=== PATIENT | male | born 1970 | race Caucasian/White ===

== ENCOUNTER 2020-05-24 10:37 | Inpatient (IN) ==
[2020-05-24 12:36] LABS: Basophils # (auto) 0.01 K/uL (0-0.2); Basophils % (auto) 0.1 %; Eosinophils # (auto) 0.27 K/uL (0-0.5); Eosinophils % (auto) 3.4 %; Immature Granulocytes # (auto) 0.11 K/uL (0.00-0.02); Immature Granulocytes % (auto) 1.4 %; Lymphocytes # (auto) 1.71 K/uL (1.2-3.4); Lymphocytes % (auto) 21.3 %; Mean Corpuscular Hemoglobin 30.6 pg (25-34); Mean Corpuscular Hgb Conc 34.9 g/dL (32-36); Mean Corpuscular Volume 87.8 fL (80-100); Monocytes # (auto) 0.96 K/uL (0.11-0.59); Neutrophils # (auto) 4.95 K/uL (1.4-6.5); Neutrophils % (auto) 61.8 %; Platelet Count 155 K/uL (130-400); White Blood Count 8.01 K/uL (4.8-10.8)
[2020-05-24 12:49] LABS: Alanine Aminotransferase 76 U/L (12-78); Albumin Globulin Ratio 0.5 (0.9-2); Albumin Level 2.8 gm/dl (3.4-5.0); Alkaline Phosphatase 104 U/L (45-117); Aspartate Aminotransferase 37 U/L (15-37); BUN Creatinine Ratio 17.7 (10-20); Beta-Hydroxybutyrate 1.15 mg/dl (0.2-2.81); Bilirubin,Total 0.9 mg/dl (0.2-1); Blood Urea Nitrogen 51 mg/dl (7-18); Calcium 9.4 mg/dl (8.5-10.1); Carbon Dioxide 19 mmol/L (21-32); Chloride 92 mmol/L (98-107); Creatinine Clr Calc Pharmacy 35.1 ml/min; Est GFR (African American) 28.1; Est GFR (Non-African American) 24.3; Glucose 758 mg/dl (70-99); Lipase 745 U/L (73-393); Magnesium 2.4 mg/dl (1.8-2.4); Potassium 4.9 mmol/L (3.5-5.1); Sodium 123 mmol/L (136-145); Total Protein 8.8 gm/dl (6.4-8.2)
[2020-05-24 12:52] LABS: Appearance Urine Clear (Clear); Bacteria Urine Automated Negative (Negative); Bilirubin Urine Negative (Negative); Blood Urine Negative (Negative); Color Urine Yellow; Epithelial Cell Urine Auto 0-5 /lpf (0-5); Glucose Urine UA 3+ (Negative); Ketones Urine Negative (Negative); Leukocyte Esterase Urine Negative (Negative); Nitrite Urine Negative (Negative); Protein Urine Trace (Negative); RBC Urine Automated 0-4 /hpf (0-4); Specific Gravity Urine 1.021 (1.000-1.030); Urobilinogen Urine Negative (Negative); WBC Urine Automated 0 /hpf (0-5)
[2020-05-24 12:55] LABS: Troponin I < 0.015 ng/ml (0-0.045)
[2020-05-24 13:00] LABS: Base Excess VBG -2.2 mEq/L; HCO3 VBG 24 mmol/L; Oxygen Saturation VBG < 60.0 %; PCO2 VBG 46 mmHg (38-50); PO2 VBG 30 mmHg; pH VBG 7.34 (7.36-7.41)
[2020-05-24] MEDS: NICOTINE 21 MG/24 HR TDSY TD SCH (13:02)
[2020-05-24] MEDS: SODIUM CHLORIDE 0.9% 1000ML 1,000 ML IV SCH ×2 (13:02→14:46)
[2020-05-24] MEDS ORDERED: MODERATE STRESS LEVEL ONE ×2 (13:27→15:59)
[2020-05-24 13:47] LABS: Estimated Average Glucose 375 mg/dl; Hemoglobin A1C 14.7 % (4.5-5.6)
[2020-05-24] MEDS ORDERED: HHS GOAL RANGE 250-350 mg/dl ONE (13:57)
[2020-05-24] MEDS ORDERED: NovoLIN-R BOLUS FROM BAG IV ONE (13:59)
[2020-05-24] MEDS ORDERED: GLUCOSE 10 TABS/TUBE PO PRN ×2 (14:15→15:59)
[2020-05-24] MEDS ORDERED: GLUCOSE 40% GEL 15 GM TUBE PO PRN ×2 (14:15→15:59)
[2020-05-24] MEDS ORDERED: CARBOHYDRATES FOR HYPOGLYCEMIA PO PRN ×2 (14:15→15:59)
[2020-05-24] MEDS ORDERED: GLUCAGON FOR INJ 1 MG VIAL IM PRN (14:15)
--- NOTE | 2020-05-24 14:42 | Emergency Department Note ---
History of Present Illness General Chief complaint: Hyperglycemia Stated complaint: LIGHTHEADED DIZZY History of Present Illness Maximum Pain Intensity: 0 This is a 50-year-old male presenting to the emergency department for evaluation of lightheadedness and dizziness. The patient has a history of type 2 diabetes and is on insulin. Evidently he takes his insulin once at night, despite his prescription needing double that amount. Up until 1 month ago the patient was drinking 6-10 beers a day. He describes having surgical removal of a right buttocks cyst 1 month ago, and after the procedure had difficulty sitting for long periods of time. The patient states that his diet actually improved as he was not comfortable sitting in the car to drive and get fast food. He also did not drive to get alcohol, and essentially quit cold turkey. For the past week he has had significant thirst and is urinating large amounts every hour. His home glucometer broke, and he is not able to check his insulin numbers. He does have some fuzziness with distance vision and lightheadedness with walking. He states this is interfering with his life, and he feels this is all his fault. The patient rates his current discomfort a 0/10, and does express a desire to get better. Home Medications Home Medications Medication Instructions Recorded Confirmed Type cholecalciferol (vitamin D3) 50 2,000 units PO DAILY #30 cap 02/23/19 05/24/20 Rx mcg (2,000 unit) capsule amlodipine 10 mg tablet 10 mg PO DAILY #90 tab 11/11/19 05/24/20 Rx furosemide 80 mg tablet 80 mg PO DAILY #90 tab 11/11/19 05/24/20 Rx metoprolol succinate 100 mg 100 mg PO DAILY #90 tab 11/11/19 04/21/20 Rx tablet,extended release 24 hr pen needle, diabetic 32 gauge x #200 ea 11/11/19 04/21/20 Rx 5/32" blood-glucose meter #1 ea 11/19/19 04/21/20 Rx blood-glucose meter #1 ea 11/19/19 04/21/20 Rx losartan 100 mg tablet 100 mg PO DAILY #90 tab 11/19/19 05/24/20 Rx insulin glargine 100 unit/mL (3 54 units SQ BID #45 ml 12/14/19 05/24/20 Rx mL) subcutaneous pen atorvastatin 40 mg tablet 40 mg PO QPM #90 tab 02/09/20 05/24/20 Rx canagliflozin 100 mg tablet 100 mg PO DAILY #30 tab 05/05/20 05/24/20 Rx spironolactone 25 mg tablet 25 mg PO DAILY #30 tab 05/05/20 Rx aspirin [Aspirin Low Dose] 81 mg PO QAM 05/24/20 05/24/20 History Allergies Allergy/AdvReac Type Severity Reaction Status Date / Time No Known Allergies Allergy Verified 05/24/20 14:25 Past Med/Surg History Medical History Alcohol abuse Anejaculatory orgasm Diabetes mellitus Dyspnea on minimal exertion Psoriasis Smokeless tobacco use Umbilical hernia Uncontrolled hypertension Vitamin D insufficiency Surgical History No pertinent past surgical history Family History Father Cardiac disorder Hypertension Grandfather Cardiac disorder Grandmother Breast cancer Social History Smoking Status: Never smoker Second Hand Exposure: No; Hx Alcohol Use: Yes Alcohol type: beer Alcohol Intake Frequency Comment: [id number] Hx Substance Use: No Preferred Language: Guamanian Communication Ability: Effective Visual Impairment: No Limitations Hearing Ability: Normal Beliefs That Will Affect Care: None marital status: Legally Current Living Situation: Parent Current Living Situation Comment: LIVES WITH FATHER current occupational status: unemployed Feels Safe at Home: Yes Childhood Exposure to Second-Hand Smoke: Yes caffeine: Yes (mt dew) during the past year weight has: increased > 10 lbs Dental Care, Regularly: No Physical Activity Frequency: Does not Exercise Seatbelt Use: always Sunscreen Use: No Review of Systems A total of 10 systems reviewed and were otherwise negative Physical Exam Vital Signs Vital Signs - 24 hr 05/24/20 10:51 05/24/20 11:23 05/24/20 11:25 Temperature 36.7 C Temperature Source Oral Pulse Rate - Lying 99 H Pulse Rate - Sitting 102 H Pulse Rate - Standing 106 H Pulse Rate 105 H Pulse Rate [Left Finger] Respiratory Rate 16 Blood Pressure - Lying 149/92 H Blood Pressure - Sitting 136/96 Blood Pressure- Standing 105/69 Blood Pressure 103/72 Blood Pressure [Left Arm] Blood Pressure Mean 82 Blood Pressure Mean [Left Arm] Pulse Oximetry 98 98 Oxygen Delivery Method Room Air Sepsis Recent Fever Within 48 Hours No Sepsis New/Unexplained Change in Mental Status No Sepsis Action Taken by Nursing No Action Required 05/24/20 12:57 05/24/20 13:44 05/24/20 14:48 Temperature Temperature Source Pulse Rate - Lying Pulse Rate - Sitting Pulse Rate - Standing Pulse Rate Pulse Rate [Left Finger] 94 H 90 88 Respiratory Rate 22 20 20 Blood Pressure - Lying Blood Pressure - Sitting Blood Pressure- Standing Blood Pressure Blood Pressure [Left Arm] 122/77 126/79 150/89 H Blood Pressure Mean Blood Pressure Mean [Left Arm] 92 94 109 Pulse Oximetry 97 99 99 Oxygen Delivery Method Room Air Room Air Room Air Sepsis Recent Fever Within 48 Hours Sepsis New/Unexplained Change in Mental Status Sepsis Action Taken by Nursing VITALS: Vitals are noted on the nurse's note and reviewed by myself. Vital signs stable. GENERAL: Well-developed, well-nourished, white male, who is in no acute distress and resting comfortably. Patient is cooperative with the examination. HEAD: Normocephalic atraumatic. NOSE: Patent, turbinates without inflammation or discharge. MOUTH: Mucous membranes dry. Tonsils are not enlarged. Pharynx without erythema, blood, or exudate. Uvula midline. Airway patent. NECK: Supple without nuchal rigidity. No lymphadenopathy. No thyromegaly. Cervical spine is nontender. HEART: Regular rate and rhythm without murmurs gallops or rubs. LUNGS: Clear to auscultation bilaterally without wheezes, rales or rhonchi. No retractions or accessory muscle use. ABDOMEN: Positive normal bowel sounds x 4. Soft, nontender, without masses or organomegaly. No guarding or rebound tenderness. MUSCULOSKELETAL: No muscle atrophy, erythema, or edema noted. Full range of motion in all extremities. NEURO: Patient was alert and oriented to person place and time. CN II through XII grossly intact. SKIN: The skin was with mild scattered pustules on the back of the neck and into the back of the chest Course Administered Medications Insulin Human Regular 250 (units/ Sodium Chloride) 250 mls @ 9.7 mls/hr IV .Q24H [facility]; Protocol Stop: 06/23/20 13:59 Last Admin: 05/24/20 14:43 Dose: 9.7 units/hr, 9.7 mls/hr Documented by: [id number] Cosigned by: [id number] Nicotine (Nicotine 21 Mg/24 Hr Tdsy) 21 mg TD QAM ANIL Stop: 06/23/20 12:44 Last Admin: 05/24/20 13:02 Dose: Not Given Documented by: [id number] Discontinued Medications Sodium Chloride (Nss 1000ml) 1,000 mls @ 999 mls/hr IV .Q1H1M ANIL Stop: 05/24/20 14:21 Last Admin: 05/24/20 14:46 Dose: 999 mls/hr Documented by: [id number] Infusion: 05/24/20 14:00 Dose: 0 mls/hr Documented by: [id number] Admin: 05/24/20 13:02 Dose: 999 mls/hr Documented by: [id number] Insulin Human Regular (Novolin-R Bolus From Bag) 9.7 units IV ONE ONE Stop: 05/24/20 14:00 Last Admin: 05/24/20 14:45 Dose: 9.7 units Documented by: [id number] Cosigned by: [id number] Miscellaneous ([facility] Goal Range 250-350 Mg/Dl) 1 ea N/A ONE ONE Stop: 05/24/20 13:58 Last Admin: 05/24/20 14:46 Dose: Not Given Documented by: [id number] Critical Care Time I have personally spent greater than 30 minutes of critical care time in the direct management of this patient. This includes bedside care, interpretation of diagnostic studies, and testing, discussion with consultants, patient, and family members, and other required patient management activities. This 30 minutes is in excess of all separately billable procedures. Medical Decision Making Differential Diagnosis Differential includes DKA, HH NK, acute coronary syndrome, myocardial infa rction, CVA, TIA, anemia, infection, pneumonia, UTI, pyelonephritis, poor nutrition, dehydration, electrolyte disturbance,hypoglycemia. Laboratory Data Result diagrams: 05/24/20 11:15 05/24/20 11:15 Lab Results 05/24/20 05/24/20 05/24/20 Range/Units 11:06 11:07 11:15 WBC 8.01 (4.8-10.8) K/uL RBC 4.90 (4.7-6.1) M/uL Hgb 15.0 (14.0-18.0) g/dL Hct 43.0 (42-52) % MCV 87.8 (80-100) fL MCH 30.6 (25-34) pg MCHC 34.9 (32-36) g/dL Plt Count 155 (130-400) K/uL Immature Gran % (Auto) 1.4 % Neut % (Auto) 61.8 % Lymph % (Auto) 21.3 % [place] % (Auto) 12.0 % Eos % (Auto) 3.4 % Baso % (Auto) 0.1 % Neut # (Auto) 4.95 (1.4-6.5) K/uL Lymph # (Auto) 1.71 (1.2-3.4) K/uL [place] # (Auto) 0.96 H (0.11-0.59) K/uL Eos # (Auto) 0.27 (0-0.5) K/uL Baso # (Auto) 0.01 (0-0.2) K/uL Immature Gran # (Auto) 0.11 H (0.00-0.02) K/uL VBG pH (7.36-7.41) VBG pCO2 (38-50) mmHg VBG pO2 mmHg VBG HCO3 mmol/L VBG O2 Saturation % VBG Base Excess mEq/L Barometric Pressure mm/Hg Sodium (136-145) mmol/L Potassium (3.5-5.1) mmol/L Chloride (98-107) mmol/L Carbon Dioxide (21-32) mmol/L Anion Gap (3-11) BUN (7-18) mg/dl Creatinine (0.6-1.4) mg/dl Est Cr Clr Drug Dosing ml/min Est GFR ( Amer) Est GFR (Non-Af Amer) BUN/Creatinine Ratio (10-20) Glucose (70-99) mg/dl POC Glucose > 600 H* > 600 H* (70-99) mg/dl Estimat Average Glucose mg/dl Hemoglobin A1c (4.5-5.6) % Calcium (8.5-10.1) mg/dl Magnesium (1.8-2.4) mg/dl Total Bilirubin (0.2-1) mg/dl AST (15-37) U/L ALT (12-78) U/L Alkaline Phosphatase (45-117) U/L Troponin I (0-0.045) ng/ml Total Protein (6.4-8.2) gm/dl Albumin (3.4-5.0) gm/dl Globulin (2.5-4.0) gm/dl Albumin/Globulin Ratio (0.9-2) Lipase (73-393) U/L Beta-Hydroxybutyric Acd (0.2-2.81) mg/dl TSH (0.300-4.500) uIu/ml Urine Color Urine Appearance (Clear) Urine pH (4.5-7.5) Ur Specific [place] (1.000-1.030) Urine Protein (Negative) Urine Glucose (UA) (Negative) Urine Ketones (Negative) Urine Blood (Negative) Urine Nitrite (Negative) Urine Bilirubin (Negative) Urine Urobilinogen (Negative) Ur Leukocyte Esterase (Negative) Urine WBC (Auto) (0-5) /hpf Urine RBC (Auto) (0-4) /hpf U Hyaline Cast (Auto) (0-5) /lpf U Epithel Cells (Auto) (0-5) /lpf Urine Bacteria (Auto) (Negative) 05/24/20 05/24/20 05/24/20 Range/Units 11:15 11:15 12:40 WBC (4.8-10.8) K/uL RBC (4.7-6.1) M/uL Hgb (14.0-18.0) g/dL Hct (42-52) % MCV (80-100) fL MCH (25-34) pg MCHC (32-36) g/dL Plt Count (130-400) K/uL Immature Gran % (Auto) % Neut % (Auto) % Lymph % (Auto) % [place] % (Auto) % Eos % (Auto) % Baso % (Auto) % Neut # (Auto) (1.4-6.5) K/uL Lymph # (Auto) (1.2-3.4) K/uL [place] # (Auto) (0.11-0.59) K/uL Eos # (Auto) (0-0.5) K/uL Baso # (Auto) (0-0.2) K/uL Immature Gran # (Auto) (0.00-0.02) K/uL VBG pH (7.36-7.41) VBG pCO2 (38-50) mmHg VBG pO2 mmHg VBG HCO3 mmol/L VBG O2 Saturation % VBG Base Excess mEq/L Barometric Pressure mm/Hg Sodium 123 L (136-145) mmol/L Potassium 4.9 (3.5-5.1) mmol/L Chloride 92 L (98-107) mmol/L Carbon Dioxide 19 L (21-32) mmol/L Anion Gap 12.0 H (3-11) BUN 51 H (7-18) mg/dl Creatinine 2.87 H (0.6-1.4) mg/dl Est Cr Clr Drug Dosing 35.1 ml/min Est GFR ( Amer) 28.1 Est GFR (Non-Af Amer) 24.3 BUN/Creatinine Ratio 17.7 (10-20) Glucose 758 H* (70-99) mg/dl POC Glucose (70-99) mg/dl Estimat Average Glucose 375 mg/dl Hemoglobin A1c 14.7 H (4.5-5.6) % Calcium 9.4 (8.5-10.1) mg/dl Magnesium 2.4 (1.8-2.4) mg/dl Total Bilirubin 0.9 (0.2-1) mg/dl AST 37 (15-37) U/L ALT 76 (12-78) U/L Alkaline Phosphatase 104 (45-117) U/L Troponin I < 0.015 (0-0.045) ng/ml Total Protein 8.8 H (6.4-8.2) gm/dl Albumin 2.8 L (3.4-5.0) gm/dl Globulin 6.0 H (2.5-4.0) gm/dl Albumin/Globulin Ratio 0.5 L (0.9-2) Lipase 745 H (73-393) U/L Beta-Hydroxybutyric Acd 1.15 (0.2-2.81) mg/dl TSH 2.830 (0.300-4.500) uIu/ml Urine Color Yellow Urine Appearance Clear (Clear) Urine pH 5.0 (4.5-7.5) Ur Specific [place] 1.021 (1.000-1.030) Urine Protein Trace H (Negative) Urine Glucose (UA) 3+ H (Negative) Urine Ketones Negative (Negative) Urine Blood Negative (Negative) Urine Nitrite Negative (Negative) Urine Bilirubin Negative (Negative) Urine Urobilinogen Negative (Negative) Ur Leukocyte Esterase Negative (Negative) Urine WBC (Auto) 0 (0-5) /hpf Urine RBC (Auto) 0-4 (0-4) /hpf U Hyaline Cast (Auto) 1-5 (0-5) /lpf U Epithel Cells (Auto) 0-5 (0-5) /lpf Urine Bacteria (Auto) Negative (Negative) 05/24/20 Range/Units 12:44 WBC (4.8-10.8) K/uL RBC (4.7-6.1) M/uL Hgb (14.0-18.0) g/dL Hct (42-52) % MCV (80-100) fL MCH (25-34) pg MCHC (32-36) g/dL Plt Count (130-400) K/uL Immature Gran % (Auto) % Neut % (Auto) % Lymph % (Auto) % [place] % (Auto) % Eos % (Auto) % Baso % (Auto) % Neut # (Auto) (1.4-6.5) K/uL Lymph # (Auto) (1.2-3.4) K/uL [place] # (Auto) (0.11-0.59) K/uL Eos # (Auto) (0-0.5) K/uL Baso # (Auto) (0-0.2) K/uL Immature Gran # (Auto) (0.00-0.02) K/uL VBG pH 7.34 L (7.36-7.41) VBG pCO2 46 (38-50) mmHg VBG pO2 30 mmHg VBG HCO3 24 mmol/L VBG O2 Saturation < 60.0 % VBG Base Excess -2.2 mEq/L Barometric Pressure 733.6 mm/Hg Sodium (136-145) mmol/L Potassium (3.5-5.1) mmol/L Chloride (98-107) mmol/L Carbon Dioxide (21-32) mmol/L Anion Gap (3-11) BUN (7-18) mg/dl Creatinine (0.6-1.4) mg/dl Est Cr Clr Drug Dosing ml/min Est GFR ( Amer) Est GFR (Non-Af Amer) BUN/Creatinine Ratio (10-20) Glucose (70-99) mg/dl POC Glucose (70-99) mg/dl Estimat Average Glucose mg/dl Hemoglobin A1c (4.5-5.6) % Calcium (8.5-10.1) mg/dl Magnesium (1.8-2.4) mg/dl Total Bilirubin (0.2-1) mg/dl AST (15-37) U/L ALT (12-78) U/L Alkaline Phosphatase (45-117) U/L Troponin I (0-0.045) ng/ml Total Protein (6.4-8.2) gm/dl Albumin (3.4-5.0) gm/dl Globulin (2.5-4.0) gm/dl Albumin/Globulin Ratio (0.9-2) Lipase (73-393) U/L Beta-Hydroxybutyric Acd (0.2-2.81) mg/dl TSH (0.300-4.500) uIu/ml Urine Color Urine Appearance (Clear) Urine pH (4.5-7.5) Ur Specific [place] (1.000-1.030) Urine Protein (Negative) Urine Glucose (UA) (Negative) Urine Ketones (Negative) Urine Blood (Negative) Urine Nitrite (Negative) Urine Bilirubin (Negative) Urine Urobilinogen (Negative) Ur Leukocyte Esterase (Negative) Urine WBC (Auto) (0-5) /hpf Urine RBC (Auto) (0-4) /hpf U Hyaline Cast (Auto) (0-5) /lpf U Epithel Cells (Auto) (0-5) /lpf Urine Bacteria (Auto) (Negative) ECG Data Attestation: I personally reviewed and interpreted this ECG as follows: Indication: + other (Dizzy) Additional Comments: Sinus tachycardia @[address] elevation Left axis deviation No previous ECGs available MDM Narrative Physical exam and history were performed. Nursing notes, EMR, and Medication List were personally reviewed. Patient appears to have lightheadedness and dizziness. Bedside glucose was performed and was greater than 600. IV access was established and labs were obtained. VBG was gathered. The patient was hydrated with 2 L normal saline. EKG is as above. An order was placed for continuous cardiac monitoring. The monitor shows a rate of 95 with normal sinus rhythm. The patient's blood work is as above and was reviewed. He does not have a significantly elevated white blood cell count or gross anemia. His glucose is markedly elevated at 758. BUN and creatinine are also elevated from his baseline at 51 and 2.87 respectively. Hemoglobin A1c is 14.7. Troponin x1 is negative. He does have a slightly elevated lipase of 745, but does not have a bdominal pain on exam. TSH shows euthyroid state. 3+ glucose is noted in the urine. Beta hydroxy is normal at 1.15. He is slightly acidotic on VBG at 7.34. Sodium is 123. Potassium 4.9. Overall the patient's findings are very concerning. He is hyperglycemic with normal ketones. He appears to be dehydrated with some acute kidney injury. His sodium is at 123 and he did receive 2 L of normal saline here in the ER. Out of concern for his symptoms the patient was started on an IV insulin drip. He does not appear well for discharge home. The case was discussed with both my attending and with the on-call hospitalist. Please see the hospitalist dictation for further patient course, plan, and disposition. The chart was completed utilizing [employer] Speech Voice Recognition Software. Grammatical errors, random word insertions, pronoun errors, and incomplete sentences are an occasional consequence of this system due to software limitations, ambient noise, and hardware issues. Any formal questions or concerns about the content, text, or information contained within the body of th is dictation should be directly addressed to the provider for clarification. . Impression & Plan Hyperglycemic crisis in diabetes mellitus, Acute kidney injury, Acute dehydration, Acute hyponatremia Discharge Plan Visit Data Chief Complaint: Hyperglycemia Stated Complaint: LIGHTHEADED DIZZY ED Provider: Antwon Beckman ED Midlevel Provider: Saurabh Baxter Discharge Problem: Hyperglycemic crisis in diabetes mellitus, Acute kidney injury, Acute dehydration, Acute hyponatremia Forms Stand Alone Forms: My [facility] [place] [employer] Prescriptions Prescriptions: No Action cholecalciferol (vitamin D3) 2,000 unit capsule 2,000 units PO DAILY Qty: 30 RF: 0 amlodipine 10 mg tablet 10 mg PO DAILY Qty: 90 RF: 1 furosemide 80 mg tablet 80 mg PO DAILY Qty: 90 RF: 1 metoprolol succinate 100 mg tablet extended release 24 hr 100 mg PO DAILY Qty: 90 RF: 1 (DME) pen needle, diabetic [ReliOn Pen Mellen] 32 gauge x 5/32" needle See Dose Instructions .ROUTE .MEDSUPPLY Qty: 200 RF: 1 Lantus Solostar U-100 Insulin 100 unit/mL (3 mL) insulin pen 54 units SQ BID Qty: 45 RF: 1 Invokana 100 mg tablet 100 mg PO DAILY Qty: 30 RF: 2 spironolactone 25 mg tablet 25 mg PO DAILY Qty: 30 RF: 2 atorvastatin 40 mg tablet 40 mg PO QPM Qty: 90 RF: 2 losartan 100 mg tablet 100 mg PO DAILY Qty: 90 RF: 3 (DME) blood-glucose meter [Blood Glucose Monitoring] Kit See Rx Instructions .ROUTE .MEDSUPPLY Qty: 1 RF: 0 (DME) blood-glucose meter Kit See Dose Instructions .ROUTE .MEDSUPPLY Qty: 1 RF: 0 aspirin [Aspirin Low Dose] 81 mg tablet,delayed release (DR/EC) 81 mg PO QAM RF: 0 Referrals Referrals: John Barber CRNP [Primary Care Provider] -
[2020-05-24] MEDS: INSULIN REGULAR 250 UNITS in SODIUM CHLORIDE 0.9% 247.5 ML IV SCH (14:43)
[2020-05-24] MEDS ORDERED: DC ALL PREVIOUSLY ORDERED DIABETES MEDS ONE (15:59)
[2020-05-24] MEDS ORDERED: DEXTROSE 50% 50 ML SYRINGE IV PRN (15:59)
[2020-05-24] MEDS ORDERED: INSULIN REGULAR 250 UNITS in SODIUM CHLORIDE 0.9% 247.5 ML IV SCH (15:59)
[2020-05-24] MEDS ORDERED: GLUCAGON FOR INJ 1 MG VIAL SQ PRN (15:59)
[2020-05-24] MEDS ORDERED: ED DKA INSULIN DRIP ONE (15:59)
[2020-05-24] MEDS ORDERED: ONDANSETRON INJ 2 MG/ML 2 ML VIAL IV PRN (15:59)
[2020-05-24] MEDS ORDERED: INSULIN PROTOCOL GOAL RANGE ONE (15:59)
[2020-05-24] MEDS ORDERED: ACETAMINOPHEN 325 MG TAB PO PRN (15:59)
--- NOTE | 2020-05-24 16:02 | History & Physical Report ---
Date of Service May 24, 2020 Assessment & Plan (1) Hyperglycemic crisis in diabetes mellitus: Patient unsure if he is type I or type II diabetic. Diagnosed in his early to mid 20s. Never on an insulin pump. Glucometer is broken and he has not had interest in checking his sugars at home Presented today because of blurry vision Random glucose was 758 mg/Yarelis We will start insulin drip BSG every 1 hour until stable N.p.o. for now Anion gap is 12 Monitor serial labs Diabetic education consult placed Glycemic consult placed with pharmacy Admit to PCU telemetry floor for monitoring (2) Acute kidney injury: Creatinine 2.87 with sodium level of 123 Most recent sodium level 11/19/2019 was 132 Most likely due to diabetes mellitus as patient continues to drink copious amounts of water N.p.o. except for ice chips and sips Check repeat labs this evening Follow daily PRP (3) Dyspnea on minimal exertion: Smokeless tobacco use but no cigarette usage Denies previous history of pulmonary disease Patient does have an elevated proBNP and uncontrolled hypertension Check echocardiogram Recently started on furosemide at home -we will hold this for now and follow clinically SaO2 100% on room air and drops to 96% with conversation Auscultation of lungs is clear bilaterally (4) Uncontrolled hypertension: Currently with a systolic blood pressure of 126 Home medications include furosemide 80 mg daily, Spironolactone 25 mg daily, amlodipine 10 mg daily, losartan 100 mg daily, Toprol-XL 100 mg daily We will check echocardiogram in May consider cardiology consult as patient will be noncompliant most likely on discharge At this point will continue outpatient medications and monitor on telemetry (5) Acute hyponatremia: Most likely secondary to patient's ingestion of water due to elevated sugars over last several days Will make patient n.p.o. and check repeat PRP later today and then daily (6) History of alcohol abuse: Patient reports that his last drink was at the end of March Previous was drinking 6-12 beers daily Patient reports no history of inpatient rehab in the past Monitor clinically (7) Gluteal abscess: I&D 04/17/2020 Area still open but not draining Completed course of Augmentin and doxycycline 05/02/2020 No evidence of cellulitis or infection at this time No induration WOCN nurse consult requested Discussed need for better compliance with diabetes for wound healing Check a procalcitonin No leukocytosis or fever (8) DVT prophylaxis: SCDs SHELBIE naik Enoxaparin 30 mg subcutaneously daily Ambulate as tolerated in the hallways Admission and Anticipated Discharge Date Admission Date: May 24, 2020 History of Present Illness Primary Care Provider: ASHLEE Zavala Attending: Dr. Perez This is a 50-year-old male with a past medical history of poorly controlled diabetes mellitus type 2, history of alcohol abuse, smokeless tobacco use, poorly controlled hypertension, vitamin D insufficiency, slow healing right buttock wound, obesity. The patient presented the emergency department on 04/17/2020 with a right buttock abscess. An I&D was performed and out Scha[place] (Actino) turicensis and Prevotella bivia. The patient was placed on Augmentin and doxycycline by his primary care provider. Antibiotics were to be continued through May 02, 2020 the patient continues to have an open area that is nondraining but is slow to heal. Patient states it is irritating but is nonpainful but he notices it when he sits. He denies any fever or chills. He has no diaphoresis. He has no chest pain or tightness. He has no shortness of breath. The patient presents today secondary to blurred vision. He has not been managing his sugars and in fact states that his glucometer is broken. He does report taking his Lantus in the morning as well as his Canagliflozin but states he does not check his sugars for the rest of the day. Aside from his blurred vision he also has peripheral neuropathy and has minimal feeling in his feet and toes. There are some callused areas but no tissue breakdown between the toes or on the balls of the feet. He does have acne vulgaris on his back with no evidence of open areas. And as previously mentioned he has an open area that is approximately 1 cm on his right gluteus. The patient has no other acute comp laints. He does state that he cares about his diabetes at this point and would like help with better management. The patient has not had any ethanol since April 17, 2020. He does continue to use smokeless tobacco and goes through 2 or 3 cans/week. He is currently unemployed and lives with his father. He is and has one 17-year-old son whom he is close to. He denies any other substance abuse. He does report taking his medications this morning but cannot name his meds and is unable to tell me if he has a type I or type 2 diabetes mellitus. He states he was diagnosed with diabetes in his early to mid 20s but can give me no other history. Allergies Allergy/AdvReac Type Severity Reaction Status Date / Time No Known Allergies Allergy Verified 05/24/20 14:25 Home Medications Home Medications Medication Instructions Recorded Confirmed Type cholecalciferol (vitamin D3) 50 2,000 units PO DAILY #30 cap 02/23/19 05/24/20 Rx mcg (2,000 unit) capsule amlodipine 10 mg tablet 10 mg PO DAILY #90 tab 11/11/19 05/24/20 Rx furosemide 80 mg tablet 80 mg PO DAILY #90 tab 11/11/19 05/24/20 Rx metoprolol succinate 100 mg 100 mg PO DAILY #90 tab 11/11/19 05/24/20 Rx tablet,extended release 24 hr pen needle, diabetic 32 gauge x #200 ea 11/11/19 04/21/20 Rx 5/32" blood-glucose meter #1 ea 11/19/19 04/21/20 Rx blood-glucose meter #1 ea 11/19/19 04/21/20 Rx losartan 100 mg tablet 100 mg PO DAILY #90 tab 11/19/19 05/24/20 Rx insulin glargine 100 unit/mL (3 54 units SQ BID #45 ml 12/14/19 05/24/20 Rx mL) subcutaneous pen atorvastatin 40 mg tablet 40 mg PO QPM #90 tab 02/09/20 05/24/20 Rx canagliflozin 100 mg tablet 100 mg PO DAILY #30 tab 05/05/20 05/24/20 Rx spironolactone 25 mg tablet 25 mg PO DAILY #30 tab 05/05/20 05/24/20 Rx aspirin [Aspirin Low Dose] 81 mg PO QAM 05/24/20 05/24/20 History Past Med/Surg History Medical History (Updated 05/24/20 @ 15:59 by Diego Howard PA-C) Anejaculatory orgasm Diabetes mellitus Dyspnea on minimal exertion Gluteal abscess History of alcohol abuse Psoriasis Smokeless tobacco use Umbilical hernia Uncontrolled hypertension Vitamin D insufficiency Surgical History No pertinent past surgical history Family History Father Cardiac disorder Hypertension Grandfather Cardiac disorder Grandmother Breast cancer Social History Smoking Status: Never smoker Second Hand Exposure: No; Do You Dip or Chew Tobacco: Yes; Tobacco Cessation Education Requested by Patient: No Hx Alcohol Use: No Hx Substance Use: No Preferred Language: [place] Communication Ability: Effective Visual Impairment: No Limitations Hearing Ability: Normal Storage Administrator Required: No Beliefs That Will Affect Care: None marital status: Legally Current Living Situation: Parent Current Living Situation Comment: LIVES WITH FATHER current occupational status: unemployed Other Information That Helps Us Care for You: No Feels Safe at Home: Yes Safety Concerns: Feels Safe At This Time Childhood Exposure to Second-Hand Smoke: Yes caffeine: Yes (mt dew) during the past year weight has: increased > 10 lbs Dental Care, Regularly: No Physical Activity Frequency: Does not Exercise Seatbelt Use: always Sunscreen Use: No Review of Systems Review of Systems: All systems reviewed & are unremarkable except as noted in HPI & below Physical Exam Physical Exam: GENERAL : No acute distress EYES: No icterus, gaze conjugate. Pupils equal round and reactive to light NOSE: No evidence of epistaxis. MOUTH: No lesions or candidiasis. Mucosa is moist NECK: Supple. No appreciation of stridor or bruits LUNGS: CTA B/L, no wheezes, rales or rhonchi. Good inspiratory effort HEART: Regular, rate controlled. No appreciation of murmurs gallops or rubs ABDOMEN: Soft, NT, ND, BS Present. No guarding or rebound tenderness EXTREMITIES: No LE edema, pedal pulses intact and equal bilaterally. There is no tissue breakdown between toes. There is some callusing on the balls of the feet but no evidence of breakdown of tissue. NEURO: A&OX3. Sensation to bilateral feet and toes is minimal but appreciable. Toes are downgoing bilaterally. Cranial nerves II through XII are otherwise grossly intact. Results & Data Results & Data ([facility]) Vital Signs (Past 12 Hours) Vital Signs Temp Pulse Pulse Resp BP BP Pulse Ox 05/24/20 14:48 88 20 150/89 H 99 05/24/20 13:44 90 20 126/79 99 05/24/20 12:57 94 H 22 122/77 97 05/24/20 11:23 98 05/24/20 10:51 36.7 C 105 H 16 103/72 98 Laboratory Results 05/24/20 11:15 05/24/20 11:15 Diagnostic Findings No diagnostic imaging is been acquired ECG Additional Comments: EKG 05/24/2020 at 11 AM Vent. rate 102 BPM VA interval 172 ms QRS duration 94 ms QT/QTc 346/450 ms P-R-T axes 69 -63 63 Sinus tachycardia Left axis deviation Abnormal ECG No previous ECGs available Code Status & VTE Plan Code Status Level 1 full resuscitation VTE Prophylaxis Plan VTE Prophylaxis will be ordered: Yes Critical Care Time Critical Care Time: Yes Total Critical Care Time: 40 Patient with severe hyperglycemia at risk for diabetic ketoacidosis Supervising Physician Co-Signing Physician Notes I personally saw and examined the patient. I verified all torres points and agree with RENATA Howard with the following exceptions and/or additions: 50-year-old male with noncompliance to insulin regimen. Lightheadedness and dizziness but no real altered mental status to suggest HHS. No ketoacidosis to suggest DKA O/E Chest CTAB, HS 1+2 (quiet), no murmur, Abdo SNT, no CVA tenderness A/P Hyperglycemia - agree with insulin drip as above with elevated aim to avoid rapid overcorrection of hyponatremia, monitor electrolytes closely. Acute hyponatremia -secondary to hypovolemic state with Lasix use, excessive free water intake, hyperglycemia. Aim < 8 meq correction in 24 hours. MAYELIN - suspect combination of prerenal from dehydration due to osmotic diuresis and diuretics in addition to acute on chronic diabetic nephropathy given prior proteinuria. Continue IV fluids as above. Blurred vision - appears mostly his long distance vision (known myopia on last ophthalmology note, unclear if he ever got new glasses). Known hypertensive retinopathy from prior ophthalmology note in October. Progressively worse over the last month. No pain, acute vision loss, red hue, sudden flashes or floaters to suggest need for urgent ophthalmology consult. Hypertension - agree with holding diuretics at this time. Continue amlodipine, losartan, metoprolol. PG Care Time/CCT Total # of Minutes Spent Total Time Spent with Patient: Total time spent is greater than 50% in coordination of care (as documented) at patient's floor/unit and/or counseling patient: 40 minutes Critical Care Time: Yes Total Critical Care Time: 40 [place] [address] Initial Inpt Care Lvl 3 Patient Type New Medical Decision Making High Complexity Diagnoses Hyperglycemic crisis in diabetes mellitus E11.65 Acute kidney injury N17.9 Dyspnea on minimal exertion R06.09 Uncontrolled hypertension I10 Acute hyponatremia E87.1 History of alcohol abuse F10.11 Gluteal abscess L02.31 DVT prophylaxis Z29.9 Additional Codes Critical Care Time - Critical Care Time: Yes ([id number]) Time Spent (min) 40
[2020-05-24] MEDS ORDERED: INSULIN ASPART 100 UNITS/ML 3 ML PEN SC SCH ×2 (16:30)
[2020-05-24] MEDS ORDERED: PHARMACY GLYCEMIC MGMT CONSULT PRN (16:32)
[2020-05-24 16:39] LABS: Basophils # (auto) 0.02 K/uL (0-0.2); Basophils % (auto) 0.2 %; Eosinophils # (auto) 0.24 K/uL (0-0.5); Hematocrit (blood only) 40.2 % (42-52); Hemoglobin 14.1 g/dL (14.0-18.0); Immature Granulocytes # (auto) 0.09 K/uL (0.00-0.02); Immature Granulocytes % (auto) 1.1 %; Lymphocytes # (auto) 2.43 K/uL (1.2-3.4); Lymphocytes % (auto) 30.1 %; Mean Corpuscular Hemoglobin 30.7 pg (25-34); Mean Corpuscular Hgb Conc 35.1 g/dL (32-36); Mean Corpuscular Volume 87.4 fL (80-100); Mean Platelet Volume 9.9 fL (7.4-10.4); Monocytes # (auto) 0.95 K/uL (0.11-0.59); Monocytes % (auto) 11.8 %; Neutrophils # (auto) 4.35 K/uL (1.4-6.5); Neutrophils % (auto) 53.8 %; Platelet Count 164 K/uL (130-400); RDW Coefficient of Variation 12.9 % (11.5-14.5); White Blood Count 8.08 K/uL (4.8-10.8)
[2020-05-24 16:44] LABS: Base Excess ABG -3.7 mEq/L (-9-1.8); HCO3 ABG 20 mmol/L (19-24); Oxygen Saturation ABG 96.9 % (90-95); PCO2 ABG 33 mmHg (35-46); PO2 ABG 86 mmHg (80-95); pH ABG 7.41 (7.35-7.45)
[2020-05-24 16:55] LABS: Allen Test POS (Pos)
[2020-05-24 17:03] LABS: Albumin Level 2.6 gm/dl (3.4-5.0); BUN Creatinine Ratio 19.5 (10-20); Beta-Hydroxybutyrate 0.89 mg/dl (0.2-2.81); Calcium 8.8 mg/dl (8.5-10.1); Creatinine Clr Calc Pharmacy 42.1 ml/min; Est GFR (African American) 34.9; Est GFR (Non-African American) 30.1; Magnesium 2.4 mg/dl (1.8-2.4); Phosphorus 4.1 mg/dl (2.5-4.9)
[2020-05-24 17:13] LABS: Albumin Globulin Ratio 0.5 (0.9-2); Bilirubin,Total 0.8 mg/dl (0.2-1); Globulin 5.2 gm/dl (2.5-4.0); Thyroid Stimulating Hormone 1.89 uIu/ml (0.300-4.500); Total Protein 7.8 gm/dl (6.4-8.2)
[2020-05-24] MEDS: INSULIN ASPART 100 UNITS/ML 3 ML PEN SC SCH ×2 (17:25→21:58)
[2020-05-24] MEDS ORDERED: D5W AND 1/2NSS 1,000 ML IV SCH (17:30)
[2020-05-24] MEDS: ENOXAPARIN INJ 30 MG/0.3 ML SYR SQ SCH (17:32)
--- NOTE | 2020-05-24 19:45 | Pharmacy Report ---
Pharmacy Glycemic Short Note 2 - Date of Service May 24, 2020 - Glycemic Short BSG Results (Last 24 hours): 05/24/20 05/24/20 05/24/20 11:06 11:07 11:15 Glucose 758 H* POC Glucose > 600 H* > 600 H* 05/24/20 05/24/20 05/24/20 15:56 16:04 16:28 Glucose 320 H* POC Glucose 360 H* 318 H* 05/24/20 05/24/20 05/24/20 16:32 17:19 18:18 Glucose POC Glucose 306 H* 270 H 213 H 05/24/20 05/24/20 05/24/20 18:32 18:45 19:06 Glucose POC Glucose 237 H 211 H 210 H OUTPATIENT ANTIDIABETIC REGIMEN: * Lantus 54 units BID * Invokana 100 mg Po daily * A1c = 14.7% (05/24/20) ASSESSMENT: * Salinas is a 50 yo diabetic male who presented to the ED with blurry vision. Patient found to be in hyperglycemic crisis, possibly HHS (serum osmolality >320, BSG 758 mg/dL, negative for ketones in urine/serum) and MAYELIN * He reports that his glucometer is broken and he has not had interest in checking his sugars at home * He received a 2 L NS bolus in the ED and was started on an IV insulin infusion. * Will continue infusion and incorporate dextrose into IV fluids since BSG is at goal. Would be concerned to correct glucose too quickly due to BSG on presentation and A1c of 14.7% PLAN FOR INPATIENT GLYCEMIC CONTROL: * Hold outpatient oral diabetes medications * Continue IV insulin infusion per DKA/HHS protocol * goal range for HHS: 250 - 350 mg/dL * goal range may be decreased once hyperosmolality resolves (as long as mental status is at baseline) * Bolus insulin * NovoLog per scale ACHS * coverage per insulin infusion calculator PLAN FOR DISCHARGE: * A1c of 14.7% indicates poor outpatient control * further recs tbd
[2020-05-24] MEDS: ATORVASTATIN 40 MG TAB PO SCH (21:20)
[2020-05-24] MEDS: D5W AND 1/2NSS + 20MEQ KCL 20 MEQ/1,000 ML BAG IV SCH (21:20)
[2020-05-24 22:47] LABS: Calcium 9.4 mg/dl (8.5-10.1); Creatinine Clr Calc Pharmacy 40.6 ml/min; Est GFR (African American) 33.4; Est GFR (Non-African American) 28.8
--- NOTE | 2020-05-25 05:49 | Electrocardiogram Report ---
Test Reason : Blood Pressure : / mmHG Vent. Rate : 102 BPM Atrial Rate : 102 BPM P-R Int : 172 ms QRS Dur : 094 ms QT Int : 346 ms P-R-T Axes : 069 -63 063 degrees QTc Int : 450 ms Sinus tachycardia Left axis deviation Abnormal ECG No previous ECGs available Confirmed by Frank Hernandez ([id number]) on 05/25/2020 5:48:45 AM Referred By: Confirmed By:Frank Hernandez
[2020-05-25 06:40] LABS: Estimated Average Glucose 381 mg/dl; Hemoglobin A1C 14.9 % (4.5-5.6)
[2020-05-25 07:14] LABS: BUN Creatinine Ratio 20.2 (10-20); Calcium 8.8 mg/dl (8.5-10.1); Creatinine Clr Calc Pharmacy 44.1 ml/min; Est GFR (African American) 36.9; Est GFR (Non-African American) 31.9; Potassium 3.8 mmol/L (3.5-5.1)
[2020-05-25] MEDS: INSULIN ASPART 100 UNITS/ML 3 ML PEN SC SCH ×4 (07:57→21:07)
[2020-05-25] MEDS: CHOLECALCIFEROL 1,000 UNITS 25 MCG TAB PO SCH (08:02)
[2020-05-25] MEDS: METOPROLOL SUCC 50MG EXT REL TAB PO SCH (08:02)
[2020-05-25] MEDS: LOSARTAN POTASSIUM 50 MG TAB PO SCH (08:02)
[2020-05-25] MEDS: NICOTINE 21 MG/24 HR TDSY TD SCH (08:03)
[2020-05-25] MEDS: AMLODIPINE BESYLATE 5 MG TAB PO SCH (08:03)
[2020-05-25] MEDS: ASPIRIN 81 MG ECTAB PO SCH (08:03)
[2020-05-25] MEDS ORDERED: INSULIN GLARGINE SOLOSTAR 100 UNITS/ML 3 ML PEN SC SCH (09:00)
[2020-05-25] MEDS: D5W AND 1/2NSS + 20MEQ KCL 20 MEQ/1,000 ML BAG IV SCH (09:36)
--- NOTE | 2020-05-25 11:29 | Pharmacy Report ---
Pharmacy Glycemic Short Note 2 - Date of Service May 25, 2020 - Glycemic Short BSG Results (Last 24 hours): 05/24/20 05/24/20 05/24/20 11:06 11:07 11:15 Glucose 758 H* POC Glucose > 600 H* > 600 H* 05/24/20 05/24/20 05/24/20 15:56 16:04 16:28 Glucose 320 H* POC Glucose 360 H* 318 H* 05/24/20 05/24/20 05/24/20 16:32 17:19 18:18 Glucose POC Glucose 306 H* 270 H 213 H 05/24/20 05/24/20 05/24/20 18:32 18:45 19:06 Glucose POC Glucose 237 H 211 H 210 H 05/24/20 05/24/20 05/24/20 19:35 20:06 21:09 Glucose POC Glucose 206 H 233 H 191 H 05/24/20 05/24/20 05/24/20 21:34 21:56 22:09 Glucose 181 H POC Glucose 206 H 214 H 05/24/20 05/25/20 05/25/20 22:59 00:03 01:00 Glucose POC Glucose 216 H 179 H 159 H 05/25/20 05/25/20 05/25/20 02:12 03:03 04:06 Glucose POC Glucose 141 H 143 H 127 H 05/25/20 05/25/20 05/25/20 04:26 04:48 05:18 Glucose POC Glucose 140 H 122 H 118 H 05/25/20 05/25/20 05/25/20 05:47 05:49 06:17 Glucose 132 H POC Glucose 142 H 165 H 05/25/20 05/25/20 05/25/20 07:07 07:37 08:07 Glucose POC Glucose 170 H 175 H 195 H 05/25/20 05/25/20 09:09 11:00 Glucose POC Glucose 222 H 196 H OUTPATIENT ANTIDIABETIC REGIMEN: * Lantus 54 units BID * Invokana 100 mg Po daily * A1c = 14.7% (05/24/20) * Per notes: patient has been non-compliant with regimen (taking basal insulin only once daily) ASSESSMENT: 05/25/20 * Insulin gtt goal range adjusted last evening, which may have led to the rapid correction of BSGs seen this morning * Insulin gtt infused overnight with a ~4 hour pause from [id number] due to BSGs ranging 127-170 mg/dL * BSGs trending back up, most recently 196, 297, and 270 mg/dL * Ordered Lantus 54 units SC x 1 this morning and will now give 25 units x 1 this afternoon in attempt to transition off drip and will continue 1:5 carb ratio * D5W 1/2 NS w/ 20 mEq of KCl infusing at 80 mL/hr -> switched to 1/2 NS w/ 20 mEq of KCl @80 mL/hr (no dextrose), which should aid transition * MAYELIN improving (SCr: 2.87 -> 2.29 mg/dL) 05/24/20 * Salinas is a 50 yo diabetic male who presented to the ED with blurry vision. Patient found to be in hyperglycemic crisis, possibly HHS (serum osmolality >320, BSG 758 mg/dL, negative for ketones in urine/serum) and MAYELIN * He reports that his glucometer is broken and he has not had interest in checking his sugars at home * He received a 2 L NS bolus in the ED and was started on an IV insulin infusion. * Will continue infusion and incorporate dextrose into IV fluids since BSG is at goal. Would be concerned to correct glucose too quickly due to BSG on presentation and A1c of 14.7% PLAN FOR INPATIENT GLYCEMIC CONTROL: * Hold outpatient oral diabetes medications * Will attempt to transition off insulin drip this evening following 25 unit Lantus dose * goal range: 175-250 mg/dL * Basal insulin * Lantus 54 units SC x 1 this morning * Lantus 25 units SC x 1 this afternoon * Will reassess basal in AM * Bolus insulin * NovoLog ACHS * -Will utilize set carb ratio of 1 unit per 5 grams of CHO * If insulin drip discontinued this evening - will add correction factor of 15 and add overnight checks at 00,04 PLAN FOR DISCHARGE: * A1c of 14.7% indicates poor outpatient control * further recs tbd
[2020-05-25] MEDS: SODIUM CHLOR 0.45% + 20MEQ KCL 20 MEQ/1,000 ML BAG IV SCH (14:17)
--- NOTE | 2020-05-25 14:20 | Hospitalist Progress Note ---
Date of Service May 25, 2020 Assessment & Plan (1) Hyperglycemic crisis in diabetes mellitus: Patient is a 50-year-old male with a past medical history of poorly controlled diabetes mellitus type 2, history of alcohol abuse, smokeless tobacco use, poorly controlled hypertension, vitamin D insufficiency, slow healing right buttock wound, obesity. He presented to the ED secondary to blurred vision. He had not been managing his sugars and in fact stated that his glucometer is broken. He does report taking his Lantus in the morning as well as his Canagliflozin but states he does not check his sugars for the rest of the day. Aside from his blurred vision he also has peripheral neuropathy and has minimal feeling in his feet and toes. Stated that he cares about his diabetes at this point and would like help with better management. Diabetes Mellitus - Patient came in with blood sugar in 700s--currently blood sugars in 200s - has home medications, which he said he takes but did not check glucose throughout the day at home - hold canagliflozin 100mg PO daily - Consult early childhood special educator - Consult dietitian - per pharmacy: Currently bolus Novolog with carb ratio of 1:5 & basal Lantus at 54 units SC BID plus IV insulin drip at 1.5 units/hr - Monitor POC glucose/AM BMPs MAYELIN - Creatinine trending down from 2.87 to 2.29 today - Solium level stabilizing--up to 134 from 123 - Follow AM BMPs Hypertension - Currently well controlled at 119/77 - continue with home medications as follow: - amlodipine 10mg PO daily - furosemide 80mg PO daily - losartan 100mg PO daily - metoprolol succinate 100mg PO daily - spironolactone 25mg PO daily Depression - Pt expressed worry that he is feeling depressed--denies suicidal ideation or thoughts of hurting others - Will continue to monitor symptoms in hospital - Will ask about interest for outpatient management - Consider starting SSRI on d/c Blurry vision - Patient concerned this could be from DM--his description fits more with need for ophtha evaluation for update on glasses Rx - Refer to outpatient ophthalmology Alcohol abuse - Patient states last drink was in late March-- he was having 6-12 beers daily before stopping - Stopped because due to his blurry vision wasn't able to drive to get drinks but now resolute on not drinking - No current withdrawal signs - Monitor clinically Erectile dysfunction - Unlikely to be due to DM--more likely a combination of psychogenic/?decreased testosterone from alcohol abuse - Consider outpatient follow-up to discuss issue Gluteal abscess - ED visit on 04/17/20--had pilonidal cyst drained at ED - Completed course of augmentin & doxycycline - Area open but not draining--no evidence of cellulitis or infection - Monitor clinically DVT prophylaxis: Lovenox 30mg SQ q24h FENGI: 1/2NSS + 20mEq KCl in 1000mL @ 80mL/hr IV [id number], Carb consistent/DM2 Dispo: PCU/Tele Full Code (2) Acute dehydration: (3) Gluteal abscess: (4) Alcohol abuse: (5) Diabetes mellitus: (6) Erectile dysfunction: (7) Depression: (8) Uncontrolled hypertension: (9) Smokeless tobacco use: (10) Psoriasis: (11) Blurry vision: Admission and Anticipated Discharge Date Admission Date: May 24, 2020 Supervising Physician Co-Signing Physician Notes I personally examined the patient and verified all torres points of history and exam, discussed case, and agree with decision making with Dr Aquino. feeling about the same - notes he feels like he's not getting better. when asked to describe further - blurred distance vision (clear up close) and a general not feeling right - otherwise no focal complaints. also separately throughout a long discussion/conversation, he separately wonders out loud if he'd depressed, and separately talks about ED that has lasted for about 20yrs. also notes lifestyle has been burger eris and a lot of beer. wants to make lifestyle change. vitals noted nad heent nc at mmm breathing unlabored no accessory muscles good effort skin no rashes no pallor or icterus hyperglycemic dehydration w subsequent acute renal failure - improving. fluids. insulin. extensive education. otherwise as above Subjective Patient seen today at bedside. He reports not feeling any better as his vision is still blurry--when asked more about this he reports that it is mainly when trying to focus on objects at longer distances but can see fine close range. He does admit that he had not cared about properly managing his diabetes previously but has now decided to try his best. Requests that we educate him on his condition, diet, and medications. Additionally, he reports some concerns about his mental health, specifically thinks he might be depressed. When asked about his drinking he says he is done with it and his last drink was on April 21. Also reports some trouble with erectile dysfunction--asks whether diabetes might be the cause. Last erection reported to be in 2001. Denies CP, palpitations, SOB, cough, fever chills, nausea, vomiting, diarrhea. Review of Systems Constitutional: no fever, no chills, no sweats and no fatigue Respiratory: no cough and no dyspnea Cardiovascular: no chest pain, no palpitations and no edema Gastrointestinal: no abdominal pain, no nausea, no vomiting, no constipation and no diarrhea/loose stools Psychiatric: + depression; no suicidal ideation Physical Exam Constitutional: WD/WN, vitals as above + obese; no acute distress Respiratory: normal respiratory effort, lungs clear to auscultation Auscultation: no crackles, no rales, no rhonchi and no wheezes Cardiovascular: RRR, no murmur, no edema Heart Sounds: normal S1 and normal S2; no gallop, no murmur and no cardiac rub Extremities: no edema Gastrointestinal (Abdomen): normal bowel sounds, soft, nontender, no hepatosplenomegaly Musculoskeletal: no cyanosis or clubbing, extremities motor strength 5/5 Skin: no rashes, warm and dry Psychiatric: Orientation: alert and oriented x 3 Affect: + depressed affect Results & Data Results & Data ([facility]) Vital Signs (Past 12 Hours) Vital Signs Temp Pulse Resp BP BP Pulse Ox 05/25/20 12:20 36.6 C 102 H 18 119/77 98 05/25/20 07:48 37.0 C 80 17 113/69 97 05/25/20 03:32 36.7 C 88 18 97/67 L 98 Resident Activity Tracking Resident Involvement: Resident Care Provided Care Provided: Adult Hospital Medicine
[2020-05-25] MEDS: INSULIN REGULAR 250 UNITS in SODIUM CHLORIDE 0.9% 247.5 ML IV SCH (14:21)
[2020-05-25] MEDS ORDERED: INSULIN GLARGINE SOLOSTAR 100 UNITS/ML 3 ML PEN SC ONE (15:15)
[2020-05-25] MEDS ORDERED: DC IV INSULIN INFUSION 1 EA DEVI SCH (15:15)
--- NOTE | 2020-05-25 15:24 | XCELERA ---
[id number]
[2020-05-25] MEDS: ENOXAPARIN INJ 30 MG/0.3 ML SYR SQ SCH (18:15)
--- NOTE | 2020-05-25 18:16 | Billing Data ---
Date of Service May 25, 2020 Coding Level of Care Code 83510 Subseq Hosp Care Lvl 3
[2020-05-25] MEDS: ATORVASTATIN 40 MG TAB PO SCH (21:09)
[2020-05-26] MEDS: DEXTROSE 50% 50 ML SYRINGE IV PRN ×2 (00:12→00:45)
[2020-05-26] MEDS: SODIUM CHLOR 0.45% + 20MEQ KCL 20 MEQ/1,000 ML BAG IV SCH ×2 (02:12→14:40)
[2020-05-26] MEDS ORDERED: INSULIN ASPART 100 UNITS/ML 3 ML PEN SC SCH (04:00)
[2020-05-26 06:33] LABS: Calcium 8.6 mg/dl (8.5-10.1); Creatinine Clr Calc Pharmacy 50.7 ml/min; Est GFR (African American) 43.8; Est GFR (Non-African American) 37.8; Potassium 4.1 mmol/L (3.5-5.1)
--- NOTE | 2020-05-26 08:10 | Hospitalist Progress Note ---
Date of Service May 26, 2020 Assessment & Plan (1) Hyperglycemic crisis in diabetes mellitus: Patient is a 50-year-old male with a past medical history of poorly controlled diabetes mellitus type 2, history of alcohol abuse, smokeless tobacco use, poorly controlled hypertension, vitamin D insufficiency, slow healing right buttock wound, obesity. He presented to the ED secondary to blurred vision. He had not been managing his sugars and in fact stated that his glucometer is broken. He does report taking his Lantus in the morning as well as his Canagliflozin but states he does not check his sugars for the rest of the day. Aside from his blurred vision he also has peripheral neuropathy and has minimal feeling in his feet and toes. Stated that he cares about his diabetes at this point and would like help with better management. Diabetes Mellitus - Patient came in with blood sugar in 700s--currently blood sugars in 200s - has home medications, which he said he takes but did not check glucose throughout the day at home - hold canagliflozin 100mg PO daily - Pt received information from dietitian/clinical trial educator - per pharmacy: Currently bolus Novolog with correction factor of 15 and carb ratio of 1:5 & basal Lantus at 54 units SC daily--IV insulin drip d/c overnight - Continue IV fluids - Monitor POC glucose/AM BMPs MAYELIN - Creatinine trending down from 2.87 to 2.29 today - Solium level stabilizing--up to 134 from 123 - Follow AM BMPs Hypertension - Currently well controlled at 119/77 - continue with home medications as follow: - amlodipine 10mg PO daily - furosemide 80mg PO daily - losartan 100mg PO daily - metoprolol succinate 100mg PO daily - spironolactone 25mg PO daily Depression - Pt expressed worry that he is feeling depressed--denies suicidal ideation or thoughts of hurting others - Will continue to monitor symptoms in hospital - Will ask about interest for outpatient management - Consider starting SSRI on d/c Blurry vision - Patient concerned this could be from DM--his description fits more with need for ophtha evaluation for update on glasses Rx - Refer to outpatient ophthalmology Alcohol abuse - Patient states last drink was in late March-- he was having 6-12 beers daily before stopping - Stopped because due to his blurry vision wasn't able to drive to get drinks but now resolute on not drinking - No current withdrawal signs - Monitor clinically Erectile dysfunction - Unlikely to be due to DM--more likely a combination of psychogenic/?decreased testosterone from alcohol abuse - Consider outpatient follow-up to discuss issue Gluteal abscess - ED visit on 04/17/20--had pilonidal cyst drained at ED - Completed course of augmentin & doxycycline - Area open but not draining--no evidence of cellulitis or infection - Monitor clinically DVT prophylaxis: Lovenox 30mg SQ q24h FENGI: 1/2NSS + 20mEq KCl in 1000mL @ 80mL/hr IV [id number], Carb consistent/DM2 Dispo: PCU/Tele Full Code (2) Acute dehydration: (3) Gluteal abscess: (4) Alcohol abuse: (5) Diabetes mellitus: (6) Erectile dysfunction: (7) Depression: (8) Uncontrolled hypertension: (9) Smokeless tobacco use: (10) Psoriasis: (11) Blurry vision: Admission and Anticipated Discharge Date Admission Date: May 24, 2020 Subjective Patient reports feeling about the same today. Worried that he feels like he might be discharged before he feels better. He expresses openness to change/wanting to take steps to getting better but feels irritated that he has heard conflicting statements from medical team during day vs night nurses. Wants education on condition but is adamant that he will not remember anything that we tell him and needs things written down. However, when told that we will write everything in detail in instructions, he states that he doesn't want too much information b/c he won't be able to understand it. Seen again in PM and patient is more receptive to information. Stating again that he is very much ready to make changes in his lifestyle. He denies any acute symptoms. No fever, chills, CP, palpitations, SOB, cough, nausea, vomiting, diarrhea, constipation. Review of Systems Constitutional: no fever, no chills, no sweats and no fatigue Eyes: Blurry vision at distance still present Respiratory: no cough and no dyspnea Cardiovascular: no chest pain, no palpitations and no edema Gastrointestinal: no abdominal pain, no nausea, no vomiting, no constipation and no diarrhea/loose stools Genitourinary: no dysuria, no difficulty urinating, no urinary frequency and no urinary incontinence Physical Exam Constitutional: WD/WN, vitals as above + obese; no acute distress Respiratory: normal respiratory effort, lungs clear to auscultation Auscultation: no crackles, no rales, no rhonchi and no wheezes Cardiovascular: RRR, no murmur, no edema Heart Sounds: normal S1 and normal S2; no gallop, no murmur and no cardiac rub Extremities: no edema Gastrointestinal (Abdomen): normal bowel sounds, soft, nontender, no hepatosplenomegaly Musculoskeletal: no cyanosis or clubbing, extremities motor strength 5/5 Skin: no rashes, warm and dry Psychiatric: Orientation: alert and oriented x 3 Affect: + irritable affect Results & Data Results & Data ([facility]) Vital Signs (Past 12 Hours) Vital Signs Temp Pulse Pulse Resp BP BP Pulse Ox 05/26/20 07:14 36.8 C 94 H 20 115/78 99 05/26/20 04:28 37.1 C 91 H 18 102/67 95 05/25/20 23:46 37.3 C 97 H 18 113/73 96 05/25/20 23:20 96 H Resident Activity Tracking Resident Involvement: Resident Care Provided Care Provided: Adult Hospital Medicine
[2020-05-26] MEDS: CHOLECALCIFEROL 1,000 UNITS 25 MCG TAB PO SCH (08:23)
[2020-05-26] MEDS: LOSARTAN POTASSIUM 50 MG TAB PO SCH (08:24)
[2020-05-26] MEDS: NICOTINE 21 MG/24 HR TDSY TD SCH (08:24)
[2020-05-26] MEDS: AMLODIPINE BESYLATE 5 MG TAB PO SCH (08:24)
[2020-05-26] MEDS: METOPROLOL SUCC 50MG EXT REL TAB PO SCH (08:24)
[2020-05-26] MEDS: ASPIRIN 81 MG ECTAB PO SCH (08:24)
[2020-05-26] MEDS: INSULIN ASPART 100 UNITS/ML 3 ML PEN SC SCH ×4 (08:31→20:23)
[2020-05-26] MEDS ORDERED: INSULIN GLARGINE SOLOSTAR 100 UNITS/ML 3 ML PEN SC SCH (09:00)
--- NOTE | 2020-05-26 10:41 | Pharmacy Report ---
Pharmacy Glycemic Short Note 2 - Date of Service May 26, 2020 - Glycemic Short BSG Results (Last 24 hours): 05/25/20 05/25/20 05/25/20 11:00 12:59 14:02 Glucose POC Glucose 196 H 297 H 270 H 05/25/20 05/25/20 05/25/20 15:01 16:01 17:15 Glucose POC Glucose 235 H 259 H 239 H 05/25/20 05/25/20 05/25/20 18:10 19:10 20:03 Glucose POC Glucose 299 H 256 H 222 H 05/25/20 05/25/20 05/26/20 21:04 22:05 00:03 Glucose POC Glucose 190 H 203 H 137 H 05/26/20 05/26/20 05/26/20 00:34 01:06 04:07 Glucose POC Glucose 175 H 178 H 143 H 05/26/20 05/26/20 05:33 07:36 Glucose 139 H POC Glucose 168 H OUTPATIENT ANTIDIABETIC REGIMEN: * Lantus 54 units BID * Invokana 100 mg Po daily * A1c = 14.7% (05/24/20) * Per notes: patient has been non-compliant with regimen (taking basal insulin only once daily) ASSESSMENT: 05/26/20 * IV insulin infusion stopped ~0100 this AM. Pt has received 108 units of SQ + 22.1 units of IV insulin over the past 24hrs * 79 units of basal (Lantus) + 29 units of bolus (NovoLog) + 22.1 units of IV insulin infusion * Dextrose IVF dc yesterday - which improved glycemic control greatly. * Scr continues to improve * Will transition to SQ basal bolus insulin regimen today - based on estimated total daily dose of ~ 108+ units of insulin 05/25/20 * Insulin gtt goal range adjusted last evening, which may have led to the rapid correction of BSGs seen this morning * Insulin gtt infused overnight with a ~4 hour pause from [id number] due to BSGs ranging 127-170 mg/dL * BSGs trending back up, most recently 196, 297, and 270 mg/dL * Ordered Lantus 54 units SC x 1 this morning and will now give 25 units x 1 this afternoon in attempt to transition off drip and will continue 1:5 carb ratio * D5W 1/2 NS w/ 20 mEq of KCl infusing at 80 mL/hr -> switched to 1/2 NS w/ 20 mEq of KCl @80 mL/hr (no dextrose), which should aid transition * MAYELIN improving (SCr: 2.87 -> 2.29 mg/dL) 05/24/20 * Salinas is a 50 yo diabetic male who presented to the ED with blurry vision. Patient found to be in hyperglycemic crisis, possibly HHS (serum osmolality >320, BSG 758 mg/dL, negative for ketones in urine/serum) and MAYELIN * He reports that his glucometer is broken and he has not had interest in checking his sugars at home * He received a 2 L NS bolus in the ED and was started on an IV insulin infusion. * Will continue infusion and incorporate dextrose into IV fluids since BSG is at goal. Would be concerned to correct glucose too quickly due to BSG on presentation and A1c of 14.7% PLAN FOR INPATIENT GLYCEMIC CONTROL: * Hold outpatient oral diabetes medications * Basal insulin * Lantus 54 units SC daily in AM * Will set a scale based dose this evening based on BSG * Bolus insulin * NovoLog ACHS * Goal Range: 110 - 140 mg/dl * CF = 15 mg/dl/unit * Carb ratio per 1 unit for every 5g CHO consumed PLAN FOR DISCHARGE: * A1c = 14.7 % on 05/24/20 * Goal A1c < 7 % based on age and comorbidities * Recommend: * Continuing Lantus (dosing TBD) * Invokana 100mg PO Daily (this is the max dose based on his CrCl) * Adding prandial insulin with NovoLog per scale (dosing TBD)
[2020-05-26] MEDS ORDERED: INSULIN GLARGINE SOLOSTAR 100 UNITS/ML 3 ML PEN SC ONE (12:30)
[2020-05-26] MEDS: ENOXAPARIN INJ 30 MG/0.3 ML SYR SQ SCH (16:59)
--- NOTE | 2020-05-26 19:29 | Billing Data ---
Date of Service May 26, 2020 Coding Level of Care Code 00596 Subseq Hosp Care Lvl 3
[2020-05-26] MEDS: ATORVASTATIN 40 MG TAB PO SCH (20:19)
[2020-05-27] MEDS: SODIUM CHLOR 0.45% + 20MEQ KCL 20 MEQ/1,000 ML BAG IV SCH ×2 (03:41→17:15)
--- NOTE | 2020-05-27 05:57 | Electrocardiogram Report ---
Test Reason : Blood Pressure : / mmHG Vent. Rate : 087 BPM Atrial Rate : 087 BPM P-R Int : 164 ms QRS Dur : 094 ms QT Int : 390 ms P-R-T Axes : 056 -15 060 degrees QTc Int : 469 ms Normal sinus rhythm Normal ECG When compared with ECG of 24-MAY-2020 10:59, QRS axis Shifted right Confirmed by Frank Hernandez ([id number] on 05/27/2020 5:57:13 AM Referred By: REFERRED SELF Confirmed By:Frank Hernandez
--- NOTE | 2020-05-27 06:39 | Electrocardiogram Report ---
Test Reason : Blood Pressure : / mmHG Vent. Rate : 097 BPM Atrial Rate : 097 BPM P-R Int : 166 ms QRS Dur : 098 ms QT Int : 360 ms P-R-T Axes : 066 -61 078 degrees QTc Int : 457 ms Normal sinus rhythm Left anterior fascicular block Minimal voltage criteria for LVH, may be normal variant Abnormal ECG When compared with ECG of 25-MAY-2020 07:21, Left anterior fascicular block is now Present Confirmed by Frank Hernandez ([id number] on 05/27/2020 6:39:03 AM Referred By: REFERRED SELF Confirmed By:Frank Hernandez
[2020-05-27 08:25] LABS: Calcium 9.1 mg/dl (8.5-10.1); Creatinine Clr Calc Pharmacy 62.3 ml/min; Est GFR (African American) 55.7; Est GFR (Non-African American) 48.1; Potassium 4.6 mmol/L (3.5-5.1)
[2020-05-27] MEDS: INSULIN ASPART 100 UNITS/ML 3 ML PEN SC SCH ×4 (08:32→21:35)
[2020-05-27] MEDS: INSULIN GLARGINE SOLOSTAR 100 UNITS/ML 3 ML PEN SC SCH (08:36)
[2020-05-27] MEDS: METOPROLOL SUCC 50MG EXT REL TAB PO SCH (08:37)
[2020-05-27] MEDS: CHOLECALCIFEROL 1,000 UNITS 25 MCG TAB PO SCH (08:38)
[2020-05-27] MEDS: NICOTINE 21 MG/24 HR TDSY TD SCH (08:38)
[2020-05-27] MEDS: AMLODIPINE BESYLATE 5 MG TAB PO SCH (08:38)
[2020-05-27] MEDS: LOSARTAN POTASSIUM 50 MG TAB PO SCH (08:38)
[2020-05-27] MEDS: ASPIRIN 81 MG ECTAB PO SCH (08:38)
--- NOTE | 2020-05-27 09:15 | Pharmacy Report ---
Pharmacy Glycemic Short Note 2 - Date of Service May 27, 2020 - Glycemic Short BSG Results (Last 24 hours): 05/26/20 05/26/20 05/26/20 11:22 16:40 20:18 Glucose POC Glucose 233 H 183 H 176 H 05/27/20 05/27/20 07:14 07:48 Glucose 154 H POC Glucose 162 H OUTPATIENT ANTIDIABETIC REGIMEN: * Lantus 54 units BID * Invokana 100 mg Po daily * A1c = 14.7% (05/24/20) * Per notes: patient has been non-compliant with regimen (taking basal insulin only once daily) ASSESSMENT: 05/27/20: * Patient has received 135 units over the past 24hrs * 79 units of basal insulin (Lantus) + 56 units of prandial/correctional insulin (NovoLog) * BSGs [phone] mg/dl * AM fasting is slightly above goal range at 162 mg/dl. However, we have been titrating Lantus upwards quickly. Will continue one more day and if AM fasting BSG is still above goal range tomorrow will increase dose by 10-20% * Post-prandial BSGs elevated but significantly improved from days prior. May consider decreasing CHO ratio from 4 to 3 if pre-lunch BSG is elevated. 05/26/20 * IV insulin infusion stopped ~0100 this AM. Pt has received 108 units of SQ + 22.1 units of IV insulin over the past 24hrs * 79 units of basal (Lantus) + 29 units of bolus (NovoLog) + 22.1 units of IV insulin infusion * Dextrose IVF dc yesterday - which improved glycemic control greatly. * Scr continues to improve * Will transition to SQ basal bolus insulin regimen today - based on estimated total daily dose of ~ 108+ units of insulin 05/25/20 * Insulin gtt goal range adjusted last evening, which may have led to the rapid correction of BSGs seen this morning * Insulin gtt infused overnight with a ~4 hour pause from [phone] due to BSGs ranging 127-170 mg/dL * BSGs trending back up, most recently 196, 297, and 270 mg/dL * Ordered Lantus 54 units SC x 1 this morning and will now give 25 units x 1 this afternoon in attempt to transition off drip and will continue 1:5 carb ratio * D5W 1/2 NS w/ 20 mEq of KCl infusing at 80 mL/hr -> switched to 1/2 NS w/ 20 mEq of KCl @80 mL/hr (no dextrose), which should aid transition * MAYELIN improving (SCr: 2.87 -> 2.29 mg/dL) 05/24/20 * Salinas is a 50 yo diabetic male who presented to the ED with blurry vision. Patient found to be in hyperglycemic crisis, possibly HHS (serum osmolality >320, BSG 758 mg/dL, negative for ketones in urine/serum) and MAYELIN * He reports that his glucometer is broken and he has not had interest in checking his sugars at home * He received a 2 L NS bolus in the ED and was started on an IV insulin infusion. * Will continue infusion and incorporate dextrose into IV fluids since BSG is at goal. Would be concerned to correct glucose too quickly due to BSG on presentation and A1c of 14.7% PLAN FOR INPATIENT GLYCEMIC CONTROL: no changes needed at this time * Hold outpatient oral diabetes medications * Basal insulin * Lantus 80 units SC daily in AM * Bolus insulin * NovoLog ACHS * Goal Range: 110 - 140 mg/dl * CF = 10 mg/dl/unit * Carb ratio per 1 unit for every 4g CHO consumed (will tighten CR to 3 if pre-lunch BSG is elevated) RECOMMENDATIONS FOR DISCHARGE: * A1c = 14.7 % on 05/24/20 * Goal A1c < 7 % based on age and comorbidities * Discussed transitions of care with CDE. Pt just received a 90 day supply of Lantus Rx and would like to continue on Lantus. He is motivated to add meal time coverage with NovoLog/Humalog to improve A1c. He stated that he does not eat at regular times so pre-mixed insulin may lead to hypoglycemia if/when he does not eat. 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
--- NOTE | 2020-05-27 09:52 | Hospitalist Progress Note ---
Date of Service May 27, 2020 Assessment & Plan (1) Hyperglycemic crisis in diabetes mellitus: Patient is a 50-year-old male with a past medical history of poorly controlled diabetes mellitus type 2, history of alcohol abuse, smokeless tobacco use, poorly controlled hypertension, vitamin D insufficiency, slow healing right buttock wound, obesity. He presented to the ED secondary to blurred vision. He had not been managing his sugars and in fact stated that his glucometer is broken. He does report taking his Lantus in the morning as well as his Canagliflozin but states he does not check his sugars for the rest of the day. Aside from his blurred vision he also has peripheral neuropathy and has minimal feeling in his feet and toes. Stated that he cares about his diabetes at this point and would like help with better management. Diabetes Mellitus - Patient came in with blood sugar in 700s--today blood sugars at high 100s to low 200s - has home medications, which he said he takes but did not check glucose throughout the day at home - hold canagliflozin 100mg PO daily - Pt received information from dietitian/rn diabetes educator - per pharmacy: Currently bolus Novolog with correction factor of 10 and carb ratio of 1:3 & basal Lantus at 80 units SC daily - Continue IV fluids - Monitor POC glucose/AM BMPs MAYELIN - Creatinine trending down from 1.99 to 1.63 today - Solium level stable--up to 137 - Follow AM BMPs Hypertension - Currently well controlled at 129/81 - continue with home medications as follow: - amlodipine 10mg PO daily - furosemide 80mg PO daily - losartan 100mg PO daily - metoprolol succinate 100mg PO daily - spironolactone 25mg PO daily Depression - Pt expressed worry that he is feeling depressed--denies suicidal ideation or thoughts of hurting others - Will continue to monitor symptoms in hospital - Will ask about interest for outpatient management - Consider starting SSRI on d/c Blurry vision - Patient concerned this could be from DM--his description fits more with need for ophtha evaluation for update on glasses Rx - Follow as outpatient with ophthalmology Alcohol abuse - Patient states last drink was in late March-- he was having 6-12 beers daily before stopping - Stopped because due to his blurry vision wasn't able to drive to get drinks but now resolute on not drinking - No current withdrawal signs - Monitor clinically Erectile dysfunction - Unlikely to be due to DM--more likely a combination of psychogenic/?decreased testosterone from alcohol abuse - Consider outpatient follow-up to discuss issue Gluteal abscess - ED visit on 04/17/20--had pilonidal cyst drained at ED - Completed course of augmentin & doxycycline - Area open but not draining--no evidence of cellulitis or infection - Monitor clinically DVT prophylaxis: Lovenox 30mg SQ q24h FENGI: 1/2NSS + 20mEq KCl in 1000mL @ 80mL/hr IV [id number], Carb consistent/DM2 Dispo: PCU/Tele Full Code (2) Acute dehydration: (3) Gluteal abscess: (4) Alcohol abuse: (5) Diabetes mellitus: (6) Erectile dysfunction: (7) Depression: (8) Uncontrolled hypertension: (9) Smokeless tobacco use: (10) Psoriasis: (11) Blurry vision: Admission and Anticipated Discharge Date Admission Date: May 24, 2020 Supervising Physician Co-Signing Physician Notes I personally examined the patient and verified all torres points of history and exam, discussed case, and agree with decision making with Dr Aquino. feeling better and more optimistic about how he'll do at home. discusses insulin dosing and mealtime carb estimation with a surprising amount of proficiency vitals noted nad heent nc at mmm breathing unlabored no accessory muscles good effort skin no rashes no pallor or icterus hyperglycemic dehydration w subsequent acute renal failure - improving. fluids - creatinine still showing improvement. basal-bolus insulin. extensive education ongoing and he's showing good learning. otherwise as above Subjective Patient doing well this morning. No new complaints. Today he has questions about what his insulins will be like when he gets dischar [facility]. I explained to him how his basal-bolus insulin treatment will work and he expresses understanding. He is worried about his treatment here being different and changing constantly. I explained that as his blood sugar results change we've made adjustments to his insulin regimen accordingly, but his home treatment will be as explained. Denies CP, palpitations, SOB, cough, fever, chills, nausea, vomiting, abdominal pain, diarrhea/constipation. Review of Systems Constitutional: no fever, no chills, no sweats and no fatigue Eyes: Blurry vision improved, yet still present Respiratory: no cough, no chest congestion and no dyspnea Cardiovascular: no chest pain, no palpitations, no syncope and no edema Gastrointestinal: no abdominal pain, no nausea, no vomiting, no constipation and no diarrhea/loose stools Genitourinary: no dysuria and no difficulty urinating Physical Exam Constitutional: WD/WN, vitals as above + obese; no acute distress Respiratory: normal respiratory effort, lungs clear to auscultation Auscultation: no crackles, no rales, no rhonchi and no wheezes Cardiovascular: RRR, no murmur, no edema Heart Sounds: normal S1 and normal S2; no gallop, no murmur and no cardiac rub Extremities: no edema Gastrointestinal (Abdomen): normal bowel sounds, soft, nontender, no hepatosplenomegaly Musculoskeletal: no cyanosis or clubbing, extremities motor strength 5/5 Skin: no rashes, warm and dry Psychiatric: Orientation: alert and oriented x 3 Results & Data Results & Data ([facility]) Vital Signs (Past 12 Hours) Vital Signs Temp Pulse Pulse Resp BP BP Pulse Ox 05/27/20 08:14 36.8 C 85 20 129/81 97 05/27/20 07:50 81 05/27/20 03:47 36.7 C 85 20 110/69 95 05/27/20 00:16 36.8 C 86 18 113/73 94 05/26/20 23:09 99 H Resident Activity Tracking Resident Involvement: Resident Care Provided Care Provided: Adult Hospital Medicine
[2020-05-27] MEDS: ENOXAPARIN INJ 30 MG/0.3 ML SYR SQ SCH (17:15)
--- NOTE | 2020-05-27 18:58 | Billing Data ---
Date of Service May 27, 2020 Coding Level of Care Code 24500 Subseq Hosp Care Lvl 3
[2020-05-27] MEDS: ATORVASTATIN 40 MG TAB PO SCH (21:32)
[2020-05-28] MEDS: SODIUM CHLOR 0.45% + 20MEQ KCL 20 MEQ/1,000 ML BAG IV SCH (06:00)
--- NOTE | 2020-05-28 07:55 | Discharge Summary ---
Date of Service May 28, 2020 Admission HPI Per Admitting Provider Attending: Dr. Perez This is a 50-year-old male with a past medical history of poorly controlled diabetes mellitus type 2, history of alcohol abuse, smokeless tobacco use, poorly controlled hypertension, vitamin D insufficiency, slow healing right buttock wound, obesity. The patient presented the emergency department on 04/17/2020 with a right buttock abscess. An I&D was performed and out [place] (Actino) turicensis and Prevotella bivia. The patient was placed on Augmentin and doxycycline by his primary care provider. Antibiotics were to be continued through May 02, 2020 the patient continues to have an open area that is nondraining but is slow to heal. Patient states it is irritating but is nonpainful but he notices it when he sits. He denies any fever or chills. He has no diaphoresis. He has no chest pain or tightness. He has no shortness of breath. The patient presents today secondary to blurred vision. He has not been managing his sugars and in fact states that his glucometer is broken. He does report taking his Lantus in the morning as well as his Canagliflozin but states he does not check his sugars for the rest of the day. Aside from his blurred vision he also has peripheral neuropathy and has minimal feeling in his feet and toes. There are some callused areas but no tissue breakdown between the toes or on the balls of the feet. He does have acne vulgaris on his back with no evidence of open areas. And as previously mentioned he has an open area that is approximately 1 cm on his right gluteus. The patient has no other acute complaints. He does state that he cares about his diabetes at this point and would like help with better management. The patient has not had any ethanol since April 17, 2020. He does continue to use smokeless tobacco and goes through 2 or 3 cans/week. He is currently unemployed and lives with his father. He is and has one 17-year-old son whom he is close to. He denies any other substance abuse. He does report taking his medications this morning but cannot name his meds and is unable to tell me if he has a type I or type 2 diabetes mellitus. He states he was diagnosed with diabetes in his early to mid 20s but can give me no other history. Admission Exam Per Admitting Provider GENERAL : No acute distress EYES: No icterus, gaze conjugate. Pupils equal round and reactive to light NOSE: No evidence of epistaxis. MOUTH: No lesions or candidiasis. Mucosa is moist NECK: Supple. No appreciation of stridor or bruits LUNGS: CTA B/L, no wheezes, rales or rhonchi. Good inspiratory effort HEART: Regular, rate controlled. No appreciation of murmurs gallops or rubs ABDOMEN: Soft, NT, ND, BS Present. No guarding or rebound tenderness EXTREMITIES: No LE edema, pedal pulses intact and equal bilaterally. There is no tissue breakdown between toes. There is some callusing on the balls of the feet but no evidence of breakdown of tissue. NEURO: A&OX3. Sensation to bilateral feet and toes is minimal but appreciable. Toes are downgoing bilaterally. Cranial nerves II through XII are otherwise grossly intact. Principal Diagnosis Hyperglycemic crisis in diabetes mellitus Discharge Exam Constitutional WD/WN, vitals as above + obese; no acute distress Respiratory normal respiratory effort, lungs clear to auscultation Auscultation: no crackles, no rales, no rhonchi and no wheezes Cardiovascular RRR, no murmur, no edema Heart Sounds: normal S1 and normal S2; no gallop, no murmur and no cardiac rub Extremities: no edema Gastrointestinal (Abdomen) normal bowel sounds, soft, nontender, no hepatosplenomegaly Musculoskeletal no cyanosis or clubbing, extremities motor strength 5/5 Skin no rashes, warm and dry Psychiatric Orientation: alert and oriented x 3 Discharge Data Allergies Allergy/AdvReac Type Severity Reaction Status Date / Time No Known Allergies Allergy Verified 05/24/20 14:25 Consultations 05/24/20 13:47 ED Decision to Admit Stat 05/24/20 15:59 Consult Case Management - Discharge Planning Routine Hospital Course (1) Hyperglycemic crisis in diabetes mellitus: Patient is a 50-year-old male with a past medical history of poorly controlled diabetes mellitus type 2, history of alcohol abuse, smokeless tobacco use, poorly controlled hypertension, vitamin D insufficiency, slow healing right buttock wound, obesity. He presented to the ED secondary to blurred vision. He had not been managing his sugars and in fact stated that his glucometer is broken. He did report taking his Lantus in the morning as well as his Canagliflozin but states he does not check his sugars for the rest of the day. Aside from his blurred vision he also had peripheral neuropathy and had minimal feeling in his feet and toes. Stated that he cares about his diabetes at this point and would like help with better management. Diabetes Mellitus - Patient came in with blood sugar in 700s--today blood sugars at high 100s to low 200s - has home medications, which he said he takes but did not check glucose throughout the day at home - hold canagliflozin 100mg PO daily - Pt received information from dietitian/family educator - per pharmacy: Currently bolus Novolog with correction factor of 10 and carb ratio of 1:3 & basal Lantus at 80 units SC daily - Achieved rehydration by IV fluids until creatinine returned to baseline MAYELIN - Creatinine trending down from 1.99 to 1.63 today - Solium level stable Hypertension - Well controlled during admission - continued with home medications as follow: - amlodipine 10mg PO daily - furosemide 80mg PO daily - losartan 100mg PO daily - metoprolol succinate 100mg PO daily - spironolactone 25mg PO daily Depression - Pt expressed worry that he is feeling depressed--denies suicidal ideation or thoughts of hurting others - Recommended outpatient follow up with PCP - Consider starting SSRI Blurry vision - Patient concerned this could be from DM--his description fits more with need for ophtha evaluation for update on glasses Rx - Follow as outpatient with ophthalmology Alcohol abuse - Patient states last drink was in late March-- he was having 6-12 beers daily before stopping - Stopped because due to his blurry vision wasn't able to drive to get drinks but now resolute on not drinking - No withdrawal signs Erectile dysfunction - Unlikely to be due to DM--more likely a combination of psychogenic/?decreased testosterone from alcohol abuse - Outpatient follow-up to discuss issue Gluteal abscess - ED visit on 04/17/20--had pilonidal cyst drained at ED - Completed course of augmentin & doxycycline - Area open but not draining--no evidence of cellulitis or infection FENGI: Carb consistent/DM2 Dispo: Home Full Code (2) Acute dehydration: (3) Gluteal abscess: (4) Alcohol abuse: (5) Diabetes mellitus: (6) Erectile dysfunction: (7) Depression: (8) Uncontrolled hypertension: (9) Smokeless tobacco use: (10) Psoriasis: (11) Blurry vision: Total Time Total Time Spent Total Time Spent (In Minutes): <30 Discharge Plan Discharge Items Patient Disposition: Home - Self-Care Reason For Visit: HYPERGLYCEMIA Discharge Diagnosis: Hyperglycemic crisis in diabetes mellitus Activity: Per Instructions section Non-emergency contact: Primary Care Provider Call non-emergency contact if: you have any medication questions and your symptoms worsen Follow-up/Referrals: John Barber CRNP [Primary Care Provider] - Diet: Carb Consistent or DM2 Addtl Attending Provider Instructions: diabetes: "why to care" -fundamentally, the main reason to care about diabetes is that high sugars clog arteries -the higher your sugar is running, and the longer it runs high, the more you knock off blood vessels you can't get back -over time, if enough arteries get clogged up, then we see diabetics start to have heart attacks (high sugars blocking off blood flow to the heart), strokes (the same problem - but with blood flow to the brain), blindness (the back of our eyes are basically a web of blood vessels - and so as sugar clogs them up we can lose vision), kidney failure (high sugar blocking up the small webs/balls of blood vessels that our kidneys are made up of), and neuropathy (high sugar blocking up the bloodflow to nerves creating numbness/burning/etc) -generally speaking, any time you see a sugar above maybe 150-160, there's going to be a good chance at least a little damage is being done -- obviously higher is worse -as it relates to A1c values, an A1c above about 7.0 will suggest that there's been enough sugar to be blocking up arteries for the last three months (remember, as we discussed, an A1c is a measure of how sugar covered your red blood cells are. since red blood cells live for 90 days, an A1c is a good way to look back and gauge what your sugars have been doing over that three month timeframe). ---also as we discussed, we are built with a tremendous amount of "extra" blood flow - so we can often "afford" to knock of some of those blood vessels and still do OK - because you're still young, we've got plently of time to make a positive impact -- ie it's not futile to make a change because there's still a lot of blood flow left to save! "insulin resistance" (or "how type 2 diabetes occurs") -the fundamental problem with type 2 diabetes is insulin resistance --> insulin is the hormone your pancreas makes to get sugar out of your bloodstream and into your muscles. in type 2 diabetes, our muscles "want" more insulin over time as it relates to the carbs we eat --> so eventually our muscles want more insulin than our pancreas can make - so there's leftover sugar floating around in our bloodstream -when we eat something that has simple carbs in it (a sugar or starch - so the bun on the burger, the fries, the carbs in beer, as well as other breads, pastas, potatoes, sugary drinks, sweets, etc) the carbs get absorbed into our bloodstream and make us spike a blood sugar. in response to this, our pancreas makes a spike of insulin to get that sugar out of our bloodstream and into our muscles. when we have any genetic propensity to type 2 diabetes, this "dance" of high sugar followed by our pancreas making a surge of insulin makes our muscles "want" more the next time. eventually our muscles want more insulin than our pancreas can make - this is typically when we "cross the line" into diabetes -the good news is that because our eating habits are a large part of what causes us to be a diabetic, we can also usually make ourselves either "less diabetic" or even "un-diabetic" by getting away from the simple/starchy/sugary carbs -exercise is actually critical to this too - about 20-30 minutes of light cardiovascular exercise (nothing crazy - a brisk walk, a bike ride ---> anything that gets your heart rate up a little and gets you breathing a little heavy) will make your muscles more sensitive to insulin for a good 12 hours at a time. AND, when done over and over, the exercise can start to "rewrite" your metabolism and have a more lasting impact on making you less insulin resistant. insulins -we'll have you on two different insulins - lantus (glargine) and novolog (aspart). -the lantus (long acting) covers your sugar that is still floating around in y our bloodstream when you're in a fasting state/between meals/etc. it kicks in slowly over about 2 hours after you inject it, never really peaks, and then slowly wears off over hours 18-24. you're able to assembler camper the effectiveness of the dosing of this largely on your fasting sugar checks -the novlog (short acting) covers your sugar when you eat. the lantus won't do anything different when your sugars start to rise from foods - so the novolog is designed to work quickly and get food out of your bloodstream and into your muscles at mealtime. it kicks in over about 15 minutes, peaks at about 90 minutes, and is gone in about 3-4 hours -because different foods have different amounts of carbohydrates in them, you'll need to take different amounts of novolog depending on what you're eating. with what we've been seeing here, it looks like 25 is a reasonable starting point. ie - if you're not sure how much insulin to take at a meal, then start with 25 units. from there, remembering that food gets absorbed over an hour or two, and the insulin does most of it's work by 2 hours after you've injected, you can "grade your work" by checking a sugar about 2 hours after eating. -as an easy to remember range, a sugar after you eat should be between about 100-150. too low, and you might feel lousy (and you took a little too much insulin for the carbs you ate); too high and while you might not feel it, you'll be running into trouble with high sugars clogging arteries (and you didn't take enough insulin for the carbs you ate). -after seeing how your body responds to what you're eating, and how the food/your sugar respond to the insulin you take, you can start to get a good idea of "like begets like" - in that similar foods will end up taking similar amounts of insulin -eggs and black coffee will take far less insulin than a plate of spaghetti; chicken and broccoli will be similar in insulin coverage to pork and asparagus will be similar to salmon and brussel sprouts. burger eris burgers and fries will take a ton of insulin, as would something like pizza. -when you eat something and take 25 units, as you see the sugar after you eat, you can then learn what to do the next time. for instance, if you took 25 units when you ate a plate of pasta, and saw a sugar two hours later of 250, then you'd know the next time you eat that plate of pasta you should take more insulin (like 30, but as we discussed, as long as you're doing more and then checking a sugar to "grade your work" it's not really an exact science) -the other benefit to checking your sugar after eating is that it can really show you how foods affect your body. when you eat foods that make your sugar go a lot higher (or when you eat foods that take a lot of insulin to cover so that your sugar doesn't go high) you can realize pretty quickly that those are foods that aren't the best for you. (thinking back to the insulin resistance section above, when you eat foods that spike a higher sugar or require more insulin to cover, this will "make you more of a diabetic" by progressing insulin resistance. said differently - over time when someone continues to eat high- carb foods, their need for medications keeps going up and up; conversely, when they eat less of the simple carbs, then often that (combined with exercise) can make insulin resistance go down (and people can actually show the same control on less medicines) Pending Studies at Discharge: No Stand-Alone Forms: [facility], Smoking Cessation Medications and DC Order Prescriptions: New Lantus Solostar U-100 Insulin 100 unit/mL (3 mL) insulin pen 35 unit subcut BID Qty: 15 RF: 0 insulin aspart U-100 [Novolog Flexpen U-100 Insulin] 100 unit/mL (3 mL) insulin pen 25 unit subcut AC Qty: 15 RF: 0 (DME) blood sugar diagnostic [OneTouch Verio test strips] Strip See Rx Instructions .ROUTE .MEDSUPPLY Qty: 50 RF: 0 (DME) lancets [OneTouch Delica Lancets] 30 gauge misc See Rx Instructions .ROUTE .MEDSUPPLY Qty: 100 RF: 0 Continued cholecalciferol (vitamin D3) 2,000 unit capsule 2,000 units PO DAILY Qty: 30 RF: 0 amlodipine 10 mg tablet 10 mg PO DAILY Qty: 90 RF: 1 furosemide 80 mg tablet 80 mg PO DAILY Qty: 90 RF: 1 metoprolol succinate 100 mg tablet extended release 24 hr 100 mg PO DAILY Qty: 90 RF: 1 (DME) pen needle, diabetic [ReliOn Pen [place]] 32 gauge x 5/32" needle See Dose Instructions .ROUTE .MEDSUPPLY Qty: 200 RF: 1 Lantus Solostar U-100 Insulin 100 unit/mL (3 mL) insulin pen 54 units SQ BID Qty: 45 RF: 1 Invokana 100 mg tablet 100 mg PO DAILY Qty: 30 RF: 2 spironolactone 25 mg tablet 25 mg PO DAILY Qty: 30 RF: 2 atorvastatin 40 mg tablet 40 mg PO QPM Qty: 90 RF: 2 losartan 100 mg tablet 100 mg PO DAILY Qty: 90 RF: 3 (DME) blood-glucose meter [Blood Glucose Monitoring] Kit See Rx Instructions .ROUTE .MEDSUPPLY Qty: 1 RF: 0 (DME) blood-glucose meter Kit See Dose Instructions .ROUTE .MEDSUPPLY Qty: 1 RF: 0 aspirin [Aspirin Low Dose] 81 mg tablet,delayed release (DR/EC) 81 mg PO QAM RF: 0 Discharge Orders: Discharge Order (Routine); Ordered 05/28/20 [facility] Admit Date/Time: 05/24/20 15:01 Attending Provider: Loy Clinton Admit Provider: Brayden Perez Primary Care Provider: John Barber Other Providers: Brayden Perez Other Interventions: Discharge Summary Assessment (RN) Last Done: 05/28/20 13:23 Supervising Physician Co-Signing Physician Notes I personally examined the patient and verified all torres points of history and exam, discussed case, and agree with decision making with Dr Aquino. feeling good overall - except notes back pain when walking - just in low back doesn't really go anywhere notes this was bothering him before admission too. vitals noted nad heent nc at mmm breathing unlabored no accessory muscles good effort skin no rashes no pallor or icterus. msk/ost - R sided piriformis/pelvic muscles high tone/mildly tender/decreased ROM - post-isometric relaxation - improved some. L sided Lspine paraspinals high tone/tender/decreased ROM - direct myofascial - improved. pt tolerated well. hyperglycemic dehydration w subsequent acute renal failure - improved. basal- bolus insulin. extensive education --> he's showing good learning. back pain - biomechanical. discussed outpt OMT or chiropractic somatic dysfunction pelvis, Lspine region - OMT as above otherwise as above Resident Activity Tracking Resident Involvement: Resident Care Provided Care Provided: Adult Hospital Medicine
[2020-05-28 08:08] LABS: BUN Creatinine Ratio 15.5 (10-20); Calcium 9.2 mg/dl (8.5-10.1); Creatinine Clr Calc Pharmacy 65.8 ml/min; Est GFR (African American) 59.2; Est GFR (Non-African American) 51.1; Potassium 4.4 mmol/L (3.5-5.1)
[2020-05-28] MEDS: LOSARTAN POTASSIUM 50 MG TAB PO SCH (08:30)
[2020-05-28] MEDS: CHOLECALCIFEROL 1,000 UNITS 25 MCG TAB PO SCH (08:30)
[2020-05-28] MEDS: METOPROLOL SUCC 50MG EXT REL TAB PO SCH (08:30)
[2020-05-28] MEDS: AMLODIPINE BESYLATE 5 MG TAB PO SCH (08:30)
[2020-05-28] MEDS: ASPIRIN 81 MG ECTAB PO SCH (08:31)
[2020-05-28] MEDS: NICOTINE 21 MG/24 HR TDSY TD SCH (08:31)
[2020-05-28] MEDS: INSULIN GLARGINE SOLOSTAR 100 UNITS/ML 3 ML PEN SC SCH (08:31)
[2020-05-28] MEDS: INSULIN ASPART 100 UNITS/ML 3 ML PEN SC SCH ×2 (08:33→12:35)
--- NOTE | 2020-05-28 16:39 | Billing Data ---
Date of Service May 28, 2020 Coding Level of Care Code D/C Day Management <30 mins
--- NOTE | 2020-05-28 16:40 | Hospitalist Progress Note ---
Date of Service May 28, 2020 Assessment & Plan Admission and Anticipated Discharge Date Admission Date: May 24, 2020 Results & Data Results & Data ([facility]) Vital Signs (Past 12 Hours) Vital Signs Temp Pulse Resp BP BP Pulse Ox 05/28/20 13:23 98.4 F 84 16 126/81 126/83 98 05/28/20 07:39 98.4 F 84 16 126/83 98 PG Care Time/CCT Total # of Minutes Spent Total Time Spent with Patient: Total time spent is greater than 50% in coordination of care (as documented) at patient's floor/unit and/or counseling patient: Coding Level of Care Code None CPT Codes Musculoskeletal - Musculoskeletal: [address] 1-2 Body regions ([id number])
== END 2020-05-28 15:00 | disposition home or self-care (01) | DRG 638 ==
LOC: ED 10:37 → 2S 15:01 → SUATTDRO 15:01 → 2S 15:22 → 2W 05-27 14:04

== ENCOUNTER 2020-09-14 09:30 | Inpatient (IN) ==
[2020-09-14] MEDS ORDERED: KETOROLAC TROMETHAMINE 15 MG/ML VIAL IV STA (10:00)
[2020-09-14] MEDS ORDERED: AMPICILLIN/SULBACTAM SOD 3,000 MG in 0.9 % SODIUM CHLORIDE 100 ML IV STA (10:00)
--- NOTE | 2020-09-14 10:07 | Emergency Department Note ---
Impression & Plan Cellulitis of left leg, Leukocytosis, Failure of outpatient treatment ED Provider Note NAME: KATARINA SANABRIA AGE: 50 SEX: M : 1970 ARRIVES VIA: Walk-In INFORMANT: [Patient] ED PROVIDER(S): [Diego Hilton MD] CHIEF COMPLAINT: Infection HISTORY OF PRESENT ILLNESS: The patient is a 50-year-old male who has had redness for a few weeks in the area of the left foot. He was seen in this ED on the , 3 days ago. He was given a dose of dalbavancin and told to return to this ER today for evaluation and recheck. The patient states the redness may be slightly better, the swelling is no better. He had some chills yesterday but no documented fever. He does have moderate pain in the foot that is worse to bear weight. There has been no cough or cold or congestion. No chest pain or shortness of breath. His blood sugar has been running at decent levels. The patient states that this all started with a blister on the medial aspect of his left big toe. It then spread to a blister to the dorsum of the foot. The redness then began and the infection set in. REVIEW OF SYSTEMS: See HPI for pertinent positives and negatives. A total of ten systems were reviewed and were otherwise negative. PMHx/PSHx: See Below SOCIAL HISTORY: See Below. PHYSICAL EXAM: GENERAL: Patient is in no acute distress. HEENT: No acute trauma, normocephalic atraumatic, mucous membranes moist, no nasal congestion, no scleral icterus. NECK: No stridor, no adenopathy, no meningismus, trachea is midline. LUNGS: Clear to auscultation bilaterally, no wheeze, no rhonchi, breath sounds equal. HEART: Without murmurs gallops or rubs, regular rate and rhythm. ABDOMEN: Soft, nontender, bowel sounds positive, no hernias, no peritonitis. EXTREMITIES: No cyanosis. The patient does have edema to the left lower extremity when compared to the right. There is erythema to the distal portion of the foot and toes. There is a healing scabbed over lesion to the dorsum of the distal left foot at the base of the first through third toes. There is a scabbed over lesion to the medial aspect of the left big toe. Patient does have pain to palpate the foot. There is redness extending up the leg and there have been some outlined areas. It does appear to me that the redness has diminished from the outlined areas. There is no drainage. NEUROLOGIC: Oriented x 3, no acute motor or sensory deficits, no focal weakness. SKIN: No rash, no jaundice, no diaphoresis. DIFFERENTIAL DIAGNOSIS: Osteomyelitis, abscess, DVT, cellulitis, failed outpatient treatment, bacteremia or sepsis. EMERGENCY DEPARTMENT COURSE/PROCEDURES: MEDICAL DECISION MAKING: Patient does have a leukocytosis at 13,000, this is consistent with infection. No concerning anemia. There was a normal platelet count. There was an elevation to the creatinine consistent with some renal insufficiency, the patient has a history of the same. No electrolyte abnormality in need of emergent correction. Lactic acid level was not elevated making sepsis less likely. Alk phos slightly elevated. Covid testing returned negative. Left leg ultrasound did not show any DVT. Left leg CT did not show abscess, cellulitis was suspected. The patient presents with left leg redness and pain. He was given Dalvance several days ago. He is not improving, his white count has increased. He has failed ablation treatment, I do think he requires a hospital stay. Patient was given IV vancomycin, he was given IV Unasyn. He received IV Toradol for pain. I spoke to the patient about his findings, he understands the need for a hosp ital stay. I spoke with case management. The on-call hospitalist was consulted. Past Med/Surg History Medical History Acute dehydration Acute hyponatremia Acute kidney injury Anejaculatory orgasm Chronic kidney disease, stage 3a CKD (chronic kidney disease) Diabetes mellitus Dizziness Dyspnea on minimal exertion Erectile dysfunction Hyperglycemic crisis in diabetes mellitus Hypertension Psoriasis Smokeless tobacco use Umbilical hernia Uncontrolled hypertension Vertigo Vitamin D insufficiency Surgical History No pertinent past surgical history Family History Father Cardiac disorder Hypertension Grandfather Cardiac disorder Myocardial infarction Grandmother Breast cancer Denies family history of Ovarian cancer Prostate cancer Colorectal cancer Social History Smoking Status: Never smoker Tobacco Type: Smokeless Tobacco (Dip or Chew) Second Hand Exposure: No; Hx Alcohol Use: No (last beer 04/21/20) Hx Substance Use: No Preferred Language: Sudanese Communication Ability: Effective Visual Impairment: No Limitations Hearing Ability: Normal 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 Beliefs That Will Affect Care: None marital status: Legally Current Living Situation: Parent Current Living Situation Comment: LIVES WITH FATHER current occupational status: unemployed Feels Safe at Home: Yes Childhood Exposure to Second-Hand Smoke: Yes caffeine: Yes (mt dew) during the past year weight has: increased > 10 lbs Dental Care, Regularly: No Physical Activity Frequency: Does not Exercise Seatbelt Use: always Sunscreen Use: No Assistive Devices: Glasses Allergies Allergies Allergy/AdvReac Type Severity Reaction Status Date / Time No Known Drug Allergies Allergy Verified 09/14/20 11:17 Home Meds Home Medications Medication Instructions Recorded Confirmed aspirin [Aspirin Low Dose] 81 mg PO QAM 05/24/20 09/14/20 amlodipine 10 mg PO QAM 09/11/20 09/14/20 canagliflozin 300 mg PO QAM 09/11/20 09/14/20 cholecalciferol (vitamin D3) 25 mcg PO QAM 09/11/20 09/14/20 [Vitamin D3] furosemide 20 mg PO QAM 09/11/20 09/14/20 losartan 100 mg PO QAM 09/11/20 09/14/20 metoprolol succinate 100 mg PO QAM 09/11/20 09/14/20 gabapentin 0 mg PO BID 09/14/20 09/14/20 Previous Rx's Medication Instructions Recorded pen needle, diabetic 32 gauge x #200 ea 11/11/19" blood-glucose meter #1 ea 11/19/19 blood-glucose meter #1 ea 11/19/19 lancets [OneTouch Delica Lancets] #100 ea 05/28/20 atorvastatin 40 mg tablet 40 mg PO QPM #90 tab 06/06/20 blood sugar diagnostic #300 ea 06/15/20 insulin glargine 100 unit/mL (3 See Rx Instructions SUBCUT BID #15 06/30/20 mL) subcutaneous pen ml naproxen 500 mg tablet 500 mg PO BID PRN #60 tab 07/11/20 insulin aspart U-100 100 unit/mL 20 unit SUBCUT AC #15 ml 11/04/20 (3 mL) subcutaneous pen fluticasone propionate 50 2 spray INTRANASAL DAILY #16 g 08/02/20 mcg/actuation nasal spray,suspension sildenafil 50 mg tablet 50 mg PO DAILY PRN #30 tab 08/02/20 spironolactone 25 mg tablet 25 mg PO QAM #90 tab 09/12/20 Results & Data (ED) Vital Signs Vital Signs - 24 hr 09/14/20 09:36 09/14/20 11:30 Temperature 35.8 C L Temperature Source Temporal Artery Scan Pulse Rate 98 H Pulse Rate [Apical] 82 Respiratory Rate 20 Respiratory Effort / Characteristics Non-Labored Respiratory Depth Normal Blood Pressure 112/75 Blood Pressure [Left Arm] 113/79 Blood Pressure Mean 87 Blood Pressure Mean [Left Arm] 90 Pulse Oximetry 99 100 Oxygen Delivery Method Room Air Room Air Sepsis Recent Fever Within 48 Hours No Sepsis New/Unexplained Change in Mental Status N/A Sepsis Action Taken by Nursing No Action Required Home Medications Current Medication List: was personally reviewed by me Laboratory Data Attestation: I reviewed the patient's lab results. Result diagrams: 09/14/20 16:26 09/14/20 16:26 Lab Results 09/14/20 09/14/20 09/14/20 Range/Units 10:16 10:16 10:16 WBC 13.46 H (4.8-10.8) K/uL RBC 4.55 L (4.7-6.1) M/uL Hgb 12.7 L (14.0-18.0) g/dL Hct 38.1 L (42-52) % MCV 83.7 (80-100) fL MCH 27.9 (25-34) pg MCHC 33.3 (32-36) g/dL RDW Std Deviation 45.7 (36.4-46.3) fL RDW Coeff of Jonah 15.0 H (11.5-14.5) % Plt Count 300 (130-400) K/uL MPV 9.0 (7.4-10.4) fL Immature Gran % (Auto) 0.3 % Neut % (Auto) 73.3 % Lymph % (Auto) 12.3 % [place] % (Auto) 11.0 % Eos % (Auto) 3.0 % Baso % (Auto) 0.1 % Neut # (Auto) 9.86 H (1.4-6.5) K/uL Lymph # (Auto) 1.65 (1.2-3.4) K/uL [place] # (Auto) 1.48 H (0.11-0.59) K/uL Eos # (Auto) 0.41 (0-0.5) K/uL Baso # (Auto) 0.02 (0-0.2) K/uL Immature Gran # (Auto) 0.04 H (0.00-0.02) K/uL Sodium 135 L (136-145) mmol/L Potassium 4.2 (3.5-5.1) mmol/L Chloride 107 (98-107) mmol/L Carbon Dioxide 20 L (21-32) mmol/L Anion Gap 8.0 (3-11) BUN 46 H (7-18) mg/dl Creatinine 1.91 H (0.6-1.4) mg/dl Est Cr Clr Drug Dosing 52.7 ml/min Est GFR ( Amer) 46.0 Est GFR (Non-Af Amer) 39.7 BUN/Creatinine Ratio 24.0 H (10-20) Glucose 103 H (70-99) mg/dl Lactate 0.9 (0.4-2.0) mmol/L Calcium 9.3 (8.5-10.1) mg/dl Total Bilirubin 0.5 (0.2-1) mg/dl AST 23 (15-37) U/L ALT 35 (12-78) U/L Alkaline Phosphatase 144 H (45-117) U/L Total Protein 9.3 H (6.4-8.2) gm/dl Albumin 2.5 L (3.4-5.0) gm/dl Globulin 6.8 H (2.5-4.0) gm/dl Albumin/Globulin Ratio 0.4 L (0.9-2) Administered Medications Insulin Aspart (Insulin Aspart 100 Units/Ml 3 Ml Pen) 0 units SQ ACHS ANIL Stop: 10/14/20 16:29 Last Admin: 09/14/20 17:09 Dose: 21 units Documented by: [id number] Cosigned by: [id number] Discontinued Medications Ampicillin Sodium/Sulbactam Sodium 3,000 mg/ Sodium Chloride 108 mls @ 200 mls/hr IV NOW STA; Protocol Stop: 09/14/20 10:32 Last Infusion: 09/14/20 11:09 Dose: 0 mls/hr Documented by: [id number] Admin: 09/14/20 10:35 Dose: 200 mls/hr Documented by: [id number] Vancomycin HCl 2,250 mg/ (Sodium Chloride) 545 mls @ 200 mls/hr IV NOW ONE Stop: 09/14/20 14:38 Last Infusion: 09/14/20 15:23 Dose: 0 mls/hr Documented by: [id number] Admin: 09/14/20 12:36 Dose: 200 mls/hr Documented by: [id number] Piperacillin Sod/Tazobactam (Sod 4.5 gm/ Dextrose) 120 mls @ 200 mls/hr IV NOW ONE; Protocol Stop: 09/14/20 17:05 Last Admin: 09/14/20 17:13 Dose: 200 mls/hr Documented by: [id number] Ketorolac Tromethamine (Ketorolac Tromethamine 15 Mg/Ml Vial) 15 mg IV NOW STA Stop: 09/14/20 10:01 Last Admin: 09/14/20 10:36 Dose: 15 mg Documented by: [id number] Imaging Data Radiologist's Impression: CT OF THE LEFT FOOT WITHOUT CONTRAST CLINICAL HISTORY: Possible osteomyelitis. TECHNIQUE: Axial images of the left foot were obtained without IV contrast. Sagittal and coronal reconstructions were viewed. Automated exposure control was utilized for the study. A dose lowering technique was utilized adhering to the principles of ALARA. COMPARISON STUDY: No previous studies for comparison. FINDINGS: Note is made of extensive subcutaneous edema of the left ankle and dorsal aspect of the left foot. No soft tissue gas is present. No fluid collection is identified on this unenhanced examination. There is extensive vascular calcification. Talar dome is intact. No acute fracture within the left foot is noted. There is no suspicious osseous lesion. Tarsometatarsal joints are intact. No bony erosions are identified. 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 There is soft tissue swelling of the left first toe. IMPRESSION: 1. No evidence for osteomyelitis within the left foot or ankle. 2. Left ankle and foot soft tissue swelling. No soft tissue gas. No fluid collection to suggest abscess. 3. Extensive vascular calcification. LEFT LOWER EXTREMITY VENOUS DOPPLER HISTORY: poss dvt, left leg COMPARISON STUDY: None. FINDINGS: There is normal compressibility, flow, and augmentation within the left lower extremity deep venous system. Prominent left inguinal lymph node measuring 3.6 x 2.5 x 1.1 cm. This demonstrates a slightly thickened cortex but a normal fatty hilum. IMPRESSION: No DVT within the left lower extremity. Mildly enlarged left inguinal lymph node. This is indeterminate but could be reactive. Discharge Plan Visit Data Chief Complaint: Infection Stated Complaint: left foot infection ED Provider: Diego Hilton Discharge Problem: Cellulitis of left leg, Leukocytosis, Failure of outpatient treatment Patient Disposition: Admitted As Inpatient Condition: Good Discharge Instructions Interventions: ED Discharge Assessment Last Done: 09/14/20 15:42 Discharge Problem: Leukocytosis Qualifiers: Leukocytosis type: unspecified Qualified Code(s): D72.829 - Elevated white blood cell count, unspecified
[2020-09-14 10:37] LABS: Basophils # (auto) 0.02 K/uL (0-0.2); Basophils % (auto) 0.1 %; Eosinophils # (auto) 0.41 K/uL (0-0.5); Hematocrit (blood only) 38.1 % (42-52); Hemoglobin 12.7 g/dL (14.0-18.0); Immature Granulocytes # (auto) 0.04 K/uL (0.00-0.02); Immature Granulocytes % (auto) 0.3 %; Lymphocytes # (auto) 1.65 K/uL (1.2-3.4); Lymphocytes % (auto) 12.3 %; Mean Corpuscular Hemoglobin 27.9 pg (25-34); Mean Corpuscular Hgb Conc 33.3 g/dL (32-36); Mean Corpuscular Volume 83.7 fL (80-100); Monocytes # (auto) 1.48 K/uL (0.11-0.59); Neutrophils # (auto) 9.86 K/uL (1.4-6.5); Neutrophils % (auto) 73.3 %; Platelet Count 300 K/uL (130-400); RDW Standard Deviation 45.7 fL (36.4-46.3); Red Blood Count 4.55 M/uL (4.7-6.1); White Blood Count 13.46 K/uL (4.8-10.8)
[2020-09-14 10:56] LABS: Albumin Level 2.5 gm/dl (3.4-5.0); Calcium 9.3 mg/dl (8.5-10.1); Creatinine Clr Calc Pharmacy 52.7 ml/min; Est GFR (Non-African American) 39.7; Potassium 4.2 mmol/L (3.5-5.1)
[2020-09-14 10:59] LABS: Albumin Globulin Ratio 0.4 (0.9-2); Bilirubin,Total 0.5 mg/dl (0.2-1); Globulin 6.8 gm/dl (2.5-4.0); Total Protein 9.3 gm/dl (6.4-8.2)
--- NOTE | 2020-09-14 11:09 | CT Scan Report ---
CT OF THE LEFT FOOT WITHOUT CONTRAST CLINICAL HISTORY: Possible osteomyelitis. TECHNIQUE: Axial images of the left foot were obtained without IV contrast. Sagittal and coronal solomon nstructions were viewed. Automated exposure control was utilized for the study. A dose lowering tech nique was utilized adhering to the principles of ALARA. COMPARISON STUDY: No previous studies for comparison. FINDINGS: Note is made of extensive subcutaneous edema of the left ankle and dorsal aspect of the lef t foot. No soft tissue gas is present. No fluid collection is identified on this unenhanced examinati on. There is extensive vascular calcification. Talar dome is intact. No acute fracture within the lef t foot is noted. There is no suspicious osseous lesion. Tarsometatarsal joints are intact. No bony er osions are identified. 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 Th ere is soft tissue swelling of the left first toe. IMPRESSION: 1. No evidence for osteomyelitis within the left foot or ankle. 2. Left ankle and foot soft tissue swelling. No soft tissue gas. No fluid collection to suggest absce ss. 3. Extensive vascular calcification. ACT 112: Negative or not required by law. Electronically signed by: Mac Marie M.D. 09/14/2020 11:08 AM
--- NOTE | 2020-09-14 11:36 | Ultrasound Report ---
LEFT LOWER EXTREMITY VENOUS DOPPLER HISTORY: poss dvt, left leg COMPARISON STUDY: None. FINDINGS: There is normal compressibility, flow, and augmentation within the left lower extremity mahin p venous system. Prominent left inguinal lymph node measuring 3.6 x 2.5 x 1.1 cm. This demonstrates a slightly thickened cortex but a normal fatty hilum. IMPRESSION: No DVT within the left lower extremity. Mildly enlarged left inguinal lymph node. This is indetermina te but could be reactive. ACT 112: Negative or not required by law. Electronically signed by: David Valerio M.D. 09/14/2020 11:34 AM
[2020-09-14] MEDS ORDERED: VANCOMYCIN HCL 2,250 MG in SODIUM CHLORIDE 0.9% 500 ML IV ONE (11:55)
[2020-09-14] MEDS ORDERED: VANCOMYCIN CONSULT ACTIVE PRN (11:55)
--- NOTE | 2020-09-14 14:05 | History & Physical Report ---
Date of Service September 14, 2020 Assessment & Plan (1) Soft tissue infection of foot: Vancomycin and Zosyn empiric -Anticipate formation of abscess -Blood cultures obtained prior to antibiotics -Reviewed imaging studies Present on Admission?: Yes (2) CKD (chronic kidney disease) stage 3, GFR 30-59 ml/min: (3) Hyperglycemia: Continue home insulin regimen -Check A1c Present on Admission?: Yes (4) Hypertension: -Continue home antihypertensives Present on Admission?: Yes (5) Diabetes mellitus: Continue home insulin regimen Present on Admission?: Yes (6) Diabetic neuropathy: Start gabapentin 100 mg 3 times daily Admission and Anticipated Discharge Date Admission Date: 09/14/2020 Anticipated date of discharge: 09/16/20 History of Present Illness Primary Care Provider: ASHLEE Zavala Patient is a 50-year-old male with a history of type 2 diabetes who was seen approximately 2 weeks ago for a left lower extremity blister at that time he was started on and severe pain preventing ambulation. IV Dalvance in the emergency department. He returns because of increasing swelling in the last 24 hours. He noticed some streaking up the leg however he is not having chest pain shortness of breath, abdominal pain. He has not taken anything for the pain. Allergies Allergy/AdvReac Type Severity Reaction Status Date / Time No Known Drug Allergies Allergy Verified 09/14/20 11:17 Home Medications Medication Instructions Recorded Confirmed Type pen needle, diabetic 32 gauge x #200 ea 11/11/19 08/31/20 Rx 5/32" blood-glucose meter #1 ea 11/19/19 08/31/20 Rx blood-glucose meter #1 ea 11/19/19 08/31/20 Rx aspirin [Aspirin Low Dose] 81 mg PO QAM 05/24/20 09/14/20 History lancets [OneTouch Delica Lancets] #100 ea 05/28/20 08/31/20 Rx atorvastatin 40 mg tablet 40 mg PO QPM #90 tab 06/06/20 09/14/20 Rx blood sugar diagnostic #300 ea 06/15/20 08/31/20 Rx insulin glargine 100 unit/mL (3 See Rx Instructions SUBCUT BID #15 06/30/20 09/14/20 Rx mL) subcutaneous pen ml naproxen 500 mg tablet 500 mg PO BID PRN #60 tab 07/11/20 09/14/20 Rx insulin aspart U-100 100 unit/mL 20 unit SUBCUT AC #15 ml 07/27/20 09/14/20 Rx (3 mL) subcutaneous pen fluticasone propionate 50 2 spray INTRANASAL DAILY #16 g 08/02/20 09/14/20 Rx mcg/actuation nasal spray,suspension sildenafil 50 mg tablet 50 mg PO DAILY PRN #30 tab 08/02/20 09/14/20 Rx amlodipine 10 mg PO QAM 09/11/20 09/14/20 History canagliflozin 300 mg PO QAM 09/11/20 09/14/20 History cholecalciferol (vitamin D3) 25 mcg PO QAM 09/11/20 09/14/20 History [Vitamin D3] furosemide 20 mg PO QAM 09/11/20 09/14/20 History losartan 100 mg PO QAM 09/11/20 09/14/20 History metoprolol succinate 100 mg PO QAM 09/11/20 09/14/20 History spironolactone 25 mg tablet 25 mg PO QAM #90 tab 09/12/20 09/14/20 Rx gabapentin 0 mg PO BID 09/14/20 09/14/20 History Past Med/Surg History Medical History Acute dehydration Acute hyponatremia Acute kidney injury Anejaculatory orgasm Chronic kidney disease, stage 3a CKD (chronic kidney disease) Diabetes mellitus Dizziness Dyspnea on minimal exertion Erectile dysfunction Hyperglycemic crisis in diabetes mellitus Hypertension Psoriasis Smokeless tobacco use Umbilical hernia Uncontrolled hypertension Vertigo Vitamin D insufficiency Surgical History No pertinent past surgical history Family History Father Cardiac disorder Hypertension Grandfather Cardiac disorder Myocardial infarction Grandmother Breast cancer Denies family history of Ovarian cancer Prostate cancer Colorectal cancer Social History Smoking Status: Never smoker Tobacco Type: Smokeless Tobacco (Dip or Chew) Second Hand Exposure: No; Hx Alcohol Use: No (last beer 04/21/20) Hx Substance Use: No Preferred Language: Danish Communication Ability: Effective Visual Impairment: No Limitations Hearing Ability: Normal Ip Architect Required: No Beliefs That Will Affect Care: None marital status: Legally Current Living Situation: Parent Current Living Situation Comment: LIVES WITH FATHER current occupational status: unemployed Feels Safe at Home: Yes Childhood Exposure to Second-Hand Smoke: Yes caffeine: Yes (mt dew) during the past year weight has: increased > 10 lbs Dental Care, Regularly: No Physical Activity Frequency: Does not Exercise Seatbelt Use: always Sunscreen Use: No Assistive Devices: Glasses Review of Systems Review of Systems: All systems reviewed & are unremarkable except as noted in HPI & below Physical Exam Physical Exam: General: Well-nourished male appears his stated age I have reviewed the recorded vital signs Neurological: No focal motor deficits, Moves all 4 extremities, Psychological: Alert and oriented x3 and appropriate Eyes: Pupils are equal, round and reactive to light, anicteric sclera. Symmetrical lids. HENT: Oropharynx Clear, moist Mucous Membranes. Neck: Supple. Symmetric. trachea midline. No thyromegaly. Cardiovascular: Normal peripheral perfusion. Distal pulses and capillary refill intact. No JVD. S1-S2 regular rate and rhythm no murmurs rubs gallops Respiratory: Respirations are non-labored, no accessory muscle use. Breath sounds are equal. Gastrointestinal: Soft. Non-distended. Abdomen nontender nondistended Lymphatic: No cervical lymphadenopathy., No lymphadenopathy in the left popliteal fossa Musculoskeletal: Redness and swelling with excoriation over the dorsum of the left foot, this has been demarcated with a pen. There is no lymphangitis Results & Data Results & Data ([facility]) Vital Signs (Past 12 Hours) Vital Signs Temp Pulse Pulse Resp BP BP Pulse Ox 09/14/20 13:00 88 18 121/68 96 09/14/20 11:30 82 113/79 100 09/14/20 09:36 35.8 C L 98 H 20 112/75 99 Laboratory Results 09/14/20 09/14/20 09/14/20 Range/Units 13:04 10:16 10:16 WBC (4.8-10.8) K/uL RBC (4.7-6.1) M/uL Hgb (14.0-18.0) g/dL Hct (42-52) % MCV (80-100) fL MCH (25-34) pg MCHC (32-36) g/dL RDW Std Deviation (36.4-46.3) fL RDW Coeff of Jonah (11.5-14.5) % Plt Count (130-400) K/uL MPV (7.4-10.4) fL Immature Gran % (Auto) % Neut % (Auto) % Lymph % (Auto) % Hamlin % (Auto) % Eos % (Auto) % Baso % (Auto) % Neut # (Auto) (1.4-6.5) K/uL Lymph # (Auto) (1.2-3.4) K/uL Hamlin # (Auto) (0.11-0.59) K/uL Eos # (Auto) (0-0.5) K/uL Baso # (Auto) (0-0.2) K/uL Immature Gran # (Auto) (0.00-0.02) K/uL Sodium 135 L (136-145) mmol/L Potassium 4.2 (3.5-5.1) mmol/L Chloride 107 (98-107) mmol/L Carbon Dioxide 20 L (21-32) mmol/L Anion Gap 8.0 (3-11) BUN 46 H (7-18) mg/dl Creatinine 1.91 H (0.6-1.4) mg/dl Est Cr Clr Drug Dosing 52.7 ml/min Est GFR ( Amer) 46.0 Est GFR (Non-Af Amer) 39.7 BUN/Creatinine Ratio 24.0 H (10-20) Glucose 103 H (70-99) mg/dl Lactate 0.9 (0.4-2.0) mmol/L Calcium 9.3 (8.5-10.1) mg/dl Total Bilirubin 0.5 (0.2-1) mg/dl AST 23 (15-37) U/L ALT 35 (12-78) U/L Alkaline Phosphatase 144 H (45-117) U/L Total Protein 9.3 H (6.4-8.2) gm/dl Albumin 2.5 L (3.4-5.0) gm/dl Globulin 6.8 H (2.5-4.0) gm/dl Albumin/Globulin Ratio 0.4 L (0.9-2) SARS-CoV-2 Ag (Rapid) Negative (Negative) 09/14/20 Range/Units 10:16 WBC 13.46 H (4.8-10.8) K/uL RBC 4.55 L (4.7-6.1) M/uL Hgb 12.7 L (14.0-18.0) g/dL Hct 38.1 L (42-52) % MCV 83.7 (80-100) fL MCH 27.9 (25-34) pg MCHC 33.3 (32-36) g/dL RDW Std Deviation 45.7 (36.4-46.3) fL RDW Coeff of Jonah 15.0 H (11.5-14.5) % Plt Count 300 (130-400) K/uL MPV 9.0 (7.4-10.4) fL Immature Gran % (Auto) 0.3 % Neut % (Auto) 73.3 % Lymph % (Auto) 12.3 % Hamlin % (Auto) 11.0 % Eos % (Auto) 3.0 % Baso % (Auto) 0.1 % Neut # (Auto) 9.86 H (1.4-6.5) K/uL Lymph # (Auto) 1.65 (1.2-3.4) K/uL Hamlin # (Auto) 1.48 H (0.11-0.59) K/uL Eos # (Auto) 0.41 (0-0.5) K/uL Baso # (Auto) 0.02 (0-0.2) K/uL Immature Gran # (Auto) 0.04 H (0.00-0.02) K/uL Sodium (136-145) mmol/L Potassium (3.5-5.1) mmol/L Chloride (98-107) mmol/L Carbon Dioxide (21-32) mmol/L Anion Gap (3-11) BUN (7-18) mg/dl Creatinine (0.6-1.4) mg/dl Est Cr Clr Drug Dosing ml/min Est GFR ( Amer) Est GFR (Non-Af Amer) BUN/Creatinine Ratio (10-20) Glucose (70-99) mg/dl Lactate (0.4-2.0) mmol/L Calcium (8.5-10.1) mg/dl Total Bilirubin (0.2-1) mg/dl AST (15-37) U/L ALT (12-78) U/L Alkaline Phosphatase (45-117) U/L Total Protein (6.4-8.2) gm/dl Albumin (3.4-5.0) gm/dl Globulin (2.5-4.0) gm/dl Albumin/Globulin Ratio (0.9-2) SARS-CoV-2 Ag (Rapid) (Negative) Diagnostic Findings LEFT LOWER EXTREMITY VENOUS DOPPLER HISTORY: poss dvt, left leg COMPARISON STUDY: None. FINDINGS: There is normal compressibility, flow, and augmentation within the left lower extremity deep venous system. Prominent left inguinal lymph node measuring 3.6 x 2.5 x 1.1 cm. This demonstrates a slightly thickened cortex but a normal fatty hilum. IMPRESSION: No DVT within the left lower extremity. Mildly enlarged left inguinal lymph node. This is indeterminate but could be reactive. ACT 112: Negative or not required by law. CT OF THE LEFT FOOT WITHOUT CONTRAST CLINICAL HISTORY: Possible osteomyelitis. TECHNIQUE: Axial images of the left foot were obtained without IV contrast. Sagittal and coronal reconstructions were viewed. Automated exposure control was utilized for the study. A dose lowering technique was utilized adhering to the principles of ALARA. COMPARISON STUDY: No previous studies for comparison. FINDINGS: Note is made of extensive subcutaneous edema of the left ankle and dorsal aspect of the left foot. No soft tissue gas is present. No fluid collection is identified on this unenhanced examination. There is extensive vascular calcification. Talar dome is intact. No acute fracture within the left foot is noted. There is no suspicious osseous lesion. Tarsometatarsal joints are intact. No bony erosions are identified. 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 There is soft tissue swelling of the left first toe. IMPRESSION: 1. No evidence for osteomyelitis within the left foot or ankle. 2. Left ankle and foot soft tissue swelling. No soft tissue gas. No fluid collec tion to suggest abscess. 3. Extensive vascular calcification. Code Status & VTE Plan Code Status Full code VTE Prophylaxis Plan VTE Prophylaxis will be ordered: Yes PG Care Time/CCT Total # of Minutes Spent Total Time Spent with Patient: Total time spent is greater than 50% in coordination of care (as documented) at patient's floor/unit and/or counseling patient: Coding Level of Care Code 92828 Initial Inpt Care Lvl 3 Diagnoses Soft tissue infection of foot L08.9 CKD (chronic kidney disease) stage 3, GFR 30-59 ml/min N18.31 Chronic kidney disease stage 3 subtype: stage 3a (GFR 45-59) Hyperglycemia R73.9 Hypertension I15.2 Hypertension type: secondary to endocrine disorders Diabetes mellitus E11.22; N18.30 Diabetes mellitus type: type 2 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: without fpc use Diabetes mellitus complication status: with kidney complications Diabetes mellitus complication detail: with chronic kidney disease Chronic kidney disease stage: stage 3 (moderate) Chronic kidney disease stage 3 subtype: unspecified whether 3a or 3b Diabetic neuropathy E11.41 Diabetes mellitus type: type 2 Diabetes mellitus complication detail: diabetic mononeuropathy (1) CKD (chronic kidney disease) stage 3, GFR 30-59 ml/min Chronic kidney disease stage 3 subtype: stage 3a (GFR 45-59) Qualified Code(s): N18.31 - Chronic kidney disease, stage 3a (2) Hypertension Hypertension type: secondary to endocrine disorders Qualified Code(s): I15.2 - Hypertension secondary to endocrine disorders (3) Diabetes mellitus Diabetes mellitus type: type 2 Diabetes mellitus fpc insulin use: without fpc use Diabetes mellitus complication status: with kidney compli cations Diabetes mellitus complication detail: with chronic kidney disease Chronic kidney disease stage: stage 3 (moderate) Chronic kidney disease stage 3 subtype: unspecified whether 3a or 3b Qualified Code(s): E11.22 - Type 2 diabetes mellitus with diabetic chronic kidney disease; N18.30 - Chronic kidney disease, stage 3 unspecified (4) Diabetic neuropathy Diabetes mellitus type: type 2 Diabetes mellitus complication detail: diabetic mononeuropathy Qualified Code(s): E11.41 - Type 2 diabetes mellitus with diabetic mononeuropathy
[2020-09-14] MEDS ORDERED: PIPERACILL/TAZOBAC CONSULT ACTIVE PRN (15:59)
[2020-09-14] MEDS ORDERED: ACETAMINOPHEN 325 MG TAB PO PRN (15:59)
[2020-09-14] MEDS ORDERED: PIPERACILLIN/TAZOBACTAM 4.5 GM in DEXTROSE 5% 100 ML IV ONE (16:30)
[2020-09-14 16:37] LABS: Basophils # (auto) 0.03 K/uL (0-0.2); Basophils % (auto) 0.2 %; Eosinophils # (auto) 0.48 K/uL (0-0.5); Eosinophils % (auto) 3.3 %; Hematocrit (blood only) 36.6 % (42-52); Hemoglobin 12.2 g/dL (14.0-18.0); Immature Granulocytes # (auto) 0.04 K/uL (0.00-0.02); Immature Granulocytes % (auto) 0.3 %; Lymphocytes # (auto) 1.92 K/uL (1.2-3.4); Lymphocytes % (auto) 13.2 %; Mean Corpuscular Hemoglobin 27.9 pg (25-34); Mean Corpuscular Hgb Conc 33.3 g/dL (32-36); Mean Corpuscular Volume 83.6 fL (80-100); Mean Platelet Volume 8.9 fL (7.4-10.4); Monocytes # (auto) 1.72 K/uL (0.11-0.59); Monocytes % (auto) 11.9 %; Neutrophils # (auto) 10.31 K/uL (1.4-6.5); Neutrophils % (auto) 71.1 %; Platelet Count 297 K/uL (130-400); RDW Coefficient of Variation 14.8 % (11.5-14.5); RDW Standard Deviation 45.9 fL (36.4-46.3); Red Blood Count 4.38 M/uL (4.7-6.1)
[2020-09-14 16:53] LABS: Albumin Level 2.3 gm/dl (3.4-5.0); Creatinine Clr Calc Pharmacy 53.6 ml/min; Est GFR (African American) 46.9; Est GFR (Non-African American) 40.4
[2020-09-14 16:58] LABS: C Reactive Protein 13.5 mg/dl (0-0.29); Prealbumin 10.5 mg/dl (20-40)
[2020-09-14] MEDS: INSULIN ASPART 100 UNITS/ML 3 ML PEN SQ SCH ×2 (17:09→22:02)
--- NOTE | 2020-09-14 17:36 | Pharmacy Report ---
Pharmacy Abx Initial Consult - Date of Service September 14, 2020 - Pharmacy Dosing Scope Date of Consult: 09/14/20 Consultation requested by: Dr. Brock Pharmacy is consulted to initiate vancomycin/Zosyn IV dosing therapy, order appropriate labs and adjust drug dose/frequency. - Subjective The patient is a 50 year old M admitted on 09/14/20 12:37. - Objective Height: 5 ft 10 in Weight: 94.2 kg Vital Signs (Past 12hrs): Vital Signs Temp Pulse Pulse Resp BP BP Pulse Ox 09/14/20 13:00 88 18 121/68 96 09/14/20 11:30 82 113/79 100 09/14/20 09:36 35.8 C L 98 H 20 112/75 99 Lab Results (24hrs): Laboratory Tests (24 Hours) 09/14/20 09/14/20 09/14/20 16:26 16:26 16:26 WBC 14.50 H Neut # (Auto) 10.31 H ESR > 90 H Creatinine 1.88 H Est Cr Clr Drug Dosing 53.6 C-Reactive Protein 13.50 H 09/14/20 09/14/20 10:16 10:16 WBC 13.46 H Neut # (Auto) 9.86 H ESR Creatinine 1.91 H Est Cr Clr Drug Dosing 52.7 C-Reactive Protein Micro Results: 09/14/20 10:21 Aerobic Blood Culture - Pending Blood Anaerobic Blood Culture - Pending 09/14/20 10:16 Aerobic Blood Culture - Pending Blood Anaerobic Blood Culture - Pending - Assessment & Plan Assessment 50 year old M ordered empiric vancomycin and Zosyn for treatment of left lower extremity SSTI. Patient originally presented to ED on 09/11 and received dose of dalbavancin with instructions to return to ED today for evaluation/recheck. Pertinent PMH includes diabetes mellitus w/ diabetic neuropathy and CKD. Blood cultures x 2 ordered and pending. Leukocytosis noted at 14.5 K. Renal function appears to be at/near baseline (SCr 1.88 mg/dL). ESR and CRP elevated at >[address] shows no evidence of osteomyelitis. Plan Vancomycin IV * Patient meets criteria for vancomycin AUC dosing nomogram * Will initiate dosing at 1000 mg IV q12h * AUC/LENARD is the preferred PK/PD target for vancomycin * Target AUC/LENARD = 400-600 * AUC guided dosing is effective and associated with decreased risk of nephrotoxicity Zosyn IV * 4.5 g IV x 1 followed by 3.375 g IV q8h is appropriate based on BMI and renal function Pharmacy will continue to follow and will adjust dose/frequency as necessary. Thank you.
[2020-09-14] MEDS: GABAPENTIN 300 MG CAP PO SCH (21:41)
[2020-09-14] MEDS: ATORVASTATIN 40 MG TAB PO SCH (21:44)
[2020-09-14] MEDS: oxyCODONE HCL IR 5 MG TAB (IMMEDIATE RELEASE) PO PRN (21:45)
[2020-09-14] MEDS: INSULIN GLARGINE SOLOSTAR 100 UNITS/ML 3 ML PEN SQ SCH (22:02)
[2020-09-14] MEDS: PIPERACILLIN/TAZOBACTAM 3.375 GM in DEXTROSE 5% 100 ML IV SCH (22:41)
[2020-09-15] MEDS ORDERED: VANCOMYCIN HCL 1,000 MG in SODIUM CHLORIDE 0.9% 250 ML IV SCH
[2020-09-15] MEDS: oxyCODONE HCL IR 5 MG TAB (IMMEDIATE RELEASE) PO PRN ×2 (05:17→12:35)
[2020-09-15] MEDS: PIPERACILLIN/TAZOBACTAM 3.375 GM in DEXTROSE 5% 100 ML IV SCH (05:17)
[2020-09-15 05:48] LABS: Estimated Average Glucose 166 mg/dl; Hemoglobin A1C 7.4 % (4.5-5.6)
[2020-09-15 06:06] LABS: Basophils # (auto) 0.02 K/uL (0-0.2); Basophils % (auto) 0.2 %; Eosinophils # (auto) 0.49 K/uL (0-0.5); Eosinophils % (auto) 4.2 %; Hematocrit (blood only) 37.2 % (42-52); Hemoglobin 12.3 g/dL (14.0-18.0); Immature Granulocytes # (auto) 0.04 K/uL (0.00-0.02); Immature Granulocytes % (auto) 0.3 %; Lymphocytes # (auto) 1.65 K/uL (1.2-3.4); Lymphocytes % (auto) 14.2 %; Mean Corpuscular Hemoglobin 27.5 pg (25-34); Mean Corpuscular Hgb Conc 33.1 g/dL (32-36); Mean Corpuscular Volume 83.2 fL (80-100); Mean Platelet Volume 8.9 fL (7.4-10.4); Monocytes # (auto) 1.25 K/uL (0.11-0.59); Monocytes % (auto) 10.7 %; Neutrophils # (auto) 8.21 K/uL (1.4-6.5); Neutrophils % (auto) 70.4 %; Platelet Count 256 K/uL (130-400); RDW Coefficient of Variation 14.9 % (11.5-14.5); RDW Standard Deviation 45.3 fL (36.4-46.3); Red Blood Count 4.47 M/uL (4.7-6.1); White Blood Count 11.66 K/uL (4.8-10.8)
[2020-09-15 06:16] LABS: Partial Thromboplastin Ratio 1.2; Partial Thromboplastin Time 32.2 Seconds (21.0-31.0)
[2020-09-15 06:40] LABS: Albumin Level 2.2 gm/dl (3.4-5.0); Calcium 8.9 mg/dl (8.5-10.1); Creatinine Clr Calc Pharmacy 55.4 ml/min; Est GFR (African American) 49.7; Est GFR (Non-African American) 42.9; Magnesium 2.3 mg/dl (1.8-2.4); Potassium 3.9 mmol/L (3.5-5.1)
[2020-09-15 06:44] LABS: Bilirubin Direct 0.2 mg/dl (0-0.2); Bilirubin,Total 0.6 mg/dl (0.2-1); Phosphorus 3.6 mg/dl (2.5-4.9); Total Protein 8.6 gm/dl (6.4-8.2)
[2020-09-15] MEDS: GABAPENTIN 300 MG CAP PO SCH ×2 (09:02→20:34)
[2020-09-15] MEDS: FLUTICASONE PROPIONATE NA SPR 16 GM BTL NAE SCH (09:02)
[2020-09-15] MEDS: FUROSEMIDE 20 MG TAB PO SCH (09:03)
[2020-09-15] MEDS: ASPIRIN 81 MG ECTAB PO SCH (09:03)
[2020-09-15] MEDS: amLODIPine BESYLATE 5 MG TAB PO SCH (09:03)
[2020-09-15] MEDS: LOSARTAN POTASSIUM 50 MG TAB PO SCH (09:03)
[2020-09-15] MEDS: CHOLECALCIFEROL 1,000 UNITS 25 MCG TAB PO SCH (09:04)
[2020-09-15] MEDS: ENOXAPARIN INJ 40 MG/0.4 ML SYR SQ SCH (09:04)
[2020-09-15] MEDS: SPIRONOLACTONE 25 MG TAB PO SCH (09:04)
[2020-09-15] MEDS: METOPROLOL SUCC 50MG EXT REL TAB PO SCH (09:04)
--- NOTE | 2020-09-15 09:52 | Hospitalist Progress Note ---
Date of Service September 15, 2020 Assessment & Plan Admission and Anticipated Discharge Date Admission Date: September 14, 2020 50 yo M w/ pMHx. of DM II, here for soft tissue infection of the left foot. Soft tissue infection of left foot: -CT with no evidence of osteomyelitis, no gas or abscess -Concern that poor blood supply is contributing to the foot infection -If there is worsening of clinical course consider MRI for further evaluate for osteomyelitis -discontinued Vancomycin and Zosyn empiric coverage -started Cefepime for gram negative including Pseudomonas coverage -Blood cultures, NGTD from 09/11, 09/14 pending -consulted wound care -pain control with scheduled Tylenol, Gabapentin increased dose to 600 AM, noon and 900 QHS, w/ Oxycodone or Dilaudid PRN for severe pain CKD (chronic kidney disease) stage 3, GFR 30-59 ml/min: -avoiding nephrotoxic drugs Diabetes mellitus type II: -consult pharmacy, glycemic management -A1C 7.4 on admission Hypertension: -Continue home antihypertensives Diabetic neuropathy: -Gabapentin as above DVT: Lovenox Code: full Diet: CC DMII COVID: negative Supervising Physician Co-Signing Physician Notes I personally examined the patient and verified all torres points of history and exam, discussed case, and agree with decision making with Dr Walls biggest problem is pain - comes on suddenly, jolting. can't walk due to pain. redness on garcia basically gone vitls noted nad marcy penaloza at mmm. LLE no tracking erythema no tenderness in the area where previous pictures/outline show erythema was. foot dressed, but pictures show area of erythema on dorsum of foot and large area of ulceration at base of 2nd toe. DM foot infection -given marked resolution in erythema - strongly suspect that the actual infection was improving on dalvance. problem is likely more pain from inflammation and the ulcer as well as slow healing from vascular insufficiency. nothing showing acute ischemia/need for immediate vascular involvement - might need in the intermediate future depending on healing. continue dalvance for gram positive coverage, for now continue gram negative since prior uncontrolled DM. pain - escalate pain regimen, follow Subjective [place] Valverde is doing okay this morning. He was admitting that he had pain in his foot that was improved with oxycodone. We discussed the concerns with these pain medications slowing down his gut motility and he was agreeable to starting a stool softener. LBM was 2 days ago. Review of Systems Review of Systems: Constitutional: denies fevers, chills Cardiac: denies chest pain, palpitations Pulm.: denies cough, shortness of breath GI: denies nausea, vomiting Physical Exam Constitutional: WD/WN, vitals as above Eyes: PERRL, conjunctivae normal, anicteric sclerae ENMT: external ear and nose normal, oropharynx normal Neck: normal visual inspection Respiratory: normal respiratory effort, lungs clear to auscultation Cardiovascular: RRR, no murmur, no edema Gastrointestinal (Abdomen): normal bowel sounds, soft, nontender, no hepatosplenomegaly Skin: Left dorsal surface of second toe and first interspace with crusting, erythema, no drainage. Unable to appreciate PT, DP pulses. Warm. No hair on leg below knee. Results & Data Results & Data ([facility]) Vital Signs (Past 12 Hours) Vital Signs Temp Pulse Resp BP Pulse Ox 09/15/20 09:07 88 130/78 97 09/15/20 06:58 37.3 C 87 16 116/81 92 09/15/20 02:41 37.4 C 86 17 114/73 96 09/14/20 23:09 37.2 C 86 18 111/69 97 CBC Results Results Complete Blood Count Results: RBC 4.47 M/uL (4.7-6.1) L 09/15/20 WBC 11.66 K/uL (4.8-10.8) H 09/15/20 Hgb 12.3 g/dL (14.0-18.0) L 09/15/20 Hct 37.2 % (42-52) L 09/15/20 Plt Count 256 K/uL (130-400) 09/15/20 Chemistry (BMP) Results BMP Results: Sodium 134 mmol/L (136-145) L 09/15/20 Potassium 3.9 mmol/L (3.5-5.1) 09/15/20 Chloride 106 mmol/L (98-107) 09/15/20 BUN 38 mg/dl (7-18) H 09/15/20 Creatinine 1.79 mg/dl (0.6-1.4) H 09/15/20 Glucose 68 mg/dl (70-99) L 09/15/20 Resident Activity Tracking Resident Involvement: Resident Care Provided Care Provided: Adult Hospital Medicine
[2020-09-15] MEDS ORDERED: PHARMACY GLYCEMIC MGMT CONSULT PRN (10:10)
[2020-09-15] MEDS: CEFEPIME 2,000 MG in SYRINGE 0 ML IV SCH ×2 (10:46→20:39)
[2020-09-15] MEDS: POLYETHYLENE (MIRALAX) 17 GM PACK PO SCH (10:46)
[2020-09-15] MEDS ORDERED: INSULIN GLARGINE SOLOSTAR 100 UNITS/ML 3 ML PEN SQ SCH ×2 (12:00)
[2020-09-15] MEDS ORDERED: HYDROmorphone INJ 0.5 MG/0.5 ML SYR IV PRN (12:27)
[2020-09-15] MEDS: INSULIN ASPART 100 UNITS/ML 3 ML PEN SQ SCH ×4 (13:00→20:34)
[2020-09-15] MEDS: INSULIN GLARGINE SOLOSTAR 100 UNITS/ML 3 ML PEN SQ SCH (13:31)
[2020-09-15] MEDS: ACETAMINOPHEN 325 MG TAB PO SCH ×3 (13:59→20:33)
[2020-09-15] MEDS ORDERED: GABAPENTIN 300 MG CAP PO SCH (14:00)
--- NOTE | 2020-09-15 14:17 | Pharmacy Report ---
Glycemic Control Consultation - Date of Service September 15, 2020 - Scope Scope: Glycemic Pharmacist consulted for glycemic control and to write orders per [facility] inpatient glycemic control protocol. - Objective Weight: 91.081 kg Accuchecks BSG (last 24hrs): 09/14/20 09/14/20 09/14/20 16:05 16:07 18:24 Glucose POC Glucose 69 L* 77 148 H 09/14/20 09/15/20 09/15/20 20:52 00:08 05:43 Glucose 68 L POC Glucose 86 87 09/15/20 09/15/20 08:24 12:04 Glucose POC Glucose 74 105 H Laboratory Data (last 24hrs): 09/14/20 09/15/20 16:26 05:43 Potassium 3.9 Carbon Dioxide 23 Anion Gap 5.0 Creatinine 1.88 H 1.79 H Est Cr Clr Drug Dosing 53.6 55.4 HbA1c: Hemoglobin A1c 7.4 % (4.5-5.6) H 09/14/20 16:26 - Recent Pertinent Medications Outpatient Anti-diabetic Regimen: * Invokana 300 mg daily * Lantus 50 units BID + Novolog 20 units AC * A1c = 7.4 % 09/14/20 The patient is currently receiving: * Basal insulin: Lantus 50 units every 12 hours (dose held yesterday evening) * Correctional Insulin: Novolog Correction per scale ACHS Goal Range: Low 110 mg/dL - High 140 mg/dL Correction Factor: 10 mg/dL/unit * Prandial insulin: Per carb ratio of 1 unit per 3 grams CHO consumed * Oral Agents: Risk Factors for Insulin Resistance: * Infection: cefepime * Diet: T2DM - Assessment & Plan Assessment & Plan: ASSESSMENT: * Mr Valverde is a 50 y/o with a PMH of well controlled T2DM on insulin and Invokana who presents with worsening foot infection. Patient's BSGs on presentation was 69 and yesterday evening 148 mg/dL. * Fasting this morning was 74 mg/dL. All insulin was held and pharmacy consulted. Lunch BSG was 105 mg/dL. * Will give 70% of home dose or Lantus 35 units SQ x 1. Scale for tomorrow morning with scale of 20-50 units available. * Novolog weight-based stress of 2-3 to be started with lunch. PLAN FOR INPATIENT GLYCEMIC CONTROL: * Decreasing Lantus to 20-50 units SQ daily * Lantus 20 units for BSG < 70 mg/dL * Lantus 35 units for BSG 70-100 mg/dL * Lantus 40 units for BSG 101-120 mg/dL * Lantus 50 units for BSG > 120 mg/dL * Continuing correction factor of 20 mg/dl/unit * Continuing carb ratio of 1 unit per 7 grams CHO consumed * Continuing goal range of Low 110 mg/dL - High 140 mg/dL * Please note that the plan above was derived based on current level of insulin resistance and hospital stress. These recommendations are appropriate for inpatient admission only. Plan of care upon discharge will need to be reassessed to avoid potential outpatient hypo/hyperglycemia. Thank you.
--- NOTE | 2020-09-15 14:48 | Billing Data ---
Date of Service September 15, 2020 Coding Level of Care Code 89978 Subseq Hosp Care Lvl 3
[2020-09-15] MEDS: ATORVASTATIN 40 MG TAB PO SCH (20:32)
[2020-09-16] MEDS: oxyCODONE HCL IR 5 MG TAB (IMMEDIATE RELEASE) PO PRN (05:43)
[2020-09-16] MEDS: GABAPENTIN 300 MG CAP PO SCH ×3 (08:34→21:01)
[2020-09-16] MEDS ORDERED: INSULIN GLARGINE SOLOSTAR 100 UNITS/ML 3 ML PEN SQ SCH (09:00)
[2020-09-16] MEDS: ENOXAPARIN INJ 40 MG/0.4 ML SYR SQ SCH (10:00)
[2020-09-16] MEDS: amLODIPine BESYLATE 5 MG TAB PO SCH (10:01)
[2020-09-16] MEDS: SPIRONOLACTONE 25 MG TAB PO SCH (10:01)
[2020-09-16] MEDS: ASPIRIN 81 MG ECTAB PO SCH (10:02)
[2020-09-16] MEDS: FUROSEMIDE 20 MG TAB PO SCH (10:02)
[2020-09-16] MEDS: ACETAMINOPHEN 325 MG TAB PO SCH ×4 (10:02→21:02)
[2020-09-16] MEDS: LOSARTAN POTASSIUM 50 MG TAB PO SCH (10:02)
[2020-09-16] MEDS: FLUTICASONE PROPIONATE NA SPR 16 GM BTL NAE SCH (10:03)
[2020-09-16] MEDS: CHOLECALCIFEROL 1,000 UNITS 25 MCG TAB PO SCH (10:03)
[2020-09-16] MEDS: INSULIN ASPART 100 UNITS/ML 3 ML PEN SQ SCH ×4 (10:04→21:09)
[2020-09-16] MEDS: POLYETHYLENE (MIRALAX) 17 GM PACK PO SCH (10:05)
[2020-09-16] MEDS: CEFEPIME 2,000 MG in SYRINGE 0 ML IV SCH ×2 (10:19→21:02)
[2020-09-16] MEDS: METOPROLOL SUCC 50MG EXT REL TAB PO SCH (11:04)
--- NOTE | 2020-09-16 12:15 | Hospitalist Progress Note ---
Date of Service September 16, 2020 Assessment & Plan Admission and Anticipated Discharge Date Admission Date: September 14, 2020 50 yo M w/ pMHx. of DM II, here for soft tissue infection of the left foot admitted after concern for treatment failure of foot infection. Overall improving and working towards better pain control prior to discharge. Soft tissue infection of left foot, 2nd digit, 1st webspace: -CT with no evidence of osteomyelitis, no gas or abscess -Blood cultures, NGTD from 09/11, 09/14 pending -Consulted wound care -Concern that poor blood supply is contributing to the foot infection -discontinued Vancomycin and Zosyn empiric coverage -continues to be covered with Dalvance given on prior ER visit -started Cefepime for gram negative coverage including Pseudomonas -would consider discharge on oral abx. such as Doxycycline for MRSA coverage along with gram negative coverage with either Augmentin or Cefdinir -If there is worsening of clinical course consider MRI for further evaluate for osteomyelitis in the future Left foot pain control -potentially multifactorial w/ probable culprits including cellulitis, PAD, diabetic neuropathy, and swelling -scheduled Tylenol, Gabapentin increased dose to 600 AM, noon and 900 QHS, w/ Oxycodone or Dilaudid PRN for severe pain CKD (chronic kidney disease) stage 3, GFR 30-59 ml/min: -avoiding nephrotoxic drugs Diabetes mellitus type II: -overall much improved from prior admission with A1c at admission 7.4 -consult pharmacy, glycemic management Hypertension: -Continue home antihypertensives PAD: -given PE and history this does not appear to require urgent management -increased peak systolics on Duplex artery exam on 09/11 -consulted navigator to set up vascular surgery Diabetic neuropathy: -Gabapentin as above DVT: Lovenox Code: full Diet: CC DMII COVID: negative Supervising Physician Co-Signing Physician Notes I personally examined the patient and verified all torres points of history and exam, discussed case, and agree with decision making with Dr Walls doing much better with pain. still not walking well but better. vitls noted nad heent nc at mmm. LLE no tracking erythema no tenderness in the area where previous pictures/outline show erythema was. foot ulcer still w gauze, but looks similar to yesterday, dull erythema on dorsum of foot but otherwise erythema areas that were outlined up garcia have resolved. DM foot infection -given marked resolution in erythema - strongly suspect that the actual infection was improving on dalvance. problem is likely more pain from inflammation and the ulcer as well as slow healing from vascular insufficiency. nothing showing acute ischemia/need for immediate vascular involvement - might need in the intermediate future depending on healing. was given a dose of 1500mg dalvance on 09/11 so this is still covering gram positives, cefepime to cover gram negatives -- since was improving from dalvance alone - not overly likely to be dominant gram negatives, but with diabetic foot/open ulcer have to cover -- but connective tissue risks for quinolones seem needlessly high --> therefore probably home on doxy/cefdinir once pain is better. -d/w pt that he'll likely need at least 2wks abx (?longer depending on healing/etc) as well as ongoing wound clinic management (he initially balked - but after discussion that undertreated could easily be chronic and/or progress to amputation he was then willing to have close f/u); and possible vascular surgery intervention (he might have appt already - asked case management to either confirm or schedule) claudication -no resting ischemia or overt need for immediate intervention - but outpt vascular input will be sought. pain - doing better on current regimen dispo - home on PO abx, wound clinic and vascular f/u once pain better controlled/able to walk Subjective [place] Valverde is doing okay this morning. He was admitting that he had pain in his foot that was improved with increased dose of Gabapentin. He noted that he was very tired with the 900 mg of Gabapentin but did think that he would be safe on this dose at home. He did have oxycodone this morning for his pain. He was walking when I saw him. He noted that the swelling in his foot has overall improved. His pain was currently 0/10 but he did have a couple of sharp pains. Review of Systems Review of Systems: Constitutional: denies fevers, chills Cardiac: denies chest pain, palpitations Pulm.: denies cough, shortness of breath GI: denies nausea, vomiting Physical Exam Constitutional: WD/WN, vitals as above Eyes: PERRL, conjunctivae normal, anicteric sclerae ENMT: external ear and nose normal, oropharynx normal Neck: normal visual inspection Respiratory: normal respiratory effort, lungs clear to auscultation Cardiovascular: RRR, no murmur, no edema Gastrointestinal (Abdomen): normal bowel sounds, soft, nontender, no hepatosplenomegaly Skin: Left dorsal surface of second toe and first interspace with crusting, erythema, no drainage. Unable to appreciate PT, DP pulses. Warm. No hair on leg below knee bilaterally. Results & Data Results & Data ([facility]) Vital Signs (Past 12 Hours) Vital Signs Temp Pulse Resp BP Pulse Ox 09/16/20 06:45 37.3 C 86 18 125/75 96 09/16/20 00:17 37.1 C 86 16 100/63 97 CBC Results Results Complete Blood Count Results: RBC 4.47 M/uL (4.7-6.1) L 09/15/20 WBC 11.66 K/uL (4.8-10.8) H 09/15/20 Hgb 12.3 g/dL (14.0-18.0) L 09/15/20 Hct 37.2 % (42-52) L 09/15/20 Plt Count 256 K/uL (130-400) 09/15/20 Chemistry (BMP) Results BMP Results: Sodium 134 mmol/L (136-145) L 09/15/20 Potassium 3.9 mmol/L (3.5-5.1) 09/15/20 Chloride 106 mmol/L (98-107) 09/15/20 BUN 38 mg/dl (7-18) H 09/15/20 Creatinine 1.79 mg/dl (0.6-1.4) H 09/15/20 Glucose 68 mg/dl (70-99) L 09/15/20 Resident Activity Tracking Resident Involvement: Resident Care Provided Care Provided: Adult [facility] Medicine
--- NOTE | 2020-09-16 15:35 | Billing Data ---
Date of Service September 16, 2020 Coding Level of Care Code 70124 Subseq Hosp Care Lvl 3
[2020-09-16] MEDS: ATORVASTATIN 40 MG TAB PO SCH (21:01)
--- NOTE | 2020-09-17 07:39 | Hospitalist Progress Note ---
Date of Service September 17, 2020 Assessment & Plan (1) Cellulitis of left le yo M w/ pMHx. of DM II, here for soft tissue infection of the left foot admitted after concern for treatment failure of foot infection. Overall improving and working towards better pain control prior to discharge. Soft tissue infection of left foot, 2nd digit, 1st webspace: -CT with no evidence of osteomyelitis, no gas or abscess -Blood cultures, NGTD from 09/11, 09/14 pending -NGTD as of 09/17/20 -Consulted wound care -following recs -Concern that poor blood supply is contributing to the foot infection -discontinued Vancomycin and Zosyn empiric coverage continues to be covered with Dalvance given on prior ER visit -started Cefepime for gram negative coverage including Pseudomonas -If there is worsening of clinical course consider MRI for further evaluate for osteomyelitis in the future -On d/c consider oral abx. such as Doxycycline for MRSA coverage along with gram negative coverage with either Augmentin or Cefdinir -From a cellulitis standpoint his infection is significantly improved, however it is unclear the extent of the necrosis, we will consult orthopedic surgery for further assistance -Consult orthopedic surgery Left foot pain control -potentially multifactorial w/ probable culprits including cellulitis, PAD, diabetic neuropathy, and swelling -Reports his pain is changed in nature from a chronic dull ache to a sharp stinging likely associated with the healing of his wounds. -scheduled Tylenol, Gabapentin increased dose to 600 AM, noon and 900 QHS, w/ Oxycodone or Dilaudid PRN for severe pain -Reports pain is well controlled at baseline, however is significant when attempting to apply pressure -I expect pain to improve as we gain better control over the infection, and his wounds continue to heal -Given the lack of meaningful improvement, will consult interventional cardiology - CKD (chronic kidney disease) stage 3, GFR 30-59 ml/min: -avoiding nephrotoxic drugs -trend daily bmp -CR: 1.74 today Diabetes mellitus type II: -overall much improved from prior admission with A1c at admission 7.4 -consult pharmacy, glycemic management Hypertension: -Continue home antihypertensives -well controlled PAD: -increased peak systolics on Duplex artery exam on 09/11 Diabetic neuropathy: -Gabapentin as above DVT: Lovenox Code: full Diet: CC DMII COVID: negative (2) CKD (chronic kidney disease) stage 3, GFR 30-59 ml/min: (3) Diabetic neuropathy: (4) Diabetes mellitus: (5) Hypertension: (6) PAD (peripheral artery disease): Admission and Anticipated Discharge Date Admission Date: September 14, 2020 Supervising Physician Co-Signing Physician Notes Attending Attestation: Pt seen & examined, chart reviewed, care plan d/w resident Dr Alex Frost. I agree w/ the torres components of his documentation. Pt unhappy during my bedside rounds. Feels that he should have had more wound care for the left foot over the last 24 hours. Feels that 2nd toe is worse. Continues with pain in left foot. Mentions a family member who is irate about his situation and his care. Denies any dyspnea, cp, abd pain or diarrhea. VSS no fever gen - NAD, nontoxic mouth - MMM heart - RRR, s1 s2 lungs - CTA b/l abd - soft NT BS+ vascular - cap refill toes left foot 3 seconds; popliteal pulse L 2+; DP pulse L 1-2+; post tib pulse L faint; pulses right foot 2+ skin - no erythema/cellulitis of garcia on left; dorsum left foot with moderate erythema and warmth; left great toe erythematous; left 2nd toe with necrotic skin and distal tip dusky; 3rd-5th toes wnl; small crack/healing ulceration left medial great toe blood cx's negative A/P: LLE cellulitis Recent blister of Left great toe - resolved; likely served as entry portal for his infection Left 2nd toe severe infection/early necrosis PAD LLE as seen on recent arterial duplex T2DM Pain left foot Consult orthopedics, Dr Dillard ([facility]), for L 2nd toe. Consult Dr Vargas, [facility], for possible intervention for ?occluded posterior tibial artery. Cont asa/statin. Broaden abx - change to zosyn. Will need MRSA coverage w/ vanco starting tomorrow (dalvance dose was nearly 1 week ago). Brayden Gibson MD Subjective Patient lying in bed in no acute distress. Patient reports he is slowly becoming frustrated with the time is taking for his foot to recover. Patient reported sleeping well overnight, tolerating his diet, voiding, stooling. Patient reports pain in his left foot has changed in character, was previously a dull ache present at all times, now is sharp intermittent. He reports at baseline when he is lying in bed the pain is about a 3 out of 10, however when he steps on it it jumps up to a 7 out of 10. I spent approximately 10 minutes providing education to the patient regarding his condition, and likely prolonged nature of healing. Otherwise the patient continues to improve, acute concerns at present related to when the wound care doctor will come by all questions have been answered. Review of Systems Review of Systems: All systems reviewed & are unremarkable except as noted in HPI & below Physical Exam Physical Exam: General: In no acute distress HEENT: Normocephalic atraumatic Neck: Normal to visual inspection, trachea midline, did not appreciate any JVD Cardiac: Regular rate and rhythm I did not appreciate any significant murmurs rubs or gallops, normal S1, normal S2 Respiratory: Clear to auscultation bilaterally with symmetrical chest expansion I did not appreciate significant wheezes, rales, rhonchi, no increased work of breathing GI: Soft, nontender, nondistended, bowel sounds present MSK: Moves all extremities Skin: Left lower extremity with wounds see associated wound care note, and necrotic toe Neuro: Alert and oriented x4 Psych: Calm and cooperative Results & Data Results & Data ([facility]) Vital Signs (Past 12 Hours) Vital Signs Temp Pulse Resp BP Pulse Ox 09/16/20 23:57 37.2 C 84 15 128/72 96 Laboratory Results 09/17/20 09/16/20 09/16/20 Range/Units 07:09 20:56 17:10 Sodium Pending Potassium Pending Chloride Pending Carbon Dioxide Pending Anion Gap Pending BUN Pending Creatinine Pending Est Cr Clr Drug Dosing Pending Est GFR ( Amer) Pending Est GFR (Non-Af Amer) Pending BUN/Creatinine Ratio Pending Glucose Pending POC Glucose 145 H 114 H (70-99) mg/dl Calcium Pending 09/16/20 09/16/20 Range/Units 11:42 08:04 Sodium Potassium Chloride Carbon Dioxide Anion Gap BUN Creatinine Est Cr Clr Drug Dosing Est GFR ( Amer) Est GFR (Non-Af Amer) BUN/Creatinine Ratio Glucose POC Glucose 134 H 99 (70-99) mg/dl Calcium Medications Administered Current Inpatient Medications Acetaminophen (Acetaminophen 325 Mg Tab) 650 mg PO QID ANIL Stop: 10/15/20 12:59 Last Admin: 12/25/20 21:02 Dose: 650 mg Documented by: Amlodipine Besylate (Amlodipine Besylate 5 Mg Tab) 10 mg PO QAM [facility] Stop: 10/15/20 08:59 Last Admin: 09/16/20 10:01 Dose: 10 mg Documented by: Aspirin (Aspirin 81 Mg Ectab) 81 mg PO QAM [facility] Stop: 10/15/20 08:59 Last Admin: 09/16/20 10:02 Dose: 81 mg Documented by: Atorvastatin Calcium (Atorvastatin 40 Mg Tab) 40 mg PO QPM [facility] Stop: 10/14/20 20:59 Last Admin: 09/16/20 21:01 Dose: 40 mg Documented by: Enoxaparin Sodium (Enoxaparin Inj 40 Mg/0.4 Ml Syr) 40 mg SQ QAM [facility] Stop: 10/15/20 08:59 Last Admin: 09/16/20 10:00 Dose: 40 mg Documented by: Fluticasone Propionate (Fluticasone Propionate Na Spr 16 Gm Btl) 2 sprays DEMAR DAILY [facility] Stop: 10/15/20 08:59 Last Admin: 09/16/20 10:03 Dose: Not Given Documented by: Furosemide (Furosemide 20 Mg Tab) 20 mg PO QAM [facility] Stop: 10/15/20 08:59 Last Admin: 09/16/20 10:02 Dose: 20 mg Documented by: Gabapentin (Gabapentin 300 Mg Cap) 600 mg PO BID@0900,1400 [facility] Stop: 10/15/20 13:59 Last Admin: 09/16/20 13:40 Dose: 600 mg Documented by: Gabapentin (Gabapentin 300 Mg Cap) 900 mg PO HS [facility] Stop: 10/15/20 20:59 Last Admin: 09/16/20 21:01 Dose: 900 mg Documented by: Hydromorphone HCl (Hydromorphone Inj 0.5 Mg/0.5 Ml Syr) 0.5 mg IV Q4 PRN PRN Reason: Pain Stop: 09/29/20 12:26 Last Admin: 09/15/20 18:24 Dose: 0.5 mg Documented by: Cefepime HCl 2,000 mg/ Syringe 20 mls @ 5 mls/min IV Q12H [facility]; Protocol Stop: 09/22/20 08:14 Last Admin: 09/16/20 21:02 Dose: 5 mls/min Documented by: Insulin Aspart (Insulin Aspart 100 Units/Ml 3 Ml Pen) 0 units SQ ACHS [facility] Stop: 10/15/20 11:29 Last Admin: 09/16/20 21:09 Dose: Not Given Documented by: Insulin Glargine (Insulin Glargine Solostar 100 Units/Ml 3 Ml Pen) 0 units SQ DAILY [facility]; Protocol Stop: 10/16/20 08:59 Last Admin: 09/16/20 10:03 Dose: 35 units Documented by: Losartan Potassium (Losartan Potassium 50 Mg Tab) [facility] [place] Stop: 10/15/20 08:59 Last Admin: 09/16/20 10:02 Dose: 100 mg Documented by: Metoprolol Succinate (Metoprolol Succ 50mg Ext Rel Tab) 100 mg PO [facility] Stop: 10/15/20 08:59 Last Admin: 09/16/20 11:04 Dose: 100 mg Documented by: Miscellaneous (Canagliflozin: Order Awaiting Action) 1 ea N/A QS [facility] Stop: 10/15/20 00:00 Last Admin: 09/17/20 00:17 Dose: Not Given Documented by: Miscellaneous Information (Pharmacy Glycemic Mgmt Consult) 1 ea N/A UD PRN PRN Reason: Consult Stop: 10/15/20 10:09 Oxycodone HCl (Oxycodone Hcl Ir 5 Mg Tab (Immediate Release)) 5 mg PO Q6H PRN PRN Reason: Moderate Pain (4,5,6) on NRS Stop: 09/28/20 15:58 Last Admin: 09/16/20 05:43 Dose: 5 mg Documented by: Oxycodone HCl (Oxycodone Hcl Ir 5 Mg Tab (Immediate Release)) 10 mg PO Q6H PRN PRN Reason: Severe Pain (7,8,9,10) on NRS Stop: 09/28/20 15:58 Last Admin: 09/15/20 12:35 Dose: 10 mg Documented by: Polyethylene Glycol (Polyethylene (Miralax) 17 Gm Pack) 17 gm PO DAILY [facility] Stop: 10/15/20 09:44 Last Admin: 09/16/20 10:05 Dose: Not Given Documented by: Spironolactone (Spironolactone 25 Mg Tab) 25 mg PO QAM [facility] Stop: 10/15/20 08:59 Last Admin: 09/16/20 10:01 Dose: 25 mg Documented by: Vitamin D (Cholecalciferol 1,000 Units 25 Mcg Tab) 1,000 units PO QAM [facility] Stop: 10/15/20 08:59 Last Admin: 09/16/20 10:03 Dose: 1,000 units Documented by: Resident Activity Tracking Resident Involvement: Resident Care Provided Care Provided: Adult [facility] Medicine (1) Diabetic neuropathy Diabetes mellitus complication detail: diabetic mononeuropathy Diabetes mellitus type: type 2 Qualified Code(s): E11.41 - Type 2 diabetes mellitus with diabetic mononeuropathy (2) Diabetes mellitus Chronic kidney disease stage: stage 3 (moderate) Chronic kidney disease stage 3 subtype: unspecified whether 3a or 3b Diabetes mellitus complication detail: with chronic kidney disease Diabetes mellitus complication status: with kidney complications Diabetes mellitus [employer] insulin use: without jail use Diabetes mellitus type: type 2 Qualified Code(s): E11.22 - Type 2 diabetes mellitus with diabetic chronic kidney disease; N18.30 - Chronic kidney disease, stage 3 unspecified (3) CKD (chronic kidney disease) stage 3, GFR 30-59 ml/min Chronic kidney disease stage 3 subtype: stage 3a (GFR 45-59) Qualified Code(s): N18.31 - Chronic kidney disease, stage 3a (4) Hypertension Hypertension type: secondary to endocrine disorders Qualified Code(s): I15.2 - Hypertension secondary to endocrine disorders
[2020-09-17 07:51] LABS: BUN Creatinine Ratio 18.7 (10-20); Calcium 9.4 mg/dl (8.5-10.1); Est GFR (African American) 51.5; Est GFR (Non-African American) 44.4; Potassium 4.2 mmol/L (3.5-5.1)
[2020-09-17] MEDS: SPIRONOLACTONE 25 MG TAB PO SCH (08:15)
[2020-09-17] MEDS: ASPIRIN 81 MG ECTAB PO SCH (08:16)
[2020-09-17] MEDS: LOSARTAN POTASSIUM 50 MG TAB PO SCH (08:16)
[2020-09-17] MEDS: FLUTICASONE PROPIONATE NA SPR 16 GM BTL NAE SCH (08:16)
[2020-09-17] MEDS: FUROSEMIDE 20 MG TAB PO SCH (08:17)
[2020-09-17] MEDS: ENOXAPARIN INJ 40 MG/0.4 ML SYR SQ SCH (08:17)
[2020-09-17] MEDS: GABAPENTIN 300 MG CAP PO SCH ×3 (08:18→21:47)
[2020-09-17] MEDS: METOPROLOL SUCC 50MG EXT REL TAB PO SCH (08:18)
[2020-09-17] MEDS: CHOLECALCIFEROL 1,000 UNITS 25 MCG TAB PO SCH (08:19)
[2020-09-17] MEDS: amLODIPine BESYLATE 5 MG TAB PO SCH (08:19)
[2020-09-17] MEDS: POLYETHYLENE (MIRALAX) 17 GM PACK PO SCH (08:22)
[2020-09-17] MEDS: CEFEPIME 2,000 MG in SYRINGE 0 ML IV SCH (08:24)
[2020-09-17] MEDS: INSULIN ASPART 100 UNITS/ML 3 ML PEN SQ SCH ×4 (08:51→21:49)
[2020-09-17] MEDS ORDERED: INSULIN GLARGINE SOLOSTAR 100 UNITS/ML 3 ML PEN SQ SCH (09:00)
[2020-09-17] MEDS: ACETAMINOPHEN 325 MG TAB PO SCH ×4 (09:54→21:46)
--- NOTE | 2020-09-17 11:28 | Pharmacy Report ---
Pharmacy Glycemic Short Note 2 - Date of Service September 17, 2020 - Glycemic Short BSG Results (Last 24 hours): 09/16/20 09/16/20 09/16/20 11:42 17:10 20:56 Glucose POC Glucose 134 H 114 H 145 H 09/17/20 09/17/20 07:09 08:32 Glucose 107 H POC Glucose 110 H OUTPATIENT ANTIDIABETIC REGIMEN: * Invokana 300 mg daily * Lantus 50 units BID + Novolog 20 units AC * A1c = 7.4 % (09/14/20) ASSESSMENT: 09/17: * BSGs well controlled yesterday, 103, 134, 114, and 145 mg/dL * Patient received 52 units of insulin (35 units of Lantus and 17 units of Novolog) * Fasting BSG of 107 mg/dL this morning * Continues on cefepime * Do not anticipate any changes to current regimen 09/15: * Mr Valverde is a 50 y/o with a PMH of well controlled T2DM on insulin and Invokana who presents with worsening foot infection. Patient's BSGs on presentation was 69 and yesterday evening 148 mg/dL. * Fasting this morning was 74 mg/dL. All insulin was held and pharmacy consulted. Lunch BSG was 105 mg/dL. * Will give 70% of home dose or Lantus 35 units SQ x 1. Scale for tomorrow morning with scale of 20-50 units available. * Novolog weight-based stress of 2-3 to be started with lunch. PLAN FOR INPATIENT GLYCEMIC CONTROL: * Hold outpatient oral diabetes medications * Basal insulin * Lantus 35 units SQ daily * Bolus insulin * NovoLog per scale ACHS or Q6hrs while NPO * Goal Range: Low 110 mg/dL - High 140 mg/dL * Correction Factor: 25 mg/dL/unit * Nutritional / Prandial insulin per carb ratio of 1 unit per 8 grams CHO consumed PLAN FOR DISCHARGE: * HbA1c of 7.4% is much improved compared to prior levels (9.7% on 06/30/2020) * Continue current regimen upon discharge * Ensure timely follow-up with managing provider
--- NOTE | 2020-09-17 17:02 | Orthopedic Consultation ---
Date of Consultation September 17, 2020 Assessment & Plan (1) PAD (peripheral artery disease): (2) Cellulitis of left leg: (3) Diabetic neuropathy: (4) Soft tissue infection of foot: His sed rate and C-reactive protein are elevated. White blood cell count is elevated. He is on Lovenox for DVT prophylaxis and is on fifth cefepime for an antibiotic. The CT scan has only axial images of the toes. The coronal's and sagittals do not include the toes. The films are reviewed and the report is noted indicating no evidence of fracture dislocation osteomyelitis subcutaneous gas or abscess. With patient's permission I went ahead and debrided the eschar from the big toe. I also using forceps debrided all of the skin around the central forefoot and second toe. There is a 1 cm area of eschar formation at the dorsal base of the second toe and a few other areas of minor black or purplish discoloration. I do not feel an abscess. There is no drainage. I would like to see what Dr. Vargas's input is in regards to his circulation. I think there is an element of disc vascularity present although the toe is not completely necrotic. For now I would think offloading elevation antibiotics and wound care would be appropriate. We will go ahead and order an x-ray of the foot for further information. We will hold on any further imaging studies like CT or MRI for now. It looks like there has been a lot of improvement over the past several days. Continue to elevate and administer IV antibiotics. I do not see need for operative intervention today. There is no drainage or clear-cut evidence of osteomyelitis abscess or joint infection. Movement of the toe passively was unremarkable. Present on Admission?: Yes (5) CKD (chronic kidney disease) stage 3, GFR 30-59 ml/min: History of Present Illness Reason for Consultation: Left foot infection Attending Physician: Brayden Gibson History of Present Illness [place] is 50. He has a longstanding type 2 diabetes which he confesses that he has not managed very well for a long period of time. About 2 weeks ago he developed a blister on his left big toe. Reasons unclear but he denies ill fitting shoes or injury. About a week ago he developed blistering on the second toe area. He developed progressive redness and swelling. He was admitted September 14. I was consulted to see the patient today. He reports having poor feeling in his feet. Allergies Allergy/AdvReac Type Severity Reaction Status Date / Time No Known Drug Allergies Allergy Verified 09/14/20 11:17 Home Medications Medication Instructions Recorded Confirmed Type pen needle, diabetic 32 gauge x #200 ea 11/11/19 08/31/20 Rx 5/32" blood-glucose meter #1 ea 11/19/19 08/31/20 Rx blood-glucose meter #1 ea 11/19/19 08/31/20 Rx aspirin [Aspirin Low Dose] 81 mg PO QAM 05/24/20 09/14/20 History lancets [OneTouch Delica Lancets] #100 ea 05/28/20 08/31/20 Rx atorvastatin 40 mg tablet 40 mg PO QPM #90 tab 06/06/20 09/14/20 Rx blood sugar diagnostic #300 ea 06/15/20 08/31/20 Rx insulin glargine 100 unit/mL (3 See Rx Instructions SUBCUT BID #15 06/30/20 09/14/20 Rx mL) subcutaneous pen ml naproxen 500 mg tablet 500 mg PO BID PRN #60 tab 07/11/20 09/14/20 Rx insulin aspart U-100 100 unit/mL 20 unit SUBCUT AC #15 ml 07/27/20 09/14/20 Rx (3 mL) subcutaneous pen fluticasone propionate 50 2 spray INTRANASAL DAILY #16 g 08/02/20 09/14/20 Rx mcg/actuation nasal spray,suspension sildenafil 50 mg tablet 50 mg PO DAILY PRN #30 tab 08/02/20 09/14/20 Rx amlodipine 10 mg PO QAM 09/11/20 09/14/20 History canagliflozin 300 mg PO QAM 09/11/20 09/14/20 History cholecalciferol (vitamin D3) 25 mcg PO QAM 09/11/20 09/14/20 History [Vitamin D3] furosemide 20 mg PO QAM 09/11/20 09/14/20 History losartan 100 mg PO QAM 09/11/20 09/14/20 History metoprolol succinate 100 mg PO QAM 09/11/20 09/14/20 History spironolactone 25 mg tablet 25 mg PO QAM #90 tab 09/12/20 09/14/20 Rx gabapentin 0 mg PO BID 09/14/20 09/14/20 History Patient History Medical History Acute dehydration Acute hyponatremia Acute kidney injury Anejaculatory orgasm Chronic kidney disease, stage 3a CKD (chronic kidney disease) Diabetes mellitus Dizziness Dyspnea on minimal exertion Erectile dysfunction Hyperglycemic crisis in diabetes mellitus Hypertension Psoriasis Smokeless tobacco use Umbilical hernia Uncontrolled hypertension Vertigo Vitamin D insufficiency Surgical History No pertinent past surgical history Family History Father Cardiac disorder Hypertension Grandfather Cardiac disorder Myocardial infarction Grandmother Breast cancer Denies family history of Ovarian cancer Prostate cancer Colorectal cancer Social History Smoking Status: Never smoker Tobacco Type: Smokeless Tobacco (Dip or Chew) Second Hand Exposure: No; Hx Alcohol Use: No Hx Substance Use: No Preferred Language: Croatian Communication Ability: Effective Visual Impairment: No Limitations Hearing Ability: Normal 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 Dorsalis pedis is 1+. There is 1+ edema of the forefoot where there is erythema and some purplish discoloration of the forefoot centrally and laterally. There is extensive and dried skin. There are some areas of black discoloration at the base of the second toe. There is tenderness around the second toe which is ill-defined. There is also tenderness throughout the forefoot. He has limited mobility of the toes. There is no significant deformity. There is an eschar on the big toe medially which is removed revealing a 1.5 x 0.5 cm area of full-thickness skin loss down to the subcutaneous tissues without exposed bone. There is a good granulating base. He reports diminished sensation throughout the foot and has 5 out of 5 ankle and toe plantarflexion dorsiflexion and eversion strength. The dorsal portion of the second toe shows some blackened purplish discoloration along with some erythema. The distal and plantar portion of the toes are pink in color. There is no swelling on the plantar aspect of the foot and the remainder of the toe actually looks fairly normal. Results & Data ([facility]) Vital Signs (Past 12 Hours) Vital Signs Temp Pulse Resp BP Pulse Ox 09/17/20 15:47 36.7 C 88 16 117/76 95 09/17/20 07:40 37.2 C 85 18 135/81 98 Diagnostic Findings Laboratory Results WBC 11.66 K/uL (4.8-10.8) H 09/15/20 05:43 RBC 4.47 M/uL (4.7-6.1) L 09/15/20 05:43 Hgb 12.3 g/dL (14.0-18.0) L 09/15/20 05:43 Hct 37.2 % (42-52) L 09/15/20 05:43 MCV 83.2 fL (80-100) 09/15/20 05:43 MCH 27.5 pg (25-34) 09/15/20 05:43 MCHC 33.1 g/dL (32-36) 09/15/20 05:43 RDW Std Deviation 45.3 fL (36.4-46.3) 09/15/20 05:43 RDW Coeff of Jonah 14.9 % (11.5-14.5) H 09/15/20 05:43 Plt Count 256 K/uL (130-400) 09/15/20 05:43 MPV 8.9 fL (7.4-10.4) 09/15/20 05:43 Immature Gran % (Auto) 0.3 % 09/15/20 05:43 Neut % (Auto) 70.4 % 09/15/20 05:43 Lymph % (Auto) 14.2 % 09/15/20 05:43 Jackson % (Auto) 10.7 % 09/15/20 05:43 Eos % (Auto) 4.2 % 09/15/20 05:43 Baso % (Auto) 0.2 % 09/15/20 05:43 Neut # (Auto) 8.21 K/uL (1.4-6.5) H 09/15/20 05:43 Lymph # (Auto) 1.65 K/uL (1.2-3.4) 09/15/20 05:43 Jackson # (Auto) 1.25 K/uL (0.11-0.59) H 09/15/20 05:43 Eos # (Auto) 0.49 K/uL (0-0.5) 09/15/20 05:43 Baso # (Auto) 0.02 K/uL (0-0.2) 09/15/20 05:43 Immature Gran # (Auto) 0.04 K/uL (0.00-0.02) H 09/15/20 05:43 ESR > 90 mm/hr (0-14) H 09/14/20 16:26 APTT 32.2 Seconds (21.0-31.0) H 09/15/20 05:43 PTT Ratio 1.2 09/15/20 05:43 Sodium 137 mmol/L (136-145) 09/17/20 07:09 Potassium 4.2 mmol/L (3.5-5.1) 09/17/20 07:09 Chloride 109 mmol/L (98-107) H 09/17/20 07:09 Carbon Dioxide 22 mmol/L (21-32) 09/17/20 07:09 Anion Gap 7.0 (3-11) 09/17/20 07:09 BUN 33 mg/dl (7-18) H 09/17/20 07:09 Creatinine 1.74 mg/dl (0.6-1.4) H 09/17/20 07:09 Est Cr Clr Drug Dosing 57.0 ml/min 09/17/20 07:09 Est GFR ( Amer) 51.5 09/17/20 07:09 Est GFR (Non-Af Amer) 44.4 09/17/20 07:09 BUN/Creatinine Ratio 18.7 (10-20) 09/17/20 07:09 Glucose 107 mg/dl (70-99) H 09/17/20 07:09 POC Glucose 156 mg/dl (70-99) H 09/17/20 12:09 Estimat Average Glucose 166 mg/dl 09/14/20 16:26 Hemoglobin A1c 7.4 % (4.5-5.6) H 09/14/20 16:26 Lactate 0.9 mmol/L (0.4-2.0) 09/14/20 10:16 Calcium 9.4 mg/dl (8.5-10.1) 09/17/20 07:09 Ionized Calcium 1.15 mmol/L (1.12-1.32) 09/15/20 05:43 Phosphorus 3.6 mg/dl (2.5-4.9) 09/15/20 05:43 Magnesium 2.3 mg/dl (1.8-2.4) 09/15/20 05:43 Total Bilirubin 0.6 mg/dl (0.2-1) 09/15/20 05:43 Direct Bilirubin 0.2 mg/dl (0-0.2) 09/15/20 05:43 AST 20 U/L (15-37) 09/15/20 05:43 ALT 30 U/L (12-78) 09/15/20 05:43 Alkaline Phosphatase 134 U/L (45-117) H 09/15/20 05:43 C-Reactive Protein 13.50 mg/dl (0-0.29) H 09/14/20 16:26 Total Protein 8.6 gm/dl (6.4-8.2) H 09/15/20 05:43 Albumin 2.2 gm/dl (3.4-5.0) L 09/15/20 05:43 Globulin 6.8 gm/dl (2.5-4.0) H 09/14/20 10:16 Albumin/Globulin Ratio 0.4 (0.9-2) L 09/14/20 10:16 Prealbumin 10.5 mg/dl (20-40) L 09/14/20 16:26 Lipase 307 U/L (73-393) 09/15/20 05:43 SARS-CoV-2 Ag (Rapid) Negative (Negative) 09/14/20 13:04 (1) Diabetic neuropathy Diabetes mellitus type: type 2 Diabetes mellitus complication detail: diabetic mononeuropathy Qualified Code(s): E11.41 - Type 2 diabetes mellitus with diabetic mononeuropathy (2) CKD (chronic kidney disease) stage 3, GFR 30-59 ml/min Chronic kidney disease stage 3 subtype: stage 3a (GFR 45-59) Qualified Code(s): N18.31 - Chronic kidney disease, stage 3a
[2020-09-17] MEDS ORDERED: PIPERACILL/TAZOBAC CONSULT ACTIVE PRN (18:07)
[2020-09-17] MEDS ORDERED: PIPERACILLIN/TAZOBACTAM 3.375 GM in DEXTROSE 5% 100 ML IV STA (18:55)
--- NOTE | 2020-09-17 19:45 | XRay Report ---
XR foot LT min 3V routine CLINICAL HISTORY: DIABETIC FOOT ULCER COMPARISON: CT of the left foot September 14, 2020. FINDINGS: Tarsometatarsal joints are intact. No acute fracture within the left foot is noted. There is extensive vascular calcification. There is a suspected wound of the medial aspect of the left grea t toe. There is no radiographic evidence for osteomyelitis. Note is made of minimal posterior calcane al spurring. IMPRESSION: 1. Suspected wound of the medial aspect of the left great toe. No radiographic evidence for osteomyel itis within the left foot. 2. Extensive vascular calcification. 3. No acute fracture. ACT 112: Negative or not required by law. Electronically signed by: Mac Marie M.D. 09/17/2020 7:44 PM
--- NOTE | 2020-09-17 20:47 | Billing Data ---
Date of Service September 17, 2020 Coding Level of Care Code 17973 Subseq Hosp Care Lvl 3
[2020-09-17] MEDS: ATORVASTATIN 40 MG TAB PO SCH (21:46)
[2020-09-17] MEDS ORDERED: Nursing to Pharmacy Communication SCH (22:15)
[2020-09-18] MEDS: PIPERACILLIN/TAZOBACTAM 3.375 GM in DEXTROSE 5% 100 ML IV SCH ×3 (00:29→16:54)
[2020-09-18 06:42] LABS: Basophils # (auto) 0.03 K/uL (0-0.2); Basophils % (auto) 0.3 %; Eosinophils # (auto) 0.42 K/uL (0-0.5); Eosinophils % (auto) 3.6 %; Hematocrit (blood only) 38.9 % (42-52); Hemoglobin 12.7 g/dL (14.0-18.0); Immature Granulocytes # (auto) 0.04 K/uL (0.00-0.02); Immature Granulocytes % (auto) 0.3 %; Lymphocytes # (auto) 1.57 K/uL (1.2-3.4); Lymphocytes % (auto) 13.6 %; Mean Corpuscular Hemoglobin 27.3 pg (25-34); Mean Corpuscular Hgb Conc 32.6 g/dL (32-36); Mean Corpuscular Volume 83.5 fL (80-100); Monocytes # (auto) 1.11 K/uL (0.11-0.59); Monocytes % (auto) 9.6 %; Neutrophils # (auto) 8.41 K/uL (1.4-6.5); Neutrophils % (auto) 72.6 %; Platelet Count 289 K/uL (130-400); RDW Coefficient of Variation 14.8 % (11.5-14.5); RDW Standard Deviation 45.6 fL (36.4-46.3); Red Blood Count 4.66 M/uL (4.7-6.1); White Blood Count 11.58 K/uL (4.8-10.8)
[2020-09-18 06:50] LABS: Partial Thromboplastin Ratio 1.2; Partial Thromboplastin Time 32.1 Seconds (21.0-31.0)
[2020-09-18] MEDS: SPIRONOLACTONE 25 MG TAB PO SCH (07:35)
[2020-09-18] MEDS: ASPIRIN 81 MG ECTAB PO SCH (07:36)
[2020-09-18] MEDS: FUROSEMIDE 20 MG TAB PO SCH (07:36)
[2020-09-18] MEDS: FLUTICASONE PROPIONATE NA SPR 16 GM BTL NAE SCH (07:36)
[2020-09-18] MEDS: POLYETHYLENE (MIRALAX) 17 GM PACK PO SCH (07:37)
[2020-09-18] MEDS: ENOXAPARIN INJ 40 MG/0.4 ML SYR SQ SCH (07:37)
[2020-09-18] MEDS: ACETAMINOPHEN 325 MG TAB PO SCH ×4 (07:38→21:04)
[2020-09-18] MEDS: amLODIPine BESYLATE 5 MG TAB PO SCH (07:38)
[2020-09-18] MEDS: GABAPENTIN 300 MG CAP PO SCH ×3 (07:38→21:06)
[2020-09-18] MEDS: METOPROLOL SUCC 50MG EXT REL TAB PO SCH (07:39)
[2020-09-18] MEDS: CHOLECALCIFEROL 1,000 UNITS 25 MCG TAB PO SCH (07:39)
[2020-09-18] MEDS: LOSARTAN POTASSIUM 50 MG TAB PO SCH (07:40)
[2020-09-18] MEDS ORDERED: VANCOMYCIN CONSULT ACTIVE PRN (08:12)
--- NOTE | 2020-09-18 08:17 | Hospitalist Progress Note ---
Date of Service September 18, 2020 Assessment & Plan (1) Cellulitis of left le yo M w/ pMHx. of DM II, here for soft tissue infection of the left foot admitted after concern for treatment failure of foot infection. Overall improving and working towards better pain control prior to discharge. Soft tissue infection of left foot, 2nd digit, 1st webspace: CT scan demonstrated no evidence of osteomyelitis no gas or abscess formation, blood cultures demonstrate no growth to date from 09/11, 09/14 are negative, no growth to date from cultures on 09/17. Wound care is consulted and following along. Given the lack of meaningful improvement since admission, orthopedic surgery was consulted, they feel as if medical management is appropriate for now and there is no indication of osteomyelitis. There is evidence of peripheral arterial disease as diagnosed by vascular ultrasound, Dr. Vargas will be consulted for further evaluation of this. Initially the patient received Dalvance as an outpatient, and was admitted for having failed this treatment, he was started on vancomycin and Zosyn on admission but subsequently discontinued as Dalvance should provide similar coverage, cefepime was added for Pseudomonas coverage. Is been 1 week since Dalvance was administered, will restart va ncomycin today. -Consult orthopedic surgery -Medical management no indication of osteomyelitis -Negative sed rate and CRP -Consult interventional cardiology -Appreciate recs -Trend daily CBC -DC'd cefepime and started Zosyn -Start vancomycin Left foot pain control Likely multifactorial stemming from diabetic neuropathy, peripheral arterial disease, cellulitis, and swelling. Initially he described his pain is more of an electric sensation, shooting down his leg, gabapentin was initiated and this significantly relieved this pain. The patient says at baseline his pain is a 2 out of 10 and entirely manageable, however soon as he puts pressure on the foot the pain jumps up to a 6 or 7 out of 10 becomes unbearable. This pain is likely related to the swelling and infection in his lower extremity, and will likely take resolution of his underlying infection to demonstrate meaningful improvement. His infection is recovering slowly secondary to presumed peripheral arterial disease as evidenced by recent ultrasound. To that extent we will be consulting interventional cardiology for evaluation and consideration of stenting. In the interim we will continue scheduled Tylenol and gabapentin with Dilaudid as needed for severe pain. -scheduled Tylenol, Gabapentin increased dose to 600 AM, noon and 900 QHS, w/ Oxycodone or Dilaudid PRN for severe pain -Reports pain is well controlled at baseline, however is significant when attempting to apply pressure -I expect pain to improve as we gain better control over the infection, and his wounds continue to heal CKD (chronic kidney disease) stage 3, GFR 30-59 ml/min: -avoiding nephrotoxic drugs -trend daily bmp -CR:1.91->1.88->1.79->1.74->1.78 Diabetes mellitus type II: -overall much improved from prior admission with A1c at admission 7.4 -consult pharmacy, glycemic management Hypertension: -Continue home antihypertensives -well controlled PAD: -increased peak systolics on Duplex artery exam on 09/11 -Consult interventional cardiology Diabetic neuropathy: -Gabapentin as above DVT: Lovenox Code: full Diet: CC DMII COVID: negative (2) CKD (chronic kidney disease) stage 3, GFR 30-59 ml/min: (3) Diabetic neuropathy: (4) Diabetes mellitus: (5) Hypertension: (6) PAD (peripheral artery disease): Admission and Anticipated Discharge Date Admission Date: September 14, 2020 Supervising Physician Co-Signing Physician Notes Attending Attestation: Pt seen/examined, chart reviewed, care plan d/w Resident Dr Alex Frost. I agree w/ the torres components of his documentation. Pt w/o new complaints. Pain in left foot remains but no worse than previous. Eating ok. Had questions about care plan. VSS, no fever gen - NAD heart - RRR, s1 s2 lungs - cta b/l abd - soft NT ext - no edema vascular - pos tib artery pulse on left - <1+; DP pulse 1+; popliteal on left 1- 2+; pulses right foot 2+; cap refill of Left foot about 2 sec today skin - no erythema of garcia; erythema on left dorsum of foot resolved; still with residual erythema left 1/2 toes but improved; healing ulceration medial aspect left great toe; denuded skin of left 2nd toe was removed by orthopedics yesterday labs reviewed A/P: 1. cellulitis left leg/foot - improved; cont zosyn and add vanc as previous dalvance dose likely out of his system 2. left 2nd toe necrosis - s/p bedside debridement by Dr Dillard yesterday; appreciate his assistance left foot x-rays noted no osteo 3. PAD - occluded posterior tibial artery left leg - Dr Vargas likely to perform angiogram tomorrow 4. CKD stage 3 5. T2DM 6. HTN appreciate ortho/vascular consults Brayden Gibson MD Subjective Patient lying in bed this morning in no acute distress. Patient reports no acute events overnight, reports tolerating his diet, reports voiding, reports stooling with no issues. Patient was pleased about the orthopedic consult yesterday, he explained during the consult the orthopedic doctor was excellent and explaining his pathology and terminology he could understand. He explained that the orthopedic surgeon debrided the eschar, and felt that there was still viable tissue left in his toe. He stated that the orthopedic surgeon felt as if further debridement was warranted, and was unclear if that would be performed by wound care or orthopedics. We spent some time reviewing peripheral artery disease, and explaining the purpose of consultation with interventional car diology. Patient demonstrated understanding, and was more agreeable to treatment. Acute concerns are related to pain in his left foot and upcoming consultation with orthopedic surgery, all questions were answered. Physical Exam Physical Exam: General: In no acute distress HEENT: Normocephalic atraumatic Neck: Inspection, trachea midline, did not appreciate JVD Cardiac: Regular rate and rhythm I did not appreciate any significant murmurs rubs or gallops, normal S1, normal S2, Respiratory: Clear to auscultation bilaterally with symmetrical chest expansion I did not appreciate any significant wheezes, rales, rhonchi, no increased work of breathing GI: Soft, nontender, nondistended, bowel sounds present in all 4 quadrants Skin: Left lower extremity demonstrating fresh debridement appearing healthier today, better capillary refill Neuro: Alert and oriented x4 Psych: Calm and cooperative Results & Data Results & Data ([facility]) Vital Signs (Past 12 Hours) Vital Signs Temp Pulse Resp BP Pulse Ox 09/17/20 22:40 37.3 C 86 16 135/70 96 Laboratory Results 09/18/20 09/18/20 09/17/20 Range/Units 06:23 06:23 20:51 WBC 11.58 H (4.8-10.8) K/uL RBC 4.66 L (4.7-6.1) M/uL Hgb 12.7 L (14.0-18.0) g/dL Hct 38.9 L (42-52) % MCV 83.5 (80-100) fL MCH 27.3 (25-34) pg MCHC 32.6 (32-36) g/dL RDW Std Deviation 45.6 (36.4-46.3) fL RDW Coeff of Jonah 14.8 H (11.5-14.5) % Plt Count 289 (130-400) K/uL MPV 9.0 (7.4-10.4) fL Immature Gran % (Auto) 0.3 % Neut % (Auto) 72.6 % Lymph % (Auto) 13.6 % Hawkins % (Auto) 9.6 % Eos % (Auto) 3.6 % Baso % (Auto) 0.3 % Neut # (Auto) 8.41 H (1.4-6.5) K/uL Lymph # (Auto) 1.57 (1.2-3.4) K/uL Hawkins # (Auto) 1.11 H (0.11-0.59) K/uL Eos # (Auto) 0.42 (0-0.5) K/uL Baso # (Auto) 0.03 (0-0.2) K/uL Immature Gran # (Auto) 0.04 H (0.00-0.02) K/uL APTT 32.1 H (21.0-31.0) Seconds PTT Ratio 1.2 POC Glucose 186 H (70-99) mg/dl 09/17/20 09/17/20 09/17/20 Range/Units 17:26 12:09 08:32 WBC (4.8-10.8) K/uL RBC (4.7-6.1) M/uL Hgb (14.0-18.0) g/dL Hct (42-52) % MCV (80-100) fL MCH (25-34) pg MCHC (32-36) g/dL RDW Std Deviation (36.4-46.3) fL RDW Coeff of Jonah (11.5-14.5) % Plt Count (130-400) K/uL MPV (7.4-10.4) fL Immature Gran % (Auto) % Neut % (Auto) % Lymph % (Auto) % Hawkins % (Auto) % Eos % (Auto) % Baso % (Auto) % Neut # (Auto) (1.4-6.5) K/uL Lymph # (Auto) (1.2-3.4) K/uL Hawkins # (Auto) (0.11-0.59) K/uL Eos # (Auto) (0-0.5) K/uL Baso # (Auto) (0-0.2) K/uL Immature Gran # (Auto) (0.00-0.02) K/uL APTT (21.0-31.0) Seconds PTT Ratio POC Glucose 155 H 156 H 110 H (70-99) mg/dl Medications Administered Current Inpatient Medications Acetaminophen (Acetaminophen 325 Mg Tab) 650 mg PO QID [facility] Stop: 10/15/20 12:59 Last Admin: 09/18/20 07:38 Dose: 650 mg Documented by: Amlodipine Besylate (Amlodipine Besylate 5 Mg Tab) 10 mg PO QAM [facility] Stop: 10/15/20 08:59 Last Admin: 09/18/20 07:38 Dose: 10 mg Documented by: Aspirin (Aspirin 81 Mg Ectab) [facility] [place] Stop: 10/15/20 08:59 Last Admin: 09/18/20 07:36 Dose: 81 mg Documented by: Atorvastatin Calcium (Atorvastatin 40 Mg Tab) 40 mg PO QPM [facility] Stop: 10/14/20 20:59 Last Admin: 09/17/20 21:46 Dose: 40 mg Documented by: Enoxaparin Sodium (Enoxaparin Inj 40 Mg/0.4 Ml Syr) 40 [facility] [place] Stop: 10/15/20 08:59 Last Admin: 09/18/20 07:37 Dose: 40 mg Documented by: Fluticasone Propionate (Fluticasone Propionate Na Spr 16 Gm Btl) 2 sprays DEMAR DAILY [facility] Stop: 10/15/20 08:59 Last Admin: 09/18/20 07:36 Dose: Not Given Documented by: Furosemide (Furosemide 20 Mg Tab) 20 mg PO QAM [facility] Stop: 10/15/20 08:59 Last Admin: 09/18/20 07:36 Dose: 20 mg Documented by: Gabapentin (Gabapentin 300 Mg Cap) 600 mg PO BID@0900,1400 [facility] Stop: 10/15/20 13:59 Last Admin: 09/18/20 07:38 Dose: 600 mg Documented by: Gabapentin (Gabapentin 300 Mg Cap) 900 mg PO HS [facility] Stop: 10/15/20 20:59 Last Admin: 09/17/20 21:47 Dose: 900 mg Documented by: Hydromorphone HCl (Hydromorphone Inj 0.5 Mg/0.5 Ml Syr) 0.5 mg IV Q4 PRN PRN Reason: Pain Stop: 09/29/20 12:26 Last Admin: 09/15/20 18:24 Dose: 0.5 mg Documented by: Piperacillin Sod/Tazobactam (Sod 3.375 gm/ Dextrose) 115 mls @ 28.75 mls/hr IV Q8H [facility]; Protocol Stop: 09/24/20 00:00 Last Admin: 09/18/20 07:35 Dose: 28.8 mls/hr Documented by: Vancomycin HCl 1,000 mg/ (Sodium Chloride) 270 mls @ 200 mls/hr IV Q12H [facility]; Protocol Stop: 09/25/20 08:14 Insulin Aspart (Insulin Aspart 100 Units/Ml 3 Ml Pen) 0 units SQ ACHS [facility] Stop: 10/15/20 11:29 Last Admin: 09/17/20 21:49 Dose: 2 units Documented by: Insulin Glargine (Insulin Glargine Solostar 100 Units/Ml 3 Ml Pen) 35 units SQ DAILY [facility]; Protocol Stop: 10/16/20 08:59 Last Admin: 09/17/20 08:52 Dose: 35 units Documented by: Losartan Potassium (Losartan Potassium 50 Mg Tab) 100 mg PO [facility] Stop: 10/15/20 08:59 Last Admin: 09/18/20 07:40 Dose: 100 mg Documented by: Metoprolol Succinate (Metoprolol Succ 50mg Ext Rel Tab) [facility] [place] Stop: 10/15/20 08:59 Last Admin: 09/18/20 07:39 Dose: 100 mg Documented by: Miscellaneous Information (Pharmacy Glycemic Mgmt Consult) 1 ea N/A UD PRN PRN Reason: Consult Stop: 10/15/20 10:09 Miscellaneous Information (Piperacill/Tazobac Consult Active) 1 ea N/A UD PRN PRN Reason: Consult Stop: 10/17/20 18:06 Miscellaneous Information (Vancomycin Consult Active) 1 ea N/A UD PRN PRN Reason: Consult Stop: 10/18/20 08:11 Oxycodone HCl (Oxycodone Hcl Ir 5 Mg Tab (Immediate Release)) 5 mg PO Q6H PRN PRN Reason: Moderate Pain (4,5,6) on NRS Stop: 09/28/20 15:58 Last Admin: 09/16/20 05:43 Dose: 5 mg Documented by: Oxycodone HCl (Oxycodone Hcl Ir 5 Mg Tab (Immediate Release)) 10 mg PO Q6H PRN PRN Reason: Severe Pain (7,8,9,10) on NRS Stop: 09/28/20 15:58 Last Admin: 09/15/20 12:35 Dose: 10 mg Documented by: Polyethylene Glycol (Polyethylene (Miralax) 17 Gm Pack) 17 gm PO DAILY [facility] Stop: 10/15/20 09:44 Last Admin: 09/18/20 07:37 Dose: Not Given Documented by: Spironolactone (Spironolactone 25 Mg Tab) 25 mg PO QAM [facility] Stop: 10/15/20 08:59 Last Admin: 09/18/20 07:35 Dose: 25 mg Documented by: Vitamin D (Cholecalciferol 1,000 Units 25 Mcg Tab) 1,000 units PO QAM [facility] Stop: 10/15/20 08:59 Last Admin: 09/18/20 07:39 Dose: 1,000 units Documented by: Resident Activity Tracking Resident Involvement: Resident Care Provided Care Provided: Adult [facility] Medicine (1) Diabetic neuropathy Diabetes mellitus complication detail: diabetic mononeuropathy Diabetes mellitus type: type 2 Qualified Code(s): E11.41 - Type 2 diabetes mellitus with diabetic mononeuropathy (2) Diabetes mellitus Chronic kidney disease stage: stage 3 (moderate) Chronic kidney disease stage 3 subtype: unspecified whether 3a or 3b Diabetes mellitus complication detail: with chronic kidney disease Diabetes mellitus complication status: with kidney complications Diabetes mellitus red lead burner insulin use: without red lead burner use Diabetes mellitus type: type 2 Qualified Code(s): E11.22 - Type 2 diabetes mellitus with diabetic chronic kidney disease; N18.30 - Chronic kidney disease, stage 3 unspecified (3) CKD (chronic kidney disease) stage 3, GFR 30-59 ml/min Chronic kidney disease stage 3 subtype: stage 3a (GFR 45-59) Qualified Code(s): N18.31 - Chronic kidney disease, stage 3a (4) Hypertension Hypertension type: secondary to endocrine disorders Qualified Code(s): I15.2 - Hypertension secondary to endocrine disorders
[2020-09-18] MEDS ORDERED: INSULIN GLARGINE SOLOSTAR 100 UNITS/ML 3 ML PEN SQ SCH (09:00)
[2020-09-18 09:03] LABS: BUN Creatinine Ratio 19.8 (10-20); Calcium 9.2 mg/dl (8.5-10.1); Creatinine Clr Calc Pharmacy 55.7 ml/min; Est GFR (African American) 50.1; Est GFR (Non-African American) 43.2; Potassium 4.4 mmol/L (3.5-5.1)
[2020-09-18] MEDS: INSULIN ASPART 100 UNITS/ML 3 ML PEN SQ SCH ×4 (09:06→21:07)
[2020-09-18] MEDS ORDERED: VANCOMYCIN HCL 2,250 MG in SODIUM CHLORIDE 0.9% 500 ML IV STA (10:00)
--- NOTE | 2020-09-18 10:02 | Pharmacy Report ---
Pharmacy Glycemic Short Note 2 - Date of Service September 18, 2020 - Glycemic Short BSG Results (Last 24 hours): 09/17/20 09/17/20 09/17/20 12:09 17:26 20:51 Glucose POC Glucose 156 H 155 H 186 H 09/18/20 09/18/20 06:28 08:23 Glucose 138 H POC Glucose 134 H OUTPATIENT ANTIDIABETIC REGIMEN: * Invokana 300 mg daily * Lantus 50 units BID + Novolog 20 units AC * A1c = 7.4 % (09/14/20) ASSESSMENT: 09/18: * BSGs yesterday of 110, 156, 155, and 186 mg/dL * Received 60 units of insulin (35 units of basal and 25 units of prandial/correctional) * Fasting BSG of 134 mg/dL this morning - will increase Lantus to 40 units today and use scale this evening * Lunch BSG of 168 mg/dL -> will slightly tighten Novolog parameters 09/17: * BSGs well controlled yesterday, 103, 134, 114, and 145 mg/dL * Patient received 52 units of insulin (35 units of Lantus and 17 units of Novolog) * Fasting BSG of 107 mg/dL this morning * Continues on cefepime * Do not anticipate any changes to current regimen 09/15: * Mr Valverde is a 50 y/o with a PMH of well controlled T2DM on insulin and Invokana who presents with worsening foot infection. Patient's BSGs on presentation was 69 and yesterday evening 148 mg/dL. * Fasting this morning was 74 mg/dL. All insulin was held and pharmacy consulted. Lunch BSG was 105 mg/dL. * Will give 70% of home dose or Lantus 35 units SQ x 1. Scale for tomorrow morning with scale of 20-50 units available. * Novolog weight-based stress of 2-3 to be started with lunch. PLAN FOR INPATIENT GLYCEMIC CONTROL: * Hold outpatient oral diabetes medications * Basal insulin - increase * Lantus 40 units SC daily * Lantus scale this evening to provide up to an additional 10 units * Bolus insulin - tighten * NovoLog per scale ACHS or Q6hrs while NPO * Goal Range: Low 110 mg/dL - High 140 mg/dL * Correction Factor: 20 mg/dL/unit * Nutritional / Prandial insulin per carb ratio of 1 unit per 7 grams CHO consumed PLAN FOR DISCHARGE: * HbA1c of 7.4% is much improved compared to prior levels (9.7% on 06/30/2020) * Continue current regimen upon discharge * Ensure timely follow-up with managing provider
--- NOTE | 2020-09-18 10:24 | Pharmacy Report ---
Pharmacy Abx Initial Consult - Date of Service September 18, 2020 - Pharmacy Dosing Scope Date of Consult: 09/18/2020 Consultation requested by: Dr. Fabrice Frost Pharmacy is consulted to initiate Vancomycin and Zosyn IV dosing therapy, order appropriate labs and adjust drug dose/frequency. - Subjective The patient is a 50 year old M admitted on 09/14/20 12:37. - Objective Height: 5 ft 10 in Weight: 91.081 kg Vital Signs (Past 12hrs): Vital Signs Temp Pulse Resp BP Pulse Ox 09/18/20 08:10 36.6 C 86 16 129/80 96 09/17/20 22:40 37.3 C 86 16 135/70 96 Lab Results (24hrs): Laboratory Tests (24 Hours) 09/18/20 09/18/20 06:28 06:23 WBC 11.58 H Neut # (Auto) 8.41 H Creatinine 1.78 H Est Cr Clr Drug Dosing 55.7 - Risk Factors for Resistance * None - Assessment & Plan Assessment 50 year old M admitted on 09/14/2020 secondary to LLE cellulitis * Patient was seen in ER on 09/11 and received Dalvance. He then returned and was admitted on 09/14 and he received Vancomycin and Zosyn. He was switched to Cefepime only since he had already received Dalvance. * There is no evidence of osteomyelitis and cultures are all negative. But since there has been no significant improvement in leukocytosis or leg cellulitis, the decision was made to restart vancomycin and daptomycin. It has been one week since dalvance administration. * Patient is afebrile. Mild leukocytosis of 11.6k. Renal fxn stable w/ SCr 1.78. Plan Vancomycin and Zosyn for treatment of LLE cellulitis Vancomycin IV * Patient meets criteria for vancomycin AUC dosing nomogram * AUC/LENARD is the preferred PK/PD target for vancomycin * Target AUC/LENARD = 400-600 * AUC guided dosing is effective and associated with decreased risk of nephrotoxicity * Loading dose: 2250 mg (24.7 mg/kg) * Maintenance dose: 1250 mg IV every 12 hours * Goal trough level: ~ 15 mcg/mL * Trough level ordered for Saturday morning to reflect steady state levels Piperacillin/tazobactam * 3.375 g bolus administered over 30 minutes, then 3.375 g IV extended infusion every 8 hours for CrCl greater than 20 mL/min Pharmacy will continue to follow and will adjust dose/frequency as necessary. Thank you.
--- NOTE | 2020-09-18 12:11 | Cardiology Consultation ---
Date of Consultation September 18, 2020 Assessment & Plan (1) Soft tissue infection of foot: -agree with IV piperacillin/tazobactam and vancomycin. (2) PAD (peripheral artery disease): -abnormal lower extremity arterial Doppler. -patient will be seen by Dr. Vargas tomorrow. (3) Hypertension: -adequate control on current medical regimen. History of Present Illness Attending Physician: Brayden Gibson History of Present Illness Mr. Valverde is a 50-year-old male admitted on September 14 with a soft tissue infection involving his left foot. This consultation was ordered for Dr. Vargas to address his peripheral vascular disease. The patient was in his usual state of health until approximately 2 weeks prior to presentation. Presented to his primary care provider complaining a blister his left foot along with severe discomfort when attempting to ambulate. Appro ximately 24 hours prior to presentation, the patient noted significant and progressive left foot edema. He denies experienced any fever or chills. The patient does give a history of bilateral thigh discomfort when he ambulates more than approximately 25 yd. His discomfort resolves with rest and then recurs with further attempts at ambulation. He did have lower extremity arterial Dopplers during this hospitalization which noted distal posterior tibial artery biphasic waveforms in elevated velocities at 1.9 m/sec. The patient has never known of a cardiac event. He has never had a cardiac c atheterization. He has never experienced exertional angina pectoris or limiting dyspnea. He further denies syncope, presyncope, PND, orthopnea, and palpitations. Currently, patient is resting comfortably in bed without complaints. Past medical and surgical history 1. Hypertension 2. Diabetes mellitus 3. Diabetic neuropathy 4. Chronic renal failure 5. Obesity 6. Vitamin-D deficiency 7. Umbilical hernia 8. Psoriasis Social history , lives alone Uses 2-3 cans of snuff per week. Discontinue alcohol use back in March. Family history No early coronary artery disease Review of systems A 10 point review systems was undertaken and negative except for that described above. Allergies Allergy/AdvReac Type Severity Reaction Status Date / Time No Known Drug Allergies Allergy Verified 09/14/20 11:17 Home Medications Medication Instructions Recorded Confirmed Type pen needle, diabetic 32 gauge x #200 ea 11/11/19 08/31/20 Rx 5/32" blood-glucose meter #1 ea 11/19/19 08/31/20 Rx blood-glucose meter #1 ea 11/19/19 08/31/20 Rx aspirin [Aspirin Low Dose] 81 mg PO QAM 05/24/20 09/14/20 History lancets [OneTouch Delica Lancets] #100 ea 05/28/20 08/31/20 Rx atorvastatin 40 mg tablet 40 mg PO QPM #90 tab 06/06/20 09/14/20 Rx blood sugar diagnostic #300 ea 06/15/20 08/31/20 Rx insulin glargine 100 unit/mL (3 See Rx Instructions SUBCUT BID #15 06/30/20 09/14/20 Rx mL) subcutaneous pen ml naproxen 500 mg tablet 500 mg PO BID PRN #60 tab 07/11/20 09/14/20 Rx insulin aspart U-100 100 unit/mL 20 unit SUBCUT AC #15 ml 07/27/20 09/14/20 Rx (3 mL) subcutaneous pen fluticasone propionate 50 2 spray INTRANASAL DAILY #16 g 08/02/20 09/14/20 Rx mcg/actuation nasal spray,suspension sildenafil 50 mg tablet 50 mg PO DAILY PRN #30 tab 08/02/20 09/14/20 Rx amlodipine 10 mg PO QAM 09/11/20 09/14/20 History canagliflozin 300 mg PO QAM 09/11/20 09/14/20 History cholecalciferol (vitamin D3) 25 mcg PO QAM 09/11/20 09/14/20 History [Vitamin D3] furosemide 20 mg PO QAM 09/11/20 09/14/20 History losartan 100 mg PO QAM 09/11/20 09/14/20 History metoprolol succinate 100 mg PO QAM 09/11/20 09/14/20 History spironolactone 25 mg tablet 25 mg PO QAM #90 tab 09/12/20 09/14/20 Rx gabapentin 0 mg PO BID 09/14/20 09/14/20 History Patient History Medical History Acute dehydration Acute hyponatremia Acute kidney injury Anejaculatory orgasm Chronic kidney disease, stage 3a CKD (chronic kidney disease) Diabetes mellitus Dizziness Dyspnea on minimal exertion Erectile dysfunction Hyperglycemic crisis in diabetes mellitus Hypertension Psoriasis Smokeless tobacco use Umbilical hernia Uncontrolled hypertension Vertigo Vitamin D insufficiency Surgical History No pertinent past surgical history Family History Father Cardiac disorder Hypertension Grandfather Cardiac disorder Myocardial infarction Grandmother Breast cancer Denies family history of Ovarian cancer Prostate cancer Colorectal cancer Social History Smoking Status: Never smoker Tobacco Type: Smokeless Tobacco (Dip or Chew) Second Hand Exposure: No; Hx Alcohol Use: No Hx Substance Use: No Preferred Language: Serbian Communication Ability: Effective Visual Impairment: No Limitations Hearing Ability: Normal Adjunct Teacher Required: No Beliefs That Will Affect Care: None marital status: Current Living Situation: Family Current Living Situation Comment: takes care of father current occupational status: unemployed Feels Safe at Home: Yes Childhood Exposure to Second-Hand Smoke: Yes caffeine: Yes (mt dew) during the past year weight has: increased > 10 lbs Dental Care, Regularly: No Physical Activity Frequency: Does not Exercise Seatbelt Use: always Sunscreen Use: No Assistive Devices: None Physical Exam Physical Exam: In general is well-developed well-nourished white male in no acute distress. HEENT exam is negative. Neck is supple with full carotid upstrokes. There are no carotid bruits. Jugular venous pressure is flat at 90. There is no thyromegaly. Cardiovascular exam reveals a regular rhythm with normal S1 and S2. No S3, S4, or murmurs are noted. Lungs are clear without rales, rhonchi or wheezes. Abdomen is obese without bruits. Easily reducible umbilical hernia is noted. Extremities reveal intact radial artery pulses bilaterally. There is no peripheral edema. Left lower extremity is in a cast. Results & Data ([facility]) Vital Signs (Past 12 Hours) Vital Signs Temp Pulse Resp BP Pulse Ox 09/18/20 08:10 36.6 C 86 16 129/80 96 Laboratory Results CBC notes hemoglobin 12.7, hematocrit 30.9, white count 11.6, platelet count [id number]. Electrolytes note a sodium of 137, potassium 4.4, chloride 107, bicarb 21, BUN 35, creatinine 1.78, glucose of 138. Diagnostic Findings EKG notes normal sinus rhythm and left axis deviation. Left lower extremity Dopplers note increased velocities in the distal posterior tibial arteries bilaterally (1.9 m/s). CT scan of the foot notes no evidence of osteomyelitis. Significant vascular calcifications noted. 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 Echocardiogram performed in May 2020 noted normal left ventricular systolic function with ejection fraction 50%. There is mild LVH. No significant valvular pathology. (1) Hypertension Hypertension type: secondary to endocrine disorders Qualified Code(s): I15.2 - Hypertension secondary to endocrine disorders
[2020-09-18] MEDS: ATORVASTATIN 40 MG TAB PO SCH (21:04)
[2020-09-18] MEDS: INSULIN GLARGINE SOLOSTAR 100 UNITS/ML 3 ML PEN SQ SCH (21:09)
[2020-09-18] MEDS: VANCOMYCIN HCL 1,250 MG in SODIUM CHLORIDE 0.9% 250 ML IV SCH (22:15)
[2020-09-19] MEDS: PIPERACILLIN/TAZOBACTAM 3.375 GM in DEXTROSE 5% 100 ML IV SCH ×4 (00:04→23:17)
[2020-09-19] MEDS: SPIRONOLACTONE 25 MG TAB PO SCH (07:28)
[2020-09-19] MEDS: LOSARTAN POTASSIUM 50 MG TAB PO SCH (07:28)
[2020-09-19] MEDS: ASPIRIN 81 MG ECTAB PO SCH (07:28)
[2020-09-19] MEDS: FLUTICASONE PROPIONATE NA SPR 16 GM BTL NAE SCH (07:29)
[2020-09-19] MEDS: FUROSEMIDE 20 MG TAB PO SCH (07:29)
[2020-09-19] MEDS: ENOXAPARIN INJ 40 MG/0.4 ML SYR SQ SCH (07:30)
[2020-09-19] MEDS: amLODIPine BESYLATE 5 MG TAB PO SCH (07:31)
[2020-09-19] MEDS: GABAPENTIN 300 MG CAP PO SCH ×3 (07:31→21:32)
[2020-09-19] MEDS: POLYETHYLENE (MIRALAX) 17 GM PACK PO SCH (07:31)
[2020-09-19] MEDS: ACETAMINOPHEN 325 MG TAB PO SCH ×4 (07:32→21:39)
[2020-09-19] MEDS: METOPROLOL SUCC 50MG EXT REL TAB PO SCH (07:32)
[2020-09-19] MEDS: CHOLECALCIFEROL 1,000 UNITS 25 MCG TAB PO SCH (07:32)
[2020-09-19 08:01] LABS: BUN Creatinine Ratio 17.2 (10-20); Est GFR (African American) 51.5; Est GFR (Non-African American) 44.4; Potassium 4.2 mmol/L (3.5-5.1)
--- NOTE | 2020-09-19 08:40 | Pharmacy Report ---
Pharmacy Glycemic Short Note 2 - Date of Service September 19, 2020 - Glycemic Short BSG Results (Last 24 hours): OUTPATIENT ANTIDIABETIC REGIMEN: * Invokana 300 mg daily * Lantus 50 units BID + Novolog 20 units AC * A1c = 7.4 % (09/14/20) ASSESSMENT: 09/19: * BSGs yesterday were [phone] mg/dL - elevated from goal * Patient received 50 units of Lantus and 34 units of Novolog * Fasting BSG this AM was 158 mg/dL - above goal * Fasting continues to trend upwards on current basal dose * Will increase AM basal dose by 25% and continue basal scale at HS for hyperglycemia * Patient's BSGs trended upwards throughout the day yesterday * Will tighten carb ratio slightly today 09/18: * Mr Valverde is a 50 y/o with a PMH of well controlled T2DM on insulin and Invokana who presented on 09/15 with worsening foot infection. Patient's BSGs on presentation was 69 and yesterday evening 148 mg/dL. * BSGs yesterday of 110, 156, 155, and 186 mg/dL * Received 60 units of insulin (35 units of basal and 25 units of prandial/correctional) * Fasting BSG of 134 mg/dL this morning - will increase Lantus to 40 units today and use scale this evening * Lunch BSG of 168 mg/dL -> will slightly tighten Novolog parameters PLAN FOR INPATIENT GLYCEMIC CONTROL: * Hold outpatient oral diabetes medications * Basal insulin - increase * Lantus 50 units SC AM * Lantus scale this evening to provide up to an additional 20 units * Bolus insulin - tighten * NovoLog per scale ACHS or Q6hrs while NPO * Goal Range: Low 110 mg/dL - High 140 mg/dL * Correction Factor: 20 mg/dL/unit * Nutritional / Prandial insulin per carb ratio of 1 unit per 6 grams CHO consumed PLAN FOR DISCHARGE: * HbA1c of 7.4% is much improved compared to prior levels (9.7% on 06/30/2020) * Continue current regimen upon discharge * Ensure timely follow-up with managing provider
[2020-09-19] MEDS: INSULIN ASPART 100 UNITS/ML 3 ML PEN SQ SCH ×4 (08:51→21:38)
[2020-09-19] MEDS ORDERED: INSULIN GLARGINE SOLOSTAR 100 UNITS/ML 3 ML PEN SQ SCH (09:00)
[2020-09-19] MEDS: VANCOMYCIN HCL 1,250 MG in SODIUM CHLORIDE 0.9% 250 ML IV SCH ×2 (10:03→21:39)
--- NOTE | 2020-09-19 12:22 | Progress Notes ---
DATE: 09/19/2020 The patient was seen in conjunction with the medicine service. The redness and swelling overall are diminished. Unfortunately, there is increased black discoloration and eschar over the toe. This is over the dorsal aspect of the distal forefoot and out over the toe to the distal PIP area. There is a black eschar present. I do not palpate a pedal pulse today. I think we should continue IV antibiotics. Wound care can evaluate and treat. I think the patient needs to be seen by Dr. Vargas for a thorough vascular assessment as indicated. I am not clear at this point whether there is some element of dysvascularity contributing to the problem or whether this is just an eschar formation in response to the toe blistering. We will continue to monitor.
--- NOTE | 2020-09-19 13:20 | Vascular Medicine ProgressNote ---
Date of Service September 19, 2020 Assessment & Plan (1) PAD (peripheral artery disease): #2. Left lower extremity cellulitis #3. Type 2 diabetes complicated by peripheral neuropathy #4. Chronic renal insufficiency #5. Hypertension Patient here with cellulitis with impressive discoloration/concern for progression to necrosis of second digit. Has a palpable DP pulse but distal perfusion of digits appears compromised. Reviewed patient's arterial duplex. Does have evidence of isolated posterior tibial artery disease with diminished distal flow. With threatened digit/distal lower extremity recommend proceeding with angiogram to further assess distal circulation. May benefit from angioplasty of COLOR FINISHER. Patient in agreement with proceeding with procedure. We will plan to perform later this afternoon via right common femoral artery. Admission and Anticipated Discharge Date Admission Date: September 14, 2020 Subjective Mr. Valverde is a 50-year-old man with a history of hypertension, type 2 diabetes complicated by peripheral neuropathy, and chronic renal insufficiency, questionable prior heart failure post remote cardiac catheterization admitted with 2 weeks of left lower extremity cellulitis initially beginning on his great toe now involving primarily the second digit on his left toe. On broad-spectrum IV antibiotics. X-ray/CT unremarkable for osteomyelitis. Blood cultures no growth. No prior lower extremity ulcerations. Does report bilateral thigh pain with prolonged walking, relieved with rest primarily involving anterior aspect of his thighs. Arterial duplex reviewed--ABIs normal. External iliac to popliteal widely patent with triphasic waveforms. Biphasic waveforms in [place], peroneal. Blunted monophasic waveforms and COLOR FINISHER with elevated PSV to 196 in distal portion. Review of Systems Review of Systems: All systems reviewed & are unremarkable except as noted in HPI & below Physical Exam Physical Exam: General: Comfortable, no acute distress Eyes: Sclerae anicteric Lungs: Clear to auscultation bilaterally Cardiac: Regular rate and rhythm, no murmur Abdomen: Soft, nontender Neuro: Nonfocal Psych: Alert orient x3, normal affect and mood Extremities/Vascular: --1+ radial on right, 2+ on left --1+ bilateral -- 2+ popliteal bilaterally --2+ DP on left, absent PT. 1+ DP, 1+ PT on right, diminished capillary refill on right --Second digit on left foot erythematous with black eschar extending from distal aspect to forefoot. Small area of black discoloration on medial aspect of great toe. Dark erythema in the forefoot. Diminished capillary refill in first through third digits. --Left foot edematous Results & Data ([facility]) Vital Signs (Past 12 Hours) Vital Signs Temp Pulse Resp BP Pulse Ox 09/19/20 07:39 98.6 F 86 18 155/91 H 96 PG Care Time/CCT Total # of Minutes Spent Total Time Spent with Patient: Total time spent is greater than 50% in coordination of care (as documented) at patient's floor/unit and/or counseling patient: Coding Level of Care Code 44584 Subseq Hosp Care Lvl 3 Diagnoses PAD (peripheral artery disease) I73.9
[2020-09-19] MEDS ORDERED: MIDAZOLAM HCL 5 MG/ML 1 ML VIAL ONE (13:30)
[2020-09-19] MEDS ORDERED: fentaNYL citrate 100 MCG/2 ML VIAL ONE ×2 (13:30→14:26)
[2020-09-19] MEDS ORDERED: niCARdipine HCL INJ 2.5 MG/ML 10 ML AMP ONE (13:35)
[2020-09-19] MEDS ORDERED: NITROGLYCERIN/D5W 100MCG/ML 20ML SYR ONE (13:35)
[2020-09-19] MEDS ORDERED: HEPARIN (PORCINE) 1000 UNIT/ML 10 ML (CATH LAB USE ONLY) ONE (13:35)
--- NOTE | 2020-09-19 13:48 | Pre Anesthesia Assessment ---
Date of Service September 19, 2020 Pre Sedation Assessment Vital Signs Temp Pulse Resp BP Pulse Ox 09/19/20 07:39 98.6 F 86 18 155/91 H 96 09/18/20 23:07 99.1 F 82 16 128/75 96 09/18/20 15:34 98.1 F 84 16 120/67 95 Cardiovascular RRR, no murmur, no edema Respiratory normal respiratory effort, lungs clear to auscultation Pre-Sedation Airway Assessment Smoking Status: Never smoker Hx Sleep Apnea: No Hx Difficult Intubation: No Short, Thick Neck: No Thyromental Distance: > or= 3.5 Finger Breadths Oral Cavity: + WNL Mallampati Class: III ASA: ASA3 Procedure Planning Contraindications for Sedation: none Current Medications Reviewed: Yes Notes The planned sedation has been discussed with the patient. Informed Consent was obtained. I have identified the patient, determined the appropriateness of sedation and have assessed the patient immediately prior to the procedure. All medicine(s) and interventions are by my order.
--- NOTE | 2020-09-19 16:03 | Post Anesthesia Assessment ---
Date of Service September 19, 2020 Post Sedation Assessment Vital Signs Temp Pulse Resp BP Pulse Ox 09/19/20 15:50 79 16 128/81 95 09/19/20 07:39 98.6 F 86 18 155/91 H 96 09/18/20 23:07 99.1 F 82 16 128/75 96 Recovery Score Activity: Moves 4 extremities Respiration: Deep Breath/Cough Circulation: +/-20% PreAnes Value Consciousness: Fully Awake Oxygen Saturation: > 92% On Room Air Post Anesthesia Score: 10 Discharge Sedation Level of Care: Fast Track Phase II Post Sedation Plan On clinical assessment, the patient appears to have tolerated the sedation without complications. Patient is recovering as anticipated. Patient will continue to be monitored by nursing and may be discharged when sedation discharge criteria are met per below protocol. Upon Completions of procedure up to 15 minutes continue every 5 minute vital signs and the P.A.R. score; then discharge to a Phase I or Fast Track to Phase II per the following guidelines: * Discharge Patient to appropriate Phase II area if PAR is 8 or greater or return to pre- procedure baseline. The post - procedure orders will be as directed. * If PAR score is less than 8 or not return to pre-procedure baseline then patient will follow Phase I monitoring till PAR is reached for Phase II. The Phase I may be done in procedure room or may call to secure a Phase I area. * If naloxone or flumazenil are used for reversal, hold in Phase I for continued monitoring from when last reversal dose was given for a minimum of 60 minutes or longer pending the nurse and/or physician discretion of patient condition before discharge to Phase II. Please call the Sedation Physician to re-evaluate and complete post-note for discharge to Phase II area. Do NOT discharge from procedure sedation or Phase 1 until post- sedation evaluation note is complete by procedure /sedation MD Sedation Discharge Instructions to be given to the patient at discharge to home.
--- NOTE | 2020-09-19 16:11 | Endovascular Procedure Note ---
[facility] Endovascular Procedure Rpt Pre & Post Diagnosis Peripheral arterial disease I identified the patient and participated in the time-out.: Yes Procedure Operation Date: 09/19/20 14:00 Actual Procedures p Cineradiography w/Routine Exam - Phu Vargas MD Moderate sedation RT GLUING CREW LEADER ultrasound guided access 3rd order selective angiography CITY SECRETARY angioplasty Peroneal angioplasty [place]/DPA angioplasty Mechanical closure Surgeon Regino Vargas MD Bun Icer Jose L Varma Estimated Blood Loss 15 Findings Consistent with Post-Op Diagnosis Aortano significant aneurysmal or stenotic disease Left lower extremity Iliacs, GLUING CREW LEADER widely patent without significant disease SFA, popliteal without significant disease Anterior tibial widely patent to the foot. DPA continues to lateral aspect of the foot. Pedal arch incomplete. TPT 60% stenosis. Calcified CITY SECRETARY with 90% ostial, 95% proximal, 90% mid lesions. Medial/lateral plantar arteries patent and gave direct inline flow to first and second digits Also 5 peroneal 90% proximal, occluded mid segment. Partially fills distally via collaterals Right lower extremity Iliacs, GLUING CREW LEADER widely patent without significant disease SFA, popliteal without significant disease Anterior tibial 50% ostial, patent to the ankle Posterior tibial, peroneal calcified with moderate diffuse disease but patent to distal segments Fluids 210 Anesthesia Type RN Sedation Radiation Exposure (mGv) Radiation (mGy): 365 Contrast Contrast: 105 Complications none Disposition Accompanied Patient To Recovery: Yes Disposition: Varnish Finisher Holding Description of Procedure Right common femoral access obtained under ultrasound guidance, short 5Fr sheath placed Aortogram/proximal LLE angiogram performed with RIM catheter MPA placed in SFA for angiography of distal vessels 6 Fr 65 cm destination sheath placed from right GLUING CREW LEADER to left SFA Proximal/mid CITY SECRETARY disease crossed with 0.14 command wire Proximal/mid CITY SECRETARY dilated with 2.5 balloon IA vasodilators administered. Proximal/mid disease expanded well with normal residual stenosis and brisk flow to the foot. Command wire removed from CITY SECRETARY and used to cross peroneal occlusion Mid/distal peroneal dilated with 2.5 balloon Mid segment expanded well, residual disease in distal segment with sluggish peroneal flow. Sluggish flow noted in distal anterior tibial artery Anterior tibial wired with command wire and injection through OTW balloon confirmed subtotal occlusion of dominant branch of DPA Post procedure good angiographic result, three-vessel runoff to the ankle. Posterior tibial artery with brisk flow into the foot and direct inline flow to the toes via plantar arteries. Contrast used: 105 Access closure: Angio-Seal Summary: 1. Left lower extremitywidely patent iliacs, SFA/popliteal. [place] patent to the foot. 60% tibioperoneal trunk, posterior tibial artery with 95% ostial/proximal/mid segment disease. Peroneal artery occluded 2. Right lower extremitywidely patent iliacs, SFA/popliteal. Three-vessel runoff to the ankle with mild to moderate diffuse disease. 3. Successful angioplasty of TPT with 4.0 balloon and proximal/mid posterior tibial artery with 2.5 balloon and resulting brisk inline flow to ulcer bed via plantar arteries 4. Successful angioplasty of mid/distal occluded peroneal artery with 2.5 balloon 5. Successful angioplasty of distal [place]/DPA with 2.5 balloon after intraprocedure distal emboli Recommendations: Start DAPT with ASA/Clopidogrel for 1 months Repeat noninvasive vascular testing as an outpatient in 2 weeks. I attest to the content of the Intraoperative Record and any orders documented therein. Any exceptions are noted below. Vascular Charges Angiography/Venography Procedure 1: Angiography/Venography charges: [id number] Aortography, abd + b/l iliofem LE, catheter, radiological S&I Procedure 2: Angiography/Venography charges: [id number] Initial 3rd order or selective abd, pelvic, or LE branch Lower Extremity Interventions Procedure 1: Lower Extremity Intervention charges: [id number] Angioplasty, tibial, peroneal artery, unilateral, initial vessel Procedure 2: Lower Extremity Intervention charges: [id number] Angioplasty, tibial, peroneal artery, UL each add'l vessel Procedure 3: Lower Extremity Intervention charges: [id number] Angioplasty, tibial, peroneal artery, UL each add'l vessel Additional Services Procedure 1: Additional Services Charges: 41472 Ultrasound guidance - vascular access Procedure 2: Additional Services Charges: 77031 Moderate sedation initial 15 min Procedure 3: Additional Services Charges: 46485 Moderate sedation, each additional 15 min
[2020-09-19] MEDS ORDERED: SODIUM CHLORIDE 0.9% 1000ML 1,000 ML IV SCH (16:30)
[2020-09-19] MEDS ORDERED: CLOPIDOGREL BISULFATE 300 MG TAB ONE (16:34)
--- NOTE | 2020-09-19 16:36 | Hospitalist Progress Note ---
Date of Service September 19, 2020 Assessment & Plan Admission and Anticipated Discharge Date Admission Date: September 14, 2020 50 yo M w/ pMHx. of DM II, here for soft tissue infection of the left foot admitted after concern for treatment failure of foot infection. Overall improving infection and working towards better pain control prior to discharge although toe does appear to be developing a expanding eschar w/ poor pulses, Dr. Vargas with interventional cardiology performed angioplasty today. Cellulitis of left leg: Soft tissue infection of left foot, 2nd digit, 1st webspace: CT scan demonstrated no evidence of osteomyelitis no gas or abscess formation, blood cultures demonstrate no growth to date from 09/11, 09/14 are negative, no growth to date from cultures on 09/17. Wound care is consulted and following along. Given the lack of meaningful improvement since admission, orthopedic surgery was consulted, they feel as if medical management is appropriate for now and there is no indication of osteomyelitis. There is evidence of peripheral arterial disease as diagnosed by vascular ultrasound, Dr. Vargas performed angioplasty today. Initially the patient received Dalvance as an outpatient (09/11), and was admitted for having failed this treatment, he was started on vancomycin and Zosyn on admission but subsequently discontinued as Dalvance should provide similar coverage, cefepime was added for Pseudomonas coverage. Is been 1 week since Dalvance was administered, restarted vancomycin 09/18/20 -Consult orthopedic surgery -Medical management no indication of osteomyelitis -XR w/ no evidence of osteomyelitis (09/19/2020) -Negative sed rate and CRP -Consult interventional cardiology -rec 1 month DAPT, noninvasive vasc. testing as an outpatient in 1 weeks -Trend daily CBC -DC'd cefepime and started Zosyn -Continue vancomycin Left foot pain control Likely multifactorial stemming from diabetic neuropathy, peripheral arterial disease, cellulitis, and swelling. Initially he described his pain is more of an electric sensation, shooting down his leg, gabapentin was initiated and this significantly relieved this pain. The patient says at baseline his pain is a 2 out of 10 and entirely manageable, however soon as he puts pressure on the foot the pain jumps up to a 6 or 7 out of 10 becomes unbearable. This pain is likely related to the swelling and infection in his lower extremity, and will likely take resolution of his underlying infection to demonstrate meaningful improvement. His infection is recovering slowly secondary to presumed peripheral arterial disease. Plan to continue: -scheduled Tylenol, Gabapentin increased dose to 600 AM, noon and 900 QHS, w/ Oxycodone or Dilaudid PRN for severe pain -Reports pain is well controlled at baseline, however is significant when attempting to apply pressure -I expect pain to improve as we gain better control over the infection, and his wounds continue to heal CKD (chronic kidney disease) stage 3, GFR 30-59 ml/min: -avoiding nephrotoxic drugs -trend daily bmp -CR:1.91->1.88->1.79->1.74->1.78 Diabetes mellitus type II: -overall much improved from prior admission with A1c at admission 7.4 -consult pharmacy, glycemic management Hypertension: -Continue home antihypertensives -well controlled PAD: -increased peak systolics on Duplex artery exam on 09/11 -Consult interventional cardiology Diabetic neuropathy: -Gabapentin as above DVT: Lovenox Code: full Diet: CC DMII COVID: negative (09/14) Supervising Physician Co-Signing Physician Notes I also saw the patient and confirmed torres portions of the history and exam. I also discussed the case with orthopedics. I agree with the impression and plan in the resident note. VSS BP high normal. Afebrile. Increased nercrotic tissue/eschar compared to prior exam, left 2nd toe. Erythema of the LLE and anterior surface of foot has improved relative to previously inked lines. I cannot feel a pedal pulse. Will continue antibiotics. Vascular (Dr. Vargas) to see today. Continue antibiotics. Subjective Salinas Valverde is doing okay. He was not walking as much over the last day but explained that his pain was well controlled. He described the pain he was having as on the lateral foot. Review of Systems Review of Systems: Constitutional: denies fevers, chills Cardiac: denies chest pain, palpitations Pulm.: denies cough, shortness of breath GI: denies nausea, vomiting Physical Exam Physical Exam: Constitutional WD/WN, vitals as above Eyes PERRL, conjunctivae normal, anicteric sclerae ENMT external ear and nose normal, oropharynx normal Neck normal visual inspection Respiratory normal respiratory effort, lungs clear to auscultation Cardiovascular RRR, no murmur, no edema Gastrointestinal (Abdomen) normal bowel sounds, soft, nontender, no hepatosplenomegaly Skin Left dorsal surface of second toe and first interspace nTTP with eschar (increased from prior exam on Saturday), erythema (improved), no drainage. Unable to appreciate PT, DP pulses on the left. Warm foot. No hair on leg below knee bilaterally. Results & Data Results & Data ([facility]) Vital Signs (Past 12 Hours) Vital Signs Temp Pulse Resp BP Pulse Ox 09/19/20 16:20 82 16 129/79 97 09/19/20 16:05 81 16 131/88 95 09/19/20 15:50 79 16 128/81 95 09/19/20 07:39 37.0 C 86 18 155/91 H 96
[2020-09-19] MEDS: ATORVASTATIN 40 MG TAB PO SCH (21:32)
[2020-09-19] MEDS: INSULIN GLARGINE SOLOSTAR 100 UNITS/ML 3 ML PEN SQ SCH (21:36)
--- NOTE | 2020-09-20 06:20 | Hospitalist Progress Note ---
Date of Service September 20, 2020 Assessment & Plan Admission and Anticipated Discharge Date Admission Date: September 14, 2020 50 yo M w/ pMHx. of DM II, here for soft tissue infection of the left foot admitted after concern for treatment failure of foot infection. Overall improving infection and working towards better pain control prior to discharge although, Dr. Vargas with interventional cardiology performed angiography and angioplasty 09/19. Cellulitis of left leg: Soft tissue infection of left foot, 2nd digit, 1st webspace: CT scan demonstrated no evidence of osteomyelitis no gas or abscess formation, blood cultures demonstrate no growth to date from 09/11, 09/14 are negative, no growth to date from cultures on 09/17. Wound care is consulted and following along. Given the lack of meaningful improvement since admission, orthopedic surgery was consulted, they feel as if medical management is appropriate for now and there is no indication of osteomyelitis. There is evidence of peripheral arterial disease as diagnosed by vascular ultrasound, Dr. Vargas performed angioplasty today. Initially the patient received Dalvance as an outpatient (09/11), and was admitted for having failed this treatment, he was started on vancomycin and Zosyn on admission but subsequently discontinued as Dalvance should provide similar coverage, cefepime was added for Pseudomonas coverage. Is been 1 week since Dalvance was administered, restarted vancomycin 09/18/20 -Consult orthopedic surgery -Medical management no indication of osteomyelitis -XR w/ no evidence of osteomyelitis (09/19/2020) -Negative sed rate and CRP -Trend daily CBC -Continue Vancomycin, Zosyn PAD: -increased peak systolics on Duplex artery exam on 09/11 -Consulted interventional cardiology -rec 1 month DAPT, noninvasive vasc. testing as an outpatient in 1 weeks Left foot pain control: Likely multifactorial stemming from diabetic neuropathy, peripheral arterial disease, cellulitis, and swelling. Initially he described his pain is more of an electric sensation, shooting down his leg, gabapentin was initiated and this significantly relieved this pain. The patient says at baseline his pain is a 2 out of 10 and entirely manageable, however soon as he puts pressure on the foot the pain jumps up to a 6 or 7 out of 10 becomes unbearable. This pain is likely related to the swelling and infection in his lower extremity, and will likely take resolution of his underlying infection to demonstrate meaningful improvement. His infection is recovering slowly secondary to presumed peripheral arterial disease. Plan to continue: -scheduled Tylenol, Gabapentin increased dose to 600 AM, noon and 900 QHS, w/ Oxycodone or Dilaudid PRN for severe pain -Reports pain is well controlled at baseline, however is significant when attempting to apply pressure -I expect pain to improve as we gain better control over the infection, and his wounds continue to heal -no need for Oxycodone or Dilaudid in the last 34-48hr. CKD (chronic kidney disease) stage 3, GFR 30-59 ml/min: -avoiding nephrotoxic drugs -trend daily bmp -CR:1.91->1.88->1.79->1.74->1.78 Diabetes mellitus type II: -overall much improved from prior admission with A1c at admission 7.4 -consult pharmacy, glycemic management Hypertension: -Continue home antihypertensives -well controlled Diabetic neuropathy: -Gabapentin as above DVT: Lovenox Code: full Diet: CC DMII COVID: negative (09/14) Supervising Physician Co-Signing Physician Notes I also saw the patient with the resident and confirmed torres portions of the history and exam. I also discussed the case with orthopedics. I agree with the impression and plan in the resident note. He is pleased with care today, especially following review of procedure with vascular team earlier today. . VSS BP improved today. Afebrile. Palpable PT pulse today. Will continue antibiotics. Appreciate orthopedics and vascular consultations. Else per resident note. Subjective Mr. Salinas Gandhi was doing okay. He did have a wet bowel movement that was concerning for him, we this discussed that this could be due to the antibiotics that he was currently on. He has been walking around and his pain has been well controlled. Review of Systems Review of Systems: Constitutional: denies fevers, chills Cardiac: denies chest pain, palpitations Pulm.: denies cough, shortness of breath GI: denies nausea, vomiting Physical Exam Physical Exam: Constitutional WD/WN, vitals as above Eyes PERRL, conjunctivae normal, anicteric sclerae ENMT external ear and nose normal, oropharynx normal Neck normal visual inspection Respiratory normal respiratory effort, lungs clear to auscultation Cardiovascular RRR, no murmur, no edema Gastrointestinal (Abdomen) normal bowel sounds, soft, nontender, no hepatosplenomegaly Skin Left dorsal surface of second toe and first interspace nTTP with eschar (increased from prior exam on Saturday), erythema (improved), swelling (improved) no drainage. Unable to appreciate PT, DP pulses on the left. Warm foot. No hair on leg below knee bilaterally. Results & Data Results & Data ([facility]) Vital Signs (Past 12 Hours) Vital Signs Temp Pulse Resp BP BP Pulse Ox 09/20/20 03:26 37.1 C 83 16 129/70 95 09/19/20 23:54 37.2 C 81 16 124/67 93 09/19/20 22:02 36.7 C 72 16 133/81 97 09/19/20 20:50 37.0 C 85 16 116/71 97 09/19/20 19:50 37.1 C 85 16 133/76 94 09/19/20 19:45 82 16 131/78 96 09/19/20 19:30 82 16 132/84 96 09/19/20 19:15 82 16 140/84 96 09/19/20 19:00 80 16 135/85 96 09/19/20 18:45 82 16 135/82 96 09/19/20 18:30 87 16 144/83 H 94 CBC Results Results Complete Blood Count Results: RBC 4.66 M/uL (4.7-6.1) L 09/18/20 WBC 11.58 K/uL (4.8-10.8) H 09/18/20 Hgb 12.7 g/dL (14.0-18.0) L 09/18/20 Hct 38.9 % (42-52) L 09/18/20 Plt Count 289 K/uL (130-400) 09/18/20 Chemistry (BMP) Results BMP Results: Sodium 137 mmol/L (136-145) 09/20/20 Potassium 4.0 mmol/L (3.5-5.1) 09/20/20 Chloride 107 mmol/L (98-107) 09/20/20 BUN 21 mg/dl (7-18) H 09/20/20 Creatinine 1.38 mg/dl (0.6-1.4) 09/20/20 Glucose 97 mg/dl (70-99) 09/20/20 Resident Activity Tracking Resident Involvement: Resident Care Provided Care Provided: Adult [facility]
[2020-09-20] MEDS: PIPERACILLIN/TAZOBACTAM 3.375 GM in DEXTROSE 5% 100 ML IV SCH ×3 (07:41→23:59)
[2020-09-20] MEDS: ASPIRIN 81 MG ECTAB PO SCH (07:43)
[2020-09-20] MEDS: SPIRONOLACTONE 25 MG TAB PO SCH (07:43)
[2020-09-20] MEDS: LOSARTAN POTASSIUM 50 MG TAB PO SCH (07:44)
[2020-09-20] MEDS: FLUTICASONE PROPIONATE NA SPR 16 GM BTL NAE SCH (07:47)
[2020-09-20] MEDS: POLYETHYLENE (MIRALAX) 17 GM PACK PO SCH (07:48)
[2020-09-20] MEDS: ENOXAPARIN INJ 40 MG/0.4 ML SYR SQ SCH (07:48)
[2020-09-20] MEDS: FUROSEMIDE 20 MG TAB PO SCH (07:49)
[2020-09-20] MEDS: GABAPENTIN 300 MG CAP PO SCH ×3 (07:49→21:58)
[2020-09-20] MEDS: METOPROLOL SUCC 50MG EXT REL TAB PO SCH (07:50)
[2020-09-20] MEDS: amLODIPine BESYLATE 5 MG TAB PO SCH (07:50)
[2020-09-20] MEDS: ACETAMINOPHEN 325 MG TAB PO SCH ×4 (07:51→21:59)
[2020-09-20] MEDS: CHOLECALCIFEROL 1,000 UNITS 25 MCG TAB PO SCH (07:52)
[2020-09-20] MEDS ORDERED: VANCOMYCIN TROUGH ONE (09:30)
[2020-09-20] MEDS: INSULIN ASPART 100 UNITS/ML 3 ML PEN SQ SCH ×4 (09:31→21:57)
[2020-09-20] MEDS: CLOPIDOGREL BISULFATE 75 MG TAB PO SCH (09:31)
[2020-09-20] MEDS: INSULIN GLARGINE SOLOSTAR 100 UNITS/ML 3 ML PEN SQ SCH ×2 (09:32→21:58)
[2020-09-20 09:36] LABS: BUN Creatinine Ratio 15.2 (10-20); Creatinine Clr Calc Pharmacy 71.9 ml/min; Est GFR (African American) 68.1; Est GFR (Non-African American) 58.8
[2020-09-20] MEDS: VANCOMYCIN HCL 1,250 MG in SODIUM CHLORIDE 0.9% 250 ML IV SCH (10:18)
--- NOTE | 2020-09-20 11:09 | Pharmacy Report ---
Pharmacy Abx Dose Short Note - Date of Service September 20, 2020 - Assessment & Plan Assessment 50 year old M receiving vancomycin/zosyn for L leg cellulitis Today day 3 of therapy Plan Vancomycin * Trough level came back slightly supratherapeutic today at ~22 mcg/ml (goal 15- 20 mcg/ml) * Vancomycin dose this AM given - therefore will adjust next dose. Plan to hold next dose until estimated level closer to ~15 mcg/ml. Will decrease to vancomycin 1000 mg iv q 12 hrs. Decided to decrease dose rather than adjust interval due to rapid change in renal function seen today 1.74 to 1.38 mg/dL * Will plan to recheck trough in next 2 - 3 days if vancomycin to be further continued Pharmacy will continue to follow and will adjust dose/frequency as necessary. Thank you.
--- NOTE | 2020-09-20 12:28 | Vascular Medicine ProgressNote ---
Date of Service September 20, 2020 Assessment & Plan (1) PAD (peripheral artery disease): #2. Left lower extremity cellulitis #3. Type 2 diabetes complicated by peripheral neuropathy #4. Chronic renal insufficiency #5. Hypertension Patient post procedure day 1 following angioplasty to posterior tibial, peroneal arteries. Today he has a palpable PT pulse on the left, not present previously. DP pulse preserved No apparent access site complications. Renal function stable. Now with direct inline flow to left first and second digits via posterior tibial/plantar arteries hopeful for improved perfusion/wound healing. Discussed with patient that healing will still require long-term wound care and antibiotics. From a vascular standpoint, continue DAPT with aspirin, clopidogrel for 1 month and repeat noninvasive vascular testing with toe pressures in 2 weeks at my office. Admission and Anticipated Discharge Date Admission Date: September 14, 2020 Subjective No new issues overnight. Pain in his left foot recently controlled. No significant pain at right common femoral artery access site. Review of Systems Review of Systems: All systems reviewed & are unremarkable except as noted in HPI & below Physical Exam Physical Exam: General: Comfortable, no acute distress Eyes: Sclerae anicteric Lungs: Clear to auscultation bilaterally Cardiac: Regular rate and rhythm, no murmur Abdomen: Soft, nontender Neuro: Nonfocal Psych: Alert orient x3, normal affect and mood Extremities/Vascular: 2+ right common femoral artery, no significant ecchymoses, hematoma -- 2+ popliteal bilaterally --2+ DP on left, 1+ PT. Sluggish cap refill first and second digits --Second digit on left foot erythematous with black eschar extending from distal aspect to forefoot. Small area of black discoloration on medial aspect of great toe. Dark erythema in the forefoot. --Left foot edematous Results & Data ([facility]) Vital Signs (Past 12 Hours) Vital Signs Temp Pulse Resp BP Pulse Ox 09/20/20 07:48 97.3 F L 84 16 135/74 96 09/20/20 03:26 98.8 F 83 16 129/70 95 PG Care Time/CCT Total # of Minutes Spent Total Time Spent with Patient: Total time spent is greater than 50% in coordina tion of care (as documented) at patient's floor/unit and/or counseling patient: Coding Level of Care Code 50467 Subseq Hosp Care Lvl 3 Diagnoses PAD (peripheral artery disease) I73.9
--- NOTE | 2020-09-20 14:29 | Pharmacy Report ---
Pharmacy Glycemic Short Note 2 - Date of Service September 20, 2020 - Glycemic Short BSG Results (Last 24 hours): 09/19/20 09/20/20 09/20/20 20:51 08:34 08:38 Glucose 97 POC Glucose 134 H 97 09/20/20 12:24 Glucose POC Glucose 162 H OUTPATIENT ANTIDIABETIC REGIMEN: * Invokana 300 mg daily * Lantus 50 units BID + Novolog 20 units AC * A1c = 7.4 % (09/14/20) ASSESSMENT: 09/20 * Patient received total of 73 units of insulin yesterday, of which 60 were basal * Fasting BSG 97 mg/dL - will plan to scale back on basal insulin * Continue same CF/CR for now 09/19: * BSGs yesterday were [id number] mg/dL - elevated from goal * Patient received 50 units of Lantus and 34 units of Novolog * Fasting BSG this AM was 158 mg/dL - above goal * Fasting continues to trend upwards on current basal dose * Will increase AM basal dose by 25% and continue basal scale at HS for hyperglycemia * Patient's BSGs trended upwards throughout the day yesterday * Will tighten carb ratio slightly today PLAN FOR INPATIENT GLYCEMIC CONTROL: * Hold outpatient oral diabetes medications * Basal insulin - decrease * Lantus 40 units SC AM * Lantus scale this evening to provide up to an additional 0-10 units * Bolus insulin - continue same * NovoLog per scale ACHS or Q6hrs while NPO * Goal Range: Low 110 mg/dL - High 140 mg/dL * Correction Factor: 20 mg/dL/unit * Nutritional / Prandial insulin per carb ratio of 1 unit per 6 grams CHO consumed
[2020-09-20] MEDS: ATORVASTATIN 40 MG TAB PO SCH (21:59)
[2020-09-21] MEDS ORDERED: VANCOMYCIN HCL 1,000 MG in SODIUM CHLORIDE 0.9% 250 ML IV SCH (06:00)
[2020-09-21 06:23] LABS: Basophils # (auto) 0.03 K/uL (0-0.2); Basophils % (auto) 0.3 %; Eosinophils % (auto) 4.4 %; Hemoglobin 11.5 g/dL (14.0-18.0); Immature Granulocytes # (auto) 0.04 K/uL (0.00-0.02); Immature Granulocytes % (auto) 0.4 %; Lymphocytes # (auto) 1.32 K/uL (1.2-3.4); Lymphocytes % (auto) 14.6 %; Mean Corpuscular Hemoglobin 27.3 pg (25-34); Mean Corpuscular Hgb Conc 32.9 g/dL (32-36); Mean Corpuscular Volume 83.1 fL (80-100); Mean Platelet Volume 9.2 fL (7.4-10.4); Monocytes # (auto) 0.95 K/uL (0.11-0.59); Monocytes % (auto) 10.5 %; Neutrophils # (auto) 6.29 K/uL (1.4-6.5); Neutrophils % (auto) 69.8 %; Platelet Count 303 K/uL (130-400); RDW Coefficient of Variation 14.7 % (11.5-14.5); RDW Standard Deviation 45.1 fL (36.4-46.3); Red Blood Count 4.21 M/uL (4.7-6.1); White Blood Count 9.03 K/uL (4.8-10.8)
[2020-09-21 06:32] LABS: Partial Thromboplastin Ratio 1.1; Partial Thromboplastin Time 31.3 Seconds (21.0-31.0)
[2020-09-21 06:52] LABS: BUN Creatinine Ratio 15.7 (10-20); Calcium 8.8 mg/dl (8.5-10.1); Creatinine Clr Calc Pharmacy 71.9 ml/min; Est GFR (African American) 68.1; Est GFR (Non-African American) 58.8; Potassium 4.2 mmol/L (3.5-5.1)
--- NOTE | 2020-09-21 06:59 | Hospitalist Progress Note ---
Date of Service September 21, 2020 Assessment & Plan Admission and Anticipated Discharge Date Admission Date: September 14, 2020 50 yo M w/ pMHx. of DM II, here for soft tissue infection of the left foot admitted after concern for treatment failure of foot infection. Overall improving infection and working towards better pain control prior to discharge although, Dr. Vargas with interventional cardiology performed angiography and angioplasty 09/19. Cellulitis of left foot: Soft tissue infection of left foot, 2nd digit, 1st webspace: CT scan demonstrated no evidence of osteomyelitis no gas or abscess formation, blood cultures demonstrate no growth to date from 09/11, 09/14 are negative, no growth to date from cultures on 09/17. Wound care is consulted and following along. Given the lack of meaningful improvement since admission, orthopedic surgery was consulted, they feel as if medical management is appropriate for now and there is no indication of osteomyelitis. There is evidence of peripheral arterial disease as diagnosed by vascular ultrasound, Dr. Vargas performed angioplasty on 09/19. Initially the patient received Dalvance as an outpatient (09/11), and was admitted for having failed this treatment, he was started on vancomycin and Zosyn on admission but subsequently discontinued as Dalvance should provide similar coverage, cefepime was added for Pseudomonas coverage. Is been 1 week since Dalvance was administered, restarted vancomycin 09/18/20 -Consult orthopedic surgery -Medical management no indication of osteomyelitis -XR w/ no evidence of osteomyelitis (09/19/2020) -Negative sed rate and CRP -Trend daily CBC -Continue Vancomycin, Zosyn for now and consider transition to oral agents prior to discharge PAD: -increased peak systolics on Duplex artery exam on 09/11 -Consulted interventional cardiology -rec 1 month DAPT, noninvasive vasc. testing as an outpatient in 1 weeks Left foot pain control: Likely multifactorial stemming from diabetic neuropathy, peripheral arterial disease, cellulitis, and swelling. Initially he described his pain is more of an electric sensation, shooting down his leg, gabapentin was initiated and this significantly relieved this pain. The patient says at baseline his pain is a 2 out of 10 and entirely manageable, however soon as he puts pressure on the foot the pain jumps up to a 6 or 7 out of 10 becomes unbearable. This pain is likely related to the swelling and infection in his lower extremity, and will likely take resolution of his underlying infection to demonstrate meaningful improvement. His infection is recovering slowly secondary to presumed peripheral arterial disease. Plan to continue: -scheduled Tylenol, Gabapentin increased dose to 600 AM, noon and 900 QHS, w/ Oxycodone or Dilaudid PRN for severe pain -Reports pain is well controlled at baseline, however is significant when attempting to apply pressure -I expect pain to improve as we gain better control over the infection, and h is wounds continue to heal -no need for Oxycodone or Dilaudid in the last 34-48hr. CKD (chronic kidney disease) stage 3, GFR 30-59 ml/min: -avoiding nephrotoxic drugs -trend daily bmp -CR:1.91->1.88->1.79->1.74->1.78 Diabetes mellitus type II: -overall much improved from prior admission with A1c at admission 7.4 -consult pharmacy, glycemic management Hypertension: -Continue home antihypertensives -well controlled Diabetic neuropathy: -Gabapentin as above DVT: Lovenox Code: full Diet: CC DMII COVID: negative (09/14) Results & Data Results & Data ([facility]) Vital Signs (Past 12 Hours) Vital Signs Temp Pulse Resp BP Pulse Ox 09/20/20 23:47 36.9 C 83 16 137/75 97 CBC Results Results Complete Blood Count Results: RBC 4.21 M/uL (4.7-6.1) L 09/21/20 WBC 9.03 K/uL (4.8-10.8) 09/21/20 Hgb 11.5 g/dL (14.0-18.0) L 09/21/20 Hct 35.0 % (42-52) L 09/21/20 Plt Count 303 K/uL (130-400) 09/21/20 Chemistry (BMP) Results BMP Results: 2 Sodium 138 mmol/L (136-145) 09/21/20 Potassium 4.2 mmol/L (3.5-5.1) 09/21/20 Chloride 110 mmol/L (98-107) H 09/21/20 BUN 22 mg/dl (7-18) H 09/21/20 Creatinine 1.38 mg/dl (0.6-1.4) 09/21/20 Glucose 143 mg/dl (70-99) H 09/21/20
[2020-09-21] MEDS: ASPIRIN 81 MG ECTAB PO SCH (08:05)
[2020-09-21] MEDS: LOSARTAN POTASSIUM 50 MG TAB PO SCH (08:05)
[2020-09-21] MEDS: SPIRONOLACTONE 25 MG TAB PO SCH (08:05)
[2020-09-21] MEDS: PIPERACILLIN/TAZOBACTAM 3.375 GM in DEXTROSE 5% 100 ML IV SCH (08:05)
[2020-09-21] MEDS: ENOXAPARIN INJ 40 MG/0.4 ML SYR SQ SCH (08:06)
[2020-09-21] MEDS: FLUTICASONE PROPIONATE NA SPR 16 GM BTL NAE SCH (08:06)
[2020-09-21] MEDS: FUROSEMIDE 20 MG TAB PO SCH (08:06)
[2020-09-21] MEDS: METOPROLOL SUCC 50MG EXT REL TAB PO SCH (08:07)
[2020-09-21] MEDS: amLODIPine BESYLATE 5 MG TAB PO SCH (08:07)
[2020-09-21] MEDS: POLYETHYLENE (MIRALAX) 17 GM PACK PO SCH (08:07)
[2020-09-21] MEDS: CLOPIDOGREL BISULFATE 75 MG TAB PO SCH (08:07)
[2020-09-21] MEDS: GABAPENTIN 300 MG CAP PO SCH ×2 (08:07→12:54)
[2020-09-21] MEDS: CHOLECALCIFEROL 1,000 UNITS 25 MCG TAB PO SCH (08:08)
[2020-09-21] MEDS: ACETAMINOPHEN 325 MG TAB PO SCH ×2 (08:08→12:53)
[2020-09-21] MEDS: INSULIN ASPART 100 UNITS/ML 3 ML PEN SQ SCH ×2 (08:51→12:50)
[2020-09-21] MEDS: INSULIN GLARGINE SOLOSTAR 100 UNITS/ML 3 ML PEN SQ SCH (08:52)
--- NOTE | 2020-09-21 10:37 | Progress Notes ---
DATE: 09/21/2020 The patient is resting comfortably in bed. Reports he was up walking. I do recommend that he wear the postop shoe anytime he is up and walking with the distal flap folded under, so there is no pressure on his toes. He is afebrile. His vital signs are stable. His labs are noted. White count normal. Evaluation of the foot reveals no palpable pedal pulses. There is dried skin on the dorsum of the foot. The wound on the medial aspect of the big toe has eschar over it. There is a trace bit of purplish discoloration over the distal aspect of the second toe. Otherwise, there is capillary refill less than 2-3 seconds in all other digits. There is a black eschar over the dorsal aspect of the second toe from just proximal to the MTP joint out to the PIP joint. There is no drainage. There is some mild erythema around this. No fluctuance is noted. The plan moving forward would be a wound care consultation. Outpatient wound care treatments as appropriate. I think being discharged on oral antibiotics would be appropriate at this time. He can do limited walking for activities of daily living using a postop shoe. I discussed with him that he has at least superficial necrosis of the second toe. The purplish discoloration at the tip may indicate that there is further compromise versus venous engorgement. At this time, I think we recommend that we see what kind of demarcation occurs. There could be some degree of reperfusion which allows healing to occur. I discussed with him that the circulation to all of his toes is likely compromised, but this is the most significant area. It is possible that the toe does not have adequate circulation and that the toe dies and needs to be removed. It is possible that the toe regain some perfusion and can heal itself partially or completely. This is a process, which will take some time to demarcate a healthy from unhealthy vascularized tissue. He can follow up with me in my office next week for outpatient monitoring.
--- NOTE | 2020-09-21 10:56 | Discharge Summary ---
Date of Service September 21, 2020 Admission HPI Per Admitting Provider Patient is a 50-year-old male with a history of type 2 diabetes who was seen approximately 2 weeks ago for a left lower extremity blister at that time he was started on and severe pain preventing ambulation. IV Dalvance in the emergency department. He returns because of increasing swelling in the last 24 hours. He noticed some streaking up the leg however he is not having chest pain shortness of breath, abdominal pain. He has not taken anything for the pain. Admission Exam Per Admitting Provider GENERAL : No acute distress EYES: No icterus, gaze conjugate. Pupils equal round and reactive to light NOSE: No evidence of epistaxis. MOUTH: No lesions or candidiasis. Mucosa is moist NECK: Supple. No appreciation of stridor or bruits LUNGS: CTA B/L, no wheezes, rales or rhonchi. Good inspiratory effort HEART: Regular, rate controlled. No appreciation of murmurs gallops or rubs ABDOMEN: Soft, NT, ND, BS Present. No guarding or rebound tenderness EXTREMITIES: No LE edema, pedal pulses intact and equal bilaterally. There is no tissue breakdown between toes. There is some callusing on the balls of the feet but no evidence of breakdown of tissue. NEURO: A&OX3. Sensation to bilateral feet and toes is minimal but appreciable. Toes are downgoing bilaterally. Cranial nerves II through XII are otherwise grossly intact. Principal Diagnosis cellulitis L foot PAD DMII Discharge Data Allergies Allergy/AdvReac Type Severity Reaction Status Date / Time No Known Drug Allergies Allergy Verified 09/14/20 11:17 Consultations 09/14/20 12:26 ED Decision to Admit Stat 09/16/20 12:03 Consult [facility] city auditor Routine 09/17/20 15:59 Consult Cardiology Routine Consult Orthopedic Surgery Routine Procedures Performed Operation Date: 09/19/20 14:00 Actual Procedures p Angio Extremity Bilateral - Phu Vargas MD s Ultrasound Vascular Access - Phu Vargas MD s Tibial Peroneal Balloon - Phu Vargas MD s Placement Art Occlusive Device - Phu Vargas MD s SC Select Cath ALEP 3rd Order - Phu Vargas MD Ordered Studies 09/14/20 10:00 CT foot LT wo con Stat US venous doppler LE LT Stat 09/19/20 13:32 CL Cath Imgs for PACS use only Routine Hospital Course (1) Cellulitis of left le yo M w/ pMHx. of DM II, here for soft tissue infection of the left foot admitted after concern for treatment failure after receiving Dalvance in the ED on 09/11. Overall improving infection and blood supply s/p angiography and angioplasty 09/19. Cellulitis of left foot: Soft tissue infection of left foot, 2nd digit, 1st webspace: CT scan demonstrated no evidence of osteomyelitis no gas or abscess formation, blood cultures demonstrate no growth to date from 09/11, 09/14 are negative, no growth to date from cultures on 09/17. Wound care was consulted. Orthopedic surgery was consulted, they will follow up with the patient after discharge. There is evidence of peripheral arterial disease as diagnosed by vascular ultrasound, Dr. Vargas performed angioplasty on 09/19. Initially the patient received Dalvance as an outpatient (09/11), and was admitted for having failed this treatment, he was started on vancomycin and Zosyn and converted to Doxycycline and Cefdinir. -Consult orthopedic surgery -Medical management no indication of osteomyelitis -XR w/ no evidence of osteomyelitis (09/19/2020) -Negative sed rate and CRP -will follow up with wound care after discharge -2 weeks of Doxy and Cefdinir prescribed, at follow up determine if the duration of therapy should be extended after this time. PAD: -increased peak systolics on Duplex artery exam on 09/11 -Consulted interventional cardiology -rec. 1 month DAPT, noninvasive vasc. testing as an outpatient in 1 weeks Left foot pain control: Likely multifactorial stemming from diabetic neuropathy, peripheral arterial disease, cellulitis, and swelling. Initially he described his pain is more of an electric sensation, shooting down his leg, gabapentin was initiated and this significantly relieved this pain. The patient says at baseline his pain is a 2 out of 10 and entirely manageable, however soon as he puts pressure on the foot the pain jumps up to a 6 or 7 out of 10 becomes unbearable. This pain is likely related to the swelling and infection in his lower extremity, and will likely take resolution of his underlying infection to demonstrate meaningful improvement. His infection is recovering slowly secondary to presumed peripheral arterial disease. Plan to continue: -Tylenol, Gabapentin increased dose to 600 AM, noon and 900 QHS -Reports pain is well controlled at baseline, however is significant when attempting to apply pressure -I expect pain to improve as we gain better control over the infection, and his wounds continue to heal CKD (chronic kidney disease) stage 3, GFR 30-59 ml/min: -continue to monitor in the outpatient setting Diabetes mellitus type II: -overall much improved from prior admission with A1c at admission 7.4 -restart home medication regimine Hypertension: -Continue home antihypertensives -well controlled Diabetic neuropathy: -Gabapentin as above Total Time Total Time Spent Total Time Spent (In Minutes): 25 minutes Total Time Includes: Examination of the Patient and Communication With Other Providers Discharge Plan Discharge Items Patient Disposition: Home - Self-Care Reason For Visit: CELLULITIS Discharge Diagnosis: cellulitis of left foot Condition on Discharge: Good Activity: Per Instructions section Non-emergency contact: Primary Care Provider and Surgeon Call non-emergency contact if: your wound has increased redness Follow-up/Referrals: John Barber CRNP [Primary Care Provider] - 09/28/20 8:20 am Phu Vargas MD [Physician] - 10/06/20 10:00 am Denny Dillard MD [Surgeon] - 09/30/20 11:30 am Carlos Hunt DO [Physician] - 09/29/20 10:00 am Diet: Carb Consistent or DM2 Addtl Attending Provider Instructions: Left foot infection You came to the hospital with a left foot infection. We started you on ant ibiotics, You were also seen by the orthopedic surgeon to discuss management of your second toe on the left. You will need to continue on oral antibiotics for potentially 2 weeks outside of the hospital, the actual duration of the antibiotics may be longer or shorter depending on how your infection looks at follow up appointments. Follow up: You will need to continue to see wound care. You will also follow up with orthopedic surgery in one week, your primary doctor in one week and interventional cardiology in 2 weeks. Foot pain You have pain in your foot that is likely due to your diabetic neuropathy in addition to poor blood flow and swelling from the infection. You can continue to take the over the counter Tylenol when you go home. I also sent the prescription for you to take 600 mg of gabapentin in the morning and at noon and then 900 mg prior to going to bed. the Gabapentin can cause you to be sleepy and you should not operate a car after taking Blood flow to your legs - Peripheral arterial disease (PAD) You were found to have poor blood flow to your legs and to the wound on your left foot. We had our vocational teacher address the blood flow with a procedure. You will need to be on two blood thinning medications for the next month to maintain your blood flow to your legs. 1. Aspirin 2. Clopidogrel (Plavix),You will need to follow up in 2 weeks with the vocational teacher. Return precautions If you notice that the redness and swelling in your legs is getting worse or you have drainage or worsening pain we will want to have you call or come in to get evaluated. Pending Studies at Discharge: No Stand-Alone Forms: My [facility] i2O Water, Smoking Cessation Medications and DC Order Prescriptions: New cefdinir 300 mg capsule 300 mg PO BID 14 Days Qty: 28 RF: 0 doxycycline hyclate 100 mg capsule 100 mg PO BID 14 Days Qty: 28 RF: 0 clopidogrel 75 mg tablet 75 mg PO DAILY Qty: 30 RF: 0 gabapentin 600 mg tablet 600 mg PO BID Qty: 30 RF: 0 gabapentin 300 mg capsule 900 mg PO HS 30 Days Qty: 90 RF: 0 Continued (DME) pen needle, diabetic [ReliOn Pen [place]] 32 gauge x 5/32" needle See Dose Instructions .ROUTE .MEDSUPPLY Qty: 200 RF: 1 atorvastatin 40 mg tablet 40 mg PO QPM Qty: 90 RF: 2 (DME) blood sugar diagnostic [OneTouch Verio test strips] Strip See Rx Instructions .ROUTE .MEDSUPPLY Qty: 300 RF: 3 Lantus Solostar U-100 Insulin 100 unit/mL (3 mL) insulin pen See Rx Instructions subcut BID Qty: 15 RF: 0 insulin aspart U-100 [Novolog Flexpen U-100 Insulin] 100 unit/mL (3 mL) insulin pen 20 unit subcut AC Qty: 15 RF: 3 spironolactone 25 mg tablet 25 mg PO QAM Qty: 90 RF: 1 naproxen 500 mg tablet 500 mg PO BID PRN (Reason: pain) Qty: 60 RF: 0 (DME) blood-glucose meter [Blood Glucose Monitoring] Kit See Rx Instructions .ROUTE .MEDSUPPLY Qty: 1 RF: 0 (DME) blood-glucose meter Kit See Dose Instructions .ROUTE .MEDSUPPLY Qty: 1 RF: 0 sildenafil 50 mg tablet 50 mg PO DAILY PRN (Reason: sexual activity) Qty: 30 RF: 0 fluticasone propionate 50 mcg/actuation spray,suspension 2 spray intranasal DAILY Qty: 16 RF: 2 cholecalciferol (vitamin D3) [Vitamin D3] 25 mcg (1,000 unit) Tablet 25 mcg PO QAM RF: 0 metoprolol succinate 100 mg tablet extended release 24 hr 100 mg PO QAM RF: 0 amlodipine 10 mg tablet 10 mg PO QAM RF: 0 furosemide 20 mg tablet 20 mg PO QAM RF: 0 losartan 100 mg tablet 100 mg PO QAM RF: 0 canagliflozin 100 mg tablet 300 mg PO QAM RF: 0 aspirin [Aspirin Low Dose] 81 mg tablet,delayed release (DR/EC) 81 mg PO QAM RF: 0 (DME) lancets [OneTouch Delica Lancets] 30 gauge misc See Rx Instructions .ROUTE .MEDSUPPLY Qty: 100 RF: 0 Discontinued gabapentin 300 mg capsule 0 mg PO BID RF: 0 Discharge Orders: Discharge Order (Routine); Ordered 09/21/20 Ordered By: Eliseo Cueva/Other Patient Handouts: PAD Dc, PAD Walking Program, Foot Care Diabetes Steps Admission Data Admit Date/Time: 09/14/20 12:37 Attending Provider: Devin Kinney Admit Provider: Hoang Brock Primary Care Provider: John Barber. Other Providers: Hoang Brock ; Jona Harper ; Phu Vargas ; Denny Dillard ; [facility] Other Interventions: Discharge Summary Assessment (RN) Last Done: 09/21/20 11:15 Supervising Physician Co-Signing Physician Notes I also saw the patient with the resident physician and confirmed torres portions of the history and physical examination. I also discussed the case with orthopedics and the wound care team. I agree with the impression and plan as noted in the resident dictation. Resident Activity Tracking Resident Involvement: Resident Care Provided Care Provided: Adult [facility] Medicine CBC Results Results Complete Blood Count Results: RBC 4.21 M/uL (4.7-6.1) L 09/21/20 WBC 9.03 K/uL (4.8-10.8) 09/21/20 Hgb 11.5 g/dL (14.0-18.0) L 09/21/20 Hct 35.0 % (42-52) L 09/21/20 Plt Count 303 K/uL (130-400) 09/21/20 Chemistry ([facility]) Results [facility] Results: Sodium 138 mmol/L (136-145) 09/21/20 Potassium 4.2 mmol/L (3.5-5.1) 09/21/20 Chloride 110 mmol/L (98-107) H 09/21/20 BUN 22 mg/dl (7-18) H 09/21/20 Creatinine 1.38 mg/dl (0.6-1.4) 09/21/20 Glucose 143 mg/dl (70-99) H 09/21/20
[2020-09-21] MEDS ORDERED: CEFDINIR 300 MG CAP PO SCH (17:00)
[2020-09-21] MEDS ORDERED: DOXYCYCLINE HYCLATE 100 MG CAP PO SCH (21:00)
[2020-09-22] MEDS ORDERED: VANCOMYCIN TROUGH ONE (17:30)
--- NOTE | 2020-09-23 07:28 | Billing Data ---
Date of Service September 18, 2020 Coding Level of Care Code 48259 Subseq Hosp Care Lvl 3
== END 2020-09-21 13:43 | disposition home health service (06) | DRG 253 ==
LOC: ED 09:30 → SUATTDRO 12:37 → 3N 12:37
PROC: CLB.AEB (2020-09-19 14:00)

== ENCOUNTER 2020-10-25 10:10 | Observation (INO) ==
--- NOTE | 2020-10-21 15:05 | Anesthesiology Consultation ---
Date of Service October 21, 2020 Assessment & Plan (1) Encounter for pre-operative examination: - Per assessment on 10/21/20: Travel screen negative. No known COVID-19 positive contacts or current COVID-19 related symptoms. Patient had preop COVID test done 10/19/[place] ([place]) which was negative. - PCP office visit: 09/28/20: seen for follow-up from hospital discharge for cellulitis. Hospital records and diagnostic studies reviewed. Cellulitis of left leg and left foot improving. CT scan demonstrated no evidence of osteomyelitis (no gas or abscess formation). Blood cultures showed no growth on 09/11/2020. Patient was referred to Ortho for follow-up. Patient was treated with Vanco and Zosyn in the hospital and converted to doxy and cefdinir when he was discharged which he continues. Continue to follow-up with wound care. PADstable. Diabetic neuropathy, CKD, diabetes, hypertension = all stable, continue current medications. - Vascular office visit (Dr. Vargas): 10/20/20: "Patient had repeat noninvasive vascular testing in office today with Doppler and pulse volume recordings.. Overall findings suggestive of adequate arterial perfusion to heal a transmetatarsal amputation or more limited amputation if thought appropriate. Patient can stop clopidogrel now. Long-term continue antiplatelet therapy with aspirin." F/U 3 months recommended. - Check BSG AM DOS - ASA instructions per surgeon/prescriber (per RN PAT interview, patient states he was told okay to continue ASA until DOS*) - Recent CVA: incidental 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 with small remote infarcts of the right external capsule and malachi also noted on 08/30/20 Brain MRI. Risks to be discussed with patient AM DOS. Chart Review Chart Review: Acceptable Risk for Surgery (pending evaluation AM DOS) and Patient NOT seen in Pre Admission Testing History Surgery Operation Date: 10/25/20 12:00 Proposed Procedures p Left Foot Transmetatarsal Amputation and - Denny Dillard MD s Achilles Tendon Lengthening - Denny Dillard MD Height/Weight Height: 5 ft 9 in Weight: 92.079 kg Allergies Allergy/AdvReac Type Severity Reaction Status Date / Time No Known Drug Allergies Allergy Verified 10/03/20 07:55 Medications Home Medications Medication Instructions Recorded Confirmed Last Taken pen needle, diabetic 32 gauge x #200 ea 11/11/19 09/29/20 Unknown " blood-glucose meter #1 ea 11/19/19 09/29/20 Unknown blood-glucose meter #1 ea 11/19/19 09/29/20 Unknown aspirin [Aspirin Low Dose] 81 mg PO QAM 05/24/20 10/21/20 09/14/20 lancets [OneTouch Delica Lancets] #100 ea 05/28/20 09/29/20 Unknown atorvastatin 40 mg tablet 40 mg PO QPM #90 tab 06/06/20 10/21/20 09/10/20 blood sugar diagnostic #300 ea 06/15/20 09/29/20 Unknown insulin glargine 100 unit/mL (3 See Rx Instructions SUBCUT BID #15 06/30/20 10/21/20 09/10/20 mL) subcutaneous pen ml insulin aspart U-100 100 unit/mL 20 unit SUBCUT AC #15 ml 07/27/20 10/21/20 09/10/20 (3 mL) subcutaneous pen sildenafil 50 mg tablet 50 mg PO DAILY PRN #30 tab 08/02/20 10/03/20 Unknown amlodipine 10 mg PO QAM 09/11/20 10/21/20 09/14/20 cholecalciferol (vitamin D3) 25 mcg PO QAM 09/11/20 10/21/20 09/14/20 [Vitamin D3] furosemide 20 mg PO QAM 09/11/20 10/21/20 09/14/20 losartan 100 mg PO QAM 09/11/20 10/21/20 09/14/20 spironolactone 25 mg tablet 25 mg PO QAM #90 tab 09/12/20 10/21/20 09/14/20 metoprolol succinate 100 mg 100 mg PO QAM #90 tab 09/29/20 10/21/20 Unknown tablet,extended release 24 hr gabapentin 300 mg capsule 900 mg PO HS 30 Days #270 cap 10/05/20 10/21/20 Unknown gabapentin 600 mg tablet 600 mg PO BID #180 tab 10/05/20 10/21/20 Unknown Past Medical History Medical History CHF (congestive heart failure) Questionable hx (per vascular notes), does not follow with cardiology, ECHO 05/2020 EF 50% Chronic kidney disease, stage 3a stable per 09/2020 PCP note Diabetes mellitus IDDM Erectile dysfunction History of recent hospitalization 08/2020 ([facility]) - 2/2 LLE cellulitis Hyperlipidemia Hypertension Necrosis of toe Left foot PAD (peripheral artery disease) s/p angioplasty to posterior tibial, and peroneal arteries 08/2020 Psoriasis Stroke incidental 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 with small remote infarcts of the right external capsule and malachi also noted on 08/30/20 Brain MRI Umbilical hernia current Vertigo occasional Past Family History Family History Father Cardiac disorder Hypertension Grandfather Cardiac disorder Myocardial infarction Grandmother Breast cancer Other No family history of adverse response to anesthesia Denies family history of Ovarian cancer Prostate cancer Colorectal cancer Past Surgical History Surgical History History of cardiac cath 25+ years ago > no stents History of tooth extraction Hx of vascular surgery Angioplasty to posterior tibial, and peroneal arteries (08/2020) Social History Smoking Status: Never smoker tobacco type: smokeless tobacco Do You Dip or Chew Tobacco: Yes (1 can/2 days- PAT RN advised NPO AM DOS) Hx Alcohol Use: No Alcohol type: beer Alcohol Intake Frequency Comment: Quit 03/2020 Hx Substance Use: No substance use type: does not use Testing Laboratory Results 09/21/20 WBC 9.03 H/H 11.5/35.0 PLATELETS 303 SODIUM 138 POTASSIUM 4.2 CHLORIDE 110 CO2 21 BUN 22 CREATININE 1.38 GLUCOSE 143 09/11/20 TSH 1.880 09/14/20 HGBA1C 7.4% Electrocardiogram Date: 09/11/20 + NSR @ (91) and + no change from (May 26, 2020 per cardio). LAFB. Echocardiogram Date: 05/25/20 EF: 50% LV Function: Low normal RWMA: + none ("no clear-cut RWMA") Other Findings: + LVH (mild/concentric ) and + diastolic dysfunction (Type I ) Valvular Disease: + no significant valvular disease Other Testing Brain MRI: 08/30/20: No acute intracranial abnormality. No restricted diffusion to suggest acute or subacute infarct. There is a late subacute/remote infarct of the right occipital lobe measuring 2.07 m in length which demonstrates central cortical laminar necrosis with surrounding gliosis. Small remote infarcts of the right external capsule and malachi also noted. Moderate patchy T2/FLAIR hyperintensities are noted throughout the white matter of the bilateral cerebral hemispheres. No acute intracranial hemorrhage, midline shift, abnormal extra axial collection, hydrocephalus or intracranial mass
[~2020-10-25 10:10] MED LIST: BUPIVACAINE 0.5 % 5 MG/1 ML MPF 30ML VIAL ONE; EPINEPHrine INJ 1 MG/ML AMP ONE; LR 15ML/HR IV SCH; ceFAZolin 2000MG 2,000 MG/15 ML SYR IV SCH
[2020-10-25] MEDS ORDERED: LIDOCAINE HCL 1% 20 ML VIAL ONE (11:02)
[2020-10-25] MEDS ORDERED: BUPIVACAINE/EPINEPHRINE 0.5% MPF 1:200,000 30 ML VIAL ONE (11:02)
[2020-10-25] MEDS ORDERED: BACITRACIN INJ 50,000 UNIT VIAL ONE (11:02)
[2020-10-25] MEDS ORDERED: fentaNYL citrate 100 MCG/2 ML VIAL ONE (11:15)
[2020-10-25] MEDS ORDERED: MIDAZOLAM HCL 1 MG/ML 2ML VIAL ONE (11:15)
--- NOTE | 2020-10-25 13:17 | History & Physical Bridge Note ---
Date of Service October 25, 2020 History & Physical Bridge Note I have examined the patient, reviewed the History & Physical and in the interval since the performance of the History & Physical I have noted the following changes of clinical significance: no changes noted
[2020-10-25] MEDS ORDERED: TRANEXAMIC ACID / 0.7% NACL 1,000 MG/100 ML BAG IV ONE (13:28)
[2020-10-25] MEDS ORDERED: BUPIVACAINE 0.5 % 5 MG/1 ML MPF 30ML VIAL ONE (13:46)
[2020-10-25] MEDS ORDERED: FLUMAZENIL 0.1 MG/1 ML 10 ML VIAL IV PRN (13:52)
[2020-10-25] MEDS ORDERED: NALOXONE HCL 0.4 MG/1 ML VIAL/CARP IV PRN ×2 (13:52→17:33)
[2020-10-25] MEDS ORDERED: ATROPINE SULFATE 0.1 MG/ML 10ML SYR IV PRN (13:52)
[2020-10-25] MEDS ORDERED: ONDANSETRON INJ 2 MG/ML 2 ML VIAL IV PRN ×2 (13:52→17:33)
[2020-10-25] MEDS ORDERED: ePHEDrine sulfate 50 MG/ML AMP IV PRN (13:52)
[2020-10-25] MEDS ORDERED: PROMETHAZINE HCL 12.5 MG in SODIUM CHLORIDE 0.9% 50 ML IV PRN (13:52)
[2020-10-25] MEDS ORDERED: LABETALOL HCL IV 5 MG/ML 20ML IV PRN (13:52)
[2020-10-25] MEDS ORDERED: LIDOCAINE HCL 2% 2 ML VIAL/AMP(20MG/ML) INFIL ONE (14:07)
[2020-10-25] MEDS ORDERED: KETOROLAC 30 MG/ML VIAL ONE (14:07)
[2020-10-25] MEDS ORDERED: PROPOFOL IV EMULSION 10 MG/ML 20 ML VIAL IV ONE (14:07)
[2020-10-25] MEDS ORDERED: ONDANSETRON INJ 2 MG/ML 2 ML VIAL ONE (14:07)
[2020-10-25] MEDS ORDERED: ePHEDrine sulfate 50 MG/ML SYR ONE (14:40)
--- NOTE | 2020-10-25 16:12 | Operative Report ---
Post Operative Report Pre & Post Diagnosis Operation Date: 10/25/20 12:00 Pre-Op Diagnosis: Left Second Toe Necrosis Post-Op Diagnosis: Left Second Toe Necrosis I identified the patient and participated in the time-out.: Yes Procedure Operation Date: 10/25/20 12:00 Actual Procedures p Left Foot Transmetatarsal Amputation(Left) - Denny Dillard MD s Achilles Tendon Lengthening(Left) - Denny Dillard MD Surgeon Denny Dillard M.D. [employer] P[employer] Laurel Santizo PA-C Estimated Blood Loss 50 Findings Consistent with Post-Op Diagnosis Specimens Left foot intra-operative cultures Drains None Anesthesia Type General Complications none Disposition Accompanied Patient To Recovery: Yes Disposition: Recovery Room Description of Procedure Patient was taken to the operating room, placed under general anesthesia. Time out performed, prepped and draped in routine sterile fashion. Patient was given 2gm IV Ancef for surgical prophylaxis. I was present during the entire case, and assisted with tissue retraction, hemostasis, closure and dressings. Please see Dr. Dillard's operative report for further detail. Patient was awakened and taken to the recovery room in stable condition. I attest to the content of the Intraoperative Record and any orders documented therein. Any exceptions are noted below.
--- NOTE | 2020-10-25 16:19 | Fluoroscopy Report ---
FL foot LT 2V HISTORY: 50 years-old Male LEFT FOOT TRANSMETATARSAL AMPUTATION STATUS post dilatation of the left f orefoot COMPARISON: Left foot radiographs 09/17/2020 TECHNIQUE: 2 spot fluoroscopic images of the left foot were obtained utilizing 8.9 seconds fluoroscop y time FINDINGS: Status post partial amputation of the left foot at the level of the mid diaphyseal metatarsals. No ac levon fracture or retained foreign body. Satisfactory alignment. IMPRESSION: Fluoroscopic assistance as above. ACT 112: Negative or not required by law. The above report was generated using voice recognition software. It may contain grammatical, syntax o r spelling errors. Electronically signed by: Ever Almanza M.D. 10/25/2020 4:18 PM
[2020-10-25] MEDS: fentaNYL citrate 100 MCG/2 ML VIAL IV PRN ×2 (16:22→16:35)
--- NOTE | 2020-10-25 16:25 | Operative Report ---
Post Operative Report Pre & Post Diagnosis Operation Date: 10/25/20 12:00 Pre-Op Diagnosis: Left Second Toe Necrosis Post-Op Diagnosis: Left Second Toe Necrosis I identified the patient and participated in the time-out.: Yes Procedure Operation Date: 10/25/20 12:00 Actual Procedures p Left Foot Transmetatarsal Amputation(Left) - MD alec Bingham Achilles Tendon Lengthening(Left) - Denny Dillard MD Surgeon Denny Dillard MD Nurse Ortho Laurel Santizo PA-C Estimated Blood Loss 50 Findings Consistent with Post-Op Diagnosis Specimens Left forefoot, culture left second toe area Drains None Anesthesia Type General Complications none Disposition Accompanied Patient To Recovery: No Disposition: Recovery Room Indications Mr. Villalta is 50. He has multiple medical issues including poorly controlled diabetes and severe peripheral vascular disease. He was admitted at the end of August for evolving necrosis of the left second toe which resulted in a wound on the dorsal aspect of the left forefoot about 3 cm wide and 4 cm long centered over the metatarsophalangeal joint. There was complete necrosis of the second toe. We attempted debridement and also use of a wound VAC. This was not effective in allowing the wound to heal. He had been seen while he was an inpatient and revascularized by Dr. Vargas and has had follow-up showing favorable circulation. Due to this open wound limited options I have recommended a transmetatarsal amputation and he agrees to proceed. Additionally his Achilles is tight and he will need a Achilles tendon lengthening. Description of Procedure Informed consent obtained. Patient identified. He identified the operative site as the left foot. I marked with my initials at the forefoot and Achilles tendon. Preoperative surgical timeout was performed. A preop dose of antibiotics was given. He was taken to the operating room positioned supine on the operating room table. No tourniquet was utilized. The leg was prescrubbed and prepped and draped in usual sterile fashion. DVT prophylaxis with foot pumps. Fluoroscopic guidance was utilized. The ankle dorsiflexion with hindfoot inversion and the knee flexed was barely to neutral. It was about 10 degrees short of neutral with the knee extended. The after mentioned wound was noted. The second toe was black and necrotic. The proximal phalanx was exposed. There was a thin layer of pinkish tissue present but was just some fibrinous exudate. There is no significant granulation. No purulent drainage. There was induration of the forefoot. Digital manipulation of the wound revealed scant if any bleeding. Bump placed under the left hip. A percutaneous Achilles tendon lengthening was performed which resulted in improved dorsiflexion slightly beyond neutral with the knee flexed and extended. 3-0 nylon was utilized to close the sutures. This was then excluded from the surgical field with an Ioban. I attempted as best as possible to exclude the open wound from the surgical field with an Ioban. Fluoroscopic guidance was utilized to identify the level of the amputation which is at the midportion of the first metatarsal. This corresponded to an area 01 0.5 to 2 cm proximal to the most proximal extent of the open wound. The surgical incision was marked out just distal to the planned level of resection. A long plantar flap was created down the length of the metatarsal shaft and out to the junction of the phalanx and metatarsophalangeal joint skin. This was then sharply incised with a knife. Electrocautery was utilized to help control bleeding. The bone was exposed proximally and then using fluoroscopic guidance the desired location of metatarsal osteotomy was identified. The first osteotomy was made perpendicular to the shaft and angled dorsal distal to plantar proximal. The remainder were done the same. Each successive metatarsal osteotomy was 2 to 3 mm shorter. Further beveling of the lateral cortex was performed of the fifth metatarsal. The metatarsals were then debrided with a rongeur for any sharp edges and smoothed with a rasp. I then went ahead and using electrocautery dissected directly underneath the metatarsal shafts down to the level of the metatarsophalangeal joints. Dissection was performed superficial to the metatarsophalangeal joints both proximally and distally in the forefoot was removed and sent for specimen. I then took a culture of the deep portion of the second metatarsal wound area and sent for Gram stain aerobic and anaerobic. I also sent the forefoot for specimen specifically asking the pathologist to look for evidence of osteomyelitis of the second ray. The dorsalis pedis artery had strong pulsatile bleeding. Some of the interossei muscles had bleeding. Overall there was a fair amount of the good circulation noted. Meticulous hemostasis was performed with electrocautery. The flexor and extensor tendons were brought into the wound and amputated as far proximal as possible. The season voids were excised. Copious irrigation was performed with 1900 L of sterile saline. Fluoroscopic imaging of AP and lateral planes was obtained. There was a nice cascade present. The plantar skin was brought up and tacked down provisionally. I then went ahead and using simple sutures horizontal mattresses and near far far near sutures close the wound. A lateral dogear was removed. Wound edges were well approximated. There was excellent circulation on both edges of the flap. The muscle was more of a pale salmon color. There is no purulence encountered and the entire area of the wound and any potential infection in that area was completely excised surgically on block. The wound was injected with local anesthetic half percent plain Marcaine and 1% plain lidocaine. The leg was cleaned with wet and dry sponges. A bulky soft sterile dressing was applied. Xeroform 4 x 4's ABDs cast padding and a posterior splint with the ankle slightly inverted and at neutral or slight dorsiflexion. The splint was brought around the amputation stump of the anterior aspect of the leg. Covered with Bi wrap. Patient awakened from anesthesia without difficulty and taken to recovery room in stable condition. There were no complications. Counts were correct. Specimens were as mentioned above. No one was available to speak to at the conclusion of the operation. The plan is to keep him overnight for intravenous antibiotics and wound monitoring. He will be nonweightbearing for the time being on the left leg. I attest to the content of the Intraoperative Record and any orders documented therein. Any exceptions are noted below.
--- NOTE | 2020-10-25 16:37 | Anesthesiology Progress Note ---
Date of Service October 25, 2020 Anesthesia Post Procedure Vital Signs Vital Signs: Temp Pulse Pulse Resp BP Pulse Ox 10/25/20 16:25 92 H 14 117/67 96 10/25/20 16:15 93 H 12 103/70 98 10/25/20 16:06 37.5 C 96 H 17 103/66 100 10/25/20 10:45 36.7 C 92 H 20 128/83 98 Pain Intensity Left Foot: Pain Intensity: 6 Transfer of Care Handoff Completed per policy Notes Mental Status: alert / awake / arousable Patient Amnestic to Procedure: Yes Nausea / Vomiting: adequately controlled Pain: adequately controlled Airway Patency, RR, SpO2: stable & adequate BP & HR: stable & adequate Hydration State: stable & adequate Anesthetic Complications: no major complications apparent
[2020-10-25] MEDS ORDERED: HYDROmorphone INJ 1 MG/ML SYRINGE IV PRN (17:33)
[2020-10-25] MEDS ORDERED: MAGNESIUM HYDROXIDE SUSP 30 ML UDC PO PRN (17:33)
[2020-10-25] MEDS ORDERED: TAMSULOSIN HCL 0.4 MG CAP PO PRN (17:33)
[2020-10-25] MEDS ORDERED: traMADol HCL 50 MG TABLET PO PRN (17:33)
[2020-10-25] MEDS ORDERED: HYDROmorphone INJ 0.5 MG/0.5 ML SYR IV PRN (17:33)
[2020-10-25] MEDS ORDERED: METOCLOPRAMIDE HCL INJ 5 MG/ML 2 ML VIAL IV PRN (17:33)
[2020-10-25] MEDS ORDERED: SODIUM CHLORIDE 0.9% 1000ML 1,000 ML IV SCH (17:33)
[2020-10-25] MEDS ORDERED: bisacodyL 10 MG SUPP PR PRN (17:33)
[2020-10-25] MEDS: oxyCODONE HCL IR 5 MG TAB (IMMEDIATE RELEASE) PO PRN ×2 (17:48→23:49)
[2020-10-25] MEDS ORDERED: PHARMACY GLYCEMIC MGMT CONSULT PRN (18:07)
[2020-10-25] MEDS ORDERED: CARBOHYDRATES FOR HYPOGLYCEMIA PO PRN (18:15)
[2020-10-25] MEDS ORDERED: DEXTROSE 50% 50 ML SYRINGE IV PRN (18:15)
[2020-10-25] MEDS ORDERED: GLUCOSE 10 TABS/TUBE PO PRN (18:15)
[2020-10-25] MEDS ORDERED: GLUCOSE 40% GEL 15 GM TUBE PO PRN (18:15)
[2020-10-25] MEDS ORDERED: GLUCAGON FOR INJ 1 MG VIAL IM PRN (18:15)
[2020-10-25] MEDS: INSULIN ASPART 100 UNITS/ML 3 ML PEN SC SCH ×2 (18:50→21:39)
[2020-10-25] MEDS: KETOROLAC 30 MG/ML VIAL IV SCH (19:47)
[2020-10-25] MEDS ORDERED: INSULIN GLARGINE SOLOSTAR 100 UNITS/ML 3 ML PEN SC SCH (21:00)
[2020-10-25] MEDS: DOCUSATE SODIUM 100 MG CAP PO SCH (21:25)
[2020-10-25] MEDS: SENNA 8.6 MG TAB PO SCH (21:25)
[2020-10-25] MEDS: ATORVASTATIN 40 MG TAB PO SCH (21:27)
[2020-10-25] MEDS: GABAPENTIN 300 MG CAP PO SCH (21:27)
[2020-10-25] MEDS: ACETAMINOPHEN 500 MG TAB PO SCH (21:27)
[2020-10-25] MEDS: ASPIRIN 325 MG ECTAB PO SCH (21:27)
[2020-10-25] MEDS: ceFAZolin 2000MG 2,000 MG/15 ML SYR IV SCH (21:28)
[2020-10-26] MEDS: KETOROLAC 30 MG/ML VIAL IV SCH ×3 (01:40→14:35)
[2020-10-26] MEDS: oxyCODONE HCL IR 5 MG TAB (IMMEDIATE RELEASE) PO PRN ×2 (04:10→13:09)
[2020-10-26] MEDS: ACETAMINOPHEN 500 MG TAB PO SCH ×3 (05:59→21:22)
[2020-10-26] MEDS: ceFAZolin 2000MG 2,000 MG/15 ML SYR IV SCH (06:00)
[2020-10-26 06:03] LABS: Hemoglobin 11.7 g/dL (14.0-18.0); Mean Corpuscular Hemoglobin 27.4 pg (25-34); Mean Corpuscular Hgb Conc 33.4 g/dL (32-36); Mean Platelet Volume 9.5 fL (7.4-10.4); Platelet Count 213 K/uL (130-400); RDW Coefficient of Variation 16.2 % (11.5-14.5); RDW Standard Deviation 48.8 fL (36.4-46.3); Red Blood Count 4.27 M/uL (4.7-6.1); White Blood Count 10.57 K/uL (4.8-10.8)
--- NOTE | 2020-10-26 08:25 | Pharmacy Report ---
Pharmacy Glycemic Short Note 2 - Date of Service October 26, 2020 - Glycemic Short BSG Results (Last 24 hours): 10/25/20 10/25/20 10/25/20 10:36 16:07 17:17 POC Glucose 123 H 94 98 10/25/20 20:41 POC Glucose 192 H OUTPATIENT ANTIDIABETIC REGIMEN: * Lantus 50 units SQ BID * Novolog 20 units SQ AC * A1c = 7.4% (09/14/20) ASSESSMENT: * Salinas is a 50 yo T2DM s/p left Foot Transmetatarsal Amputation on 10/25/20 * He takes large amounts of insulin at home (~160 units/day). During a recent admission he required significantly less insulin (~60-80 units of insulin per day with 35-50 units of this being basal). * Fasting BSG of 151 mg/dL today. This is slightly above goal. I will give a dose of Lantus 30 units this morning, then dose per scale BID for easier titration. * Minimal post prandial BSG data at this time -> continue Novolog parameters based on Aug 2020 admission data. PLAN FOR INPATIENT GLYCEMIC CONTROL: * Hold outpatient oral diabetes medications * Basal insulin * Lantus 30 units SQ this morning, then BID per scale: * 20 units for BSG < 140 mg/dL * 25 units for BSG 140 - 180 mg/dL * 30 units for BSG > 180 mg/dL * Bolus insulin * NovoLog per scale ACHS or Q6hrs while NPO * Goal Range: Low 110 mg/dL - High 140 mg/dL * Correction Factor: 20 mg/dL/unit * Nutritional / Prandial insulin per carb ratio of 1 unit per 5 grams CHO consumed PLAN FOR DISCHARGE: * A1c = 7.4% (significant improvement compared to prior A1c of 9.7% on 06/30/2020) * Continue current regimen upon discharge
[2020-10-26] MEDS ORDERED: ASPIRIN 81 MG ECTAB PO SCH (09:00)
[2020-10-26] MEDS ORDERED: INSULIN GLARGINE SOLOSTAR 100 UNITS/ML 3 ML PEN SC SCH (09:00)
[2020-10-26] MEDS: FUROSEMIDE 20 MG TAB PO SCH (09:12)
[2020-10-26] MEDS: SPIRONOLACTONE 25 MG TAB PO SCH (09:12)
[2020-10-26] MEDS: MULTIVITAMIN TAB PO SCH (09:12)
[2020-10-26] MEDS: ASPIRIN 325 MG ECTAB PO SCH ×2 (09:12→21:22)
[2020-10-26] MEDS: LOSARTAN POTASSIUM 50 MG TAB PO SCH (09:12)
[2020-10-26] MEDS: GABAPENTIN 600 MG TAB PO SCH ×2 (09:12→13:03)
[2020-10-26] MEDS: DOCUSATE SODIUM 100 MG CAP PO SCH ×2 (09:12→20:15)
[2020-10-26] MEDS: CHOLECALCIFEROL 1,000 UNITS 25 MCG TAB PO SCH (09:13)
[2020-10-26] MEDS: amLODIPine BESYLATE 5 MG TAB PO SCH (09:13)
[2020-10-26] MEDS: METOPROLOL SUCC 50MG EXT REL TAB PO SCH (09:13)
[2020-10-26] MEDS: INSULIN ASPART 100 UNITS/ML 3 ML PEN SC SCH ×4 (09:19→21:25)
[2020-10-26] MEDS ORDERED: VANCOMYCIN CONSULT ACTIVE PRN ×2 (10:11)
[2020-10-26] MEDS ORDERED: AMPICILLIN/SULBACTAM SOD 1,500 MG in 0.9 % SODIUM CHLORIDE 100 ML IV ONE (10:45)
[2020-10-26 11:01] LABS: Creatinine Clr Calc Pharmacy 60.5 ml/min; Est GFR (African American) 55.7; Est GFR (Non-African American) 48.1
[2020-10-26] MEDS ORDERED: VANCOMYCIN HCL 2,000 MG in SODIUM CHLORIDE 0.9% 500 ML IV ONE (11:30)
--- NOTE | 2020-10-26 11:56 | Progress Notes ---
DATE: 10/26/2020 Edmond is resting comfortably in bed. In regards to the left leg, he notes that he has not had significant discomfort. I am informed by the nursing staff that he had declined getting out of bed, etc., PT until we evaluated his right foot. This is my first awareness of his right foot issue. He reports that within the past week and possibly within the past few days, he has developed a sore on his right foot. He has had some issues being able to get a knee scooter. He is uncertain whether he can use a walker. He does not have the resources available for out of pocket expenses. He is afebrile and his vital signs are stable. His urine output is adequate. White count is 11, hemoglobin 12, hematocrit 35, platelets are 213. The left lower extremity is in a clean and dry postoperative circumferential splint. The right leg demonstrates a positive Silfverskiold test. There is tightness more so with knee extended, but also with knee flexed. The ankle cannot be dorsiflexed completely to neutral. He does not have palpable pedal pulses. The foot is warm. There is no sign of ischemia. He has a large plantar callosity over the fifth metatarsophalangeal joint, which is about 3-4 cm in diameter. In the central portion of this is a shallow blister. This skin is debrided. This is through the skin down into the dermis. There is nothing deeper than that. The surrounding callus is debrided as best as possible. The open wound shows no evidence of necrosis or infection. There is no surrounding erythema or edema. The wound is about 12 mm in diameter. Angelica Johnson was present, evaluated the patient and applied an Optifoam dressing. IMPRESSION: 1. Status post left foot transmetatarsal amputation and Achilles tendon lengthening secondary to dysvascular and ischemic left second toe with open wound on the dorsal aspect of the second metatarsophalangeal joint. 2. Diabetic foot ulcer of the right foot. PLAN: Preliminary cultures have grown out gram-negative and gram-positive bacteria. Further identification pending. We will continue on vancomycin and Unasyn. Obtain ID consult. He will need to be nonweightbearing on the left leg. We will check the wound tomorrow. Aspirin and SCDs for DVT prophylaxis. Nonweightbearing on the left leg. He will need PT and OT. In regards to the right foot, we will do wound care. I have asked the laborer car barn to come and supply Mr. Valverde with a Cam boot or postop shoe with appropriate offloading for the right lateral forefoot. He would be able to weightbear as tolerated with this provided that it provides adequate offloading. In terms of his mobility, a knee scooter would be ideal and we are looking into resources to do that. In the meantime, crutches or a walker or wheelchair would be necessary. assisted is not out of the question. The right foot lesion is likely secondary to neuropathy and excessive pressure. We will check labs in the morning. His pain is well controlled. Also check an x-ray of the right foot.
--- NOTE | 2020-10-26 12:55 | Pharmacy Report ---
Pharmacy Abx Initial Consult - Date of Service October 26, 2020 - Pharmacy Dosing Scope Date of Consult: 10/26/20 Consultation requested by: Dr. Dillard Pharmacy is consulted to initiate vancomycin IV dosing therapy, order appropriate labs and adjust drug dose/frequency. - Subjective The patient is a 50 year old M admitted on 10/25/20 16:22. - Objective Height: 5 ft 9.5 in Weight: 91.682 kg Vital Signs (Past 12hrs): Vital Signs Temp Pulse Resp BP BP Pulse Ox 10/26/20 07:55 36.7 C 82 16 130/78 100 10/26/20 04:14 36.7 C 84 16 126/77 94 Lab Results (24hrs): Laboratory Tests (24 Hours) 10/26/20 10/26/20 05:46 05:43 WBC 10.57 Creatinine 1.63 H Est Cr Clr Drug Dosing 60.5 Micro Results: 10/25/20 15:01 Gram Stain - Final Toe,Left Second - Risk Factors for Resistance * Hospitalization for 48 hours or more within the past 90 days * Antimicrobial use within the last 90 days: dalbavancin, doxycylcine, cefdinir - Assessment & Plan Assessment 50 year old M s/p left foot transmetatarsal amputation and achilles tendon lengthening on 10/25/20 Patient started on Unasyn and Vancomycin on 10/26 Left 2nd toe gram stain reported gram positive cocci and gram positive bacilli Awaiting ID consultation Plan Vancomycin IV * Estimated PK Parameters: Edi 0.054 hr-1, t1/2 12.8 hr * Loading dose: 2000 mg (22 mg/kg) * Maintenance dose: 1000 mg IV (11 mg/kg) every 12 hours * During a recent admission, a dose of 1250 mg IV q12h produced a trough of 22.5 mcg/mL (Scr ranged from 1.38 - 1.78 mg/dL while on that dose) * Goal trough level for: 15 mcg/mL * Trough level will be ordered with continued therapy Pharmacy will continue to follow and will adjust dose/frequency as necessary. Thank you.
--- NOTE | 2020-10-26 14:30 | XRay Report ---
XR foot RT min 3V routine CLINICAL HISTORY: Right foot ulcer. COMPARISON STUDY: None. FINDINGS: There is 1.3 cm focal skin ulceration along the lateral aspect of the forefoot at the level of the fifth metatarsal head. No underlying bony destruction to suggest osteomyelitis. Vascular calc ifications are noted. Small posterior calcaneal spur. IMPRESSION: There is 1.3 cm focal skin ulceration along the lateral aspect of the forefoot at the le narcisa of the fifth metatarsal head. No underlying bony destruction to suggest osteomyelitis. ACT 112: Negative or not required by law. Electronically signed by: David Valerio M.D. 10/26/2020 2:29 PM
[2020-10-26] MEDS: AMPICILLIN/SULBACTAM SOD 1,500 MG in 0.9 % SODIUM CHLORIDE 100 ML IV SCH ×2 (17:15→22:46)
[2020-10-26] MEDS: SENNA 8.6 MG TAB PO SCH (20:15)
[2020-10-26] MEDS: GABAPENTIN 300 MG CAP PO SCH (21:21)
[2020-10-26] MEDS: ATORVASTATIN 40 MG TAB PO SCH (21:22)
[2020-10-26] MEDS: INSULIN GLARGINE SOLOSTAR 100 UNITS/ML 3 ML PEN SC SCH (21:25)
[2020-10-27] MEDS ORDERED: VANCOMYCIN HCL 1,000 MG in SODIUM CHLORIDE 0.9% 250 ML IV SCH
[2020-10-27] MEDS: AMPICILLIN/SULBACTAM SOD 1,500 MG in 0.9 % SODIUM CHLORIDE 100 ML IV SCH ×2 (04:21→09:23)
[2020-10-27] MEDS: ACETAMINOPHEN 500 MG TAB PO SCH ×3 (05:00→21:34)
[2020-10-27 06:30] LABS: Basophils # (auto) 0.02 K/uL (0-0.2); Basophils % (auto) 0.2 %; Eosinophils # (auto) 0.26 K/uL (0-0.5); Eosinophils % (auto) 3.2 %; Hematocrit (blood only) 33.4 % (42-52); Hemoglobin 10.9 g/dL (14.0-18.0); Immature Granulocytes # (auto) 0.03 K/uL (0.00-0.02); Immature Granulocytes % (auto) 0.4 %; Lymphocytes # (auto) 1.84 K/uL (1.2-3.4); Lymphocytes % (auto) 22.4 %; Mean Corpuscular Hemoglobin 27.1 pg (25-34); Mean Corpuscular Hgb Conc 32.6 g/dL (32-36); Mean Corpuscular Volume 83.1 fL (80-100); Mean Platelet Volume 9.2 fL (7.4-10.4); Monocytes # (auto) 0.72 K/uL (0.11-0.59); Monocytes % (auto) 8.8 %; Neutrophils # (auto) 5.35 K/uL (1.4-6.5); Platelet Count 189 K/uL (130-400); RDW Coefficient of Variation 16.6 % (11.5-14.5); RDW Standard Deviation 50.5 fL (36.4-46.3); Red Blood Count 4.02 M/uL (4.7-6.1); White Blood Count 8.22 K/uL (4.8-10.8)
[2020-10-27 06:55] LABS: C Reactive Protein 0.73 mg/dl (0-0.29); Creatinine Clr Calc Pharmacy 61.6 ml/min; Est GFR (Non-African American) 49.2
[2020-10-27] MEDS: MULTIVITAMIN TAB PO SCH (08:30)
[2020-10-27] MEDS: CHOLECALCIFEROL 1,000 UNITS 25 MCG TAB PO SCH (08:30)
[2020-10-27] MEDS: GABAPENTIN 600 MG TAB PO SCH ×2 (08:30→11:22)
[2020-10-27] MEDS: ASPIRIN 325 MG ECTAB PO SCH ×2 (08:30→21:34)
[2020-10-27] MEDS: METOPROLOL SUCC 50MG EXT REL TAB PO SCH (08:30)
[2020-10-27] MEDS: LOSARTAN POTASSIUM 50 MG TAB PO SCH (08:31)
[2020-10-27] MEDS: SPIRONOLACTONE 25 MG TAB PO SCH (08:31)
[2020-10-27] MEDS: FUROSEMIDE 20 MG TAB PO SCH (08:31)
[2020-10-27] MEDS: DOCUSATE SODIUM 100 MG CAP PO SCH ×2 (08:31→20:38)
[2020-10-27] MEDS: amLODIPine BESYLATE 5 MG TAB PO SCH (08:31)
[2020-10-27] MEDS: INSULIN ASPART 100 UNITS/ML 3 ML PEN SC SCH ×4 (08:33→20:41)
[2020-10-27] MEDS: INSULIN GLARGINE SOLOSTAR 100 UNITS/ML 3 ML PEN SC SCH ×2 (08:34→20:41)
--- NOTE | 2020-10-27 09:07 | Pharmacy Report ---
Pharmacy Glycemic Short Note 2 - Date of Service October 27, 2020 - Glycemic Short BSG Results (Last 24 hours): 10/26/20 10/26/20 10/26/20 12:18 17:08 21:05 POC Glucose 149 H 112 H 128 H 10/27/20 08:08 POC Glucose 89 OUTPATIENT ANTIDIABETIC REGIMEN: * Lantus 50 units SQ BID * Novolog 20 units SQ AC * A1c = 7.4% (09/14/20) ASSESSMENT: 10/27: * Salinas received 93 units of insulin yesterday with good glycemic control: * 50 units of basal * 43 units of bolus * BSGs: 151, 149, 112, 128 mg/dL * Fasting BSG of 89 mg/dL is slightly below goal. Continue Lantus dosed BID per scale (patient will receive lower dose of 20 units for BSG < 140). * Post prandial BSGs are on the lower side today, therefore carb ratio will be loosened. 10/26: * Salinas is a 50 yo T2DM s/p left Foot Transmetatarsal Amputation on 10/25/20 * He takes large amounts of insulin at home (~160 units/day). During a recent admission he required significantly less insulin (~60-80 units of insulin per day with 35-50 units of this being basal). * Fasting BSG of 151 mg/dL today. This is slightly above goal. I will give a dose of Lantus 30 units this morning, then dose per scale BID for easier titration. * Minimal post prandial BSG data at this time -> continue Novolog parameters based on Aug 2020 admission data. PLAN FOR INPATIENT GLYCEMIC CONTROL: * Hold outpatient oral diabetes medications * Basal insulin * Lantus SQ BID per scale: * 20 units for BSG < 140 mg/dL * 25 units for BSG 140 - 180 mg/dL * 30 units for BSG > 180 mg/dL * Bolus insulin - loosen CR * NovoLog per scale ACHS or Q6hrs while NPO * Goal Range: Low 110 mg/dL - High 140 mg/dL * Correction Factor: 20 mg/dL/unit * Nutritional / Prandial insulin per carb ratio of 1 unit per 6 grams CHO consumed PLAN FOR DISCHARGE: * A1c = 7.4% (significant improvement compared to prior A1c of 9.7% on 06/30/2020) * Continue current regimen upon discharge
[2020-10-27] MEDS: ceFAZolin 2000MG 2,000 MG/15 ML SYR IV SCH ×2 (11:21→20:34)
--- NOTE | 2020-10-27 16:52 | Progress Notes ---
DATE: 10/27/2020 Resting comfortably in bed. No pain. No problems. He is afebrile. His vital signs are stable. White count 8, hemoglobin 11, hematocrit 33, platelet count 189. Sed rate 51. C-reactive protein 0.73. Prealbumin 23. X-ray of the right foot shows no evidence of fracture, dislocation, arthritis or osteomyelitis. There are calcifications of the vasculature. Soft tissue ulceration noted. Report reviewed. Wound culture from the time of surgery is moderate counts of mixed probable skin frantz. Blood cultures are pending. Examination of the right foot reveals that the dressing is intact. He has a postop type shoe with a pressure relief under the fifth metatarsal head, which I verified myself. The dressing is removed and reapplied. The wound has intact dermal skin. It looks like the epidermis from the callus is gone. This is about a centimeter or slightly larger in size. There is no deeper penetration. There is no ulceration or exposed bone. There is no swelling or surrounding erythema or fluctuance. The left foot is examined. Dressing removed. Achilles intact. Wound margins are benign and healthy. There is no evidence of ischemia or necrosis. There is no bleeding. Swelling is minimal. There is good healthy pink tissue with good capillary refill throughout the wound margins. A new dressing is applied, Xeroform, Adaptic, 4 x 4's, ABD, cast padding, and the posterior splint with anterior extension. IMPRESSION: 1. Left foot second toe necrosis secondary to ischemia. 2. Status post left foot transmetatarsal amputation. 3. Right foot fifth metatarsophalangeal joint plantar pressure sore. The plantar pressure sore at this time is going to be addressed with pressure relief from the custom shoe. Eventually, he may need to have further debridement of this callus performed and possibly an Achilles tendon lengthening as he has tightness over there as well. He may weightbear as tolerated on the right foot, mainly on the heel. He is looking into [facility], which I think is a good decision. I spoke with Dr. Oleary about infectious diseases. We had a discussion about what I found and did at surgery. I feel very confident that I got rid of all of the potentially infected bone. There is probably some bacteria remaining in the skin flap area. We agreed on a course of 2 weeks of intravenous antibiotics and nothing further would be needed. He will continue on Ancef 2 grams IV q.8. The Unasyn and vancomycin have been stopped. Lab monitoring will be performed. He is nonweightbearing on the left leg. Permission for a PICC line has been obtained and we will insert this once his blood cultures are negative. Nutrition consult.
[2020-10-27] MEDS: oxyCODONE HCL IR 5 MG TAB (IMMEDIATE RELEASE) PO PRN (20:34)
[2020-10-27] MEDS: SENNA 8.6 MG TAB PO SCH (20:39)
[2020-10-27] MEDS: ATORVASTATIN 40 MG TAB PO SCH (21:34)
[2020-10-27] MEDS: GABAPENTIN 300 MG CAP PO SCH (21:34)
[2020-10-28] MEDS: ceFAZolin 2000MG 2,000 MG/15 ML SYR IV SCH ×3 (02:44→21:20)
[2020-10-28] MEDS: ACETAMINOPHEN 500 MG TAB PO SCH ×3 (05:39→21:07)
[2020-10-28 06:23] LABS: Creatinine Clr Calc Pharmacy 67.1 ml/min; Est GFR (African American) 63.1; Est GFR (Non-African American) 54.5
[2020-10-28] MEDS: METOPROLOL SUCC 50MG EXT REL TAB PO SCH (07:42)
[2020-10-28] MEDS: FUROSEMIDE 20 MG TAB PO SCH (07:42)
[2020-10-28] MEDS: MULTIVITAMIN TAB PO SCH (07:42)
[2020-10-28] MEDS: CHOLECALCIFEROL 1,000 UNITS 25 MCG TAB PO SCH (07:43)
[2020-10-28] MEDS: SPIRONOLACTONE 25 MG TAB PO SCH (07:43)
[2020-10-28] MEDS: ASPIRIN 325 MG ECTAB PO SCH ×2 (07:43→21:07)
[2020-10-28] MEDS: DOCUSATE SODIUM 100 MG CAP PO SCH (07:43)
[2020-10-28] MEDS: LOSARTAN POTASSIUM 50 MG TAB PO SCH (07:44)
[2020-10-28] MEDS: GABAPENTIN 600 MG TAB PO SCH ×2 (07:44→13:24)
[2020-10-28] MEDS: amLODIPine BESYLATE 5 MG TAB PO SCH (07:45)
[2020-10-28] MEDS ORDERED: Nursing to Pharmacy Communication SCH (08:00)
[2020-10-28] MEDS: INSULIN ASPART 100 UNITS/ML 3 ML PEN SC SCH ×4 (09:11→21:12)
[2020-10-28] MEDS: INSULIN GLARGINE SOLOSTAR 100 UNITS/ML 3 ML PEN SC SCH ×2 (09:12→21:12)
--- NOTE | 2020-10-28 10:03 | Pharmacy Report ---
Pharmacy Glycemic Short Note 2 - Date of Service October 28, 2020 - Glycemic Short BSG Results (Last 24 hours): 10/27/20 10/27/20 10/27/20 12:04 17:07 20:33 POC Glucose 100 H 98 119 H 10/28/20 07:58 POC Glucose 100 H OUTPATIENT ANTIDIABETIC REGIMEN: * Lantus 50 units SQ BID * Novolog 20 units SQ AC * A1c = 7.4% (09/14/20) ASSESSMENT: 10/28: * Patient received total of 65 units of insulin yesterday, of which 40 units were basal insulin * BSGs very well controlled over last 24 hrs, had loosened CR yesterday and BSGs still on lower end of range * Fasting BSG 100 mg/dL - lower end of range again despite basal decrease yesterday. Insulin needs have been decreasing over last 2 days. May titrate back slightly more on basal for this AM and loosen CR as BSGs trending downward 10/27: * Salinas received 93 units of insulin yesterday with good glycemic control: * 50 units of basal * 43 units of bolus * BSGs: 151, 149, 112, 128 mg/dL * Fasting BSG of 89 mg/dL is slightly below goal. Continue Lantus dosed BID per scale (patient will receive lower dose of 20 units for BSG < 140). * Post prandial BSGs are on the lower side today, therefore carb ratio will be loosened. 10/26: * Salinas is a 50 yo T2DM s/p left Foot Transmetatarsal Amputation on 10/25/20 * He takes large amounts of insulin at home (~160 units/day). During a recent admission he required significantly less insulin (~60-80 units of insulin per day with 35-50 units of this being basal). * Fasting BSG of 151 mg/dL today. This is slightly above goal. I will give a dose of Lantus 30 units this morning, then dose per scale BID for easier titration. * Minimal post prandial BSG data at this time -> continue Novolog parameters based on Aug 2020 admission data. PLAN FOR INPATIENT GLYCEMIC CONTROL: * Hold outpatient oral diabetes medications * Basal insulin * Lantus SQ BID per scale: * 15 units for BSG < 140 mg/dL * 20 units for BSG 140 or greater * Bolus insulin - loosen CR * NovoLog per scale ACHS or Q6hrs while NPO * Goal Range: Low 110 mg/dL - High 140 mg/dL * Correction Factor: 20 mg/dL/unit * Nutritional / Prandial insulin per carb ratio of 1 unit per 7 grams CHO consumed PLAN FOR DISCHARGE: * A1c = 7.4% (significant improvement compared to prior A1c of 9.7% on 0) * Continue current regimen upon discharge
--- NOTE | 2020-10-28 14:51 | Orthopedic Progress Note ---
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 Ice and elevation as needed. OOB as tolerated NWB LLE - keep splint on left leg at all times. WBAT RLE with post op shoe on right foot Use walker to assist with ambulation Antibiotics as ordered US guided IV in place. Discussed plans with case management - he will need to be here tonight and discharged in AM. [facility] cannot deliver meds this evening or teach his son how to do it. They can be there tomorrow by 2 p.m. He refused [facility] becuase of their tobacoo policy. He will go home tomorrow with Home health. Scripts for pain meds, antibiotics, DME supplies and lab work on patient's chart. He will need to order picker/assembler scripts and DME supplies. Patient expresses frustration with all the instructions and not having help or rides home and expresses thoughts of hurting himself on a daily basis to nursing - will obtain psych consult STAT to evaluate today. Follow up with Dr. Dillard as scheduled next week. Admission and Anticipated Discharge Date Admission Date: October 27, 2020 Subjective Doing well, no complaints of pain, occasional nerve pain which he states is unchanged from prior to surgery. Physical Exam Physical Exam: Dressings right and left foot intact. Splint in placed, comfortable. Able to lift left leg and left knee. Results & Data ([facility]) Vital Signs (Past 12 Hours) Vital Signs Temp Pulse Resp BP Pulse Ox 10/28/20 06:52 36.8 C 61 18 125/73 97
--- NOTE | 2020-10-28 15:09 | Psychiatric Consultation ---
Date of Consultation October 28, 2020 Impression / Recommendations Impression Dr. Kai Scherer was directly involved in review and discussion of the patient's case and participated in medical decision making regarding treatment recommendations. RECOMMENDATIONS: 10/28/20 - Psychiatry consultation was requested to evaluate patient for reported self-harm thoughts with nursing documentation that patient expressed frustration regarding discharge transportation. - Pt admits his previous statements were made out of frustration and that he does not truly have thoughts to harm himself or end his life. He is able to recognize that in a state of heightened anxiety he speaks before he is able to think through a situation rationally. He denies history of SI or any previous suicide attempts. He denies prior history of psychiatric diagnoses and does not feel that he needs any outpatient psychiatric services. - Pt does admit that he is struggling with being unable to have visitors in the hospital and this increases his anxiety about his situation. He would likely benefit from regular interactions with staff as well as reassurance. - Based on risk assessment completed, patient does not seem to be at acute risk of harm to himself while here in the hospital setting as he is denying true SI, denying history of self-harm, and is motivated for discharge. He does feel that his frustration and anxiety will improve once he is able to return home. Pt is future oriented in conversation and was able to talk through a safety plan. Pt reports desire to follow through with his current discharge plan, and is able to contract for safety with anticipated discharge home tomorrow with support of family and home health aids. - Please reach out to our service with any additional questions or updates. There is no criteria to pursue inpatient psychiatric treatment at this time. Risk Factors Assessment Do You Have Access To A Gun?: Yes Psych History Identifying Data 50-year-old male admitted following transmetatarsal amputation of left foot on 10/25/2020 due to necrosis of his left toe. Psychiatric consultation was re quested to evaluate patient after he had made statements suggestive of potential risk of self-harm. Chief Complaint "I said that stuff cause I was frustrated. I wouldn't do nothing." History of Present Illness Salinas Valverde (Bill) is a 50-year-old male who was admitted medically for surgical procedure. On 10/25/2020 the patient underwent a transmetatarsal amputation of his left foot due to necrosis of his left toe. Discharge recommendation was for transfer to a physical rehab; however, patient is reportedly declining to go after learning of their no-tobacco policy. Case management has set up plans for discharge home with home health assistance. Nursing note suggests patient was frustrated about changes to his discharge plan/transportation and had made statements that "he would just rather than call his son again." Psychiatric consultation was requested to evaluate patient for statement made which suggested potential risk of self-harm. Psychiatric nurse liaison accompanied this provider to complete psychiatric assessment. Pt does demonstrate clear frustration, but is cooperative with conversation. He admits that the statements were made out of frustration and states "I wouldn't do nothing." The patient is able to recognize numerous significant stressors at this time and is able to acknowledge that his anxiety is contributing to increased irritability and inflammatory language. He states "I don't even remember what I said to tell you the truth, that's how much I obviously don't mean it." Pt states that he has no history of psychiatric diagnoses. He does admit that he had a mental health hospitalization "15-20 years ago" due to a similar situation where he had made statements suggestive of self-harm during an argument with his then . Pt states "they kept me for a few days, but didn't say nothing more about it, they understood the situation." He states that he does not recall being started on medication or requiring any follow-up with outpatient providers. Some time was spent talking with the patient and understanding his frustration. He shares that he is proud of himself for making improvements in many spheres of his life. Per his reports, he has started working out, is losing weight, is managing his blood sugars better, and quit drinking back in March 2020. In some ways, this is leading to frustration that he is now having to deal with surgeries and the recovery associated with that. 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 Pt also states that he recognizes that his ex- and son have a lot of anxiety about his current situation, and feels this is adding to his own anxiety. Since verbalizing the initial statements, the patient has been able to speak with his family who is still planning to provide transportation tomorrow. Pt is aware of the time of his home health visit and states "I think I'll feel a lot more comfortable once they're able to show my son what he needs to do. A lot of my anxiety has to do with knowing that he's anxious." Pt also admits that he is struggling with lack of interaction here in the hospital as visitors are not being permitted due to the COVID-19 pandemic emergency. Throughout our conversation, the patient adamantly denies SI, plan, or intent. He does admit to having firearms in his home and permits a discussion regarding safety planning. He states his son will be present to offer assistance when he is discharged. Pt is able to verbalize several helpful coping skills when he is feeling overwhelmed and was encouraged to utilize them, both while here in the hospital and once he returns home. Pt denies safety concerns related to discharge and denies thoughts to harm himself or others here in the hospital. Past Psychiatric History Current Psychiatric Diagnosis: None Outpatient Services: None Previous Psych Admissions: [facility] - "probably 15-20 years ago" - states he was admitted for monitoring after making inflammatory statements during a disagreement with his . Do You Have Access To A Gun?: Yes History of Previous Suicide Attempt: No Past Medication Trials: None Allergies Allergy/AdvReac Type Severity Reaction Status Date / Time No Known Drug Allergies Allergy Verified 10/25/20 10:35 Home Medications Medication Instructions Recorded Confirmed Type pen needle, diabetic 32 gauge x #200 ea 11/11/19 09/29/20 Rx 5/32" blood-glucose meter #1 ea 11/19/19 09/29/20 Rx blood-glucose meter #1 ea 11/19/19 09/29/20 Rx aspirin [Aspirin Low Dose] 81 mg PO QAM 05/24/20 10/25/20 History lancets [OneTouch Delica Lancets] #100 ea 05/28/20 09/29/20 Rx atorvastatin 40 mg tablet 40 mg PO QPM #90 tab 06/06/20 10/25/20 Rx blood sugar diagnostic #300 ea 06/15/20 09/29/20 Rx insulin glargine 100 unit/mL (3 See Rx Instructions SUBCUT BID #15 06/30/20 10/25/20 Rx mL) subcutaneous pen ml insulin aspart U-100 100 unit/mL 20 unit SUBCUT AC #15 ml 07/27/20 10/25/20 Rx (3 mL) subcutaneous pen sildenafil 50 mg tablet 50 mg PO DAILY PRN #30 tab 08/02/20 10/25/20 Rx amlodipine 10 mg PO QAM 09/11/20 10/25/20 History cholecalciferol (vitamin D3) 25 mcg PO QAM 09/11/20 10/25/20 History [Vitamin D3] furosemide 20 mg PO QAM 09/11/20 10/25/20 History losartan 100 mg PO QAM 09/11/20 10/25/20 History spironolactone 25 mg tablet 25 mg PO QAM #90 tab 09/12/20 10/25/20 Rx metoprolol succinate 100 mg 100 mg PO QAM #90 tab 09/29/20 10/25/20 Rx tablet,extended release 24 hr gabapentin 300 mg capsule 900 mg PO HS 30 Days #270 cap 10/05/20 10/25/20 Rx gabapentin 600 mg tablet 600 mg PO BID #180 tab 10/05/20 10/25/20 Rx oxycodone 5 - 10 mg PO Q4H PRN #20 tab 10/28/20 Rx tramadol 50 - 100 mg PO Q4H PRN #20 tab 10/28/20 Rx Family History Denies known family history of mental health conditions. Substance Abuse History Pt admits to using chewing tobacco daily - 1 can generally lasting 1 day. He denies tobacco use or heavy experimentation with illicit substances. He does admit to a significant history of alcohol abuse, but reports sobriety since 04/21/2020 when he stopped drinking "cold-turkey." He denies history of inpatient D&A rehab stays or use of other professional D&A supports. 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) Marital Status: Number Of Children: 1 son Beliefs That Will Affect Care: None History of Legal Problems: No active legal charges - history of DUI per patient Psychological Trauma History Comment: Denied Patient History Medical History CHF (congestive heart failure) Questionable hx (per vascular notes), does not follow with cardiology, ECHO 05/2020 EF 50% Chronic kidney disease, stage 3a stable per 09/2020 PCP note Diabetes mellitus IDDM Erectile dysfunction History of recent hospitalization 08/2020 ([facility]) - 2/2 LLE cellulitis Hyperlipidemia Hypertension Necrosis of toe Left foot PAD (peripheral artery disease) s/p angioplasty to posterior tibial, and peroneal arteries 08/2020 Psoriasis Stroke incidental 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 with small remote infarcts of the right external capsule and malachi also noted on 08/30/20 Brain MRI Umbilical hernia current Vertigo occasional Surgical History History of cardiac cath 25+ years ago > no stents History of tooth extraction Hx of vascular surgery Angioplasty to posterior tibial, and peroneal arteries (08/2020) Family History Father Cardiac disorder Hypertension Grandfather Cardiac disorder Myocardial infarction Grandmother Breast cancer Other No family history of adverse response to anesthesia Denies family history of Ovarian cancer Prostate cancer Colorectal cancer Social History Smoking Status: Never smoker Tobacco Type: Smokeless Tobacco (Dip or Chew) Second Hand Exposure: No; Do You Dip or Chew Tobacco: Yes (1 can/2 days- PAT RN advised NPO AM DOS); Tobacco Cessation Education Requested by Patient: No Hx Alcohol Use: No Hx Substance Use: No Preferred Language: Nauruan Communication Ability: Effective Visual Impairment: No Limitations Hearing Ability: Normal Electrical Linesworker Required: No Beliefs That Will Affect Care: None marital status: Current Living Situation: Family Current Living Situation Comment: "TAKES CARE OF DISABLED FATHER" current occupational status: unemployed Feels Safe at Home: Yes Safety Concerns: Feels Safe At This Time Childhood Exposure to Second-Hand Smoke: Yes caffeine: Yes (mt dew) during the past year weight has: increased > 10 lbs Dental Care, Regularly: No Physical Activity Frequency: Does not Exercise Seatbelt Use: always Sunscreen Use: No Assistive Devices: Glasses Physical Exam Psychiatric: Orientation: alert, oriented x 3 and cooperative (superficially) Apperance: appropriately dressed, appropriately groomed and appeared stated age Overweight-appearing male, laying in bed - appearing frustrated but in no acute distress. Pt is appropriately dress wearing a hospital gown. Grooming appears adequate, patient has short zaragoza hair and a long zaragoza croft. Level of hygiene appears adequate. Eye Contact: good eye contact Motor Behavior: no abnormal motor movements (observed while sitting upright in bed) Speech: normal rate/rhythm/volume of speech (irritable tone at times) Affect: + irritable affect and mood congruent with affect Mood: + depressed mood (states low mood is directly related to his foot and surgery), + anxious mood and + irritable mood Thought Process: goal directed thought process, clear/coherent thought process and thought association intact Thought Content: reality based without delusions and + loneliness (struggling with not being permitted to have visitors); no hopelessness and no worthlessness Suicidal Thoughts: denies suicidal thoughts, denies suicidal plan and denies suicidal intent reports the statements were made out of frustration/anxiety Homicidal Thoughts: denies homicidal thoughts Hallucinations: no auditory hallucinations and no visual hallucinations Cognition: recent memory grossly intact, attention grossly intact and language grossly intact Estimated Intelligence: consistent with education level Insight: + fair insight Judgement: + fair judgement Vital Signs (Past 24 Hours): Last Vital Signs Temp 36.8 C 10/28/20 06:52 Pulse 61 10/28/20 06:52 Resp 18 10/28/20 06:52 BP 125/73 10/28/20 06:52 Pulse Ox 97 10/28/20 06:52 Review of Systems Constitutional: reports excessive fatigue just while in the hospital Cardiovascular: denied Respiratory: denied Gastrointestinal: reports diarrhea, perceived to be related to antibiotic treatment Neurological: denied Psychiatric: denies symptoms other than stated above Total of at least 10 systems reviewed, pertinent positives as above and in HPI. Results & Data (PSY) Medications Administered Acetaminophen (Acetaminophen 500 Mg Tab) 1,000 mg PO Q8 ANIL Stop: 11/24/20 21:59 Last Admin: 10/28/20 13:24 Dose: 1,000 mg Documented by: [id number] Admin: 10/28/20 05:39 Dose: 1,000 mg Documented by: [id number] Admin: 10/27/20 21:34 Dose: 1,000 mg Documented by: [id number] Admin: 10/27/20 12:31 Dose: 1,000 mg Documented by: [id number] Admin: 10/27/20 05:00 Dose: 1,000 mg Documented by: [id number] Admin: 10/26/20 21:22 Dose: 1,000 mg Documented by: [id number] Admin: 10/26/20 15:21 Dose: 1,000 mg Documented by: [id number] Admin: 10/26/20 05:59 Dose: 1,000 mg Documented by: [id number] Admin: 10/25/20 21:27 Dose: 1,000 mg Documented by: [id number] Amlodipine Besylate (Amlodipine Besylate 5 Mg Tab) 10 mg PO QAM ANIL Stop: 11/25/20 08:59 Last Admin: 10/28/20 07:45 Dose: 10 mg Documented by: [id number] Admin: 10/27/20 08:31 Dose: 10 mg Documented by: [id number] Admin: 10/26/20 09:13 Dose: 10 mg Documented by: [id number] Aspirin (Aspirin 325 Mg Ectab) 325 mg PO BID ANIL Stop: 11/24/20 20:59 Last Admin: 10/28/20 07:43 Dose: 325 mg Documented by: [id number] Admin: 10/27/20 21:34 Dose: 325 mg Documented by: [id number] Admin: 10/27/20 08:30 Dose: 325 mg Documented by: [id number] Admin: 10/26/20 21:22 Dose: 325 mg Documented by: [id number] Admin: 10/26/20 09:12 Dose: 325 mg Documented by: [id number] Admin: 10/25/20 21:27 Dose: 325 mg Documented by: [id number] Atorvastatin Calcium (Atorvastatin 40 Mg Tab) 40 mg PO QPM ANIL Stop: 11/24/20 20:59 Last Admin: 10/27/20 21:34 Dose: 40 mg Documented by: [id number] Admin: 10/26/20 21:22 Dose: 40 mg Documented by: [id number] Admin: 10/25/20 21:27 Dose: 40 mg Documented by: [id number] Furosemide (Furosemide 20 Mg Tab) 20 mg PO QAM ANIL Stop: 11/25/20 08:59 Last Admin: 10/28/20 07:42 Dose: 20 mg Documented by: [id number] Admin: 10/27/20 08:31 Dose: 20 mg Documented by: [id number] Admin: 10/26/20 09:12 Dose: 20 mg Documented by: [id number] Gabapentin (Gabapentin 600 Mg Tab) 600 mg PO BID@0900,1200 ANIL Stop: 11/25/20 08:59 Last Admin: 10/28/20 13:24 Dose: 600 mg Documented by: [id number] Admin: 10/28/20 07:44 Dose: 600 mg Documented by: [id number] Admin: 10/27/20 11:22 Dose: 600 mg Documented by: [id number] Admin: 10/27/20 08:30 Dose: 600 mg Documented by: [id number] Admin: 10/26/20 13:03 Dose: 600 mg Documented by: [id number] Admin: 10/26/20 09:12 Dose: 600 mg Documented by: [id number] Gabapentin (Gabapentin 300 Mg Cap) 900 mg PO HS ANIL Stop: 11/24/20 20:59 Last Admin: 10/27/20 21:34 Dose: 900 mg Documented by: [id number] Admin: 10/26/20 21:21 Dose: 900 mg Documented by: [id number] Admin: 10/25/20 21:27 Dose: 900 mg Documented by: [id number] Cefazolin Sodium (Ancef 2000mg) 2,000 mg in 15 mls @ 3.75 mls/min IV Q8H ANIL; Protocol Stop: 12/08/20 11:59 Last Admin: 10/28/20 13:23 Dose: 3.75 mls/min Documented by: [id number] Admin: 10/28/20 02:44 Dose: 3.75 mls/min Documented by: [id number] Admin: 10/27/20 20:34 Dose: 3.75 mls/min Documented by: [id number] Admin: 10/27/20 11:21 Dose: 3.75 mls/min Documented by: [id number] Insulin Aspart (Insulin Aspart 100 Units/Ml 3 Ml Pen) 0 units SC ACHS ANIL Stop: 11/24/20 18:29 Last Admin: 10/28/20 12:37 Dose: 8 units Documented by: [id number] Cosigned by: [id number] Admin: 10/28/20 09:11 Dose: 8 units Documented by: [id number] Cosigned by: [id number] Admin: 10/27/20 20:41 Dose: 2 units Documented by: [id number] Cosigned by: [id number] Admin: 10/27/20 17:34 Dose: 7 units Documented by: [id number] Cosigned by: [id number] Admin: 10/27/20 12:30 Dose: 9 units Documented by: [id number] Cosigned by: [id number] Admin: 10/27/20 08:33 Dose: 7 units Documented by: [id number] Cosigned by: [id number] Admin: 10/26/20 21:25 Dose: 3 units Documented by: [id number] Cosigned by: [id number] Admin: 10/26/20 17:23 Dose: 15 units Documented by: [id number] Cosigned by: [id number] Admin: 10/26/20 12:36 Dose: 11 units Documented by: [id number] Cosigned by: [id number] Admin: 10/26/20 09:19 Dose: 14 units Documented by: [id number] Cosigned by: [id number] Admin: 10/25/20 21:39 Dose: 3 units Documented by: [id number] Cosigned by: [id number] Admin: 10/25/20 18:50 Dose: 19 units Documented by: [id number] Cosigned by: [id number] Insulin Glargine (Insulin Glargine Solostar 100 Units/Ml 3 Ml Pen) 0 units SC BID ANIL; Protocol Stop: 11/25/20 20:59 Last Admin: 10/28/20 09:12 Dose: 15 units Documented by: [id number] Cosigned by: [id number] Admin: 10/27/20 20:41 Dose: 20 units Documented by: [id number] Cosigned by: [id number] Admin: 10/27/20 08:34 Dose: 20 units Documented by: [id number] Cosigned by: [id number] Admin: 10/26/20 21:25 Dose: 20 units Documented by: [id number] Cosigned by: [id number] Losartan Potassium (Losartan Potassium 50 Mg Tab) [facility] [place]: 11/25/20 08:59 Last Admin: 10/28/20 07:44 Dose: 100 mg Documented by: [id number] Admin: 10/27/20 08:31 Dose: 100 mg Documented by: [id number] Admin: 10/26/20 09:12 Dose: 100 mg Documented by: [id number] Metoprolol Succinate (Metoprolol Succ 50mg Ext Rel Tab) 100 mg PO QAM [facility] Stop: 11/25/20 08:59 Last Admin: 10/28/20 07:42 Dose: 100 mg Documented by: [id number] Admin: 10/27/20 08:30 Dose: 100 mg Documented by: [id number] Admin: 10/26/20 09:13 Dose: 100 mg Documented by: [id number] Multivitamins (Multivitamin Tab) [facility] Stop: 11/25/20 08:59 Last Admin: 10/28/20 07:42 Dose: 1 tab Documented by: [id number] Admin: 10/27/20 08:30 Dose: 1 tab Documented by: [id number] Admin: 10/26/20 09:12 Dose: 1 tab Documented by: [id number] Oxycodone HCl (Oxycodone Hcl Ir 5 Mg Tab (Immediate Release)) 5 - 10 mg PO Q4H PRN PRN Reason: Pain or Pre PT Stop: 11/08/20 17:32 Last Admin: 10/27/20 20:34 Dose: 10 mg Documented by: [id number] Admin: 10/26/20 13:09 Dose: 10 mg Documented by: [id number] Admin: 10/26/20 04:10 Dose: 10 mg Documented by: [id number] Admin: 10/25/20 23:49 Dose: 10 mg Documented by: [id number] Admin: 10/25/20 17:48 Dose: 10 mg Documented by: [id number] Spironolactone (Spironolactone 25 Mg Tab) [facility] Stop: 11/25/20 08:59 Last Admin: 10/28/20 07:43 Dose: 25 mg Documented by: [id number] Admin: 10/27/20 08:31 Dose: 25 mg Documented by: [id number] Admin: 10/26/20 09:12 Dose: 25 mg Documented by: [id number] Vitamin D (Cholecalciferol 1,000 Units 25 Mcg Tab) 1,000 units PO [facility] Stop: 11/25/20 08:59 Last Admin: 10/28/20 07:43 Dose: 1,000 units Documented by: [id number] Admin: 10/27/20 08:30 Dose: 1,000 units Documented by: [id number] Admin: 10/26/20 09:13 Dose: 1,000 units Documented by: [id number] Coding Level of Care Code 50945 [facility] Intl Hosp Care Lvl 2
[2020-10-28] MEDS: GABAPENTIN 300 MG CAP PO SCH (21:06)
[2020-10-28] MEDS: ATORVASTATIN 40 MG TAB PO SCH (21:07)
[2020-10-29] MEDS: ACETAMINOPHEN 500 MG TAB PO SCH (06:18)
[2020-10-29] MEDS: ceFAZolin 2000MG 2,000 MG/15 ML SYR IV SCH (06:18)
[2020-10-29] MEDS: ASPIRIN 325 MG ECTAB PO SCH (09:03)
[2020-10-29] MEDS: SPIRONOLACTONE 25 MG TAB PO SCH (09:03)
[2020-10-29] MEDS: GABAPENTIN 600 MG TAB PO SCH ×2 (09:03→12:08)
[2020-10-29] MEDS: METOPROLOL SUCC 50MG EXT REL TAB PO SCH (09:04)
[2020-10-29] MEDS: MULTIVITAMIN TAB PO SCH (09:04)
[2020-10-29] MEDS: LOSARTAN POTASSIUM 50 MG TAB PO SCH (09:04)
[2020-10-29] MEDS: CHOLECALCIFEROL 1,000 UNITS 25 MCG TAB PO SCH (09:04)
[2020-10-29] MEDS: amLODIPine BESYLATE 5 MG TAB PO SCH (09:04)
[2020-10-29] MEDS: FUROSEMIDE 20 MG TAB PO SCH (09:04)
[2020-10-29] MEDS: INSULIN GLARGINE SOLOSTAR 100 UNITS/ML 3 ML PEN SC SCH (09:05)
[2020-10-29] MEDS: INSULIN ASPART 100 UNITS/ML 3 ML PEN SC SCH (09:07)
--- NOTE | 2020-10-29 12:38 | Orthopedic Progress Note ---
Date of Service October 29, 2020 Assessment & Plan (1) Status post amputation of left foot through metatarsal bone: Patient was educated regarding today's findings. No dressings required changing today. They may be changed in the office on Saturday as scheduled. Patient was somewhat anxious about this. I did explain to him that the dressings may stay in place as long as they are clean and dry. Prescription 4 oxycodone has already been sent to his pharmacy. clinical services professional did make arrangements for his walker and bedside toilet to be delivered to his residence. He will be discharged to home today with home health services. He will have antibiotic administration teaching today at 2 PM. Call the office with any other concerns. Admission and Anticipated Discharge Date Admission Date: October 27, 2020 Subjective Patient is seen in his room today. He states he would like to go home. Apparently there was some issue with family members not picking up his walker or bedside commode yesterday. clinical services professional is working on having those delivered to his residence today. Home health is scheduled to be at his home at 2 PM to teach antibiotic administration through his PICC line. Patient is somewhat argumentative and irritated today. He states he has no pain in the foot. He feels anxious. He was seen by psychiatry and cleared for discharge. He does not verbalize any suicidal ideation or self-harm complaints today. Review of Systems Review of Systems: Unchanged from yesterday. Physical Exam Physical Exam: General: Well-developed, well-nourished, middle-aged white male, in no acute distress. Sitting on the bed. Alert and oriented. Irritated and frequently argumentative. Skin: Warm and dry with good turgor. No rashes. Musculoskeletal: Left lower extremity has an intact splint. Dressings are clean and dry. There is no bleeding. He is able to perform straight leg raise on the left. Results & Data ([facility]) Vital Signs (Past 12 Hours) Vital Signs Temp Pulse Pulse Resp BP BP Pulse Ox 10/29/20 11:44 36.7 C 82 87 19 129/76 134/81 98 10/29/20 08:05 36.7 C 10/29/20 06:54 82 19 134/81 98
[2020-10-29] MEDS ORDERED: INSULIN GLARGINE SOLOSTAR 100 UNITS/ML 3 ML PEN SC SCH (21:00)
--- NOTE | 2020-10-31 15:20 | Discharge Summary ---
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 He underwent general anesthesia. He was given 2 gm IV Ancef prior to surgery which was continued post operatively. He tolerated the procedure well without any intra-operative complications. He recovered from anesthesia well. He was admitted to observation after his procedure. He was given a regular diabetic diet. A glycemic control consult was placed for management of his diabetic medications after surgery. He was placed on Aspirin 325mg twice daily for DVT prophylaxis. He was allowed out of bed, weight bear as tolerating right lower extremity and non weight bearing left lower extremity. A physical therapy and occupational therapy consult was placed and he was instructed to be out of bed with a walker. He tolerated a regular diet, vital signs remained stable, and post op laboratory work was also stable. His home medications were continued. He was given oxycodone and IV dilaudid for post op pain control and his pain was very minimal after surgery and was well controlled on an occasional oxycodone. POD #1- patient reported a wound on his right foot that has gotten worse over the last 2 weeks. He has not been treated by anyone else in the past and he would not get out of bed until "someone looked at it". It was evaluated by Dr. Dillard and a wound care nurse consult was placed. The wound was debrided at bedside and the wound care nurse applied aquacel and a dressing. He then was allowed out of bed but his weight bearing status was changed to weight bear as tolerated on the right heel with an offloading post op shoe on the right foot when out of bed. Orthotics consult was placed and he was seen by them this day and an offloading post op shoe was provided to the patient. He then participated in PT and OT and was safe out of bed. Cultures were also followed and were positive for gram positive cocci and gram positive bacilli. His antibiotics were changed to IV Vancomycin and Unasyn. ID consult was placed for [facility]. He was also seen by Case management to assist with disposition needs. Scripts for walker and bedside commode provided. POD #2 - Patient was seen and evaluated by infection disease. Recommended possible 6 weeks of IV antibiotics, but after discussion with Dr. Dillard recommended 2 weeks of IV Ancef every 8 hours. PICC consent obtained. Pre- albumin level obtained and was normal. [employer] consult also ordered. Dressin gs were changed on left foot and incision was clean, dry and intact with healthy tissue and adequate blood flow, new dressings applied. Splint reapplied. Encouraged him to get out of bed. blood cultures obtained in preparation for PICC line. Antibiotics changed from IV Vancomycin and Unasyn to IV Ancef 2gm every 8 hours. We also discussed need for possible [facility] after surgery. He was agreeable to this due to his lack of assistance at home, need for IV antibiotics and lack of transportation. Referral to [facility] made. POD # 3 - He continued PT and OT, every day became better at walking with a walker. Encouraged elevation as needed for swelling. He then refused [facility] because they told him that he would not be allowed to use smokeless tobacco at [facility]. He then elected to go home. Home health was arranged for IV antibiotics. PICC line was ordered, but he had already had a ultrasound guided IV so that was adequate for his IV antibiotics so that was left in and the PICC line was discontinued. Although he could not leave until Saturday due to home health not being able to get to his house until Saturday afternoon to deliver the medication and to teach his son how to give the medication. Also on this day, he stated that he was going to go home and put a "bullet in his brain" to the nurse. A psychiatric consult was placed for evaluation and he was put 1:1 observation. After his psych consult was obtained and his assessment was done they did not feel that he needed to be on 1:1 observation so this was discontinued. POD #4 - Patient was discharged to his home in stable condition. He was given prescriptions for Oxycodone for post op pain control and his IV antibiotics. 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 He was instructed to follow up with Dr. Dillard on 11/02/20 and follow up with the wound clinic as an outpatient. Discharge Instructions Do not put any weight thru your left leg. Leave splint on left leg at all times. Ice and elevate left leg above your heart to relieve pain and swelling. Keep splint clean and dry on left leg. Use walker to assist with ambulation. Bedside commode - script provided. You may weight bear as tolerated on your heel of your right foot Keep dressings on right foot wound at all times, do not change dressing unless specified by wound care nurse. Use post op offloading shoe at all times on right leg when out of bed with walking. Take Aspirin 325mg twice daily with food to thin your blood to prevent blood clots. Take your IV antibiotics every 8 hours as prescribed. - Script provided. Obtain lab work weekly from home health nurse. Copy results to Dr. Dillard. Pain medication as prescribed, sent to your pharmacy. Follow up with Dr. Dillard on 11/02/20 at 1:00 p.m. as scheduled. Follow up with Diabetic foot clinic/wound clinic as instructed, if you do not have an appiontment please call their office on Saturday to schedule one.
== END 2020-10-29 13:06 | disposition home health service (06) ==
LOC: ASU 10:10 → 3E 10:10

== ENCOUNTER 2022-04-25 11:02 | Observation (INO) ==
--- NOTE | 2022-04-25 11:44 | ED Triage Note ---
Date of Service April 25, 2022 History of Present Illness This patient was briefly evaluated while in triage. An abbreviated physical exam was performed. This patient is a 52-year-old Male with past medical history of abscesses, type 2 DM, who presents to the ED for evaluation of an abscess on his buttock. It started a few days ago and he has difficulty sitting due to the pain. He states it is close to his rectum. Physical Exam VITALS: Vitals are noted on the nurse's note and reviewed by myself. Vital signs stable. GENERAL: This is a 52-year-old male, in no acute distress, well-developed well- nourished. SKIN: There is an area of edema, induration, and tenderness just to the right of the anus. NEURO: Patient was alert and oriented to person place and time. Initial orders for labs and / or imaging were placed and patient was placed in the waiting area until a bed is available. Please see further documentation for the full ED course.
[2022-04-25 11:56] LABS: Basophils # (auto) 0.05 K/uL (0-0.2); Basophils % (auto) 0.5 %; Eosinophils # (auto) 0.21 K/uL (0-0.50); Eosinophils % (auto) 2.1 %; Hematocrit (blood only) 43.4 % (40.1-51.0); Hemoglobin 14.6 g/dl (14.0-18.0); Immature Granulocytes # (auto) 0.05 K/uL (0.00-0.02); Immature Granulocytes % (auto) 0.5 %; Lymphocytes # (auto) 1.36 K/uL (1.2-3.4); Lymphocytes % (auto) 13.8 %; Mean Corpuscular Hemoglobin 30.2 pg (25.0-34.0); Mean Corpuscular Hgb Conc 33.6 g/dL (32.0-36.0); Mean Corpuscular Volume 89.9 fL (80.0-100.0); Mean Platelet Volume 9.3 fL (9.4-12.4); Monocytes # (auto) 0.92 K/uL (0.24-0.82); Monocytes % (auto) 9.3 %; Neutrophils # (auto) 7.28 K/uL (1.4-6.5); Neutrophils % (auto) 73.8 %; Platelet Count 210 K/uL (130-400); RDW Coefficient of Variation 12.6 % (11.5-14.5); RDW Standard Deviation 41.6 fL (36.4-46.3); Red Blood Count 4.83 M/uL (4.63-6.08); White Blood Count 9.87 K/ul (4.8-10.8)
--- NOTE | 2022-04-25 12:18 | Emergency Department Note ---
History of Present Illness General Chief complaint: Wound Stated complaint: CYST ON REAR Time Seen by Provider: 04/25/22 11:50 History of Present Illness Maximum Pain Intensity: 10 Home Medications Medication Instructions Recorded Confirmed Type blood-glucose meter #1 ea 11/19/19 02/06/22 Rx blood-glucose meter (Blood Glucose #1 ea 11/19/19 02/06/22 Rx Monitoring) lancets 30 gauge (OneTouch Delica #100 ea 05/28/20 02/06/22 Rx Lancets) blood sugar diagnostic (OneTouch #300 ea 06/15/20 02/06/22 Rx Verio test strips) insulin aspart U-100 100 unit/mL 20 unit (0.2 mL) subcut AC #15 mL 07/27/20 02/06/22 Rx (3 mL) subcutaneous pen (Novolog Flexpen U-100 Insulin aspart) sildenafil 50 mg tablet 50 mg PO DAILY PRN sexual activity 08/02/20 02/06/22 Rx #30 tabs acetaminophen 500 mg tablet 1,000 mg PO Q8 #30 tabs 10/28/20 02/06/22 Rx docusate sodium 100 mg capsule 100 mg PO BID #60 caps 11/25/20 02/06/22 Rx (Colace) aspirin 325 mg tablet,delayed 325 mg PO DAILY #30 tabs 03/17/21 02/06/22 Rx release (Ecotrin) tobramycin 0.3 % eye drops 1 drp ophthalmic (eye) Q4H 7 days 03/17/21 02/06/22 Rx #5 mL losartan 100 mg tablet 100 mg PO QAM #90 tabs 08/16/21 02/06/22 Rx cholecalciferol (vitamin D3) 25 2,000 unit PO QAM 09/11/21 02/06/22 History mcg (1,000 unit) tablet (Vitamin D3) atorvastatin 40 mg tablet 40 mg PO QPM #90 tabs 09/25/21 02/06/22 Rx metoprolol succinate 100 mg 100 mg PO QAM #90 tabs 10/26/21 02/06/22 Rx tablet,extended release 24 hr pen needle, diabetic 32 gauge x #200 ea 11/06/21 02/06/22 Rx 5/32" tadalafil 5 mg tablet (Cialis) 5 mg PO DAILY sexual activity #30 11/24/21 02/06/22 Rx tabs amlodipine 10 mg tablet 10 mg PO QAM #90 tabs 01/15/22 02/06/22 Rx pantoprazole 40 mg tablet,delayed 40 mg PO DAILY #30 tabs 01/29/22 02/06/22 Rx release furosemide 20 mg tablet 20 mg PO QAM #90 tabs 03/12/22 Rx gabapentin 600 mg tablet See Rx Instructions .Route 03/13/22 Rx .COMPLEX #60 caps insulin glargine 100 unit/mL (3 56 unit (0.56 mL) subcut BID 90 04/11/22 Rx mL) subcutaneous pen (Lantus days #100.8 mL Solostar U-100 Insulin) spironolactone 25 mg tablet 25 mg PO QAM #90 tabs 04/20/22 Rx Allergies Allergy/AdvReac Type Severity Reaction Status Date / Time No Known Drug Allergies Allergy Verified 10/16/21 08:55 Past Med/Surg History Medical History CHF (congestive heart failure) Chronic kidney disease, stage 3a Diabetes mellitus with complication Diabetic neuropathy GERD (gastroesophageal reflux disease) Hip pain Hyperlipidemia Hypertension PAD (peripheral artery disease) Psoriasis Stroke Umbilical hernia Vertigo Vitamin D insufficiency Weakness of both lower extremities Surgical History History of cardiac cath History of tooth extraction Hx of vascular surgery (08/2020) 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) Family History Father Cardiac disorder Hypertension Grandfather Cardiac disorder Myocardial infarction Grandmother Breast cancer Other No family history of adverse response to anesthesia Denies family history of Ovarian cancer Prostate cancer Colorectal cancer Social History Smoking Status: Never smoker Tobacco Type: Smokeless Tobacco (Dip or Chew) Second Hand Exposure: No; Hx Alcohol Use: No Hx Substance Use: No Preferred Language: Hebrew Communication Ability: Effective Visual Impairment: No Limitations Hearing Ability: Normal 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 Required: No Beliefs That Will Affect Care: None marital status: Current Living Situation: Family Current Living Situation Comment: "TAKES CARE OF DISABLED FATHER" current occupational status: unemployed Feels Safe at Home: Yes Childhood Exposure to Second-Hand Smoke: Yes caffeine: Yes (mt dew) during the past year weight has: increased > 10 lbs Dental Care, Regularly: No Physical Activity Frequency: Does not Exercise Seatbelt Use: always Sunscreen Use: No Assistive Devices: Walker Physical Exam Vital Signs Vital Signs - 24 hr 04/25/22 11:32 Temperature 36.4 C L Temperature Source Temporal Artery Scan Pulse Rate 92 H Respiratory Rate 18 Respiratory Effort / Characteristics Non-Labored Respiratory Depth Normal Blood Pressure 129/86 Blood Pressure Mean 100 Pulse Oximetry 97 Oxygen Delivery Method Room Air Sepsis Recent Fever Within 48 Hours No Sepsis New/Unexplained Change in Mental Status No Sepsis Action Taken by Nursing No Action Required Medical Decision Making Laboratory Data Result diagrams: 04/25/22 11:40 04/25/22 11:40 Lab Results 04/25/22 Range/Units 11:40 WBC 9.87 (4.8-10.8) K/ul RBC 4.83 (4.63-6.08) M/uL Hgb 14.6 (14.0-18.0) g/dl Hct 43.4 (40.1-51.0) % MCV 89.9 (80.0-100.0) fL MCH 30.2 (25.0-34.0) pg MCHC 33.6 (32.0-36.0) g/dL RDW Std Deviation 41.6 (36.4-46.3) fL RDW Coeff of Jonah 12.6 (11.5-14.5) % Plt Count 210 (130-400) K/uL MPV 9.3 L (9.4-12.4) fL Immature Gran % (Auto) 0.5 % Neut % (Auto) 73.8 % Lymph % (Auto) 13.8 % [place] % (Auto) 9.3 % Eos % (Auto) 2.1 % Baso % (Auto) 0.5 % Neut # (Auto) 7.28 H (1.4-6.5) K/uL Lymph # (Auto) 1.36 (1.2-3.4) K/uL [place] # (Auto) 0.92 H (0.24-0.82) K/uL Eos # (Auto) 0.21 (0-0.50) K/uL Baso # (Auto) 0.05 (0-0.2) K/uL Immature Gran # (Auto) 0.05 H (0.00-0.02) K/uL Discharge Plan Visit Data Chief Complaint: Wound Stated Complaint: CYST ON REAR ED Provider: Se Bautista ED Midlevel Provider: Savi Patrick Forms Stand Alone Forms: [facility] [place] Prescriptions Prescriptions: No Action (DME) blood sugar diagnostic [OneTouch Verio test strips] Strip See Rx Instructions .ROUTE .MEDSUPPLY Qty: 300 3RF Rx Instructions: TEST 5 TIMES A DAY; DX CODE- E11.9 insulin aspart U-100 [Novolog Flexpen U-100 Insulin] 100 unit/mL (3 mL) insulin pen 20 unit subcut AC Qty: 15 3RF docusate sodium [Colace] 100 mg capsule 100 mg PO BID Qty: 60 5RF losartan 100 mg tablet 100 mg PO QAM Qty: 90 1RF cholecalciferol (vitamin D3) [Vitamin D3] 25 mcg (1,000 unit) tablet 2,000 unit PO QAM atorvastatin 40 mg tablet 40 mg PO QPM Qty: 90 2RF metoprolol succinate 100 mg tablet extended release 24 hr 100 mg PO QAM Qty: 90 1RF (DME) pen needle, diabetic 32 gauge x 5/32" needle See Dose Instructions .ROUTE .MEDSUPPLY Qty: 200 1RF Dose Instruction: As directed Rx Instructions: RELI-ON pen needles - Injecting twice daily tadalafil [Cialis] 5 mg tablet 5 mg PO DAILY Qty: 30 5RF amlodipine 10 mg tablet 10 mg PO QAM Qty: 90 2RF pantoprazole 40 mg tablet,delayed release (DR/EC) 40 mg PO DAILY Qty: 30 5RF furosemide 20 mg tablet 20 mg PO QAM Qty: 90 1RF gabapentin 600 mg tablet See Rx Instructions .ROUTE .COMPLEX Qty: 60 5RF Dose Instruction: TAKE 1 TABLET BY MOUTH TWICE DAILY (MORNING AND NOON) Rx Instructions: TAKE 1 TABLET BY MOUTH TWICE DAILY (MORNING AND NOON) insulin glargine [Lantus Solostar U-100 Insulin] 100 unit/mL (3 mL) insulin pen 56 unit subcut BID 90 Days Qty: 100.8 1RF spironolactone 25 mg tablet 25 mg PO QAM Qty: 90 1RF tobramycin 0.3 % drops 1 drp ophthalmic (eye) Q4H 7 Days Qty: 5 0RF aspirin [Ecotrin] 325 mg tablet,delayed release (DR/EC) 325 mg PO DAILY Qty: 30 0RF (DME) blood-glucose meter [Blood Glucose Monitoring] Kit See Rx Instructions .ROUTE .MEDSUPPLY Qty: 1 0RF Rx Instructions: As directed (DME) blood-glucose meter Kit See Dose Instructions .ROUTE .MEDSUPPLY Qty: 1 0RF Rx Instructions: As directed sildenafil 50 mg tablet 50 mg PO DAILY PRN (Reason: sexual activity) Qty: 30 0RF Rx Instructions: administer 30 minutes to 4 hours before activity acetaminophen 500 mg Tablet 1,000 mg PO Q8 Qty: 30 0RF (DME) lancets [OneTouch Delica Lancets] 30 gauge misc See Rx Instructions .ROUTE .MEDSUPPLY Qty: 100 0RF Rx Instructions: As directed Referrals Referrals: Keeley Marquez DO [Primary Care Provider] -
[2022-04-25 12:28] LABS: Alanine Aminotransferase 20 U/L (7-52); Albumin Globulin Ratio 0.7 (0.9-2); Albumin Level 3.6 gm/dl (3.4-5.0); Alkaline Phosphatase 82 U/L (34-104); Anion Gap 10 (3-11); Aspartate Aminotransferase 16 U/L (13-39); BUN Creatinine Ratio 16.6 (10-20); Blood Urea Nitrogen 29 mg/dl (6-23); Calcium 9.6 mg/dl (8.5-10.1); Carbon Dioxide 21 mmol/L (21-32); Chloride 100 mmol/L (98-107); Est GFR (African American) 50.4 ml/min; Est GFR (Non-African American) 43.5 ml/min; Globulin 4.9 gm/dl (2.5-4.0); Glucose 339 mg/dl (70-99(Fasting)); Potassium 4.3 mmol/L (3.5-5.1); Sodium 131 mmol/L (136-145); Total Protein 8.5 gm/dl (6.0-8.3)
--- NOTE | 2022-04-25 12:42 | Emergency Department Note ---
History of Present Illness General Chief complaint: Wound Stated complaint: CYST ON REAR Time Seen by Provider: 04/25/22 11:50 Source: patient Mode of arrival: ambulatory Limitations: no limitations History of Present Illness Maximum Pain Intensity: 10 This patient is a 52-year-old male who presents to the emergency department for evaluation of an abscess on one of his buttocks. Patient reports that he has had issues with this multiple times before and has required drainage. He states this started about 3 days ago and has progressively worsened since then. He reports swelling near his rectum. He has increased pain with sitting. He rates his discomfort a 10/10. He is diabetic. He denies any fever/chills. Home Medications Medication Instructions Recorded Confirmed Type blood-glucose meter #1 ea 11/19/19 02/06/22 Rx blood-glucose meter (Blood Glucose #1 ea 11/19/19 02/06/22 Rx Monitoring) lancets 30 gauge (OneTouch Delica #100 ea 05/28/20 02/06/22 Rx Lancets) blood sugar diagnostic (OneTouch #300 ea 06/15/20 02/06/22 Rx Verio test strips) insulin aspart U-100 100 unit/mL 20 unit (0.2 mL) subcut AC #15 mL 07/27/20 02/06/22 Rx (3 mL) subcutaneous pen (Novolog Flexpen U-100 Insulin aspart) sildenafil 50 mg tablet 50 mg PO DAILY PRN sexual activity 08/02/20 02/06/22 Rx #30 tabs acetaminophen 500 mg tablet 1,000 mg PO Q8 #30 tabs 10/28/20 02/06/22 Rx docusate sodium 100 mg capsule 100 mg PO BID #60 caps 11/25/20 02/06/22 Rx (Colace) aspirin 325 mg tablet,delayed 325 mg PO DAILY #30 tabs 03/17/21 02/06/22 Rx release (Ecotrin) tobramycin 0.3 % eye drops 1 drp ophthalmic (eye) Q4H 7 days 03/17/21 02/06/22 Rx #5 mL losartan 100 mg tablet 100 mg PO QAM #90 tabs 08/16/21 02/06/22 Rx cholecalciferol (vitamin D3) 25 2,000 unit PO QAM 09/11/21 02/06/22 History mcg (1,000 unit) tablet (Vitamin D3) atorvastatin 40 mg tablet 40 mg PO QPM #90 tabs 09/25/21 02/06/22 Rx metoprolol succinate 100 mg 100 mg PO QAM #90 tabs 10/26/21 02/06/22 Rx tablet,extended release 24 hr pen needle, diabetic 32 gauge x #200 ea 11/06/21 02/06/22 Rx 5/32" tadalafil 5 mg tablet (Cialis) 5 mg PO DAILY sexual activity #30 11/24/21 02/06/22 Rx tabs amlodipine 10 mg tablet 10 mg PO QAM #90 tabs 01/15/22 02/06/22 Rx pantoprazole 40 mg tablet,delayed 40 mg PO DAILY #30 tabs 01/29/22 02/06/22 Rx release furosemide 20 mg tablet 20 mg PO QAM #90 tabs 03/12/22 Rx gabapentin 600 mg tablet See Rx Instructions .Route 03/13/22 Rx .COMPLEX #60 caps insulin glargine 100 unit/mL (3 56 unit (0.56 mL) subcut BID 90 04/11/22 Rx mL) subcutaneous pen (Lantus days #100.8 mL Solostar U-100 Insulin) spironolactone 25 mg tablet 25 mg PO QAM #90 tabs 04/20/22 Rx Allergies Allergy/AdvReac Type Severity Reaction Status Date / Time No Known Drug Allergies Allergy Verified 10/16/21 08:55 Past Med/Surg History Medical History CHF (congestive heart failure) Questionable hx (per vascular notes), does not follow with cardiology, ECHO 05/2020 EF 50% Chronic kidney disease, stage 3a Diabetes mellitus with complication Diabetic neuropathy GERD (gastroesophageal reflux disease) Hip pain Hyperlipidemia Hypertension PAD (peripheral artery disease) s/p angioplasty to posterior tibial, and peroneal arteries 08/2020 Psoriasis Stroke incidental 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 with small remote infarcts of the right external capsule and malachi also noted on 08/30/20 Brain MRI Umbilical hernia current Vertigo occasional Vitamin D insufficiency Weakness of both lower extremities Surgical History History of cardiac cath 25+ years ago > no stents History of tooth extraction Hx of vascular surgery (08/2020) Angioplasty to posterior tibial, and peroneal arteries (08/2020) 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) Family History Father Cardiac disorder Hypertension Grandfather Cardiac disorder Myocardial infarction Grandmother Breast cancer Other No family history of adverse response to anesthesia Denies family history of Ovarian cancer Prostate cancer Colorectal cancer Social History Smoking Status: Never smoker Tobacco Type: Smokeless Tobacco (Dip or Chew) Second Hand Exposure: No; Hx Alcohol Use: No Hx Substance Use: No Preferred Language: Bolivian Communication Ability: Effective Visual Impairment: No Limitations Hearing Ability: Normal Oracle Fusion Developer Required: No Beliefs That Will Affect Care: None marital status: Current Living Situation: Family Current Living Situation Comment: "TAKES CARE OF DISABLED FATHER" current occupational status: unemployed Feels Safe at Home: Yes Childhood Exposure to Second-Hand Smoke: Yes caffeine: Yes (mt dew) during the past year weight has: increased > 10 lbs Dental Care, Regularly: No Physical Activity Frequency: Does not Exercise Seatbelt Use: always Sunscreen Use: No Assistive Devices: Walker Review of Systems A total of 10 systems reviewed and were otherwise negative Physical Exam Vital Signs Vital Signs - 24 hr 04/25/22 11:32 04/25/22 12:51 04/25/22 14:37 Temperature 36.4 C L Temperature Source Temporal Artery Scan Pulse Rate 92 H Pulse Rate [Apical] Pulse Rate [Left Finger] 83 85 Pulse Rate [Right Finger] Pulse Rhythm [Apical] Pulse Rhythm [Left Finger] Regular Regular Pulse Strength [Left Finger] Normal Normal Respiratory Rate 18 20 20 Respiratory Effort / Characteristics Non-Labored Non-Labored Spontaneous Non-Labored Spontaneous Respiratory Depth Normal Normal Normal Respiratory Pattern Regular Regular Blood Pressure 129/86 Blood Pressure [Left Arm] Blood Pressure [Right Arm] 137/82 121/83 Blood Pressure Mean 100 Blood Pressure Mean [Left Arm] Blood Pressure Mean [Right Arm] 100 95 Blood Pressure Position [Left Arm] Blood Pressure Position [Right Arm] Sitting Sitting Pulse Oximetry 97 97 98 Oxygen Delivery Method Room Air Room Air Room Air Sepsis Recent Fever Within 48 Hours No Sepsis New/Unexplained Change in Mental Status No Sepsis Action Taken by Nursing No Action Required 04/25/22 16:04 04/25/22 16:00 04/25/22 16:53 Temperature 36.9 C 36.5 C Temperature Source Oral Temporal Artery Scan Pulse Rate 77 Pulse Rate [Apical] 78 Pulse Rate [Left Finger] Pulse Rate [Right Finger] 85 Pulse Rhythm [Apical] Regular Pulse Rhythm [Left Finger] Pulse Strength [Left Finger] Respiratory Rate 22 18 19 Respiratory Effort / Characteristics Non-Labored Spontaneous Respiratory Depth Normal Respiratory Pattern Regular Blood Pressure Blood Pressure [Left Arm] 120/77 Blood Pressure [Right Arm] 180/97 H Blood Pressure Mean Blood Pressure Mean [Left Arm] 91 Blood Pressure Mean [Right Arm] 124 Blood Pressure Position [Left Arm] Lying Blood Pressure Position [Right Arm] Lying Pulse Oximetry 98 96 100 Oxygen Delivery Method Oxymask Sepsis Recent Fever Within 48 Hours Sepsis New/Unexplained Change in Mental Status Sepsis Action Taken by Nursing VITALS: Vitals are noted on the nurse's note and reviewed by myself. GENERAL: This is a 52-year-old male, in no acute distress, well-developed well-n ourished. SKIN: There is edema, induration and erythema to the right of the posterior anus which extends proximally. EYES: Pupils equal round and reactive to light and accommodation. MOUTH: Mucous membranes moist. NECK: Supple without nuchal rigidity. HEART: Regular rate and rhythm without murmurs gallops or rubs. LUNGS: Clear to auscultation bilaterally without wheezes, rales or rhonchi. ABDOMEN: Positive bowel sounds x 4. Soft, nontender to palpation. NEURO: Patient was alert and oriented to person place and time. Course Administered Medications Discontinued Medications Bupivacaine HCl/Epinephrine Bitart (Bupivacaine/Epinephrine 0.25% 1:200,000 30 Ml Vial) Confirm Administered Dose 30 ml .ROUTE .STK-MED ONE Stop: 04/25/22 16:16 Last Admin: 04/25/22 16:41 Dose: 2 ml Documented By: [id number] Ampicillin Sodium/Sulbactam Sodium 3,000 mg/ Sodium Chloride 108 mls @ 200 mls/hr IV NOW STA; Protocol Stop: 04/25/22 14:46 Last Infusion: 04/25/22 17:51 Dose: 0 mls/hr Documented By: Admin: 04/25/22 14:35 Dose: 200 mls/hr Documented By: ADAN Sodium Chloride (Nss 1000ml) 1,000 mls @ 75 mls/hr IV .[id number] ANIL Stop: 05/25/22 18:11 Last Admin: 04/25/22 18:20 Dose: 75 mls/hr Documented By: ESTRELLITA Insulin Human Regular (Novolin-R Insulin Per Unit Charge) 5 units IV NOW STA Stop: 04/25/22 13:40 Last Admin: 04/25/22 14:08 Dose: 5 units Documented By: [email or web address] Co-signed By: ADAN Medical Decision Making Differential Diagnosis Differential diagnosis includes perirectal abscess, pilonidal abscess, thrombosed hemorrhoid, anal fissure, among others. Home Medications Current Medication List: was personally reviewed by me Laboratory Data Attestation: I reviewed the patient's lab results. Result diagrams: 04/25/22 11:40 04/25/22 11:40 Lab Results 04/25/22 04/25/22 04/25/22 Range/Units 11:40 11:40 14:46 WBC 9.87 (4.8-10.8) K/ul RBC 4.83 (4.63-6.08) M/uL Hgb 14.6 (14.0-18.0) g/dl Hct 43.4 (40.1-51.0) % MCV 89.9 (80.0-100.0) fL MCH 30.2 (25.0-34.0) pg MCHC 33.6 (32.0-36.0) g/dL RDW Std Deviation 41.6 (36.4-46.3) fL RDW Coeff of Jonah 12.6 (11.5-14.5) % Plt Count 210 (130-400) K/uL MPV 9.3 L (9.4-12.4) fL Immature Gran % (Auto) 0.5 % Neut % (Auto) 73.8 % Lymph % (Auto) 13.8 % Hemphill % (Auto) 9.3 % Eos % (Auto) 2.1 % Baso % (Auto) 0.5 % Neut # (Auto) 7.28 H (1.4-6.5) K/uL Lymph # (Auto) 1.36 (1.2-3.4) K/uL Hemphill # (Auto) 0.92 H (0.24-0.82) K/uL Eos # (Auto) 0.21 (0-0.50) K/uL Baso # (Auto) 0.05 (0-0.2) K/uL Immature Gran # (Auto) 0.05 H (0.00-0.02) K/uL Sodium 131 L (136-145) mmol/L Potassium 4.3 (3.5-5.1) mmol/L Chloride 100 (98-107) mmol/L Carbon Dioxide 21 (21-32) mmol/L Anion Gap 10 (3-11) BUN 29 H (6-23) mg/dl Creatinine 1.75 H (0.6-1.4) mg/dl Est Cr Clr Drug Dosing Not Reportable Est GFR ( Amer) 50.4 ml/min Est GFR (Non-Af Amer) 43.5 ml/min BUN/Creatinine Ratio 16.6 (10-20) Glucose 339 H* (70-99(Fasting)) mg/dl POC Glucose (70-99) mg/dl Calcium 9.6 (8.5-10.1) mg/dl Total Bilirubin 1.0 (0.2-1.0) mg/dl AST 16 (13-39) U/L ALT 20 (7-52) U/L Alkaline Phosphatase 82 (34-104) U/L Total Protein 8.5 H (6.0-8.3) gm/dl Albumin 3.6 (3.4-5.0) gm/dl Globulin 4.9 H (2.5-4.0) gm/dl Albumin/Globulin Ratio 0.7 L (0.9-2) SARS-CoV-2, RNA, NAAT NEGATIVE (NEGATIVE) 04/25/22 04/25/22 04/25/22 Range/Units 14:58 16:03 16:54 WBC (4.8-10.8) K/ul RBC (4.63-6.08) M/uL Hgb (14.0-18.0) g/dl Hct (40.1-51.0) % MCV (80.0-100.0) fL MCH (25.0-34.0) pg MCHC (32.0-36.0) g/dL RDW Std Deviation (36.4-46.3) fL RDW Coeff of Jonah (11.5-14.5) % Plt Count (130-400) K/uL MPV (9.4-12.4) fL Immature Gran % (Auto) % Neut % (Auto) % Lymph % (Auto) % Hemphill % (Auto) % Eos % (Auto) % Baso % (Auto) % Neut # (Auto) (1.4-6.5) K/uL Lymph # (Auto) (1.2-3.4) K/uL Hemphill # (Auto) (0.24-0.82) K/uL Eos # (Auto) (0-0.50) K/uL Baso # (Auto) (0-0.2) K/uL Immature Gran # (Auto) (0.00-0.02) K/uL Sodium (136-145) mmol/L Potassium (3.5-5.1) mmol/L Chloride (98-107) mmol/L Carbon Dioxide (21-32) mmol/L Anion Gap (3-11) BUN (6-23) mg/dl Creatinine (0.6-1.4) mg/dl Est Cr Clr Drug Dosing Est GFR ( Amer) ml/min Est GFR (Non-Af Amer) ml/min BUN/Creatinine Ratio (10-20) Glucose (70-99(Fasting)) mg/dl POC Glucose 248 H 208 H 189 H (70-99) mg/dl Calcium (8.5-10.1) mg/dl Total Bilirubin (0.2-1.0) mg/dl AST (13-39) U/L ALT (7-52) U/L Alkaline Phosphatase (34-104) U/L Total Protein (6.0-8.3) gm/dl Albumin (3.4-5.0) gm/dl Globulin (2.5-4.0) gm/dl Albumin/Globulin Ratio (0.9-2) SARS-CoV-2, RNA, NAAT (NEGATIVE) Imaging Data Attestation: I personally reviewed and interpreted this imaging study as follows: Radiologist's Impression: Abdomen/Pelvis CT 04/25/22 12:34 CT SCAN OF THE ABDOMEN AND PELVIS WITHOUT IV CONTRAST CLINICAL HISTORY: Perirectal abscess COMPARISON STUDY: No priors. TECHNIQUE: CT scan of the abdomen and pelvis is performed from the lung bases to the proximal femora. Images are reviewed in the axial, sagittal, and coronal planes. IV contrast was not administered for this examination as per the referring clinician. Note that the examination was performed in significantly suboptimal fashion without oral and IV contrast. A dose lowering technique was utilized adhering to the principles of ALARA. CT DOSE: 1552.82 mGy.cm FINDINGS: Lung bases: The heart is normal in size and without pericardial effusion. The coronary arteries are densely calcified. The lung bases are clear noting mild bibasilar atelectasis. There is a tiny hiatal hernia. Liver: The unenhanced liver is enlarged, measuring 23.2 cm in length. The liver demonstrates diffusely diminished attenuation consistent with severe hepatic steatosis. Fatty sparing is seen adjacent to gallbladder fossa. There is no intrahepatic biliary ductal dilatation. Gallbladder: There are calcified gallstones with no CT evidence of acute cholecystitis. Spleen: Normal in size and attenuation. Pancreas: Unremarkable. Adrenal glands: Unremarkable. Kidneys: The unenhanced kidneys are normal in size and without hydronephrosis. There are no renal calculi identified. There is no evidence of contour deforming renal mass lesion. Abdominal vasculature: The abdominal aorta is normal in course and caliber noting advanced atherosclerotic calcification. Bowel: There is no bowel obstruction. Efen-ue-avphtixp fecal retention is seen throughout the colon. The appendix is not visualized. Peritoneum: There is no intraperitoneal free air or abdominal ascites. There is a large fat-containing umbilical hernia. Lymphadenopathy: None. Pelvic viscera: The prostate gland is diminutive and heterogeneous. The bladder is mildly distended. The bladder wall appears thickened and trabeculated indicating chronic outlet obstruction. There are small bilateral fat-containing inguinal hernias. There is a 5.2 x 5.1 x 3.3 cm loculated appearing fluid collection in the soft tissues of the right buttock along the gluteal crease. This is best seen on axial image were 272. There is mild surrounding inflammation. This is below the levator musculature and is largely separate from the anal ring. This may approximately a ring at the 12:00 position on axial image #484. This is suboptimally evaluated without IV contrast. Skeletal structures: There is mild lumbosacral spondylosis. No lytic or blastic lesions are seen. IMPRESSION: 1. Significantly suboptimal examination without IV contrast. 2. There is a 5.2 cm multiloculated fluid collection in the inferior right buttock along the gluteal crease typical in appearance for abscess with surrounding cellulitis. 3. This may approach the inferior aspect of the anal ring at the 12:00 position. This is suboptimally evaluated without IV contrast. An underlying fistula would be impossible to exclude. 4. Hepatomegaly and severe hepatic steatosis. 5. Advanced coronary artery calcification. 6. Cholelithiasis. 7. Additional findings as above. ACT 112: Negative or not required by law. Electronically signed by: Diego Garcia M.D. 04/25/2022 1:53 PM MDM Narrative The patient is a 52-year-old male who presents today complaining of swelling over his buttocks/rectum. Exam was consistent with a perianal abscess. Imaging confirmed this. Labs revealed no leukocytosis. Patient's glucose is 339. He states that this is normally well controlled in the low 100s at home. Patient afebrile and nontoxic. He was given Unasyn in the emergency department. Case was discussed with general surgery, who elected to take the patient to the OR for operative management. Impression & Plan Perianal abscess Discharge Plan Visit Data Chief Complaint: Wound Stated Complaint: CYST ON REAR ED Provider: Se Bautista ED Midlevel Provider: Savi Patrick Discharge Problem: Perianal abscess Patient Disposition: Admitted As Inpatient Discharge Instructions Interventions: ED Discharge Assessment Last Done: 04/25/22 16:00
[2022-04-25] MEDS ORDERED: NovoLIN-R INSULIN PER UNIT CHARGE IV STA (13:39)
--- NOTE | 2022-04-25 13:54 | CT Scan Report ---
CT SCAN OF THE ABDOMEN AND PELVIS WITHOUT IV CONTRAST CLINICAL HISTORY: Perirectal abscess COMPARISON STUDY: No priors. TECHNIQUE: CT scan of the abdomen and pelvis is performed from the lung bases to the proximal femora. Images are reviewed in the axial, sagittal, and coronal planes. IV contrast was not administered for this examination as per the referring clinician. Note that the examination was performed in signific antly suboptimal fashion without oral and IV contrast. A dose lowering technique was utilized adherin g to the principles of ALARA. CT DOSE: 1552.82 mGy.cm FINDINGS: Lung bases: The heart is normal in size and without pericardial effusion. The coronary arteries are d ensely calcified. The lung bases are clear noting mild bibasilar atelectasis. There is a tiny hiatal hernia. Liver: The unenhanced liver is enlarged, measuring 23.2 cm in length. The liver demonstrates diffusel y diminished attenuation consistent with severe hepatic steatosis. Fatty sparing is seen adjacent to gallbladder fossa. There is no intrahepatic biliary ductal dilatation. Gallbladder: There are calcified gallstones with no CT evidence of acute cholecystitis. Spleen: Normal in size and attenuation. Pancreas: Unremarkable. Adrenal glands: Unremarkable. Kidneys: The unenhanced kidneys are normal in size and without hydronephrosis. There are no renal krunal culi identified. There is no evidence of contour deforming renal mass lesion. Abdominal vasculature: The abdominal aorta is normal in course and caliber noting advanced atheroscle rotic calcification. Bowel: There is no bowel obstruction. [id number] fecal retention is seen throughout the colon. The appendix is not visualized. Peritoneum: There is no intraperitoneal free air or abdominal ascites. There is a large fat-containin g umbilical hernia. Lymphadenopathy: None. Pelvic viscera: The prostate gland is diminutive and heterogeneous. The bladder is mildly distended. The bladder wall appears thickened and trabeculated indicating chronic outlet obstruction. There are small bilateral fat-containing inguinal hernias. There is a 5.2 x 5.1 x 3.3 cm loculated appearing fl uid collection in the soft tissues of the right buttock along the gluteal crease. This is best seen o n axial image were 272. There is mild surrounding inflammation. This is below the levator musculature and is largely separate from the anal ring. This may approximately a ring at the 12:00 position on a xial image #484. This is suboptimally evaluated without IV contrast. Skeletal structures: There is mild lumbosacral spondylosis. No lytic or blastic lesions are seen. IMPRESSION: 1. Significantly suboptimal examination without IV contrast. 2. There is a 5.2 cm multiloculated fluid collection in the inferior right buttock along the gluteal crease typical in appearance for abscess with surrounding cellulitis. 3. This may approach the inferior aspect of the anal ring at the 12:00 position. This is suboptimally evaluated without IV contrast. An underlying fistula would be impossible to exclude. 4. Hepatomegaly and severe hepatic steatosis. 5. Advanced coronary artery calcification. 6. Cholelithiasis. 7. Additional findings as above. ACT 112: Negative or not required by law. Electronically signed by: Diego Garcia M.D. 04/25/2022 1:53 PM
[2022-04-25] MEDS ORDERED: AMPICILLIN/SULBACTAM SOD 3,000 MG in 0.9 % SODIUM CHLORIDE 100 ML IV STA (14:14)
--- NOTE | 2022-04-25 14:40 | History & Physical Report ---
Date of Service April 25, 2022 Assessment & Plan (1) Perianal abscess: Plan: CT raises question of possible fistula. Will plan for EUA, drainage of perianal abscess. Unasyn was given in the ED. History of Present Illness Primary Care Provider: Keeley Marquez DO 52 y/o diabetic male with several days increasing right perianal pain and swelling. Had some drainage at first but stopped within a day. No fevers or chills. Has had multiple other similar abscess drained in the past. Allergies Allergy/AdvReac Type Severity Reaction Status Date / Time No Known Drug Allergies Allergy Verified 10/16/21 08:55 Home Medications Medication Instructions Recorded Confirmed Type blood-glucose meter #1 ea 11/19/19 02/06/22 Rx blood-glucose meter (Blood Glucose #1 ea 11/19/19 02/06/22 Rx Monitoring) lancets 30 gauge (OneTouch Delica #100 ea 05/28/20 02/06/22 Rx Lancets) blood sugar diagnostic (OneTouch #300 ea 06/15/20 02/06/22 Rx Verio test strips) insulin aspart U-100 100 unit/mL 20 unit (0.2 mL) subcut AC #15 mL 07/27/20 02/06/22 Rx (3 mL) subcutaneous pen (Novolog Flexpen U-100 Insulin aspart) sildenafil 50 mg tablet 50 mg PO DAILY PRN sexual activity 08/02/20 02/06/22 Rx #30 tabs acetaminophen 500 mg tablet 1,000 mg PO Q8 #30 tabs 10/28/20 02/06/22 Rx docusate sodium 100 mg capsule 100 mg PO BID #60 caps 11/25/20 02/06/22 Rx (Colace) aspirin 325 mg tablet,delayed 325 mg PO DAILY #30 tabs 03/17/21 02/06/22 Rx release (Ecotrin) tobramycin 0.3 % eye drops 1 drp ophthalmic (eye) Q4H 7 days 03/17/21 02/06/22 Rx #5 mL losartan 100 mg tablet 100 mg PO QAM #90 tabs 08/16/21 02/06/22 Rx cholecalciferol (vitamin D3) 25 2,000 unit PO QAM 09/11/21 02/06/22 History mcg (1,000 unit) tablet (Vitamin D3) atorvastatin 40 mg tablet 40 mg PO QPM #90 tabs 09/25/21 02/06/22 Rx metoprolol succinate 100 mg 100 mg PO QAM #90 tabs 10/26/21 02/06/22 Rx tablet,extended release 24 hr pen needle, diabetic 32 gauge x #200 ea 11/06/21 02/06/22 Rx 32" tadalafil 5 mg tablet (Cialis) 5 mg PO DAILY sexual activity #30 11/24/21 02/06/22 Rx tabs amlodipine 10 mg tablet 10 mg PO QAM #90 tabs 01/15/22 02/06/22 Rx pantoprazole 40 mg tablet,delayed 40 mg PO DAILY #30 tabs 01/29/22 02/06/22 Rx release furosemide 20 mg tablet 20 mg PO QAM #90 tabs 03/12/22 Rx gabapentin 600 mg tablet See Rx Instructions .Route 03/13/22 Rx .COMPLEX #60 caps insulin glargine 100 unit/mL (3 56 unit (0.56 mL) subcut BID 90 04/11/22 Rx mL) subcutaneous pen (Lantus days #100.8 mL Solostar U-100 Insulin) spironolactone 25 mg tablet 25 mg PO QAM #90 tabs 04/20/22 Rx Past Med/Surg History Medical History CHF (congestive heart failure) Questionable hx (per vascular notes), does not follow with cardiology, ECHO 05/2020 EF 50% Chronic kidney disease, stage 3a Diabetes mellitus with complication Diabetic neuropathy GERD (gastroesophageal reflux disease) Hip pain Hyperlipidemia Hypertension PAD (peripheral artery disease) s/p angioplasty to posterior tibial, and peroneal arteries 08/2020 Psoriasis Stroke incidental 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 with small remote infarcts of the right external capsule and malachi also noted on 08/30/20 Brain MRI Umbilical hernia current Vertigo occasional Vitamin D insufficiency Weakness of both lower extremities Surgical History History of cardiac cath 25+ years ago > no stents History of tooth extraction Hx of vascular surgery (08/2020) Angioplasty to posterior tibial, and peroneal arteries (08/2020) 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) Family History Father Cardiac disorder Hypertension Grandfather Cardiac disorder Myocardial infarction Grandmother Breast cancer Other No family history of adverse response to anesthesia Denies family history of Ovarian cancer Prostate cancer Colorectal cancer Social History Smoking Status: Never smoker Tobacco Type: Smokeless Tobacco (Dip or Chew) Second Hand Exposure: No; Hx Alcohol Use: No Hx Substance Use: No Preferred Language: Yi Communication Ability: Effective Visual Impairment: No Limitations Hearing Ability: Normal Life Skills Instructor Required: No Beliefs That Will Affect Care: None marital status: Current Living Situation: Family Current Living Situation Comment: "TAKES CARE OF DISABLED FATHER" current occupational status: unemployed Feels Safe at Home: Yes Childhood Exposure to Second-Hand Smoke: Yes caffeine: Yes (mt dew) during the past year weight has: increased > 10 lbs Dental Care, Regularly: No Physical Activity Frequency: Does not Exercise Seatbelt Use: always Sunscreen Use: No Assistive Devices: Walker Review of Systems Constitutional: no fever and no chills Respiratory: no cough and no dyspnea Gastrointestinal: no abdominal pain, no nausea, no vomiting, no change in bowel habits and no diarrhea/loose stools Physical Exam Constitutional: WD/WN, vitals as above Respiratory: normal respiratory effort, lungs clear to auscultation Cardiovascular: RRR, no murmur, no edema Gastrointestinal (Abdomen): normal bowel sounds, soft, nontender, no hepa tosplenomegaly erythema, induration of right gluteal crease, no drainage Results & Data Results & Data ([place]) Vital Signs (Past 12 Hours) Vital Signs Temp Pulse Pulse Resp BP BP Pulse Ox 04/25/22 12:51 83 20 137/82 97 04/25/22 11:32 36.4 C L 92 H 18 129/86 97 O2 Del Method 04/25/22 12:51 Room Air 04/25/22 11:32 Room Air Supervising Physician Co-Signing Physician Notes I personally saw and evaluated the patient with Salinas Mei PA-C and agree with the assessment and plan. 52-year-old diabetic male with perirectal abscess CT images and results personally reviewed by me We will plan on incision and drainage of perirectal abscess in the OR today Consent was obtained, risk discussed including bleeding, infection, nonhealing wound Depending on how large the wound is he may be able to be discharged home versus during the night in the hospital PG Care Time/CCT Total # of Minutes Spent Total Time Spent with Patient: Total time spent is greater than 50% in coordination of care (as documented) at patient's floor/unit and/or counseling patient: Coding Level of Care Code None Diagnoses Perianal abscess K61.0
[2022-04-25] MEDS ORDERED: PROPOFOL IV EMULSION 10 MG/ML 20 ML VIAL IV ONE (15:13)
[2022-04-25] MEDS ORDERED: LIDOCAINE 2% MPF LOCAL 5 ML VIAL INFIL ONE (15:13)
[2022-04-25] MEDS ORDERED: fentaNYL citrate 100 MCG/2 ML VIAL ONE (15:13)
[2022-04-25] MEDS ORDERED: MIDAZOLAM HCL 1 MG/ML 2ML VIAL ONE (15:13)
[2022-04-25] MEDS ORDERED: ONDANSETRON INJ 2 MG/ML 2 ML VIAL ONE (15:13)
[2022-04-25] MEDS ORDERED: ROCURONIUM BROMIDE 10 MG/ML 5 ML VIAL IV ONE (15:42)
[2022-04-25] MEDS ORDERED: SUCCINYLCHOLINE CHLORIDE 20 MG/ML 10 ML VIAL IV ONE (15:42)
[2022-04-25] MEDS ORDERED: ePHEDrine sulfate 50 MG/ML AMP IV PRN (16:08)
[2022-04-25] MEDS ORDERED: ONDANSETRON INJ 2 MG/ML 2 ML VIAL IV PRN ×2 (16:08→18:12)
[2022-04-25] MEDS ORDERED: HYDROmorphone INJ 2 MG/ML SYR/VIAL IV PRN (16:08)
[2022-04-25] MEDS ORDERED: ATROPINE SULFATE 0.1 MG/ML 10ML SYR IV PRN (16:08)
[2022-04-25] MEDS ORDERED: fentaNYL citrate 100 MCG/2 ML VIAL IV PRN (16:08)
--- NOTE | 2022-04-25 16:08 | Anesthesiology Consultation ---
Date of Service April 25, 2022 Assessment & Plan ASA ASA3 Proposed Anesthesia Anesthesia Type: General Risk / Benefits Reviewed With: PT / POA / Parent / Guardian, Accepts Plan and Informed Consent Obtained History Surgery Operation Date: 04/25/22 07:50 Proposed Procedures p Ambar-Rectal Anal Abscess Incision and Drainage, Exam Under Anesthesia - Braulio Shaffer, Height/Weight Weight: 105.3 kg Allergies Allergy/AdvReac Type Severity Reaction Status Date / Time No Known Drug Allergies Allergy Verified 10/16/21 08:55 Medications Home Medications Medication Instructions Recorded Confirmed Last Taken blood-glucose meter #1 ea 11/19/19 02/06/22 Unknown blood-glucose meter (Blood Glucose #1 ea 11/19/19 02/06/22 Unknown Monitoring) lancets 30 gauge (OneTouch Delica #100 ea 05/28/20 02/06/22 Unknown Lancets) blood sugar diagnostic (OneTouch #300 ea 06/15/20 02/06/22 Unknown Verio test strips) insulin aspart U-100 100 unit/mL 20 unit (0.2 mL) subcut AC #15 mL 07/27/20 02/06/22 10/23/20 16:30 (3 mL) subcutaneous pen (Novolog Flexpen U-100 Insulin aspart) sildenafil 50 mg tablet 50 mg PO DAILY PRN sexual activity 08/02/20 02/06/22 Unknown #30 tabs acetaminophen 500 mg tablet 1,000 mg PO Q8 #30 tabs 10/28/20 02/06/22 Unknown docusate sodium 100 mg capsule 100 mg PO BID #60 caps 11/25/20 02/06/22 Unknown (Colace) aspirin 325 mg tablet,delayed 325 mg PO DAILY #30 tabs 03/17/21 02/06/22 Unknown release (Ecotrin) tobramycin 0.3 % eye drops 1 drp ophthalmic (eye) Q4H 7 days 03/17/21 02/06/22 Unknown #5 mL losartan 100 mg tablet 100 mg PO QAM #90 tabs 08/16/21 02/06/22 Unknown cholecalciferol (vitamin D3) 25 2,000 unit PO QAM 09/11/21 02/06/22 Unknown mcg (1,000 unit) tablet (Vitamin D3) atorvastatin 40 mg tablet 40 mg PO QPM #90 tabs 09/25/21 02/06/22 Unknown metoprolol succinate 100 mg 100 mg PO QAM #90 tabs 10/26/21 02/06/22 Unknown tablet,extended release 24 hr pen needle, diabetic 32 gauge x #200 ea 11/06/21 02/06/22 Unknown " tadalafil 5 mg tablet (Cialis) 5 mg PO DAILY sexual activity #30 11/24/21 02/06/22 Unknown tabs amlodipine 10 mg tablet 10 mg PO QAM #90 tabs 01/15/22 02/06/22 Unknown pantoprazole 40 mg tablet,delayed 40 mg PO DAILY #30 tabs 01/29/22 02/06/22 Unknown release furosemide 20 mg tablet 20 mg PO QAM #90 tabs 03/12/22 Unknown gabapentin 600 mg tablet See Rx Instructions .Route 03/13/22 Unknown .COMPLEX #60 caps insulin glargine 100 unit/mL (3 56 unit (0.56 mL) subcut BID 90 04/11/22 Unknown mL) subcutaneous pen (Lantus days #100.8 mL Solostar U-100 Insulin) spironolactone 25 mg tablet 25 mg PO QAM #90 tabs 04/20/22 Unknown NPO Date Last Intake of Fluids: 04/25/22 Time Last Intake of Fluids: 08:00 Date Last Intake of Solids: 04/24/22 Time Last Intake of Solids: 19:00 Past Medical History Medical History CHF (congestive heart failure) Questionable hx (per vascular notes), does not follow with cardiology, ECHO 05/2020 EF 50% Chronic kidney disease, stage 3a Diabetes mellitus with complication Diabetic neuropathy GERD (gastroesophageal reflux disease) Hip pain Hyperlipidemia Hypertension PAD (peripheral artery disease) s/p angioplasty to posterior tibial, and peroneal arteries 08/2020 Psoriasis Stroke incidental 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 with small remote infarcts of the right external capsule and malachi also noted on 08/30/20 Brain MRI Umbilical hernia current Vertigo occasional Vitamin D insufficiency Weakness of both lower extremities Exercise / Class Metabolic Activity II 4-5 Yardwork/Stairs/Walk up hill Past Family History Family History Father Cardiac disorder Hypertension Grandfather Cardiac disorder Myocardial infarction Grandmother Breast cancer Other No family history of adverse response to anesthesia Denies family history of Ovarian cancer Prostate cancer Colorectal cancer Past Surgical History Surgical History History of cardiac cath 25+ years ago > no stents History of tooth extraction Hx of vascular surgery (08/2020) Angioplasty to posterior tibial, and peroneal arteries (08/2020) 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) Past Anesthesia History No Hx of Anesthesia Complications and No Family Hx of Anesthesia Complications History of PONV No Hx of PONV and No Hx of Motion Sickness Social History Smoking Status: Never smoker tobacco type: smokeless tobacco Hx Alcohol Use: No Alcohol type: beer Hx Substance Use: No substance use type: does not use Review of Systems denies fever/cough/ colds/ chest pain/ SOB/ ZOHREH denies ZOHREH Physical Exam Vital Signs Last Vital Signs Temp 36.9 C 04/25/22 16:04 Pulse 85 04/25/22 16:04 Resp 22 04/25/22 16:04 BP 180/97 H 04/25/22 16:04 Pulse Ox 98 04/25/22 16:04 O2 Del Method 04/25/22 14:37 ENMT Mouth: no TMJ abnormality and no dentition abnormality Thyromental Distance: > or= 3.5 Finger Breadths Mallampati Class: II Neck + facial hair; neck extension not limited Respiratory normal respiratory effort; no respiratory distress Auscultation: lungs clear to auscultation bilaterally Cardiovascular Rate/Rhythm: regular rate and regular rhythm Neurologic moves all extremities Psychiatric Orientation: alert and oriented x 3 Testing Laboratory Results 04/25/22 11:40 04/25/22 11:40 04/25/22 04/25/22 16:03 14:58 POC Glucose 208 H 248 H
[2022-04-25] MEDS ORDERED: BUPIVACAINE/EPINEPHRINE 0.25% 1:200,000 30 ML VIAL ONE (16:15)
--- NOTE | 2022-04-25 16:48 | Post Operative Brief Note ---
PG Immediate Post Op with CF Date of Surgery April 25, 2022 Pre & Post Diagnosis Operation Date: 04/25/22 07:50 Pre-Op Diagnosis: (1) Perianal abscess Post-Op Diagnosis: (1) Perianal abscess I identified the patient and participated in the time-out.: Yes Procedure Operation Date: 04/25/22 07:50 Actual Procedures p Ambar-Rectal Abscess Incision and Drainage(Not Applicable) - Braulio Shaffer DO Surgeon Braulio Shaffer DO It Architecture Consultant Salinas Mei PA-C Estimated Blood Loss 5 Findings Consistent with Post-Op Diagnosis Specimens Specimen Description: culture 1. Abscess fluid Complications none Disposition Disposition: Recovery Room
--- NOTE | 2022-04-25 16:51 | Operative Report ---
PG Post Operative Report Pre & Post Diagnosis Operation Date: 04/25/22 07:50 Pre-Op Diagnosis: (1) Perianal abscess Post-Op Diagnosis: (1) Perianal abscess I identified the patient and participated in the time-out.: Yes Procedure Operation Date: 04/25/22 07:50 Actual Procedures p Sascha-Rectal Abscess Incision and Drainage(Not Applicable) - Braulio Shaffer DO Surgeon Braulio hSaffer DO Wildlife Biology Technician Salinas Mei PA-C Estimated Blood Loss 5 Findings Consistent with Post-Op Diagnosis Purulent drainage upon entrance in the cavity Specimens Abscess fluid for culture Drains None Anesthesia Type General Complications none Disposition Disposition: Recovery Room Indications 52-year-old male with perirectal abscess Description of Procedure The patient was brought to the OR and placed in the supine position. At this time he underwent General endotracheal anesthesia without issue. He was given appropriate pre-operative antibiotics. Patient was then placed in the prone jackknife position. The perineum was prepped and draped in the usual sterile fashion. A timeout was called. The procedure was verified as Incision and drainage of sascha-rectal abscess. Surgical, anesthesia and nursing teams agreed and the procedure was begun. Digital rectal exam was performed and no mass or fistula was found. After injection of 0.25% Marcaine with epinephrine, an incision was made directly over the most fluctuant area of abscess using a #15 blade scalpel. Purulent fluid was encountered. Culture was taken. Wide drainage was ensured. All loculations were broken up bluntly. At this time the incision was irrigated until clear. Hemostasis was achieved using electrocautery. Hemostasis was complete. The incision was packed with a 1 inch plain packing. Sterile dressing was applied. The patient was awakened from anesthesia and taking to PACU having remained stable throughout the entire case. All needle and sponge counts correct x 2. Physician diversional therapist's assistant was present scrubbed for the entire case. He was essential in positioning, prepping and draping the patient, retraction and exposure, plac ement of dressing. I attest to the content of the Intraoperative Record and any orders documented therein. Any exceptions are noted below.
--- NOTE | 2022-04-25 17:17 | Anesthesiology Progress Note ---
Date of Service April 25, 2022 Anesthesia Post Procedure Vital Signs Vital Signs: Temp Pulse Pulse Pulse Pulse Resp BP 04/25/22 17:10 83 13 04/25/22 17:00 81 15 04/25/22 16:53 36.5 C 78 19 04/25/22 16:00 77 18 04/25/22 16:04 36.9 C 85 22 04/25/22 14:37 85 20 04/25/22 12:51 83 20 04/25/22 11:32 36.4 C L 92 H 18 129/86 BP BP Pulse Ox O2 Del Method 04/25/22 17:10 143/86 H 96 Room Air 04/25/22 17:00 139/86 100 Oxymask 04/25/22 16:53 120/77 100 Oxymask 04/25/22 16:00 96 04/25/22 16:04 180/97 H 98 04/25/22 14:37 121/83 98 Room Air 04/25/22 12:51 137/82 97 Room Air 04/25/22 11:32 97 Room Air Transfer of Care Handoff Completed per policy Notes Mental Status: alert / awake / arousable and participated in evaluation Patient Amnestic to Procedure: Yes Nausea / Vomiting: adequately controlled Pain: adequately controlled Airway Patency, RR, SpO2: stable & adequate BP & HR: stable & adequate Hydration State: stable & adequate Anesthetic Complications: no major complications apparent and Pt Satisfied with anesthetic care
--- NOTE | 2022-04-25 17:37 | Electrocardiogram Report ---
Test Reason : Blood Pressure : / mmHG Vent. Rate : 085 BPM Atrial Rate : 085 BPM P-R Int : 160 ms QRS Dur : 108 ms QT Int : 394 ms P-R-T Axes : 073 -51 032 degrees QTc Int : 468 ms Poor data quality, interpretation may be adversely affected Sinus rhythm with Premature ventricular complexes Left anterior fascicular block Abnormal ECG Confirmed by Regino Hoff ([id number]) on 04/25/2022 5:37:13 PM Referred By: REFERRED SELF Confirmed By:Willis Hoff
[2022-04-25] MEDS ORDERED: PHARMACY GLYCEMIC MGMT CONSULT PRN (18:12)
[2022-04-25] MEDS ORDERED: GABAPENTIN 600 MG TAB PO SCH (18:12)
[2022-04-25] MEDS ORDERED: DEXTROSE 50% 50 ML SYRINGE IV PRN (18:12)
[2022-04-25] MEDS ORDERED: MoRPHine SULFATE 4 MG/ML 1 ML CARP\\VIAL IV PRN (18:12)
[2022-04-25] MEDS ORDERED: AMPICILLIN/SULBACTAM SOD 3,000 MG in 0.9 % SODIUM CHLORIDE 100 ML IV SCH (18:12)
[2022-04-25] MEDS ORDERED: CARBOHYDRATES FOR HYPOGLYCEMIA PO PRN (18:12)
[2022-04-25] MEDS ORDERED: GLUCAGON FOR INJ 1 MG VIAL SQ PRN (18:12)
[2022-04-25] MEDS ORDERED: MoRPHine SULFATE 2 MG/ML CARP IV PRN (18:12)
[2022-04-25] MEDS ORDERED: GLUCOSE 10 TAB/TUBE PO PRN (18:12)
[2022-04-25] MEDS ORDERED: GLUCOSE 40% GEL 15 GM TUBE PO PRN (18:12)
[2022-04-25] MEDS ORDERED: SODIUM CHLORIDE 0.9% 1000ML 1,000 ML IV SCH (18:12)
[2022-04-25] MEDS ORDERED: oxyCODONE/ACETAMINOPHEN 5mg/325mg TAB PO PRN ×2 (18:12)
[2022-04-25] MEDS ORDERED: INSULIN ASPART PER UNIT SC SCH (21:00)
[2022-04-26] MEDS ORDERED: PANTOprazole 40 MG TAB PO SCH (09:00)
[2022-04-26] MEDS ORDERED: METOPROLOL SUCC 50MG EXT REL TAB PO SCH (09:00)
[2022-04-26] MEDS ORDERED: LOSARTAN POTASSIUM 50 MG TAB PO SCH (09:00)
[2022-04-26] MEDS ORDERED: amLODIPine BESYLATE 5 MG TAB PO SCH (09:00)
--- NOTE | 2022-04-27 08:05 | Discharge Summary ---
Date of Service April 27, 2022 Admission HPI Per Admitting Provider 52 y/o diabetic male with several days increasing right perianal pain and swelling. Had some drainage at first but stopped within a day. No fevers or chills. Has had multiple other similar abscess drained in the past. Principal Diagnosis Perianal abscess Discharge Exam Gastrointestinal (Abdomen) wound packing placed Discharge Data Allergies Allergy/AdvReac Type Severity Reaction Status Date / Time No Known Drug Allergies Allergy Verified 10/16/21 08:55 Procedures Performed Operation Date: 04/25/22 07:50 Actual Procedures p Ambar-Rectal Anal Abscess Incision and Drainage(Not Applicable) - Braulio Shaffer DO Ordered Studies 04/25/22 12:34 CT abd pelvis wo con Stat Hospital Course (1) Perianal abscess: 52 y/o male diabetic presented to the ER with perianal pain. CT showed 5 cm abscess of gluteal crease with question of fistula. He was taken to the operating room for EUA, I&D and transferred to the surgical floor for overnight observation to continue IV antibiotics and packing change in the morning. He did not wish to stay the night and signed himself out AMA later that evening. Total Time Total Time Spent Total Time Spent (In Minutes): 10 Discharge Plan Discharge Items Patient Disposition: Against Medical Advice Reason For Visit: CYST ON REAR Follow-up/Referrals: Keeley Marquez DO [Primary Care Provider] - Stand-Alone Forms: [facility], Smoking Cessation Medications and DC Order Prescriptions: No Action (DME) blood sugar diagnostic [OneTouch Verio test strips] Strip See Rx Instructions .ROUTE .MEDSUPPLY Qty: 300 3RF Rx Instructions: TEST 5 TIMES A DAY; DX CODE- E11.9 insulin aspart U-100 [Novolog Flexpen U-100 Insulin] 100 unit/mL (3 mL) insulin pen 20 unit subcut AC Qty: 15 3RF docusate sodium [Colace] 100 mg capsule 100 mg PO BID Qty: 60 5RF losartan 100 mg tablet 100 mg PO QAM Qty: 90 1RF cholecalciferol (vitamin D3) [Vitamin D3] 25 mcg (1,000 unit) tablet 2,000 unit PO QAM atorvastatin 40 mg tablet 40 mg PO QPM Qty: 90 2RF metoprolol succinate 100 mg tablet extended release 24 hr 100 mg PO QAM Qty: 90 1RF (DME) pen needle, diabetic 32 gauge x 5/32" needle See Dose Instructions .ROUTE .MEDSUPPLY Qty: 200 1RF Dose Instruction: As directed Rx Instructions: RELI-ON pen needles - Injecting twice daily tadalafil [Cialis] 5 mg tablet 5 mg PO DAILY Qty: 30 5RF amlodipine 10 mg tablet 10 mg PO QAM Qty: 90 2RF pantoprazole 40 mg tablet,delayed release (DR/EC) 40 mg PO DAILY Qty: 30 5RF furosemide 20 mg tablet 20 mg PO QAM Qty: 90 1RF gabapentin 600 mg tablet See Rx Instructions .ROUTE .COMPLEX Qty: 60 5RF Dose Instruction: TAKE 1 TABLET BY MOUTH TWICE DAILY (MORNING AND NOON) Rx Instructions: TAKE 1 TABLET BY MOUTH TWICE DAILY (MORNING AND NOON) insulin glargine [Lantus Solostar U-100 Insulin] 100 unit/mL (3 mL) insulin pen 56 unit subcut BID 90 Days Qty: 100.8 1RF spironolactone 25 mg tablet 25 mg PO QAM Qty: 90 1RF tobramycin 0.3 % drops 1 drp ophthalmic (eye) Q4H 7 Days Qty: 5 0RF aspirin [Ecotrin] 325 mg tablet,delayed release (DR/EC) 325 mg PO DAILY Qty: 30 0RF (DME) blood-glucose meter [Blood Glucose Monitoring] Kit See Rx Instructions .ROUTE .MEDSUPPLY Qty: 1 0RF Rx Instructions: As directed (DME) blood-glucose meter Kit See Dose Instructions .ROUTE .MEDSUPPLY Qty: 1 0RF Rx Instructions: As directed sildenafil 50 mg tablet 50 mg PO DAILY PRN (Reason: sexual activity) Qty: 30 0RF Rx Instructions: administer 30 minutes to 4 hours before activity acetaminophen 500 mg Tablet 1,000 mg PO Q8 Qty: 30 0RF (DME) lancets [OneTouch Delica Lancets] 30 gauge misc See Rx Instructions .ROUTE .MEDSUPPLY Qty: 100 0RF Rx Instructions: As directed Admission Data Admit Date/Time: 04/25/22 16:56 Attending Provider: Braulio Shaffer Admit Provider: Braluio Shaffer Primary Care Provider: Keeley Marquez Other Interventions: Discharge Summary Assessment (RN) Last Done: 04/25/22 18:42 Coding Level of Care Code D/C DAY MANAGEMENT <30 MINS Diagnoses Perianal abscess K61.0
== END 2022-04-25 19:30 | disposition left against medical advice (07) ==
LOC: ED 11:02 → OR 16:00 → 3N 16:00

== ENCOUNTER 2023-08-14 22:55 | Inpatient (IN) ==
[2023-08-14 23:50] LABS: Basophils # (auto) 0.07 K/uL (0.00-0.20); Basophils % (auto) 0.6 %; Eosinophils # (auto) 0.26 K/uL (0.00-0.50); Eosinophils % (auto) 2.2 %; Hematocrit (blood only) 40.5 % (42.0-52.0); Hemoglobin 13.5 g/dl (14.0-18.0); Immature Granulocytes # (auto) 0.05 K/uL (0.01-0.20); Immature Granulocytes % (auto) 0.4 %; Lymphocytes # (auto) 1.52 K/uL (1.20-3.40); Lymphocytes % (auto) 13.1 %; Mean Corpuscular Hemoglobin 28.9 pg (25.0-34.0); Mean Corpuscular Hgb Conc 33.3 g/dL (32.0-36.0); Mean Corpuscular Volume 86.7 fL (80.0-100.0); Mean Platelet Volume 9.2 fL (9.4-12.4); Monocytes # (auto) 0.79 K/uL (0.11-0.59); Monocytes % (auto) 6.8 %; Neutrophils # (auto) 8.92 K/uL (1.40-6.50); Neutrophils % (auto) 76.9 %; Platelet Count 283 K/uL (130-400); RDW Coefficient of Variation 14.4 % (11.5-14.5); RDW Standard Deviation 44.7 fL (36.4-46.3); Red Blood Count 4.67 M/uL (4.70-6.10); White Blood Count 11.61 K/ul (4.8-10.8)
--- NOTE | 2023-08-14 23:50 | Emergency Department Note ---
Impression & Plan Dyspnea ED Provider Note ED Provider Note NAME: KATARINA SANABRIA AGE:53 SEX: Male : 1970 ARRIVES VIA: private vehicle INFORMANT: Patient ED PROVIDER(s): Brandy Iraheta DO CHIEF COMPLAINT: shortness of breath HPI: This is a 53-year-old male presents emergency department due to increased shortness of breath. Patient states he first began having increased symptoms on Saturday, and was trying to wait until after the to be seen by his family doctor. He states symptoms are similar to when he was here about a month ago with increased fluid. Patient states he has a history of kidney problems and prior history of CHF. He states he does take Lasix daily and has not missed or skipped any doses. He states he has not had much to eat or drink this week as he was concerned it would contribute to worsening fluid retention. He states he does drink a 16 ounce Mountain Dew daily. Patient states he also has diabetes. Patient denies any recent use of alcohol since his last admission. PAST MEDICAL HISTORY:See Below PAST SURGICAL HISTORY:See Below FAMILY HISTORY:See Below SOCIAL HISTORY:See Below HOME MEDICATIONS:See Below ALLERGIES:See Below VITALS:See Below PHYSICAL EXAMINATION: GENERAL: alert, well appearing, well nourished, no distress, non-toxic EYE EXAM: normal conjunctiva, PERRL and EOM's grossly intact OROPHARYNX: no exudate, no erythema, lips, buccal mucosa, and tongue normal and mucous membranes are moist NECK: supple, no nuchal rigidity, no adenopathy, non-tender LUNGS: Clear to auscultation. Normal chest wall mechanics, no w/r/r HEART: no murmurs, S1 normal and S2 normal ABDOMEN: abdomen soft, non-tender, normo-active bowel sounds, no masses, no rebound or guarding. No pitting edema noted to the abdominal wall. BACK: Back is symmetrical on inspection and there is no deformity, no midline tenderness, no CVA tenderness. SKIN: no rashes, petechiae, orbruising UPPER EXTREMITIES: upper extremities are grossly normal. FROM, nml pulses b/l. LOWER EXTREMITIES: 1+ b/l pitting edema. FROM, nml pulses b/l. Partial amputation left foot, well healed. NEURO EXAM: Normal sensorium, cranial nerves II-XII grossly intact, normal speech, no facial droop,nogross weakness of arms, no gross weakness of legs. Gross sensation intact. No ataxia. Vital Signs: reviewed and remarkable Differential Diagnosis: pneumonia, bronchitis, COPD/Asthma exacerbation, pneumothorax, pulmonary embolism, congestive heart failure, acute coronary syndrome, as well as others were considered MEDICAL DECISION MAKING: This is a 53-year-old male presents emergency department due to increased difficulty breathing over the last 4 days. Patient with prior similar episode requiring admission a month ago. Patient was afebrile and vital signs stable. No hypoxia noted though he did have mild conversational dyspnea. Labs drawn and sent, IV established, EKG and chest x-ray performed at bedside and interpreted by me and patient monitored on telemetry. Patient was given 40 mg of Lasix IV after review of his labs. He was noted to have MAYELIN with a new creatinine of 2.6. Per nephrology notes previously his baseline creatinine was around 2.0. Patient also noted to have significant troponin elevation. Unclear if this is secondary to demand, MAYELIN with CKD, or both. I do not suspect occult infectious etiology or PE. Case discussed with hospitalist team for additional evaluation and management. Consultation(s): 0030: Case discussed with Dr. Hu, [facility] hospitalist team, for additional evaluation and management. ER Treatment Provided: See below Diagnostics Interpreted By Me: -ECG: Sinus tachycardia at 107, left axis, QRS 120, QTc 461, nonspecific ST/T wave change -Cardiac Monitoring: An order was placed for continuous cardiac monitoring. The monitor shows a rate of 98 with normal sinus rhythm. -Laboratory studies: As stated above and show below. -Imaging studies: Chest x-ray: Increased interstitial markings bilaterally, bilateral pleural effusions, no wide mediastinum, no cardiomegaly Triage Nursing Note Reviewed Prior/Outside Records Reviewed -prior discharge summary from June 2023 reviewed Past Med/Surg History Medical History Fatty liver Diabetic nephropathy with proteinuria Proteinuria Lumbar stenosis with neurogenic claudication Sleep apnea GERD (gastroesophageal reflux disease) Weakness of both lower extremities "can only walk so far, then I have to sit down, I don't think it's really weakness" Hip pain Diabetes mellitus with complication PAD (peripheral artery disease) s/p angioplasty to posterior tibial, and peroneal arteries 08/2020 Stroke incidental 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 with small remote infarcts of the right external capsule and malachi also noted on 08/30/20 Brain MRI CHF (congestive heart failure) Questionable hx (per vascular notes), does not follow with cardiology, ECHO 05/2020 EF 50% Hyperlipidemia Diabetic neuropathy Chronic kidney disease, stage 3a Vertigo hx, occasional-"that's when my sugar was bad" Hypertension Blurry vision Gluteal abscess History of alcohol abuse DVT prophylaxis Alcohol abuse Umbilical hernia current Psoriasis Surgical History History of incision and drainage (04/25/22) Ambar-Rectal Abscess Incision and Drainage(Not Applicable) - Braulio Shaffer DO 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) History of tooth extraction Hx of vascular surgery (08/2020) Angioplasty to posterior tibial, and peroneal arteries (08/2020) History of cardiac cath 25+ years ago > no stents Family History Father Cardiac disorder Hypertension Dementia Multiple sclerosis Grandfather Cardiac disorder Myocardial infarction Grandmother Breast cancer Other No family history of adverse response to anesthesia Denies family history of Ovarian cancer Prostate cancer Colorectal cancer Social History Smoking Status: Never smoker Tobacco Type: Smokeless Tobacco (Dip or Chew) Cigarettes Per Day: less than 1 can per day; Second Hand Exposure: No; Do You Dip or Chew Tobacco: Yes; Hx Alcohol Use: Yes (doesnt drink anymore) Alcohol type: beer Alcohol Intake Frequency Comment: [id number] Hx Substance Use: No Preferred Language: Colombian Communication Ability: Effective Visual Impairment: No Limitations Hearing Ability: Normal Band Attacher Required: No Beliefs That Will Affect Care: None marital status: Current Living Situation: Alone Current Living Situation Comment: father-takes care of father as he is disabled current occupational status: unemployed Feels Safe at Home: Yes Safety Concerns: Feels Safe At This Time Childhood Exposure to Second-Hand Smoke: Yes Diet: regular caffeine: Yes (mt dew) during the past year weight has: increased > 10 lbs Dental Care, Regularly: No Physical Activity Frequency: Does not Exercise Seatbelt Use: always Sunscreen Use: No Assistive Devices: None Allergies Allergies Allergy/AdvReac Type Severity Reaction Status Date / Time No Known Allergies Allergy Verified 08/15/23 00:34 Home Meds Home Medications Medication Instructions Recorded Confirmed aspirin 325 mg tablet,delayed 325 mg PO QAM 06/04/22 08/15/23 release (Ecotrin) sildenafil 50 mg tablet 50 mg PO UD PRN sexual activity 06/04/22 08/15/23 cholecalciferol (vitamin D3) 25 4,000 unit PO QAM 05/08/23 08/15/23 mcg (1,000 unit) tablet (Vitamin D3) Previous Rx's Medication Instructions Recorded blood-glucose meter (Blood Glucose #1 ea 11/19/19 Monitoring kit) atorvastatin 40 mg tablet 40 mg PO HS #90 tabs 07/23/22 blood sugar diagnostic (Mark OneTouch #300 ea 10/16/22 Ultra Test strips) blood-glucose meter (OneTouch #1 ea 10/16/22 Ultra2 Meter) lancets 30 gauge (OneTouch Delica #100 ea 10/16/22 Lancets) spironolactone 25 mg tablet 25 mg PO QAM #90 tabs 12/11/22 pen needle, diabetic 32 gauge x #200 ea 12/20/22" metoprolol succinate 100 mg 100 mg PO QAM #90 tabs 12/26/22 tablet,extended release 24 hr trazodone 50 mg tablet 50 mg PO DAILY #30 tabs 02/05/23 gabapentin 600 mg tablet 600 mg PO QAM #60 tabs 04/19/23 pantoprazole 40 mg tablet,delayed 40 mg PO QAM #90 tabs 05/09/23 release furosemide 20 mg tablet 20 mg PO QAM #90 tabs 07/15/23 insulin glargine 100 unit/mL (3 60 unit (0.6 mL) subcut BID 90 07/15/23 mL) subcutaneous pen ( #108 mL Solostar U-100 Insulin) semaglutide 3 mg tablet (Rybelsus) 3 mg PO DAILY 30 days #30 tabs 07/23/23 amlodipine 10 mg tablet 10 mg PO PM #90 tabs 07/25/23 Results & Data (ED) Vital Signs Vital Signs - 24 hr 08/14/23 22:59 08/14/23 23:05 08/14/23 23:08 Temperature 36.5 C Temperature Source Temporal Artery Scan Pulse Rate 105 H Pulse Rate [Finger] Pulse Rhythm [Finger] Pulse Strength [Finger] Respiratory Rate 18 Respiratory Effort / Characteristics Non-Labored Spontaneous Non-Labored Spontaneous SOB on Exertion Respiratory Depth Normal Respiratory Pattern Regular Blood Pressure 129/81 Blood Pressure [Right Arm] Blood Pressure Mean 97 Blood Pressure Mean [Right Arm] Blood Pressure Position Sitting Blood Pressure Position [Right Arm] Pulse Oximetry 90 88 L Oxygen Delivery Method Room Air Room Air Nasal Cannula Oxygen Flow Rate Sepsis Recent Fever Within 48 Hours No Sepsis New/Unexplained Change in Mental Status N/A Sepsis Action Taken by Nursing No Action Required Oxygen Flow Rate - Titration 2 Pulse Oximetry Post Tiitration 93 08/14/23 23:08 08/14/23 23:08 08/15/23 01:00 Temperature Temperature Source Pulse Rate Pulse Rate [Finger] 106 H 82 Pulse Rhythm [Finger] Regular Pulse Strength [Finger] Normal Respiratory Rate 20 18 Respiratory Effort / Characteristics Non-Labored Spontaneous Non-Labored Spontaneous Respiratory Depth Normal Normal Respiratory Pattern Regular Blood Pressure Blood Pressure [Right Arm] 118/90 125/93 Blood Pressure Mean Blood Pressure Mean [Right Arm] 99 103 Blood Pressure Position Blood Pressure Position [Right Arm] Lying Lying Pulse Oximetry 92 93 97 Oxygen Delivery Method Nasal Cannula Nasal Cannula Room Air Oxygen Flow Rate 2 2 Sepsis Recent Fever Within 48 Hours Sepsis New/Unexplained Change in Mental Status Sepsis Action Taken by Nursing Oxygen Flow Rate - Titration Pulse Oximetry Post Tiitration Laboratory Data 08/14/23 23:32 08/14/23 23:32 Lab Results 08/14/23 Range/Units 23:32 WBC 11.61 H (4.8-10.8) K/ul RBC 4.67 L (4.70-6.10) M/uL Hgb 13.5 L (14.0-18.0) g/dl Hct 40.5 L (42.0-52.0) % MCV 86.7 (80.0-100.0) fL MCH 28.9 (25.0-34.0) pg MCHC 33.3 (32.0-36.0) g/dL RDW Std Deviation 44.7 (36.4-46.3) fL RDW Coeff of Jonah 14.4 (11.5-14.5) % Plt Count 283 (130-400) K/uL MPV 9.2 L (9.4-12.4) fL Immature Gran % (Auto) 0.4 % Neut % (Auto) 76.9 % Lymph % (Auto) 13.1 % [place] % (Auto) 6.8 % Eos % (Auto) 2.2 % Baso % (Auto) 0.6 % Neut # (Auto) 8.92 H (1.40-6.50) K/uL Lymph # (Auto) 1.52 (1.20-3.40) K/uL [place] # (Auto) 0.79 H (0.11-0.59) K/uL Eos # (Auto) 0.26 (0.00-0.50) K/uL Baso # (Auto) 0.07 (0.00-0.20) K/uL Immature Gran # (Auto) 0.05 (0.01-0.20) K/uL PT Cancelled INR Cancelled APTT Cancelled PTT Ratio Cancelled Sodium 134 L (136-145) mmol/L Potassium 4.5 (3.5-5.1) mmol/L Chloride 102 (98-107) mmol/L Carbon Dioxide 23 (21-32) mmol/L Anion Gap 9 (3-11) BUN 40 H (6-23) mg/dl Creatinine 2.66 H (0.6-1.4) mg/dl Est Cr Clr Drug Dosing Not Reportable Est GFR ( Amer) 30.2 ml/min Est GFR (Non-Af Amer) 26.0 ml/min BUN/Creatinine Ratio 15.0 (10-20) Glucose 156 H (70-99(Fasting)) mg/dl Calcium 9.2 (8.6-10.3) mg/dl Total Bilirubin 1.5 H (0.2-1.0) mg/dl AST 28 (13-39) U/L ALT 41 (7-52) U/L Alkaline Phosphatase 112 H (34-104) U/L Troponin I High Sens 2245.5 H* (0-20) pg/ml B-Natriuretic Peptide 628 H (0-100) pg/ml Total Protein 8.9 H (6.0-8.3) gm/dl Albumin 3.4 (3.4-5.0) gm/dl Globulin 5.5 H (2.5-4.0) gm/dl Albumin/Globulin Ratio 0.6 L (0.9-2) Administered Medications Discontinued Medications Furosemide (Furosemide 40 Mg/4 Ml Vial) 40 mg IV ONE ONE Stop: 08/15/23 00:08 Last Admin: 08/15/23 00:33 Dose: 40 mg Documented By: ANDREW Cefepime HCl (Maxipime) 20 mls @ 5 mls/min IV NOW STA; Protocol Stop: 08/15/23 01:15 Last Admin: 08/15/23 02:11 Dose: 5 mls/min Documented By: ANDREW Discharge Plan Visit Data Chief Complaint: Shortness of Breath/Dyspnea Stated Complaint: SOB ED Provider: Brandy Iraheta Discharge Problem: Dyspnea Patient Disposition: Admitted As Inpatient Discharge Instructions Interventions: ED Discharge Assessment Last Done: 08/15/23 02:42
[2023-08-15 00:06] LABS: Alanine Aminotransferase 41 U/L (7-52); Albumin Globulin Ratio 0.6 (0.9-2); Albumin Level 3.4 gm/dl (3.4-5.0); Alkaline Phosphatase 112 U/L (34-104); Anion Gap 9 (3-11); Aspartate Aminotransferase 28 U/L (13-39); Bilirubin,Total 1.5 mg/dl (0.2-1.0); Blood Urea Nitrogen 40 mg/dl (6-23); Calcium 9.2 mg/dl (8.6-10.3); Carbon Dioxide 23 mmol/L (21-32); Chloride 102 mmol/L (98-107); Est GFR (African American) 30.2 ml/min; Globulin 5.5 gm/dl (2.5-4.0); Glucose 156 mg/dl (70-99(Fasting)); Potassium 4.5 mmol/L (3.5-5.1); Sodium 134 mmol/L (136-145); Total Protein 8.9 gm/dl (6.0-8.3)
[2023-08-15] MEDS ORDERED: FUROSEMIDE 40 MG/4 ML VIAL IV ONE (00:07)
[2023-08-15 00:24] LABS: Troponin I High Sensitivity 2245.5 pg/ml (0-20)
[2023-08-15] MEDS ORDERED: CEFEPIME 20 ML IV STA (01:12)
--- NOTE | 2023-08-15 01:13 | History & Physical Report ---
Date of Service August 15, 2023 Assessment & Plan (1) CHF (congestive heart failure): (2) Fatty liver: (3) Diabetic nephropathy with proteinuria: (4) Liver cirrhosis: (5) Acute on chronic renal failure: (6) Alcoholism: (7) Smokeless tobacco use: (8) Depression: (9) PAD (peripheral artery disease): (10) Diabetic neuropathy: (11) Chronic kidney disease, stage 3a: (12) Hypertension: (13) NSTEMI (non-ST elevated myocardial infarction): Plan Recurrent CHF/NSTEMI/hypertension- The patient will be admitted to telemetry for serial cardiac enzymes, serial EKG's, cardiac rhythm monitoring and a 2-D echocardiogram with Dopplers. Troponin 2245.5, with follow-up 2583.9. The highest at last admission was a 843.9 on 07/15/2023 Furosemide 40 mg IV x 1 now, and then every morning Continue spironolactone 25 mg every morning Decrease amlodipine from 10 to 5 mg every afternoon to try to help reduce lower extremity edema Continue metoprolol succinate 100 mg every morning Add Nitropaste 1 inch to anterior chest wall every 6 hours Continue aspirin 325 mg every morning Consult cardiology Dr. Ayo Olguin pneumonia- Cefepime 2 g IV every 12 hours Guaifenesin 1200 mg p.o. every 12 hours DuoNebs every 2 hours as needed Acute kidney injury on CKD stage III A- Creatinine 2.66, with base 1.94 Follow laboratory serially Diabetes mellitus- Decrease glargine from 60 units subcu twice daily to 45 units subcu twice daily due to recent decreased oral intake Place on Accu-Cheks with NovoLog SSI Hold semaglutide History of Present Illness Chief Complaint: The patient presents to the emergency department due to worsening shortness of breath over the past 4 days, worse today than he had that got him admitted to [facility] from 07/14-07/17/2023 Primary Care Provider: Keeley Marquez DO The patient is a 53-year-old male with significant alcohol use, who quit 2 weeks ago without withdrawal, due to family requests and concerns regarding his recent admission for fluid overload from 07/14-07/17/2023. Past medical history including liver cirrhosis, CKD stage III A, depression, diabetic foot ulcers, PAD, GERD, hyperlipidemia, hypertension and obesity. He presents as noted above, reporting that he is more concerned this time than last time, as he feels that alcohol use resulted in his first admission, but he has been off alcohol for 2 weeks, and his symptoms have worsened. He also reports that he is coughing up thick clear mucus, which is new for him as well. He reports that he has to sit up straight in a chair, and cannot be tilted back even a little bit, or he cannot breathe. Patient had refused a workup during last admission, including cardiology consult, as he felt his issues were all related to alcohol. He is agreeable to a workup now, and family in attendance reports that they will help to reaffirm with patient the need for an evaluation Allergies Allergy/AdvReac Type Severity Reaction Status Date / Time No Known Allergies Allergy Verified 08/15/23 00:34 Home Medications Medication Instructions Recorded Confirmed Type blood-glucose meter (Blood Glucose #1 ea 11/19/19 07/25/23 Rx Monitoring kit) aspirin 325 mg tablet,delayed 325 mg PO QAM 06/04/22 08/15/23 History release (Ecotrin) sildenafil 50 mg tablet 50 mg PO UD PRN sexual activity 06/04/22 08/15/23 History atorvastatin 40 mg tablet 40 mg PO HS #90 tabs 07/23/22 08/15/23 Rx blood sugar diagnostic (OneTouch #300 ea 10/16/22 07/25/23 Rx Ultra Test strips) blood-glucose meter (OneTouch #1 ea 10/16/22 07/25/23 Rx Ultra2 Meter) lancets 30 gauge (OneTouch Delica #100 ea 10/16/22 07/25/23 Rx Lancets) spironolactone 25 mg tablet 25 mg PO QAM #90 tabs 12/11/22 08/15/23 Rx pen needle, diabetic 32 gauge x #200 ea 12/20/22 07/25/23 Rx 5/32" metoprolol succinate 100 mg 100 mg PO QAM #90 tabs 12/26/22 08/15/23 Rx tablet,extended release 24 hr trazodone 50 mg tablet 50 mg PO DAILY #30 tabs 02/05/23 08/15/23 Rx gabapentin 600 mg tablet 600 mg PO QAM #60 tabs 04/19/23 08/15/23 Rx cholecalciferol (vitamin D3) 25 4,000 unit PO QAM 05/08/23 08/15/23 History mcg (1,000 unit) tablet (Vitamin D3) pantoprazole 40 mg tablet,delayed 40 mg PO QAM #90 tabs 05/09/23 08/15/23 Rx release furosemide 20 mg tablet 20 mg PO QAM #90 tabs 07/15/23 08/15/23 Rx insulin glargine 100 unit/mL (3 60 unit (0.6 mL) subcut BID 90 07/15/23 08/15/23 Rx mL) subcutaneous pen (Lantus days #108 mL Solostar U-100 Insulin) semaglutide 3 mg tablet (Rybelsus) 3 mg PO DAILY 30 days #30 tabs 07/23/23 08/15/23 Rx amlodipine 10 mg tablet 10 mg PO PM #90 tabs 07/25/23 08/15/23 Rx Past Med/Surg History Medical History (Updated 08/15/23 @ 05:03 by Wade Hu MD) Fatty liver Diabetic nephropathy with proteinuria Proteinuria Lumbar stenosis with neurogenic claudication Sleep apnea GERD (gastroesophageal reflux disease) Weakness of both lower extremities "can only walk so far, then I have to sit down, I don't think it's really weakness" Hip pain Diabetes mellitus with complication PAD (peripheral artery disease) s/p angioplasty to posterior tibial, and peroneal arteries 08/2020 Stroke incidental 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 with small remote infarcts of the right external capsule and malachi also noted on 08/30/20 Brain MRI CHF (congestive heart failure) Questionable hx (per vascular notes), does not follow with cardiology, ECHO 05/2020 EF 50% Hyperlipidemia Diabetic neuropathy Chronic kidney disease, stage 3a Vertigo hx, occasional-"that's when my sugar was bad" Hypertension Blurry vision Gluteal abscess History of alcohol abuse DVT prophylaxis Alcohol abuse Umbilical hernia current Psoriasis Surgical History History of incision and drainage (04/25/22) Ambar-Rectal Abscess Incision and Drainage(Not Applicable) - Braulio Shaffer DO 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) History of tooth extraction Hx of vascular surgery (08/2020) Angioplasty to posterior tibial, and peroneal arteries (08/2020) History of cardiac cath 25+ years ago > no stents Family History Father Cardiac disorder Hypertension Dementia Multiple sclerosis Grandfather Cardiac disorder Myocardial infarction Grandmother Breast cancer Other No family history of adverse response to anesthesia Denies family history of Ovarian cancer Prostate cancer Colorectal cancer Social History Smoking Status: Never smoker Tobacco Type: Smokeless Tobacco (Dip or Chew) Cigarettes Per Day: less than 1 can per day; Second Hand Exposure: No; Do You Dip or Chew Tobacco: Yes; Hx Alcohol Use: Yes (doesnt drink anymore) Alcohol type: beer Alcohol Intake Frequency Comment: 6BEERS Hx Substance Use: No Preferred Language: [place] Communication Ability: Effective Visual Impairment: No Limitations Hearing Ability: Normal Inventory Technician Required: No Beliefs That Will Affect Care: None marital status: Current Living Situation: Alone Current Living Situation Comment: father-takes care of father as he is disabled current occupational status: unemployed Feels Safe at Home: Yes Safety Concerns: Feels Safe At This Time Childhood Exposure to Second-Hand Smoke: Yes Diet: regular caffeine: Yes (mt dew) during the past year weight has: increased > 10 lbs Dental Care, Regularly: No Physical Activity Frequency: Does not Exercise Seatbelt Use: always Sunscreen Use: No Assistive Devices: None Review of Systems Review of Systems: The patient denies chest pain, palpitations, sore throat, fevers, chills, sweats, nausea, vomiting, diarrhea , constipation, abdominal pain, pelvic pain, blood in urine or stool, dysuria, urinary frequency or urgency, lightheadedness, dizziness, headache, memory loss, loss of consciousness, rash, abnormal bruising or bleeding, imbalance, focal weakness, numbness or tingling in arms or legs, generalized a rthralgias or myalgias, back or neck pain, or night sweats. The review of systems is otherwise negative other than for that already noted above, and at least 10 systems have been reviewed. Physical Exam Physical Exam: The patient is awake, alert and oriented 3, well developed and well nourished, normocephalic and atraumatic, lying in bed and in no acute distress. HEENT--PERRL, EOMI, mucous membranes and oropharynx normal Neck--supple. No JVD. No bruits. Thyroid normal, trachea midline, no adeno alfie. Heart--normal S1 and S2. No murmurs, rubs or gallops. Lungs--rhonchi and crackles throughout. No respiratory distress, no accessory muscle use at rest Abdomen--normal bowel sounds and soft. Nontender. Nondistended, no hernias or masses, no organomegaly. Extremities--1+ bilateral pretibial pitting edema Dermatologic--normal skin turgor, normal color, no abnormal lymph nodes, no rash. Neurologic--cranial nerves II through XII grossly intact. Rheumatologic--limited exam due to dyspnea when moving Psychiatric--normal affect. Results & Data Results & Data Vital Signs (Past 12 Hours) Vital Signs Temp Pulse Pulse Resp BP BP Pulse Ox 08/14/23 23:08 93 08/14/23 23:08 106 H 20 118/90 92 08/14/23 23:08 88 L 08/14/23 22:59 36.5 C 105 H 18 129/81 90 O2 Del Method O2 Flow Rate 08/14/23 23:08 Nasal Cannula 2 08/14/23 23:08 Nasal Cannula 2 08/14/23 23:08 Room Air, Nasal Cannula 08/14/23 22:59 Room Air Laboratory Results Laboratory Results WBC 11.61 K/ul (4.8-10.8) H 08/14/23 23:32 RBC 4.67 M/uL (4.70-6.10) L 08/14/23 23:32 Hgb 13.5 g/dl (14.0-18.0) L 08/14/23 23:32 Hct 40.5 % (42.0-52.0) L 08/14/23 23:32 MCV 86.7 fL (80.0-100.0) 08/14/23 23:32 MCH 28.9 pg (25.0-34.0) 08/14/23 23:32 MCHC 33.3 g/dL (32.0-36.0) 08/14/23 23:32 RDW Std Deviation 44.7 fL (36.4-46.3) 08/14/23 23:32 RDW Coeff of Jonah 14.4 % (11.5-14.5) 08/14/23 23:32 Plt Count 283 K/uL (130-400) 08/14/23 23:32 MPV 9.2 fL (9.4-12.4) L 08/14/23 23:32 Immature Gran % (Auto) 0.4 % 08/14/23 23:32 Neut % (Auto) 76.9 % 08/14/23 23:32 Lymph % (Auto) 13.1 % 08/14/23 23:32 [place] % (Auto) 6.8 % 08/14/23 23:32 Eos % (Auto) 2.2 % 08/14/23 23:32 Baso % (Auto) 0.6 % 08/14/23 23:32 Neut # (Auto) 8.92 K/uL (1.40-6.50) H 08/14/23 23:32 Lymph # (Auto) 1.52 K/uL (1.20-3.40) 08/14/23 23:32 [place] # (Auto) 0.79 K/uL (0.11-0.59) H 08/14/23 23:32 Eos # (Auto) 0.26 K/uL (0.00-0.50) 08/14/23 23:32 Baso # (Auto) 0.07 K/uL (0.00-0.20) 08/14/23 23:32 Immature Gran # (Auto) 0.05 K/uL (0.01-0.20) 08/14/23 23:32 PT 11.4 Seconds (9.0-12.0) 08/15/23 01:35 INR 1.0 (0.9-1.1) 08/15/23 01:35 APTT 28.7 Seconds (21.0-31.0) 08/15/23 01:35 PTT Ratio 1.0 08/15/23 01:35 Sodium 134 mmol/L (136-145) L 08/14/23 23:32 Potassium 4.5 mmol/L (3.5-5.1) 08/14/23 23:32 Chloride 102 mmol/L (98-107) 08/14/23 23:32 Carbon Dioxide 23 mmol/L (21-32) 08/14/23 23:32 Anion Gap 9 (3-11) 08/14/23 23:32 BUN 40 mg/dl (6-23) H 08/14/23 23:32 Creatinine 2.66 mg/dl (0.6-1.4) H 08/14/23 23:32 Est Cr Clr Drug Dosing Not Reportable 08/14/23 23:32 Est GFR ( Amer) 30.2 ml/min 08/14/23 23:32 Est GFR (Non-Af Amer) 26.0 ml/min 08/14/23 23:32 BUN/Creatinine Ratio 15.0 (10-20) 08/14/23 23:32 Glucose 156 mg/dl (70-99(Fasting)) H 08/14/23 23:32 Calcium 9.2 mg/dl (8.6-10.3) 08/14/23 23:32 Total Bilirubin 1.5 mg/dl (0.2-1.0) H 08/14/23 23:32 AST 28 U/L (13-39) 08/14/23 23:32 ALT 41 U/L (7-52) 08/14/23 23:32 Alkaline Phosphatase 112 U/L (34-104) H 08/14/23 23:32 Troponin I High Sens 2583.9 pg/ml (0-20) H* 08/15/23 03:30 B-Natriuretic Peptide 628 pg/ml (0-100) H 08/14/23 23:32 Total Protein 8.9 gm/dl (6.0-8.3) H 08/14/23 23:32 Albumin 3.4 gm/dl (3.4-5.0) 08/14/23 23:32 Globulin 5.5 gm/dl (2.5-4.0) H 08/14/23 23:32 Albumin/Globulin Ratio 0.6 (0.9-2) L 08/14/23 23:32 Code Status & VTE Plan Code Status Full code VTE Prophylaxis Plan VTE Prophylaxis will be ordered: Yes PG Care Time/CCT Total # of Minutes Spent Total Time Spent with Patient: Total time spent is greater than 50% in coordination of care (as documented) at patient's floor/unit and/or counseling patient: Coding Level of Care Code 63280 INT INP/OBS CARE 3/75MIN Diagnoses CHF (congestive heart failure) I50.9 Fatty liver K76.0 Diabetic nephropathy with proteinuria E11.21 Liver cirrhosis K74.60 Acute on chronic renal failure N17.9; N18.9 Alcoholism F10.20 Smokeless tobacco use Z72.0 Depression F32.9 PAD (peripheral artery disease) I73.9 Diabetic mononeuropathy associated with type 2 diabetes mellitus E11.41 Diabetes mellitus type: type 2 Diabetes mellitus complication detail: diabetic mononeuropathy Chronic kidney disease, stage 3a N18.31 Hypertension due to endocrine disorder I15.2 Hypertension type: secondary to endocrine disorders NSTEMI (non-ST elevated myocardial infarction) I21.4 (10) Diabetic neuropathy Diabetes mellitus type: type 2 Diabetes mellitus complication detail: diabetic mononeuropathy Qualified Code(s): E11.41 - Type 2 diabetes mellitus with diabetic mononeuropathy (12) Hypertension Hypertension type: secondary to endocrine disorders Qualified Code(s): I15.2 - Hypertension secondary to endocrine disorders
[2023-08-15 02:16] LABS: Partial Thromboplastin Time 28.7 Seconds (21.0-31.0); Prothrombin Time 11.4 Seconds (9.0-12.0)
[2023-08-15] MEDS ORDERED: GLUCOSE 10 TAB/TUBE PO PRN (03:17)
[2023-08-15] MEDS ORDERED: DEXTROSE 50% 50 ML SYRINGE IV PRN (03:17)
[2023-08-15] MEDS ORDERED: NON-FORMULARY MEDICATION (Sildenafil 50 mg tablet) PO PRN (03:17)
[2023-08-15] MEDS ORDERED: ONDANSETRON INJ 2 MG/ML 2 ML VIAL IV PRN (03:17)
[2023-08-15] MEDS ORDERED: CARBOHYDRATES FOR HYPOGLYCEMIA PO PRN (03:17)
[2023-08-15] MEDS ORDERED: GLUCOSE 40% GEL 15 GM TUBE PO PRN (03:17)
[2023-08-15] MEDS ORDERED: ACETAMINOPHEN 325 MG TAB PO PRN (03:17)
[2023-08-15] MEDS ORDERED: GLUCAGON FOR INJ 1 MG VIAL SQ PRN (03:17)
[2023-08-15] MEDS: NITROGLYCERIN 2% OINTMENT 30GM TUBE EXT SCH ×4 (06:10→23:58)
[2023-08-15] MEDS: SPIRONOLACTONE 25 MG TAB PO SCH (08:23)
[2023-08-15] MEDS: guaiFENesin 600 MG TABCR PO SCH ×2 (08:23→20:56)
[2023-08-15 08:24] LABS: Estimated Average Glucose 197 mg/dl; Hemoglobin A1C 8.5 % (4.5-5.6)
[2023-08-15] MEDS: ASPIRIN 325 MG ECTAB PO SCH (08:24)
[2023-08-15] MEDS: METOPROLOL SUCC 50MG EXT REL TAB PO SCH (08:24)
[2023-08-15] MEDS: GABAPENTIN 600 MG TAB PO SCH (08:24)
[2023-08-15] MEDS: PANTOprazole 40 MG TAB PO SCH (08:24)
[2023-08-15] MEDS: CHOLECALCIFEROL 1,000 UNITS 25 MCG TAB PO SCH (08:24)
[2023-08-15] MEDS: FUROSEMIDE 40 MG/4 ML VIAL IV SCH (08:26)
--- NOTE | 2023-08-15 08:53 | XRay Report ---
XR chest 1V not portable CLINICAL HISTORY: Chest pain, nonspecific TECHNIQUE: Single frontal radiograph of the chest was obtained. Comparison: Comparison is made to chest radiograph 07/14/2023 FINDINGS: No lines and tubes are seen. The cardiomediastinal silhouette is normal. Bilateral lower lung predomi nant airspace opacities are seen. Vascular prominence is seen. Small bilateral pleural effusions are seen. IMPRESSION: 1. Bilateral lower lung predominant airspace opacities which may represent atelectasis, pneumonia, a nd/or aspiration. These are increased from prior exam. 2. Cardiomegaly with mild pulmonary edema. 3. Small bilateral pleural effusions. ACT 112: Negative or not required by law. Electronically signed by: Price Whatley M.D. 08/15/2023 8:52 AM
[2023-08-15] MEDS ORDERED: ENOXAPARIN INJ 40 MG/0.4 ML SYR SQ SCH (09:00)
[2023-08-15] MEDS ORDERED: LANTUS PER UNIT CHARGE SQ SCH (09:00)
[2023-08-15] MEDS ORDERED: traZODone HCL 50 MG TAB PO SCH (09:00)
[2023-08-15] MEDS: INSULIN ASPART PER UNIT CHARGE SC SCH ×4 (09:11→20:44)
[2023-08-15] MEDS: LANTUS PER UNIT CHARGE SQ SCH ×2 (09:11→20:57)
--- NOTE | 2023-08-15 11:17 | XCELERA ---
[id number] \\[email or web address]\[id number]}___[id number]
--- NOTE | 2023-08-15 11:44 | Cardiology Consultation ---
Date of Consultation August 15, 2023 Assessment & Plan (1) Acute systolic CHF (congestive heart failure): -left ventricular ejection fraction of 30-35% on current echocardiogram. -etiology uncertain. -consider stress testing versus catheterization to rule out CAD. -agree with intravenous diuretics. -continue metoprolol succinate, and spironolactone. -Entresto, ACEI, or ARB will be difficult in face of renal insufficiency. (2) Elevated troponin: -suspect secondary to decompensated CHF. -do not suspect an acute coronary syndrome. History of Present Illness Attending Physician: Jame Gan MD History of Present Illness Mr. Valverde is a 53-year-old male admitted yesterday in decompensated CHF. This consultation was ordered to assist in his management. The patient was in his usual state of health until approximately 4 days prior to presentation. He noted progressive shortness of breath and significant orthopnea. He did not experienced any chest discomfort, syncope, presyncope, lower extremity edema, or claudication. He does admit to noncompliance with a salt restricted diet. He eats out at a fast food restaurant on a daily basis. He was hospitalized from July 14 through the with fluid overload. He refused a cardiac evaluation at that time. Currently, patient is resting comfortably in bed and without complaints. Past medical and surgical history 1. Hypertension 2. Diabetes mellitus 3. Diabetic neuropathy 4. Chronic renal failure 5. Obesity 6. Vitamin-D deficiency 7. Umbilical hernia 8. Psoriasis 9. Cirrhosis 10. Peripheral vascular disease 11. GERD 12. Depression Social history , lives alone Uses 2-3 cans of snuff per week. Significant alcohol use. Family history No early coronary artery disease Review of systems A 10 point review systems was undertaken and negative except for that described above. Allergies Allergy/AdvReac Type Severity Reaction Status Date / Time No Known Allergies Allergy Verified 08/15/23 00:34 Home Medications Medication Instructions Recorded Confirmed Type blood-glucose meter (Blood Glucose #1 ea 11/19/19 07/25/23 Rx Monitoring kit) aspirin 325 mg tablet,delayed 325 mg PO QAM 06/04/22 08/15/23 History release (Ecotrin) sildenafil 50 mg tablet 50 mg PO UD PRN sexual activity 06/04/22 08/15/23 History atorvastatin 40 mg tablet 40 mg PO HS #90 tabs 07/23/22 08/15/23 Rx blood sugar diagnostic (OneTouch #300 ea 10/16/22 07/25/23 Rx Ultra Test strips) blood-glucose meter (OneTouch #1 ea 10/16/22 07/25/23 Rx Ultra2 Meter) lancets 30 gauge (OneTouch Delica #100 ea 10/16/22 07/25/23 Rx Lancets) spironolactone 25 mg tablet 25 mg PO QAM #90 tabs 12/11/22 08/15/23 Rx pen needle, diabetic 32 gauge x #200 ea 12/20/22 07/25/23 Rx /32" metoprolol succinate 100 mg 100 mg PO QAM #90 tabs 12/26/22 08/15/23 Rx tablet,extended release 24 hr trazodone 50 mg tablet 50 mg PO DAILY #30 tabs 02/05/23 08/15/23 Rx gabapentin 600 mg tablet 600 mg PO QAM #60 tabs 04/19/23 08/15/23 Rx cholecalciferol (vitamin D3) 25 4,000 unit PO QAM 05/08/23 08/15/23 History mcg (1,000 unit) tablet (Vitamin D3) pantoprazole 40 mg tablet,delayed 40 mg PO QAM #90 tabs 05/09/23 08/15/23 Rx release furosemide 20 mg tablet 20 mg PO QAM #90 tabs 07/15/23 08/15/23 Rx insulin glargine 100 unit/mL (3 60 unit (0.6 mL) subcut BID 90 07/15/23 08/15/23 Rx mL) subcutaneous pen (Lantus days #108 mL Solostar U-100 Insulin) semaglutide 3 mg tablet (Rybelsus) 3 mg PO DAILY 30 days #30 tabs 07/23/23 08/15/23 Rx amlodipine 10 mg tablet 10 mg PO PM #90 tabs 07/25/23 08/15/23 Rx Patient History Medical History (Updated 08/15/23 @ 11:49 by Antwon Rollins MD) Elevated troponin Fatty liver Diabetic nephropathy with proteinuria Proteinuria Lumbar stenosis with neurogenic claudication Sleep apnea GERD (gastroesophageal reflux disease) Weakness of both lower extremities "can only walk so far, then I have to sit down, I don't think it's really weakness" Hip pain Diabetes mellitus with complication PAD (peripheral artery disease) s/p angioplasty to posterior tibial, and peroneal arteries 08/2020 Stroke incidental 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 with small remote infarcts of the right external capsule and malachi also noted on 08/30/20 Brain MRI CHF (congestive heart failure) Questionable hx (per vascular notes), does not follow with cardiology, ECHO 05/2020 EF 50% Hyperlipidemia Diabetic neuropathy Chronic kidney disease, stage 3a Vertigo hx, occasional-"that's when my sugar was bad" Hypertension Blurry vision Gluteal abscess History of alcohol abuse DVT prophylaxis Alcohol abuse Umbilical hernia current Psoriasis Surgical History History of incision and drainage (04/25/22) Ambar-Rectal Abscess Incision and Drainage(Not Applicable) - Braulio Shaffer DO 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) History of tooth extraction Hx of vascular surgery (08/2020) Angioplasty to posterior tibial, and peroneal arteries (08/2020) History of cardiac cath 25+ years ago > no stents Family History Father Cardiac disorder Hypertension Dementia Multiple sclerosis Grandfather Cardiac disorder Myocardial infarction Grandmother Breast cancer Other No family history of adverse response to anesthesia Denies family history of Ovarian cancer Prostate cancer Colorectal cancer Social History Smoking Status: Never smoker Tobacco Type: Smokeless Tobacco (Dip or Chew) Cigarettes Per Day: less than 1 can per day; Second Hand Exposure: No; Do You Dip or Chew Tobacco: Yes; Hx Alcohol Use: Yes (doesnt drink anymore) Alcohol type: beer Alcohol Intake Frequency Comment: 6BEERS Hx Substance Use: No Preferred Language: Setswana Communication Ability: Effective Visual Impairment: No Limitations Hearing Ability: Normal Dry House Tender Required: No Beliefs That Will Affect Care: None marital status: Current Living Situation: Alone Current Living Situation Comment: father-takes care of father as he is disabled current occupational status: unemployed Feels Safe at Home: Yes Safety Concerns: Feels Safe At This Time Childhood Exposure to Second-Hand Smoke: Yes Diet: regular caffeine: Yes (mt dew) during the past year weight has: increased > 10 lbs Dental Care, Regularly: No Physical Activity Frequency: Does not Exercise Seatbelt Use: always Sunscreen Use: No Assistive Devices: None Physical Exam Physical Exam: In general is well -developed well-no urished white male in no acute distr ess. HEENT exam i s negative. Neck is supple with ful l carotid upstroke s. There are no c arotid bruits. Ju gular venous press ure is flat at 90 . There is no thy romegaly. Cardiov ascular exam revea ls a regular rhyth m with normal S1 a nd S2. Heart soun ds are distant. L ungs are clear wit hout rales, rhonch i or wheezes. Abd omen is obese with out bruits. Extre mities reveal inta ct radial artery p ulses bilaterally. There is no ambar pheral edema. Results & Data Vital Signs (Past 12 Hours) Vital Signs Temp Pulse Pulse Resp BP BP Pulse Ox 08/15/23 10:12 08/15/23 07:56 36.8 C 99 H 20 117/77 92 08/15/23 06:05 98 H 08/15/23 05:20 36.8 C 98 H 24 123/83 92 08/15/23 03:51 100 H 08/15/23 03:00 08/15/23 03:00 36.6 C 104 H 26 H 132/90 94 08/15/23 02:42 08/15/23 01:00 82 18 125/93 97 O2 Del Method O2 Flow Rate 08/15/23 10:12 Nasal Cannula 3 08/15/23 07:56 Nasal Cannula 3 08/15/23 06:05 08/15/23 05:20 Nasal Cannula 3 08/15/23 03:51 08/15/23 03:00 Nasal Cannula 2 08/15/23 03:00 Nasal Cannula 2 08/15/23 02:42 Nasal Cannula 2 08/15/23 01:00 Room Air Laboratory Results Initial high sensitivity troponin was 2245.5 with follow-up values of 2284.2, 2583.9, and 2726.4. BNP elevated 682. Diagnostic Findings Echocardiogram notes moderate left ventricular dysfunction with ejection fr action of 30-35%. There was moderate global hypokinesis along with mild mitral regurgitation. PG Care Time/CCT Total # of Minutes Spent Total Time Spent with Patient: Total time spent is greater than 50% in coordination of care (as documented) at patient's floor/unit and/or counseling patient: Coding Level of Care Code 70417 IN/OBS CONSULT LVL 4,60M Diagnoses Acute systolic CHF (congestive heart failure) I50.21 Elevated troponin R79.89
--- NOTE | 2023-08-15 13:02 | Electrocardiogram Report ---
Test Reason : Blood Pressure : / mmHG Vent. Rate : 098 BPM Atrial Rate : 098 BPM P-R Int : 166 ms QRS Dur : 134 ms QT Int : 400 ms P-R-T Axes : 078 -40 108 degrees QTc Int : 510 ms Normal sinus rhythm Left axis deviation Non-specific intra-ventricular conduction block T wave abnormality, consider lateral ischemia Abnormal ECG When compared with ECG of 14-JUL-2023 12:52, Premature atrial complexes are no longer Present Confirmed by Antwon Rollins ([id number]) on 08/15/2023 1:01:36 PM Referred By: REFERRED SELF Confirmed By:Antwon Rollins
[2023-08-15] MEDS: CEFEPIME 2,000 MG in SYRINGE 0 ML IV SCH ×2 (13:40→23:59)
[2023-08-15] MEDS ORDERED: ATORVASTATIN 40 MG TAB PO SCH (21:00)
[2023-08-15] MEDS ORDERED: amLODIPine BESYLATE 5 MG TAB PO SCH (21:00)
[2023-08-15] MEDS ORDERED: Nursing to Pharmacy Communication SCH (21:15)
[2023-08-15] MEDS: traZODone HCL 50 MG TAB PO SCH (21:37)
[2023-08-16] MEDS: ALBUT/IPRATROP 3MG/0.5MG NEB 3 ML VIAL NEB PRN ×2 (00:17→20:14)
[2023-08-16] MEDS: NITROGLYCERIN 2% OINTMENT 30GM TUBE EXT SCH ×3 (05:43→17:07)
[2023-08-16 06:27] LABS: Hematocrit (blood only) 33.1 % (42.0-52.0); Hemoglobin 10.9 g/dl (14.0-18.0); Mean Corpuscular Hemoglobin 28.9 pg (25.0-34.0); Mean Corpuscular Hgb Conc 32.9 g/dL (32.0-36.0); Mean Corpuscular Volume 87.8 fL (80.0-100.0); Mean Platelet Volume 9.3 fL (9.4-12.4); Platelet Count 224 K/uL (130-400); RDW Coefficient of Variation 14.1 % (11.5-14.5); RDW Standard Deviation 45.2 fL (36.4-46.3); Red Blood Count 3.77 M/uL (4.70-6.10); White Blood Count 8.11 K/ul (4.8-10.8)
[2023-08-16 06:46] LABS: BUN Creatinine Ratio 15.6 (10-20); Calcium 8.5 mg/dl (8.6-10.3); Creatinine Clr Calc Pharmacy 35.1 ml/min; Est GFR (African American) 26.6 ml/min; Magnesium 1.9 mg/dl (1.7-2.4); Potassium 4.7 mmol/L (3.5-5.1)
[2023-08-16] MEDS: INSULIN ASPART PER UNIT CHARGE SC SCH ×4 (08:45→21:10)
[2023-08-16] MEDS: guaiFENesin 600 MG TABCR PO SCH ×2 (08:46→21:09)
[2023-08-16] MEDS: amLODIPine BESYLATE 5 MG TAB PO SCH (08:46)
[2023-08-16] MEDS: METOPROLOL SUCC 50MG EXT REL TAB PO SCH (08:47)
[2023-08-16] MEDS: GABAPENTIN 600 MG TAB PO SCH (08:47)
[2023-08-16] MEDS: SPIRONOLACTONE 25 MG TAB PO SCH (08:47)
[2023-08-16] MEDS: ATORVASTATIN 40 MG TAB PO SCH (08:47)
[2023-08-16] MEDS: ASPIRIN 325 MG ECTAB PO SCH (08:48)
[2023-08-16] MEDS: CHOLECALCIFEROL 1,000 UNITS 25 MCG TAB PO SCH (08:48)
[2023-08-16] MEDS: PANTOprazole 40 MG TAB PO SCH (08:48)
[2023-08-16] MEDS: LANTUS PER UNIT CHARGE SQ SCH ×2 (08:56→21:09)
[2023-08-16] MEDS: FUROSEMIDE 40 MG/4 ML VIAL IV SCH ×2 (08:58→17:07)
--- NOTE | 2023-08-16 11:03 | Cardiology Progress Note ---
Date of Service August 16, 2023 Assessment & Plan (1) Acute systolic CHF (congestive heart failure): Plan: -left ventricular ejection fraction of 30-35%. -etiology uncertain. -consider stress testing versus catheterization to rule out CAD. -would increase Lasix to 80 mg IV once or twice daily. -continue metoprolol succinate, and spironolactone. -Entresto, ACEI, or ARB will be difficult in face of renal insufficiency. (2) Elevated troponin: Plan: -suspect secondary to decompensated CHF. -do not suspect an acute coronary syndrome. Admission and Anticipated Discharge Date Admission Date: August 15, 2023 Subjective The patient is resting comfortably in bed without complaints chest pain or palpitations. Does note dyspnea with most physical activity. Physical Exam Physical Exam: In general this is a well-developed well-nourished white male in no acute distress. HEENT exam is negative. Neck is supple with full upstrokes. Carotid bruits. Jugular venous pressure is flat 90. There is no thyromegaly. Cardiovascular exam reveals a regular rhythm with normal S1 and S2. Heart sounds are distant. No S3. Lungs are clear without rales, rhonchi, or wheezes. Abdomen is obese without bruits. Extremities reveal intact radial artery pulses bilaterally. There is trace pretibial edema. Results & Data Vital Signs (Past 12 Hours) Vital Signs Temp Pulse Resp BP BP Pulse Ox O2 Del Method 08/16/23 07:52 36.5 C 94 H 19 122/82 94 Nasal Cannula 08/16/23 03:47 36.8 C 99 H 18 130/83 92 Nasal Cannula 08/16/23 00:18 86 18 94 Nasal Cannula 08/15/23 23:50 36.9 C 98 H 20 123/81 95 Nasal Cannula O2 Flow Rate 08/16/23 07:52 3 08/16/23 03:47 3.0 08/16/23 00:18 4 08/15/23 23:50 3.0 Diagnostic Findings satellite project site monitor is benign. PG Care Time/CCT Total # of Minutes Spent Total Time Spent with Patient: Total time spent is greater than 50% in coordination of care (as documented) at patient's floor/unit and/or counseling patient: Coding Level of Care Code 46117 SUB INP/OBS CARE 3/50MIN Diagnoses Acute systolic CHF (congestive heart failure) I50.21 Elevated troponin R79.89
--- NOTE | 2023-08-16 11:32 | Hospitalist Progress Note ---
Date of Service August 16, 2023 Assessment & Plan (1) CHF (congestive heart failure): (2) Fatty liver: (3) Diabetic nephropathy with proteinuria: (4) Liver cirrhosis: (5) Acute on chronic renal failure: (6) Alcoholism: (7) Smokeless tobacco use: (8) Depression: (9) PAD (peripheral artery disease): (10) Diabetic neuropathy: (11) Chronic kidney disease, stage 3a: (12) Hypertension: (13) NSTEMI (non-ST elevated myocardial infarction): Plan Acute Congestive Heart failure: 2 d ECHO shows EF 30-35% Furosemide 80mg daily Continue spironolactone 25 mg every morning JULIENNE or ARB will be difficult in view of poor kidney function Decrease amlodipine from 10 to 5 mg every afternoon to try to help reduce lower extremity edema Continue metoprolol succinate 100 mg every morning Monitor I/O, daily weights Appreciate cardiology recs NSTEMI: Most likely due to demand ischemia patient however has refused to entertain the idea of cardiac cath Bibasilar pneumonia- Cefepime 2 g IV every 12 hours Guaifenesin 1200 mg p.o. every 12 hours DuoNebs every 2 hours as needed Acute kidney injury on CKD stage III A- Creatinine 2.66, with base 1.94 Follow laboratory serially Diabetes mellitus- Decrease glargine from 60 units subcu twice daily to 45 units subcu twice daily due to recent decreased oral intake Place on Accu-Cheks with NovoLog SSI Hold semaglutide Admission and Anticipated Discharge Date Admission Date: August 15, 2023 Subjective patient seen and examined, said his SOB is better, however, said he dose not want cardiac cath if that is needed Review of Systems Review of Systems: All systems reviewed are negative, apart from the ones contained in the history. Physical Exam Physical Exam: The patient is awake, alert and oriented 3, well developed and well nourished, normocephalic and atraumatic, lying in bed and in no acute distress. HEENT--PERRL, EOMI, mucous membranes and oropharynx mildly dry Neck--supple. No JVD. No bruits. Thyroid normal, trachea midline, no adenopathy. Heart--normal S1 and S2. No murmurs, rubs or gallops. Lungs--Reduced air entry on auscultation, bibasailar crackles. Abdomen--normal bowel sounds and soft. Mild epigastric and left sided abdominal pain Extremities--no cyanosis or clubbing. No edema. Dermatologic--normal skin turgor, normal color, no abnormal lymph nodes, no rash. Neurologic--cranial nerves II through XII grossly intact. Rheumatologic--normal range of motion. Psychiatric--normal affect. Results & Data Results & Data Vital Signs (Past 12 Hours) Vital Signs Temp Pulse Resp BP BP Pulse Ox O2 Del Method 08/16/23 07:52 97.7 F 94 H 19 122/82 94 Nasal Cannula 08/16/23 03:47 98.2 F 99 H 18 130/83 92 Nasal Cannula 08/16/23 00:18 86 18 94 Nasal Cannula 08/15/23 23:50 98.4 F 98 H 20 123/81 95 Nasal Cannula O2 Flow Rate 08/16/23 07:52 3 08/16/23 03:47 3.0 08/16/23 00:18 4 08/15/23 23:50 3.0 PG Care Time/CCT Total # of Minutes Spent Total Time Spent with Patient: Total time spent is greater than 50% in coordination of care (as documented) at patient's floor/unit and/or counseling patient: Coding Level of Care Code 72544 SUB INP/OBS CARE 2/35MIN Diagnoses CHF (congestive heart failure) I50.9 Fatty liver K76.0 Diabetic nephropathy with proteinuria E11.21 Liver cirrhosis K74.60 Acute on chronic renal failure N17.9; N18.9 Alcoholism F10.20 Smokeless tobacco use Z72.0 Depression F32.9 PAD (peripheral artery disease) I73.9 Diabetic mononeuropathy associated with type 2 diabetes mellitus E11.41 Diabetes mellitus type: type 2 Diabetes mellitus complication detail: diabetic mononeuropathy Chronic kidney disease, stage 3a N18.31 Hypertension due to endocrine disorder I15.2 Hypertension type: secondary to endocrine disorders NSTEMI (non-ST elevated myocardial infarction) I21.4 Time Spent (min) 35 (10) Diabetic neuropathy Diabetes mellitus type: type 2 Diabetes mellitus complication detail: diabetic mononeuropathy Qualified Code(s): E11.41 - Type 2 diabetes mellitus with diabetic mononeuropathy (12) Hypertension Hypertension type: secondary to endocrine disorders Qualified Code(s): I15.2 - Hypertension secondary to endocrine disorders
[2023-08-16] MEDS: CEFEPIME 2,000 MG in SYRINGE 0 ML IV SCH (12:24)
--- NOTE | 2023-08-16 16:27 | CT Scan Report ---
CT abd pelvis wo con CLINICAL HISTORY: abd pain and swelling TECHNIQUE: Helical axial images of the abdomen and pelvis were obtained. Automated dose lowering tech niques and/or adjustment according to patient size were utilized for this exam. This exam was perfor med without intravenous contrast. CT DOSE: 1429.66 mGy.cm COMPARISON: Comparison is made to CT abdomen pelvis 04/25/2022 FINDINGS: Lower chest: Small bilateral pleural effusions are seen. There is underlying atelectasis and groundg lass opacities. Severe atherosclerotic disease is seen. Liver: Hepatic steatosis is noted. Gallbladder and biliary tree: Large gallstones are again seen with pericholecystic stranding suggeste d. No intra- or extrahepatic biliary ductal dilation. Pancreas: Unremarkable, no focal lesions. Spleen: Unremarkable. Adrenals: Unremarkable. Kidneys and ureters: Perinephric stranding is noted bilaterally. Bladder: Unremarkable. Reproductive organs: Prostatic calcifications are seen which may represent prior hemorrhage or granul omatous disease. Bowel: The appendix is normal. Lymph nodes Retroperitoneal: Subcentimeter lymph nodes are noted. Pelvic: Unremarkable. Mesenteric: Unremarkable. Peritoneum: Normal. Vessels: Atherosclerotic calcifications are seen. Abdominal wall: A fat-containing umbilical hernia is seen. Mild soft tissue edema is seen in the infr aumbilical soft tissues which is nonspecific. Bones: Degenerative changes in the visualized spine. IMPRESSION: 1. Redemonstration of prominent cholelithiasis with questionable pericholecystic stranding unchanged from prior exam. This is unlikely to represent acute cholecystitis, however correlation with physica l exam could be performed. 2. No bowel obstruction is seen. 3. Hepatic steatosis. 4. Additional findings as above. ACT 112: Negative or not required by law. Electronically signed by: Price Whatley M.D. 08/16/2023 4:26 PM
[2023-08-17] MEDS: NITROGLYCERIN 2% OINTMENT 30GM TUBE EXT SCH ×4 (00:11→17:06)
[2023-08-17] MEDS: CEFEPIME 2,000 MG in SYRINGE 0 ML IV SCH ×2 (00:11→13:15)
[2023-08-17] MEDS: traZODone HCL 50 MG TAB PO SCH (00:18)
[2023-08-17 06:28] LABS: BUN Creatinine Ratio 19.5 (10-20); Calcium 8.3 mg/dl (8.6-10.3); Creatinine Clr Calc Pharmacy 37.1 ml/min; Est GFR (African American) 28.7 ml/min; Est GFR (Non-African American) 24.8 ml/min; Magnesium 1.8 mg/dl (1.7-2.4); Potassium 4.2 mmol/L (3.5-5.1)
--- NOTE | 2023-08-17 08:04 | Electrocardiogram Report ---
Test Reason : Blood Pressure : / mmHG Vent. Rate : 099 BPM Atrial Rate : 099 BPM P-R Int : 172 ms QRS Dur : 134 ms QT Int : 380 ms P-R-T Axes : 053 -42 080 degrees QTc Int : 487 ms Normal sinus rhythm Left axis deviation Non-specific intra-ventricular conduction block Nonspecific T wave abnormality Lateral leads Abnormal ECG When compared with ECG of 15-AUG-2023 06:08, No significant change was found Confirmed by Tee Gordon ([id number]) on 08/17/2023 8:04:00 AM Referred By: REFERRED SELF Confirmed By:Tee Gordon
--- NOTE | 2023-08-17 08:16 | Electrocardiogram Report ---
Test Reason : Blood Pressure : / mmHG Vent. Rate : 091 BPM Atrial Rate : 091 BPM P-R Int : 176 ms QRS Dur : 136 ms QT Int : 412 ms P-R-T Axes : 082 -42 086 degrees QTc Int : 506 ms Normal sinus rhythm Left axis deviation Non-specific intra-ventricular conduction block Nonspecific T wave abnormality Lateral leads Abnormal ECG When compared with ECG of 16-AUG-2023 05:44, No significant change was found Confirmed by Tee Gordon ([id number]) on 08/17/2023 8:15:51 AM Referred By: REFERRED SELF Confirmed By:Tee Gordon
[2023-08-17] MEDS: guaiFENesin 600 MG TABCR PO SCH ×2 (08:36→20:25)
[2023-08-17] MEDS: GABAPENTIN 600 MG TAB PO SCH (08:36)
[2023-08-17] MEDS: ASPIRIN 325 MG ECTAB PO SCH (08:36)
[2023-08-17] MEDS: CHOLECALCIFEROL 1,000 UNITS 25 MCG TAB PO SCH (08:37)
[2023-08-17] MEDS: PANTOprazole 40 MG TAB PO SCH (08:37)
[2023-08-17] MEDS: LANTUS PER UNIT CHARGE SQ SCH ×2 (08:37→20:25)
[2023-08-17] MEDS: METOPROLOL SUCC 50MG EXT REL TAB PO SCH (08:37)
[2023-08-17] MEDS: ATORVASTATIN 40 MG TAB PO SCH (08:37)
[2023-08-17] MEDS: amLODIPine BESYLATE 5 MG TAB PO SCH (08:37)
[2023-08-17] MEDS: SPIRONOLACTONE 25 MG TAB PO SCH (08:37)
[2023-08-17] MEDS: FUROSEMIDE 40 MG/4 ML VIAL IV SCH ×2 (08:38→17:07)
[2023-08-17] MEDS: INSULIN ASPART PER UNIT CHARGE SC SCH ×4 (08:38→20:26)
--- NOTE | 2023-08-17 10:55 | Cardiology Progress Note ---
Date of Service August 17, 2023 Assessment & Plan (1) Acute systolic CHF (congestive heart failure): Plan: No real change in clinical status, agree with intensifying diuretic regimen for aggressive volume unloading while inpatient. Continue metoprolol succinate and spironolactone. Holding on Entresto, JULIENNE inhibitor/ARB, spironolactone with renal insufficiency. (2) Cardiomyopathy: Plan: Etiology uncertain. After clinical status improves/volume unloaded, decide on stress testing versus cardiac catheterization to further evaluate possibility of ischemic cardiomyopathy. Will discuss these options further with the patient tomorrow. (3) Elevated troponin: Plan: No chest pain or acute ECG changes, no focal wall motion abnormalities on echo, troponin elevation felt secondary to decompensated heart failure rather than acute coronary syndrome. Admission and Anticipated Discharge Date Admission Date: August 15, 2023 Subjective Patient notes no real change overnight, still dyspneic with minimal exertion but not at rest. Still orthopnea, cannot lie back. No chest pain, palpitations, or lightheadedness. Does note increased urine output this morning versus yesterday. Input/output -287 mL overnight. Weight not accurate. Telemetry showed sinus rhythm in the 90 bpm range with PVCs. Physical Exam Physical Exam: No distress. Normotensive BP. Pulse 91 bpm and regular. Respirations 20 but unlabored. Skin: no ecchymoses or generalized lesions. HEENT: unremarkable. Neck: JVP two thirds the way to the angle of the jaw at 90 degrees, no carotid bruits. Lungs: Mildly decreased breath sounds with rare basilar crackles. No wheezing or accessory muscle use. Cardiac: regular rhythm, normal S1-2, no obvious murmur. Abdomen: benign. Extremities: Trace to 1+ pretibial edema, pulses intact. Neurologic: normal affect and conversation, nonfocal. Results & Data Vital Signs (Past 12 Hours) Vital Signs Temp Pulse Resp BP Pulse Ox O2 Del Method O2 Flow Rate 08/17/23 07:21 98.2 F 91 H 20 124/84 95 Room Air 08/17/23 02:39 98.2 F 91 H 18 121/81 94 Nasal Cannula 3 08/16/23 23:04 98.4 F 96 H 22 126/87 94 Nasal Cannula 3 Laboratory Results Sodium 135, potassium 4.2, BUN 54, creatinine 2.77 (BUN/creatinine 46/2.95 yesterday). Diagnostic Findings ECG shows sinus rhythm with nonspecific interventricular conduction delay and nonspecific T wave abnormalities lateral leads. Compared with yesterday, no significant change. PG Care Time/CCT Total # of Minutes Spent Total Time Spent with Patient: Total time spent is greater than 50% in coordination of care (as documented) at patient's floor/unit and/or counseling patient: Coding Level of Care Code 04910 SUB INP/OBS CARE 2/35MIN Diagnoses Acute systolic CHF (congestive heart failure) I50.21 Cardiomyopathy I42.9 Elevated troponin R79.89
--- NOTE | 2023-08-17 12:13 | Hospitalist Progress Note ---
Date of Service August 17, 2023 Assessment & Plan (1) CHF (congestive heart failure): (2) Fatty liver: (3) Diabetic nephropathy with proteinuria: (4) Liver cirrhosis: (5) Acute on chronic renal failure: (6) Alcoholism: (7) Smokeless tobacco use: (8) Depression: (9) PAD (peripheral artery disease): (10) Diabetic neuropathy: (11) Chronic kidney disease, stage 3a: (12) Hypertension: (13) NSTEMI (non-ST elevated myocardial infarction): Plan Acute Congestive Heart failure: 2 d ECHO shows EF 30-35% Furosemide 80mg daily Continue spironolactone 25 mg every morning JULIENNE or ARB will be difficult in view of poor kidney function Continue amlodipine 5 mg every afternoon to try to help reduce lower extremity edema Continue metoprolol succinate 100 mg every morning Monitor I/O, daily weights Appreciate cardiology recs NSTEMI: Most likely due to demand ischemia patient however has refused to entertain the idea of cardiac cath Bibasilar pneumonia- Although I thing its all fluids However, will continue Cefepime 2 g IV every 12 hours Guaifenesin 1200 mg p.o. every 12 hours DuoNebs every 2 hours as needed Await cultures Acute kidney injury on CKD stage III A- Worsening renal function on account of diuretics Follow laboratory serially Diabetes mellitus- Decrease glargine from 60 units subcu twice daily to 45 units subcu twice daily due to recent decreased oral intake Place on Accu-Cheks with NovoLog SSI Hold semaglutide Admission and Anticipated Discharge Date Admission Date: August 15, 2023 Subjective patient seen and examined, he said he urinated a bit more after increasing his lasix dose, but he still feels overloaded Review of Systems Review of Systems: All systems reviewed are negative, apart from the ones contained in the history. Physical Exam Physical Exam: The patient is awake, alert and oriented 3, well developed and well nourished, normocephalic and atraumatic, lying in bed and in no acute distress. HEENT--PERRL, EOMI, mucous membranes and oropharynx mildly dry Neck--supple. No JVD. No bruits. Thyroid normal, trachea midline, no adenopathy. Heart--normal S1 and S2. No murmurs, rubs or gallops. Lungs--Reduced air entry on auscultation, bibasailar crackles. Abdomen--normal bowel sounds and soft. Mild epigastric and left sided abdominal pain Extremities--no cyanosis or clubbing. No edema. Dermatologic--normal skin turgor, normal color, no abnormal lymph nodes, no rash. Neurologic--cranial nerves II through XII grossly intact. Rheumatologic--normal range of motion. Psychiatric--normal affect. Results & Data Results & Data Vital Signs (Past 12 Hours) Vital Signs Temp Pulse Resp BP Pulse Ox O2 Del Method O2 Flow Rate 08/17/23 07:21 98.2 F 91 H 20 124/84 95 Room Air 08/17/23 02:39 98.2 F 91 H 18 121/81 94 Nasal Cannula 3 PG Care Time/CCT Total # of Minutes Spent Total Time Spent with Patient: Total time spent is greater than 50% in coordination of care (as documented) at patient's floor/unit and/or counseling patient: Coding Level of Care Code 36066 SUB INP/OBS CARE 2/35MIN Diagnoses CHF (congestive heart failure) I50.9 Fatty liver K76.0 Diabetic nephropathy with proteinuria E11.21 Liver cirrhosis K74.60 Acute on chronic renal failure N17.9; N18.9 Alcoholism F10.20 Smokeless tobacco use Z72.0 Depression F32.9 PAD (peripheral artery disease) I73.9 Diabetic mononeuropathy associated with type 2 diabetes mellitus E11.41 Diabetes mellitus type: type 2 Diabetes mellitus complication detail: diabetic mononeuropathy Chronic kidney disease, stage 3a N18.31 Hypertension due to endocrine disorder I15.2 Hypertension type: secondary to endocrine disorders NSTEMI (non-ST elevated myocardial infarction) I21.4 Time Spent (min) 35 (10) Diabetic neuropathy Diabetes mellitus type: type 2 Diabetes mellitus complication detail: diabetic mononeuropathy Qualified Code(s): E11.41 - Type 2 diabetes mellitus with diabetic mononeuropathy (12) Hypertension Hypertension type: secondary to endocrine disorders Qualified Code(s): I15.2 - Hypertension secondary to endocrine disorders
[2023-08-18] MEDS: CEFEPIME 2,000 MG in SYRINGE 0 ML IV SCH ×2 (00:14→12:00)
[2023-08-18] MEDS: NITROGLYCERIN 2% OINTMENT 30GM TUBE EXT SCH ×4 (00:14→17:34)
[2023-08-18] MEDS: traZODone HCL 50 MG TAB PO SCH ×2 (01:46→21:04)
[2023-08-18 06:20] LABS: Hematocrit (blood only) 33.4 % (42.0-52.0); Hemoglobin 10.7 g/dl (14.0-18.0); Mean Corpuscular Hemoglobin 28.3 pg (25.0-34.0); Mean Corpuscular Volume 88.4 fL (80.0-100.0); Mean Platelet Volume 9.2 fL (9.4-12.4); Platelet Count 233 K/uL (130-400); RDW Coefficient of Variation 14.1 % (11.5-14.5); RDW Standard Deviation 45.2 fL (36.4-46.3); Red Blood Count 3.78 M/uL (4.70-6.10); White Blood Count 7.69 K/ul (4.8-10.8)
[2023-08-18 06:38] LABS: BUN Creatinine Ratio 21.3 (10-20); Calcium 8.7 mg/dl (8.6-10.3); Creatinine Clr Calc Pharmacy 38.1 ml/min; Est GFR (Non-African American) 25.9 ml/min; Potassium 3.9 mmol/L (3.5-5.1)
[2023-08-18] MEDS: SPIRONOLACTONE 25 MG TAB PO SCH (08:29)
[2023-08-18] MEDS: GABAPENTIN 600 MG TAB PO SCH (08:29)
[2023-08-18] MEDS: METOPROLOL SUCC 50MG EXT REL TAB PO SCH (08:29)
[2023-08-18] MEDS: CHOLECALCIFEROL 1,000 UNITS 25 MCG TAB PO SCH (08:29)
[2023-08-18] MEDS: ATORVASTATIN 40 MG TAB PO SCH (08:29)
[2023-08-18] MEDS: PANTOprazole 40 MG TAB PO SCH (08:30)
[2023-08-18] MEDS: amLODIPine BESYLATE 5 MG TAB PO SCH (08:30)
[2023-08-18] MEDS: ASPIRIN 325 MG ECTAB PO SCH (08:30)
[2023-08-18] MEDS: FUROSEMIDE 40 MG/4 ML VIAL IV SCH ×2 (08:30→17:32)
[2023-08-18] MEDS: guaiFENesin 600 MG TABCR PO SCH ×2 (08:31→21:04)
[2023-08-18] MEDS: LANTUS PER UNIT CHARGE SQ SCH ×2 (08:31→21:07)
[2023-08-18] MEDS: INSULIN ASPART PER UNIT CHARGE SC SCH ×4 (08:31→21:05)
--- NOTE | 2023-08-18 10:48 | Hospitalist Progress Note ---
Date of Service August 18, 2023 Assessment & Plan (1) CHF (congestive heart failure): (2) Fatty liver: (3) Diabetic nephropathy with proteinuria: (4) Liver cirrhosis: (5) Acute on chronic renal failure: (6) Alcoholism: (7) Smokeless tobacco use: (8) Depression: (9) PAD (peripheral artery disease): (10) Diabetic neuropathy: (11) Chronic kidney disease, stage 3a: (12) Hypertension: (13) NSTEMI (non-ST elevated myocardial infarction): Plan Acute Congestive Heart failure: 2 d ECHO shows EF 30-35% Furosemide 80mg daily making good urine, net output 3.5L in the past 24 hrs Continue spironolactone 25 mg every morning JULIENNE or ARB will be difficult in view of poor kidney function Continue amlodipine 5 mg every afternoon to try to help reduce lower extremity edema Continue metoprolol succinate 100 mg every morning Monitor I/O, daily weights Appreciate cardiology recs NSTEMI: Most likely due to demand ischemia patient however has refused to entertain the idea of cardiac cath Bibasilar pneumonia- Although I think its all fluids However, will continue Cefepime 2 g IV every 12 hours Guaifenesin 1200 mg p.o. every 12 hours DuoNebs every 2 hours as needed Await cultures Acute kidney injury on CKD stage III A- Worsening renal function on account of diuretics Follow laboratory serially Diabetes mellitus- Decrease glargine from 60 units subcu twice daily to 45 units subcu twice daily due to recent decreased oral intake Place on Accu-Cheks with NovoLog SSI Hold semaglutide Admission and Anticipated Discharge Date Admission Date: August 15, 2023 Subjective patient seen and examined, he is making good urine, says his abdomen is no longer as tight Review of Systems Review of Systems: All systems reviewed are negative, apart from the ones contained in the history. Physical Exam Physical Exam: The patient is awake, alert and oriented 3, well developed and well nourished, normocephalic and atraumatic, lying in bed and in no acute distress. HEENT--PERRL, EOMI, mucous membranes and oropharynx mildly dry Neck--supple. No JVD. No bruits. Thyroid normal, trachea midline, no adenopathy. Heart--normal S1 and S2. No murmurs, rubs or gallops. Lungs--Reduced air entry on auscultation, bibasailar crackles. Abdomen--normal bowel sounds and soft. Mild epigastric and left sided abdominal pain Extremities--no cyanosis or clubbing. No edema. Dermatologic--normal skin turgor, normal color, no abnormal lymph nodes, no rash. Neurologic--cranial nerves II through XII grossly intact. Rheumatologic--normal range of motion. Psychiatric--normal affect. Results & Data Results & Data Vital Signs (Past 12 Hours) Vital Signs Temp Pulse Pulse Resp BP Pulse Ox O2 Del Method 08/18/23 07:28 97.9 F 92 H 20 130/88 97 Nasal Cannula 08/18/23 07:05 92 H 08/18/23 03:08 98.2 F 85 18 118/74 97 Nasal Cannula O2 Flow Rate 08/18/23 07:28 3 08/18/23 07:05 08/18/23 03:08 3 PG Care Time/CCT Total # of Minutes Spent Total Time Spent with Patient: Total time spent is greater than 50% in coordination of care (as documented) at patient's floor/unit and/or counseling patient: Coding Level of Care Code 47237 SUB INP/OBS CARE 235MIN Diagnoses CHF (congestive heart failure) I50.9 Fatty liver K76.0 Diabetic nephropathy with proteinuria E11.21 Liver cirrhosis K74.60 Acute on chronic renal failure N17.9; N18.9 Alcoholism F10.20 Smokeless tobacco use Z72.0 Depression F32.9 PAD (peripheral artery disease) I73.9 Diabetic mononeuropathy associated with type 2 diabetes mellitus E11.41 Diabetes mellitus type: type 2 Diabetes mellitus complication detail: diabetic mononeuropathy Chronic kidney disease, stage 3a N18.31 Hypertension due to endocrine disorder I15.2 Hypertension type: secondary to endocrine disorders NSTEMI (non-ST elevated myocardial infarction) I21.4 Time Spent (min) 35 (10) Diabetic neuropathy Diabetes mellitus type: type 2 Diabetes mellitus complication detail: diabetic mononeuropathy Qualified Code(s): E11.41 - Type 2 diabetes mellitus with diabetic mononeuropathy (12) Hypertension Hypertension type: secondary to endocrine disorders Qualified Code(s): I15.2 - Hypertension secondary to endocrine disorders
--- NOTE | 2023-08-18 10:51 | Cardiology Progress Note ---
Date of Service August 18, 2023 Assessment & Plan (1) Acute systolic CHF (congestive heart failure): Plan: Modest clinical improvement with good diuresis after increase in furosemide dose. Renal function stable to mildly improved. Still appears hypervolemic, continue aggressive volume unloading. Continue metoprolol succinate and spironolactone. Holding on Entresto, JULIENNE inhibitor/ARB, spironolactone with renal insufficiency. (2) Cardiomyopathy: Plan: Etiology uncertain. After clinical status improves/volume unloaded, decide on stress testing versus cardiac catheterization to further evaluate possibility of ischemic cardiomyopathy. (3) Elevated troponin: Plan: No chest pain or acute ECG changes, no focal wall motion abnormalities on echo, troponin elevation felt secondary to decompensated heart failure rather than acute coronary syndrome. Admission and Anticipated Discharge Date Admission Date: August 15, 2023 Subjective Uneventful night. Diuresed over 2 L and feels somewhat better. Notes that abdomen is less distended, particularly after meals (when it would have bothered him). No chest pain, dyspnea at rest, palpitations, or lightheadedness. Input/output -2190 mL Telemetry showed sinus rhythm with PACs and PVCs, rate generally in the 90 bpm range. Physical Exam Physical Exam: No distress. Normotensive BP. Pulse 90 bpm and regular. Respirations 20 but unlabored. Skin: no ecchymoses or generalized lesions. HEENT: unremarkable. Neck: JVP one half way to the angle of the jaw at 90 degrees, no carotid bruits. Lungs: Mildly decreased breath sounds but clear. No wheezing or accessory muscle use. Cardiac: regular rhythm, normal S1-2, no obvious murmur. Abdomen: benign. Extremities: Trace to 1+ pretibial edema, pulses intact. Neurologic: normal affect and conversation, nonfocal. Results & Data Vital Signs (Past 12 Hours) Vital Signs Temp Pulse Pulse Resp BP Pulse Ox O2 Del Method 08/18/23 07:28 97.9 F 92 H 20 130/88 97 Nasal Cannula 08/18/23 07:05 92 H 08/18/23 03:08 98.2 F 85 18 118/74 97 Nasal Cannula O2 Flow Rate 08/18/23 07:28 3 08/18/23 07:05 08/18/23 03:08 3 Laboratory Results Sodium 135, chloride 104, potassium 3.9, BUN 57, creatinine 2.67 (down from 2.77). PG Care Time/CCT Total # of Minutes Spent Total Time Spent with Patient: Total time spent is greater than 50% in coordination of care (as documented) at patient's floor/unit and/or counseling patient: Coding Level of Care Code 66650 SUB INP/OBS CARE 2/35MIN Diagnoses Acute systolic CHF (congestive heart failure) I50.21 Cardiomyopathy I42.9 Elevated troponin R79.89
[2023-08-19] MEDS: CEFEPIME 2,000 MG in SYRINGE 0 ML IV SCH (00:53)
[2023-08-19] MEDS: NITROGLYCERIN 2% OINTMENT 30GM TUBE EXT SCH ×3 (00:53→12:35)
[2023-08-19 06:46] LABS: Hematocrit (blood only) 34.5 % (42.0-52.0); Hemoglobin 11.3 g/dl (14.0-18.0); Mean Corpuscular Hemoglobin 28.1 pg (25.0-34.0); Mean Corpuscular Hgb Conc 32.8 g/dL (32.0-36.0); Mean Corpuscular Volume 85.8 fL (80.0-100.0); Mean Platelet Volume 9.5 fL (9.4-12.4); Platelet Count 216 K/uL (130-400); RDW Coefficient of Variation 14.1 % (11.5-14.5); Red Blood Count 4.02 M/uL (4.70-6.10); White Blood Count 7.23 K/ul (4.8-10.8)
[2023-08-19 07:02] LABS: BUN Creatinine Ratio 21.2 (10-20); Creatinine Clr Calc Pharmacy 36.7 ml/min; Est GFR (African American) 29.1 ml/min; Est GFR (Non-African American) 25.1 ml/min; Potassium 3.9 mmol/L (3.5-5.1)
[2023-08-19] MEDS: amLODIPine BESYLATE 5 MG TAB PO SCH (08:08)
[2023-08-19] MEDS: ASPIRIN 325 MG ECTAB PO SCH (08:08)
[2023-08-19] MEDS: CHOLECALCIFEROL 1,000 UNITS 25 MCG TAB PO SCH (08:09)
[2023-08-19] MEDS: ATORVASTATIN 40 MG TAB PO SCH (08:09)
[2023-08-19] MEDS: guaiFENesin 600 MG TABCR PO SCH (08:09)
[2023-08-19] MEDS: GABAPENTIN 600 MG TAB PO SCH (08:09)
[2023-08-19] MEDS: METOPROLOL SUCC 50MG EXT REL TAB PO SCH (08:10)
[2023-08-19] MEDS: SPIRONOLACTONE 25 MG TAB PO SCH (08:10)
[2023-08-19] MEDS: PANTOprazole 40 MG TAB PO SCH (08:10)
[2023-08-19] MEDS: FUROSEMIDE 40 MG/4 ML VIAL IV SCH ×2 (08:10→16:50)
[2023-08-19] MEDS: INSULIN ASPART PER UNIT CHARGE SC SCH ×4 (08:15→20:16)
[2023-08-19] MEDS: LANTUS PER UNIT CHARGE SQ SCH ×2 (08:15→20:25)
--- NOTE | 2023-08-19 09:32 | XRay Report ---
SINGLE VIEW CHEST CLINICAL HISTORY: Congestive heart failure FINDINGS: An AP, portable, upright chest radiograph is compared to study dated 08/14/2023. The heart is enlarged noting atherosclerotic calcification of the thoracic ureter. Pulmonary vascular congestio n has improved from previous. The there are small pleural effusions with dependent consolidation. No pneumothorax is seen. The skeletal structures are osteopenic. The bony thorax is grossly intact. IMPRESSION: 1. Cardiomegaly. Pulmonary vascular congestion has improved from previous. 2. Layering pleural effusions with dependent consolidation. ACT 112: Negative or not required by law. Electronically signed by: Diego Garcia M.D. 08/19/2023 9:31 AM
--- NOTE | 2023-08-19 17:12 | Cardiology Progress Note ---
Date of Service August 19, 2023 Assessment & Plan (1) Acute systolic CHF (congestive heart failure): Plan: He appears to have had a good effect from the diuresis. I think we will continue his current diuretic and decide on an outpatient regimen at the time of discharge. Renal function stable. (2) Cardiomyopathy: Plan: Etiology uncertain. Will plan an evaluation for ischemia. I do not think he warrants catheterization based on his degree of renal dysfunction absence of angina. I think we will attempt a perfusion study tomorrow. I think his renal function is sufficient to try Jardiance. Will continue metoprolol and spironolactone. Not a candidate for Bi, ARB or Entresto based on his renal dysfunction. (3) Elevated troponin: Plan: No chest pain or acute ECG changes, no focal wall motion abnormalities on echo, troponin elevation felt secondary to decompensated heart failure rather than acute coronary syndrome. Admission and Anticipated Discharge Date Admission Date: August 15, 2023 Subjective This afternoon the patient claimed he feeling well. States his breathing is back to baseline. Minimal ambulation. No dizziness or lightheadedness. No sense of chest pain or palpitation. Still some abdominal distension which he feels is also chronic. Review of Systems Review of Systems: Per HPI Physical Exam Physical Exam: No distress. Normotensive BP. Skin: no ecchymoses or generalized lesions. HEENT: unremarkable. Neck: JVP one half way to the angle of the jaw at 90 degrees, no carotid bruits. Lungs: Mildly decreased breath sounds but clear. No wheezing or accessory mu scle use. No rales Cardiac: regular rhythm, normal S1-2, no obvious murmur. Abdomen: Distended Extremities: No edema Neurologic: normal affect and conversation, nonfocal. Results & Data Vital Signs (Past 12 Hours) Vital Signs Temp Pulse Pulse Resp BP Pulse Ox O2 Del Method 08/19/23 15:59 37.1 C 90 18 123/84 96 Room Air 08/19/23 11:29 36.7 C 90 19 126/85 96 Nasal Cannula 08/19/23 09:01 87 08/19/23 08:40 08/19/23 07:18 36.8 C 91 H 20 134/87 96 Nasal Cannula O2 Flow Rate 08/19/23 15:59 08/19/23 11:29 1 08/19/23 09:01 08/19/23 08:40 1 08/19/23 07:18 2 Laboratory Results Abnormal Lab Results 08/18/23 08/19/23 08/19/23 20:31 05:32 07:18 WBC 7.23 RBC 4.02 L Hgb 11.3 L Hct 34.5 L MCV 85.8 MCH 28.1 MCHC 32.8 RDW Std Deviation 44.0 RDW Coeff of Jonah 14.1 Plt Count 216 MPV 9.5 Sodium 137 Potassium 3.9 Chloride 105 Carbon Dioxide 25 Anion Gap 7 BUN 58 H Creatinine 2.74 H Est Cr Clr Drug Dosing 36.7 Est GFR ( Amer) 29.1 Est GFR (Non-Af Amer) 25.1 BUN/Creatinine Ratio 21.2 H Glucose 72 POC Glucose 107 H 87 Calcium 9.0 08/19/23 08/19/23 11:25 16:08 WBC RBC Hgb Hct MCV MCH MCHC RDW Std Deviation RDW Coeff of Jonah Plt Count MPV Sodium Potassium Chloride Carbon Dioxide Anion Gap BUN Creatinine Est Cr Clr Drug Dosing Est GFR ( Amer) Est GFR (Non-Af Amer) BUN/Creatinine Ratio Glucose POC Glucose 79 105 H Calcium Diagnostic Findings Dated 08/15/2023: Ejection fraction 30 35%. Moderate global hypokinesis. Mild mitral regurgitation. PG Care Time/CCT Total # of Minutes Spent Total Time Spent with Patient: Total time spent is greater than 50% in coordination of care (as documented) at patient's floor/unit and/or counseling patient: Coding Level of Care Code 01229 SUB INP/OBS CARE 2/35MIN Diagnoses Acute systolic CHF (congestive heart failure) I50.21 Cardiomyopathy I42.9 Elevated troponin R79.89
--- NOTE | 2023-08-19 17:20 | Hospitalist Progress Note ---
Date of Service August 19, 2023 Assessment & Plan (1) CHF (congestive heart failure): Plan: Acute systolic CHF with ejection fraction 30%. Much improved with intravenous Lasix diuresis. He is now on room air. Chest x-ray done today, August 19, looks better. Cardiology consultation and recommendations appreciated. He will undergo Lexiscan nuclear stress testing tomorrow, August 20 (2) Fatty liver: Plan: Present on admission. No intervention necessary at this time (3) Diabetic nephropathy with proteinuria: Plan: Glucose control. Sliding scale insulin coverage as necessary. ADA diet. Sliding scale coverage as needed (4) Liver cirrhosis: Plan: Stable. Continue current medical management (5) Alcoholism: Plan: Likely cause of liver cirrhosis. Supportive care. (6) Smokeless tobacco use: Plan: Cessation encouraged (7) Chronic kidney disease, stage 3a: Plan: Monitor intake and output. Serial lab (8) Hypertension: Plan: Stable. Continue current medical management Plan Lexiscan nuclear medicine stress test tomorrow, August 20. Hopefully he can be discharged shortly thereafter. Admission and Anticipated Discharge Date Admission Date: August 15, 2023 Subjective Alert and oriented. Chest x-ray today, August 19, looks better and he is now on room air. Continue IV Lasix diuresis for now. Cardiology will perform Lexiscan stress test with nuclear imaging tomorrow, August 20. If unremarkable, he will be discharged home. I do not believe he has underlying pneumonia. Cefepime has been discontinued Review of Systems 2 Review of Systems: Constitutional-no fever or chills ENT-no blurred vision, no double vision, no epistaxis, no sore throat Respiratory-no cough, no wheezing, no shortness of breath at rest. He does have dyspnea on exertion Cardiac-no palpitations, no chest pain, no syncope GI-no nausea, vomiting, diarrhea, melena, hematochezia -no urinary retention, no urinary incontinence, no dysuria, no hematuria Musculoskeletal-no joint pain, no muscle tenderness Skin-no bruising, no rashes, no pruritus Neuro-no isolated weakness, no paresthesia, no weakness Psych-no depression, no anxiety Physical Exam 2 Physical Exam: General-alert and oriented x3, no fevers, no chills HEENT-head atraumatic and normocephalic, pupils equal and reactive to light, extraocular muscles intact Neck-no lymphadenopathy or thyromegaly, trachea midline Chest-faint bibasilar inspiratory rales. No wheezing. No rhonchi. Cardiac-regular rate and rhythm, normal S1 and S2 Abdomen-normal bowel sounds, nontender, no hepatosplenomegaly Extremities-no cyanosis, clubbing, or edema Neuro-cranial nerves II through XII intact, motor and sensory function within normal limits, strength symmetrical, no focal deficits Psych-normal affect, normal mood Results & Data Results & Data Vital Signs (Past 12 Hours) Vital Signs Temp Pulse Pulse Resp BP Pulse Ox O2 Del Method 08/19/23 15:59 37.1 C 90 18 123/84 96 Room Air 08/19/23 11:29 36.7 C 90 19 126/85 96 Nasal Cannula 08/19/23 09:01 87 08/19/23 08:40 08/19/23 07:18 36.8 C 91 H 20 134/87 96 Nasal Cannula O2 Flow Rate 08/19/23 15:59 08/19/23 11:29 1 08/19/23 09:01 08/19/23 08:40 1 08/19/23 07:18 2 Laboratory Results 08/19/23 05:32 08/19/23 05:32 PG Care Time/CCT Total # of Minutes Spent Total Time Spent with Patient: Total time spent is greater than 50% in coordination of care (as documented) at patient's floor/unit and/or counseling patient: Coding Level of Care Code 56115 SUB INP/OBS CARE 3/50MIN Diagnoses CHF (congestive heart failure) I50.9 Fatty liver K76.0 Diabetic nephropathy with proteinuria E11.21 Liver cirrhosis K74.60 Alcoholism F10.20 Smokeless tobacco use Z72.0 Chronic kidney disease, stage 3a N18.31 Hypertension due to endocrine disorder I15.2 Hypertension type: secondary to endocrine disorders (8) Hypertension Hypertension type: secondary to endocrine disorders Qualified Code(s): I15.2 - Hypertension secondary to endocrine disorders
[2023-08-19] MEDS: traZODone HCL 50 MG TAB PO SCH (20:26)
[2023-08-20 06:37] LABS: BUN Creatinine Ratio 21.2 (10-20); Calcium 8.7 mg/dl (8.6-10.3); Creatinine Clr Calc Pharmacy 38.7 ml/min; Est GFR (Non-African American) 26.8 ml/min; Potassium 4.1 mmol/L (3.5-5.1)
[2023-08-20] MEDS: INSULIN ASPART PER UNIT CHARGE SC SCH ×2 (08:40→13:23)
[2023-08-20] MEDS ORDERED: REGADENOSON 0.4 MG/5 ML SYR IV ONE (09:48)
[2023-08-20] MEDS: FUROSEMIDE 40 MG/4 ML VIAL IV SCH ×2 (12:04→14:15)
[2023-08-20] MEDS: METOPROLOL SUCC 50MG EXT REL TAB PO SCH (13:17)
[2023-08-20] MEDS: SPIRONOLACTONE 25 MG TAB PO SCH (13:17)
[2023-08-20] MEDS: ATORVASTATIN 40 MG TAB PO SCH (13:18)
[2023-08-20] MEDS: CHOLECALCIFEROL 1,000 UNITS 25 MCG TAB PO SCH (13:18)
[2023-08-20] MEDS: amLODIPine BESYLATE 5 MG TAB PO SCH (13:18)
[2023-08-20] MEDS: PANTOprazole 40 MG TAB PO SCH (13:19)
[2023-08-20] MEDS: GABAPENTIN 600 MG TAB PO SCH (13:19)
[2023-08-20] MEDS: ASPIRIN 325 MG ECTAB PO SCH (13:19)
[2023-08-20] MEDS: LANTUS PER UNIT CHARGE SQ SCH (13:29)
--- NOTE | 2023-08-20 13:59 | Discharge Summary ---
Date of Service August 20, 2023 Admission HPI Per Admitting Provider The patient is a 53-year-old male with significant alcohol use, who quit 2 weeks ago without withdrawal, due to family requests and concerns regarding his recent admission for fluid overload from 07/14-07/17/2023. Past medical history including liver cirrhosis, CKD stage III A, depression, diabetic foot ulcers, PAD, GERD, hyperlipidemia, hypertension and obesity. He presents as noted above, reporting that he is more concerned this time than last time, as he feels that alcohol use resulted in his first admission, but he has been off alcohol for 2 weeks, and his symptoms have worsened. He also reports that he is coughing up thick clear mucus, which is new for him as well. He reports that he has to sit up straight in a chair, and cannot be tilted back even a little bit, or he cannot breathe. Patient had refused a workup during last admission, including cardiology consult, as he felt his issues were all related to alcohol. He is agreeable to a workup now, and family in attendance reports that they w ill help to reaffirm with patient the need for an evaluation Principal Diagnosis Acute systolic congestive heart failure Discharge Exam General-alert and oriented x3, no fevers, no chills HEENT-head atraumatic and normocephalic, pupils equal and reactive to light, extraocular muscles intact Neck-no lymphadenopathy or thyromegaly, trachea midline Chest-faint bibasilar inspiratory rales have resolved. No wheezing. No rhonchi. Cardiac-regular rate and rhythm, normal S1 and S2 Abdomen-normal bowel sounds, nontender, no hepatosplenomegaly Extremities-no cyanosis, clubbing, or edema Neuro-cranial nerves II through XII intact, motor and sensory function within normal limits, strength symmetrical, no focal deficits Psych-normal affect, normal mood Discharge Data Allergies Allergy/AdvReac Type Severity Reaction Status Date / Time No Known Allergies Allergy Verified 08/15/23 00:34 Consultations 08/15/23 00:36 ED Decision to Admit Stat 08/15/23 05:11 Consult Cardiology Routine Ordered Studies 08/16/23 15:49 CT Abd and Pelvis [CT abd pelvis wo con] Routine Hospital Course (1) CHF (congestive heart failure): Acute systolic CHF with ejection fraction 30%. Much improved with intravenous Lasix diuresis. He is now on room air. Chest x-ray done today, August 19, looks better. Cardiology consultation and recommendations appreciated. Lexiscan nuclear stress testing completed today, August 20. Results are pending (2) Fatty liver: Present on admission. No intervention necessary at this time (3) Diabetic nephropathy with proteinuria: Glucose control. Sliding scale insulin coverage as necessary. ADA diet. Sliding scale coverage as needed (4) Liver cirrhosis: Stable. Continue current medical management (5) Alcoholism: Likely cause of liver cirrhosis. Supportive care. (6) Smokeless tobacco use: Cessation encouraged (7) Chronic kidney disease, stage 3a: Monitor intake and output. Serial lab (8) Hypertension: Stable. Continue current medical management Plan Home today, August 20. Lasix dosage has been increased to 40 mg daily. He will follow-up with his PCP and cardiology to discuss Lexiscan nuclear stress test results. Total Time Total Time Spent Total Time Spent (In Minutes): 45 minutes Discharge Plan Discharge Items Patient Disposition: Home - Self-Care Reason For Visit: CHF, NSTEMI, PNEUMONIA, MAYELIN ON CKD Discharge Diagnosis: Acute systolic congestive heart failure Activity: Resume your previous activity Non-emergency contact: Primary Care Provider Call non-emergency contact if: you have any medication questions and your symptoms worsen Follow-up/Referrals: Keeley Marquez DO [Primary Care Provider] - Diet: Carb Consistent or DM2 and Heart Healthy Addtl Attending Provider Instructions: Lasix dosage has been increased to 40 mg daily. Taken in the early afternoon. Follow-up with PCP and cardiology to discuss results of Lexiscan nuclear stress test Pending Studies at Discharge: Yes Studies:: Lexiscan nuclear stress test results Stand-Alone Forms: My [facility] [employer], Smoking Cessation Medications and DC Order Prescriptions: New furosemide [Lasix] 40 mg tablet 40 mg PO DAILY Qty: 30 0RF Continued atorvastatin 40 mg tablet 40 mg PO HS Qty: 90 3RF (DME) lancets [OneTouch Delica Lancets] 30 gauge misc See Rx Instructions .ROUTE .MEDSUPPLY Qty: 100 5RF Rx Instructions: Testing BS TID (DME) blood-glucose meter [OneTouch Ultra2 Meter] Misc See Rx Instructions .Route Qty: 1 0RF Rx Instructions: Testing BS TID (DME) OneTouch Ultra Test Strip See Rx Instructions .Route Qty: 300 3RF Rx Instructions: test 3 times a day: DX code E11.8 spironolactone 25 mg tablet 25 mg PO QAM Qty: 90 1RF (DME) pen needle, diabetic 32 gauge x 5/32" needle See Dose Instructions .ROUTE .MEDSUPPLY Qty: 200 1RF Dose Instruction: As directed Rx Instructions: RELI-ON pen needles - Injecting twice daily metoprolol succinate 100 mg tablet extended release 24 hr 100 mg PO QAM Qty: 90 1RF trazodone 50 mg tablet 50 mg PO DAILY Qty: 30 2RF gabapentin 600 mg tablet 600 mg PO QAM Qty: 60 5RF Rx Instructions: TAKE 1 TABLET BY MOUTH TWICE DAILY (MORNING AND NOON) cholecalciferol (vitamin D3) [Vitamin D3] 25 mcg (1,000 unit) tablet 4,000 unit PO QAM pantoprazole 40 mg tablet,delayed release (DR/EC) 40 mg PO QAM Qty: 90 1RF insulin glargine [Lantus Solostar U-100 Insulin] 100 unit/mL (3 mL) insulin pen 60 unit subcut BID 90 Days Qty: 108 1RF amlodipine 10 mg tablet 10 mg PO PM Qty: 90 1RF (DME) blood-glucose meter [Blood Glucose Monitoring] Kit See Rx Instructions .ROUTE .MEDSUPPLY Qty: 1 0RF Rx Instructions: As directed Rybelsus 3 mg tablet 3 mg PO DAILY 30 Days Qty: 30 0RF sildenafil 50 mg tablet 50 mg PO UD PRN (Reason: sexual activity) Rx Instructions: administer 30 minutes to 4 hours before activity aspirin [Ecotrin] 325 mg tablet,delayed release (DR/EC) 325 mg PO QAM Discontinued furosemide 20 mg tablet 20 mg PO QAM Qty: 90 1RF Discharge Orders: Discharge Order- CHF (Routine); Ordered 08/20/23 Ordered By: Jeferson Cueva/Other Patient Handouts: Managing Type 2 Diabetes, Special Foot Care for Diabetes Admission Data Admit Date/Time: 08/15/23 01:13 Attending Provider: Jeferson Davenport Admit Provider: Wade Hu Primary Care Provider: Keeley Marquez Other Providers: Wade Hu; Antwon Rollins Coding Level of Care Code 11151 INP/OBS DISCH >30 MIN Diagnoses CHF (congestive heart failure) I50.9 Fatty liver K76.0 Diabetic nephropathy with proteinuria E11.21 Liver cirrhosis K74.60 Alcoholism F10.20 Smokeless tobacco use Z72.0 Chronic kidney disease, stage 3a N18.31 Hypertension due to endocrine disorder I15.2 Hypertension type: secondary to endocrine disorders
--- NOTE | 2023-08-20 16:04 | Cardiology Progress Note ---
Date of Service August 20, 2023 Assessment & Plan (1) Acute systolic CHF (congestive heart failure): Plan: He appears to have had a good effect from the diuresis. He will be discharged on oral Lasix. Will monitor his weight and volume status as an outpatient. (2) Cardiomyopathy: Plan: Etiology uncertain. Perfusion study performed today. Awaiting results. Not a great candidate for percutaneous intervention based on his degree of renal dysfunction. No angina. Will continue metoprolol and spironolactone. He would benefit from an SG LT 2 inhibitor as an alternative to his G LP 1 a gonist. This can be discussed with his primary care physician in the outpatient setting. (3) Elevated troponin: Admission and Anticipated Discharge Date Admission Date: August 15, 2023 Subjective This morning patient claimed he feeling well. He reported being up out of bed and having some mild dyspnea which she feels was normal. Certainly improved from admission. No lower extremity edema. No dizziness or lightheadedness. Review of Systems Review of Systems: Per HPI Physical Exam Physical Exam: No distress. Normotensive BP. Skin: no ecchymoses or generalized lesions. HEENT: unremarkable. Neck: JVP one half way to the angle of the jaw at 90 degrees, no carotid bruits. Lungs: Mildly decreased breath sounds but clear. No wheezing or accessory muscle use. No rales Cardiac: regular rhythm, normal S1-2, no obvious murmur. Abdomen: Distended Extremities: No edema Neurologic: normal affect and conversation, nonfocal. Results & Data Vital Signs (Past 12 Hours) Vital Signs Temp Pulse Pulse Resp BP BP Pulse Ox 08/20/23 15:23 94 H 08/20/23 14:04 36.8 C 74 16 146/77 H 151/89 H 97 08/20/23 08:29 08/20/23 08:14 36.8 C 74 16 146/77 H 97 08/20/23 07:32 92 H O2 Del Method 08/20/23 15:23 08/20/23 14:04 08/20/23 08:29 Room Air 08/20/23 08:14 Room Air 08/20/23 07:32 Laboratory Results Abnormal Lab Results 08/19/23 08/19/23 08/20/23 16:08 19:58 02:47 Sodium Potassium Chloride Carbon Dioxide Anion Gap BUN Creatinine Est Cr Clr Drug Dosing Est GFR ( Amer) Est GFR (Non-Af Amer) BUN/Creatinine Ratio Glucose POC Glucose 105 H 126 H 92 Calcium 08/20/23 08/20/23 08/20/23 05:43 07:38 12:33 Sodium 137 Potassium 4.1 Chloride 104 Carbon Dioxide 26 Anion Gap 7 BUN 55 H Creatinine 2.60 H Est Cr Clr Drug Dosing 38.7 Est GFR ( Amer) 31.0 Est GFR (Non-Af Amer) 26.8 BUN/Creatinine Ratio 21.2 H Glucose 73 POC Glucose 98 116 H Calcium 8.7 PG Care Time/CCT Total # of Minutes Spent Total Time Spent with Patient: Total time spent is greater than 50% in coordination of care (as documented) at patient's floor/unit and/or counseling patient: Coding Level of Care Code 94787 SUB INP/OBS CARE 235MIN Diagnoses Acute systolic CHF (congestive heart failure) I50.21 Cardiomyopathy I42.9 Elevated troponin R79.89
--- NOTE | 2023-08-21 15:33 | Myocardial Perfusion Study ---
Date of Service August 21, 2023 Myocardial Perfusion Study [facility] Myocardial Perfusion Study Report LEXISCAN STRESS MYOCARDIAL PERFUSION IMAGING STUDY Indication: New cardiomyopathy Brief description: Rest portion-at 9:37 AM the patient was injected with 10.1 mCi of Tc 99m Cardiolite IV. 1 hour following injection, myocardial perfusion imaging was performed in multiple projections. Stress portion-resting heart rate, blood pressure, and EKG were obtained. These same parameters were monitored continuously throughout 3 minutes infusion and 3 minutes recovery. They were intermittently recorded during this time. Patient was infused with 0.4 mg IV Lexiscan followed immediately by injection of 31 mCi of Tc 99m Cardiolite IV. 30 minutes following injection, myocardial perfusion imaging was performed in multiple projections identical to those used for the rest portion. Patient reported cough and dyspnea with infusion. Hemodynamic and electrocardiographic findings: 1. Resting heart rate of 90 bpm kena to a maximum of 107 bpm with Lexiscan infusion. 2. Baseline blood pressure of 127/78 mmHg kena to a maximum of 133/72 mmHg with Lexiscan infusion. 3. Baseline EKG showed normal sinus rhythm with left bundle branch block and occasional PVCs. There were no diagnostic EKG changes with Lexiscan infusion. No additional ventricular or supraventricular ectopy or arrhythmia. Myocardial perfusion imaging results: 1. Raw data analysis demonstrates mild motion artifact, soft tissue attenuation secondary to obesity, and increased liver uptake with stress imaging. This study is considered adequate for interpretation. 2. Gated myocardial perfusion imaging demonstrated a moderately to severely dilated left ventricle, severe global hypokinesis, severely reduced LV systolic function with calculated EF of 24%. 3. There is a large in size, severe intensity, almost entirely fixed myocardial perfusion defect involving the inferior, inferolateral, inferoseptal, and inferior apical myocardium. There is a very modest amount of apical reversibility. These findings are suggestive of large infarct with minimal sascha-infarct ischemia plus or minus artifact. 4. This study is considered severely abnormal. However, it is low risk for ongoing myocardial ischemia. There are no prior studies for comparison. Recommend further discussion with cardiology. [facility] Myocardial perfusion code Indication for Procedure (1) Cardiomyopathy: Procedure Code Procedure 1: Myocardial Perfusion Codes: 53569 Cardiovascular Stress Test, multiple Procedure 2: Myocardial Perfusion Codes: 75618 Cardiovascular Stress Test, supervision only Procedure 3: Myocardial Perfusion Codes: 22949 Cardiovascular Stress Test, interpret ation and report
== END 2023-08-20 16:53 | disposition home or self-care (01) | DRG 291 ==
LOC: ED 22:55 → 2N 08-15 01:13 → SUATTDRO 08-15 01:13 → 2N 08-15 02:42 → 2S 08-15 10:33

== ENCOUNTER 2024-03-19 08:39 | Observation (INO) ==
--- NOTE | 2024-03-19 09:40 | Pre Anesthesia Assessment ---
Date of Service March 19, 2024 Pre Sedation Assessment Vital Signs Temp Pulse Resp BP Pulse Ox O2 Del Method 03/19/24 09:01 36.8 C 96 H 14 138/91 96 Room Air Cardiovascular + regular rate and + regular rhythm Respiratory + respiratory effort normal Pre-Sedation Airway Assessment Smoking Status: Never smoker Hx Sleep Apnea: No Hx Difficult Intubation: No Short, Thick Neck: No Thyromental Distance: > or= 3.5 Finger Breadths Oral Cavity: + WNL Mallampati Class: II ASA: ASA3 NPO Status Date of Last Intake of Fluids: 03/18/24 Time of Last Intake of Fluids: 23:00 Date of Last Intake of Solid Food: 03/18/24 Time of Last Intake of Solid Foods: 23:00 Procedure Planning Contraindications for Sedation: none Current Medications Reviewed: Yes Notes The planned sedation has been discussed with the patient. Informed Consent was obtained. I have identified the patient, determined the appropriateness of sedation and have assessed the patient immediately prior to the procedure. All medicine(s) and interventions are by my order.
--- NOTE | 2024-03-19 09:43 | History & Physical Bridge Note ---
Date of Service March 19, 2024 History & Physical Bridge Note I have examined the patient, reviewed the History & Physical and in the interval since the performance of the History & Physical I have noted the following changes of clinical significance: no changes noted
[2024-03-19] MEDS: ceFAZolin 330 MG/ML 1 GM VIAL ONE (10:31)
[2024-03-19] MEDS: LIDOCAINE 1% LOCAL 20 ML VIAL ONE (10:32)
[2024-03-19] MEDS: WATER, STERILE FOR INJ 10 ML VIAL ONE (10:32)
[2024-03-19] MEDS: BUPIVACAINE 0.5 % 5 MG/1 ML PF 10ML VIAL ONE (10:42)
[2024-03-19] MEDS: VANCOMYCIN HCL 1000MG/20ML VIAL ONE (10:54)
[2024-03-19] MEDS: fentaNYL citrate PF 100 MCG/2 ML VIAL ONE (11:07)
[2024-03-19] MEDS: MIDAZOLAM HCL 5 MG/ML 1 ML VIAL ONE (11:07)
[2024-03-19] MEDS ORDERED: ACETAMINOPHEN 325 MG TAB PO PRN (11:16)
[2024-03-19] MEDS ORDERED: oxyCODONE HCL IR 5 MG TAB (IMMEDIATE RELEASE) PO PRN (11:16)
--- NOTE | 2024-03-19 11:58 | Electrocardiogram Report ---
Test Reason : Blood Pressure : / mmHG Vent. Rate : 091 BPM Atrial Rate : 091 BPM P-R Int : 176 ms QRS Dur : 116 ms QT Int : 400 ms P-R-T Axes : 101 -28 252 degrees QTc Int : 492 ms Atrial-sensed ventricular-paced rhythm with occasional Premature ventricular complexes Abnormal ECG When compared with ECG of 17-AUG-2023 06:00, Electronic ventricular pacemaker has replaced Sinus rhythm Confirmed by Tee Gordon ([id number]) on 03/19/2024 11:57:43 AM Referred By: Garry Cuellar Confirmed By:Tee Gordon
[2024-03-19] MEDS ORDERED: NON-FORMULARY MEDICATION (Sildenafil 50 mg tablet) PO PRN (14:54)
[2024-03-19] MEDS ORDERED: GLUCOSE 40% GEL 15 GM TUBE PO PRN (15:15)
[2024-03-19] MEDS ORDERED: GLUCOSE 10 TAB/TUBE PO PRN (15:15)
[2024-03-19] MEDS ORDERED: GLUCAGON FOR INJ 1 MG VIAL IM PRN (15:15)
[2024-03-19] MEDS ORDERED: DEXTROSE 50% 50 ML SYRINGE IV PRN (15:15)
[2024-03-19] MEDS ORDERED: CARBOHYDRATES FOR HYPOGLYCEMIA PO PRN (15:15)
[2024-03-19] MEDS: FUROSEMIDE 20 MG TAB PO SCH (16:12)
--- NOTE | 2024-03-19 16:31 | Electrophysiology Report ---
Date of Service March 19, 2024 Electrophysiology Procedure Electrophysiology Procedure Report Procedure performed: Implantation of biventricular ICD with left bundle pacing lead Staff roll winder: Regino Hoff MD Indication: The patient is a 54-year-old gentleman with a history of a non ischemic cardiomyopathy who has an ejection fraction less than 30%. This is despite guideline directed medical therapy. He has [place] heart Association class 3 symptoms. He has not had revascularization in the past 90 days nor suffered a myocardial infarction in the past 40 days. He is anticipated longevity greater than 1 year. He also has a left bundle branch block morphology on the EKG with a QRS duration greater than 150 milliseconds. 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 Procedure in detail: The patient was informed of the risks benefits and alternatives to the intended procedure and she wished to proceed. She was taken to the electrophysiology suite in a fasting state. A preoperative antibiotic had been administered. The patient was monitored electrocardiographically throughout today's procedure and conscious sedation was administered per protocol. The left upper pectoral area is prepped and draped in usual sterile fashion. This area was anesthetized using subcutaneous administration of a xylocaine solution. An incision was made at this site and carried down to the prepectoralis fascia using sharp dissection. Electrocautery was also employed for dissection as well as for hemostasis. A device pocket was fashioned tissues above the pectoralis muscle. The left axillary vein was accessed 3 times using modified Seldinger technique. A sheath was placed over guidewire at this site and used facilitate passage of the ICD lead to the right ventricular apex under fluoroscopic guidance. Adequate sensing threshold parameters were obtained prior to active fixation of this lead to the endocardial surface. The proximal portion lead was then sutured to prepectoralis fascia using nonabsorbable suture. A 2nd sheath was placed over guidewire and used facilitate passage of the guiding catheter for mapping of the interventricular septum. Once an adequate location was identified a pacing lead was advanced into the interventricular septum until the appropriate electrophysiologic characteristics were obtained. The catheter was subsequently removed and the proximal portion this lead was then sutured to prepectoralis fascia using nonabsorbable suture. A sheath was placed over the remaining guidewire and used facilitate passage of a pacing lead to the right atrium under fluoroscopic guidance. Adequate sensing threshold parameters were obtained prior to active fixation of this lead to the endocardial surface. The proximal portion lead was then sutured to prepectoralis fascia using nonabsorbable suture. The device pocket was irrigated with antibiotic solution. The leads were then attached to the device. The device and leads were then placed in the pocket and pocket was closed in 3 layers of absorbable suture. Steri-Strips and sterile dressing were applied. The device was tested noninvasively prior to conclusion the procedure. The patient tolerated procedure well there no immediate complications. Equipment used: New pulse generator: Animal Care Worker Med[employer]. Model number: [id number] serial number [id number] Right atrial lead: Animal Care Worker [employer]. Model number: [id number] serial number [id number] Right ventricular lead: Animal Care Worker [employer]. Model number: [id number] serial number [id number] V Left bundle pacing lead: Animal Care Worker [employer]. Model 3830 serial number [id number] Measured data: Right atrial lead: P-waves measured 1.1 mV. Pacing threshold was 2.25 volts at 0.4 milliseconds with a pacing impedance of 532 Ohms Right ventricular lead: R-waves measured 17.4 mV. Pacing threshold was 0.5 volts at 0.4 milliseconds with a pacing impedance of 627 Ohms Left bundle pacing lead: R-waves measured 15.6 mV. Pacing threshold was 0.5 volts at 0.4 milliseconds with a pacing impedance of 874 Ohms Impression: Successful implantation of biventricular ICD with left bundle pacing lead [facility] Electrophysiology codes Pacing Procedure 1: Pacin BiV electrode w/Pacer / ICD implant, add on code ICD Procedure 1: ICD: 84822 Insert single or dual ICD system PG Moderate Sedation Codes Moderate Sedation Codes Procedure 1: Sedation/Anesthesia: 94533 Mod Sedation by the same physician;Init15 Min Child Age 5 & Up Procedure 2: Sedation/Anesthesia: 48100 Mod Sedation by the same physician; Juancarlos Ad [id number] Minutes
[2024-03-19] MEDS: ceFAZolin 1000MG 1,000 MG/7.5 ML SYR IV ONE (17:28)
[2024-03-19] MEDS: INSULIN ASPART PER UNIT CHARGE SC SCH (17:28)
[2024-03-19] MEDS: GABAPENTIN 600 MG TAB PO SCH (20:38)
[2024-03-19] MEDS: FAMOTIDINE 20 MG TAB PO SCH (20:38)
[2024-03-19] MEDS: DOCUSATE SODIUM 100 MG CAP PO SCH (20:40)
[2024-03-19] MEDS: ATORVASTATIN 40 MG TAB PO SCH (20:40)
[2024-03-19] MEDS: VALSARTAN/SACUBITRIL 51/49 MG TAB PO SCH (20:40)
[2024-03-19] MEDS: amLODIPine BESYLATE 5 MG TAB PO SCH (20:40)
[2024-03-19] MEDS: LANTUS PER UNIT CHARGE SC SCH (20:48)
[2024-03-19] MEDS: traZODone HCL 50 MG TAB PO SCH (22:01)
[2024-03-20] MEDS: LEVOTHYROXINE SODIUM 50 MCG TABLET PO SCH (05:47)
--- NOTE | 2024-03-20 07:30 | XRay Report ---
XR chest 2V PA/lateral CLINICAL HISTORY: Pacemaker insertion. COMPARISON STUDY: Chest radiograph August 19, 2023. FINDINGS: There is no pneumothorax following placement of a left subclavian pacer/AICD. There are tra ce bilateral pleural effusions. No consolidation is identified. Mild cardiomegaly is unchanged. IMPRESSION: 1. No pneumothorax following placement of a left subclavian pacer/AICD. 2. Trace bilateral pleural effusions. ACT 112: Negative or not required by law. Electronically signed by: Mac Marie M.D. 03/20/2024 7:29 AM
[2024-03-20] MEDS: METOPROLOL SUCC 50MG EXT REL TAB PO SCH (08:15)
[2024-03-20] MEDS: PANTOprazole 40 MG TAB PO SCH (08:16)
[2024-03-20] MEDS: ASPIRIN 325 MG ECTAB PO SCH (08:16)
[2024-03-20] MEDS: SPIRONOLACTONE 25 MG TAB PO SCH (08:16)
[2024-03-20] MEDS: EMPAGLIFLOZIN 10 MG TAB PO SCH (08:17)
--- NOTE | 2024-03-20 08:33 | Discharge Summary ---
Date of Service March 20, 2024 Principal Diagnosis Cardiomyopathy Discharge Exam On the day of discharge the patient was feeling well. He was ambulatory around his room. Evaluation of the device implant site did not reveal any significant hematoma or drainage. Minimal ecchymosis. Discharge Data Allergies Allergy/AdvReac Type Severity Reaction Status Date / Time No Known Allergies Allergy Verified 03/19/24 09:08 Procedures Performed Operation Date: 03/19/24 10:00 Actual Procedures p ICD Insertion Single or Dual - Regino Hoff MD Ordered Studies 03/19/24 06:45 EP Lab Images for PACS ONCE Hospital Course (1) Cardiomyopathy: Plan On the day of admission the patient underwent implantation of a biventricular Medtronic ICD. This involved a left bundle pacing lead. The following morning the device implant site was free of hematoma or complication. Chest x-ray demonstrated stable lead position without pneumothorax. Device interrogation revealed normal function on all 3 leads. The patient was felt stable for discharge. No medication changes were made. Total Time Total Time Spent Total Time Spent (In Minutes): 20 Discharge Plan Discharge Items Patient Disposition: Home - Self-Care Reason For Visit: Cardiomyopathy Discharge Diagnosis: cardiomyopathy Activity: Per Instructions section Activity Comment: No lifting left arm above shoulder or behind neck for 6 weeks Lifting: No more than 10 pounds Bathing: Keep incision dry Bathing Comment: Keep wound dry and steri-strip intact until f/u next week Exercise/Sports: Rest today Driving/Machine Use: Resume 1 day after discharge Non-emergency contact: Tube Carrier Call non-emergency contact if: you have any medication questions, you have a fever, your wound has increased redness and your wound has increased drainage Follow-up/Referrals: Keeley Marquez DO [Primary Care Provider] - 04/06/24 9:20 am Diet: Carb Consistent or DM2 and Heart Healthy Addtl Attending Provider Instructions: none Pending Studies at Discharge: No Stand-Alone Forms: My [employer], Smoking Cessation Medications and DC Order Prescriptions: Continued (DME) lancets [OneTouch Delica Lancets] 30 gauge misc See Rx Instructions .ROUTE .MEDSUPPLY Qty: 100 5RF Rx Instructions: Testing BS TID (DME) blood-glucose meter [OneTouch Ultra2 Meter] Misc See Rx Instructions .Route Qty: 1 0RF Rx Instructions: Testing BS TID cholecalciferol (vitamin D3) [Vitamin D3] 25 mcg (1,000 unit) tablet 4,000 unit PO QAM (DME) pen needle, diabetic 32 gauge x 5/32" needle See Dose Instructions .ROUTE .MEDSUPPLY Qty: 200 1RF Dose Instruction: As directed Rx Instructions: RELI-ON pen needles - Injecting twice daily Jardiance 10 mg tablet 10 mg PO DAILY Qty: 30 2RF Rybelsus 3 mg tablet 3 mg PO DAILY Qty: 90 3RF levothyroxine 50 mcg tablet 50 mcg PO DAILY Qty: 90 2RF furosemide 40 mg tablet See Rx Instructions .ROUTE .COMPLEX Qty: 135 3RF Rx Instructions: Take 2 and 1/2 tablets (100 mg) daily until breathing at baseline, then reduce to 1-1/2 tablets (60 mg) daily (DME) blood-glucose meter [Blood Glucose Monitoring] Kit See Rx Instructions .ROUTE .MEDSUPPLY Qty: 1 0RF Rx Instructions: As directed amlodipine 10 mg tablet 10 mg PO PM Qty: 90 1RF atorvastatin 40 mg tablet 40 mg PO HS Qty: 90 3RF (DME) OneTouch Ultra Test Strip See Rx Instructions .Route Qty: 300 3RF Rx Instructions: test 3 times a day: DX code E11.8 gabapentin 600 mg tablet 600 mg PO BID Qty: 60 5RF Rx Instructions: TAKE 1 TABLET BY MOUTH TWICE DAILY (MORNING AND NOON) metoprolol succinate 100 mg tablet extended release 24 hr 100 mg PO QAM Qty: 90 1RF pantoprazole 40 mg tablet,delayed release (DR/EC) 40 mg PO QAM Qty: 90 1RF Entresto 49-51 mg tablet 1 tab PO BID Qty: 180 3RF spironolactone 25 mg tablet 25 mg PO QAM Qty: 90 1RF trazodone 50 mg tablet 50 mg PO DAILY Qty: 30 2RF famotidine 20 mg tablet 20 mg PO HS Qty: 90 1RF insulin glargine [Lantus Solostar U-100 Insulin] 100 unit/mL (3 mL) insulin pen 50 unit subcut BID docusate sodium [Colace] 100 mg capsule 100 mg PO BID Qty: 180 1RF sildenafil 50 mg tablet 50 mg PO UD PRN (Reason: sexual activity) Rx Instructions: administer 30 minutes to 4 hours before activity aspirin [Ecotrin] 325 mg tablet,delayed release (DR/EC) 325 mg PO QAM Discharge Orders: Discharge Order (Routine); Ordered 03/20/24 Ordered By: Regino Hoff Admission Data Admit Date/Time: 03/19/24 10:11 Attending Provider: Regino Hoff Admit Provider: Regino Hoff Primary Care Provider: Keeley Marquez Other Interventions: Discharge Summary Assessment (RN) Last Done: 03/20/24 08:38 Coding Level of Care Code 20386 IN/OBS DISCH 30 MIN/LESS Diagnoses Cardiomyopathy, unspecified type I42.9 Cardiomyopathy type: unspecified
== END 2024-03-20 10:14 | disposition home or self-care (01) ==
LOC: 2S 08:39 → EP 08:39
PROC: EPB.ICD (2024-03-19 10:00)

== ENCOUNTER 2025-06-24 14:16 | Inpatient (IN) ==
[2025-06-24 15:07] LABS: Hematocrit (blood only) 41.0 % (42.0-52.0); Hemoglobin 11.5 g/dl (14.0-18.0); Immature Granulocytes # (auto) 0.03 K/uL (0.01-0.20); Immature Granulocytes % (auto) 0.4 %; Mean Corpuscular Hemoglobin 21.6 pg (25.0-34.0); Mean Corpuscular Volume 77.1 fL (80.0-100.0); Platelet Count 190 K/uL (130-400); RDW Standard Deviation 54.4 fL (36.4-46.3); Red Blood Count 5.32 M/uL (4.70-6.10); White Blood Count 8.05 K/ul (4.8-10.8)
[2025-06-24 15:26] LABS: Alanine Aminotransferase 19.0 U/L (7-52); Albumin Globulin Ratio 0.6 (0.9-2); Albumin Level 3.2 gm/dl (3.4-5.0); Alkaline Phosphatase 127.0 U/L (34-104); Anion Gap 6.0 (3-11); Bilirubin,Total 1.5 mg/dl (0.2-1.0); Blood Urea Nitrogen 24.0 mg/dl (6-23); Calcium 8.9 mg/dl (8.6-10.3); Carbon Dioxide 26.0 mmol/L (21-32); Chloride 105.0 mmol/L (98-107); Creatinine Clr Calc Pharmacy 41.6 ml/min; Globulin 5.3 gm/dl (2.5-4.0); Glucose 144.0 mg/dl (70-99(Fasting)); Magnesium 2.2 mg/dl (1.7-2.4); Potassium 3.8 mmol/L (3.5-5.1); Sodium 137.0 mmol/L (136-145); Total Protein 8.5 gm/dl (6.0-8.3)
[2025-06-24 15:33] LABS: Anisocytosis Present
--- NOTE | 2025-06-24 15:35 | XRay Report ---
XR chest 2V PA/lateral CLINICAL HISTORY: Dyspnea COMPARISON STUDY: 03/20/2024 FINDINGS: Stable pacemaker. Stable moderate cardiomegaly with mild pulmonary vascular congestion. Sta ble trace pleural effusions. No other consolidation seen. No pneumothorax. IMPRESSION: CHF with trace pleural effusions. ACT 112: Negative or not required by law. Electronically signed by: Kai Cabrera M.D. 06/24/2025 3:33 PM
[2025-06-24 15:41] LABS: INR 1.1 (0.9-1.1); Partial Thromboplastin Time 28 Seconds (21-31); Prothrombin Time 11.8 Seconds (9.0-12.0)
[2025-06-24 16:14] LABS: Chlamydia pneumoniae PCR Not Detected (NotDetected); Coronavirus 229E PCR Not Detected (NotDetected); Coronavirus CoV-2 (COVID19)PCR Not Detected (NotDetected); Coronavirus HKU1 PCR Not Detected (NotDetected); Coronavirus NL63 PCR Not Detected (NotDetected); Coronavirus OC43PCR Not Detected (NotDetected); Human Metapneumovirus PCR Not Detected (NotDetected); Parainfluenza Virus 1 PCR Not Detected (NotDetected); Parainfluenza Virus 2 PCR Not Detected (NotDetected); Parainfluenza Virus 3 PCR Not Detected (NotDetected); Parainfluenza Virus 4 PCR Not Detected (NotDetected); Respiratory Syncytial VirusPCR Not Detected (NotDetected); Rhinovirus/Enterovirus PCR Not Detected (NotDetected)
--- NOTE | 2025-06-24 16:16 | Emergency Department Note ---
Impression & Plan CHF exacerbation, Hypertension, S/P implantation of automatic cardioverter/defibrillator (AICD) ED Provider Note CHIEF COMPLAINT: Fluid overload, sob HISTORY OF PRESENTING ILLNESS: Patient is a 55-year-old male presents to the emergency department today for complaints of "being full of fluid". He has a significant history of chronic systolic heart failure with a cardio evertor/defibrillator, hypertension, PAD, left ventricular ejection fraction of 20 to 25%, alcohol abuse. He reports about a month ago he had a few too many beers while at a bingo event and ever since then he has had the symptoms where he feels full of fluid. He does report taking his 40 mg of Lasix every morning as prescribed. He is unsure about his sodium intake. He denies smoking, recent travel, recent illness. He does take 324 mg aspirin daily. He does report alcohol use about every 2 weeks he drinks a few beers aside from that previous event 1 month ago when he drank more than he should have. Patient denies chest pain, abdominal pain, headache, fevers/chills, blood in stool or urine, any recent illness, or any recent travel. REVIEW OF SYSTEMS: See HPI for pertinent positives and pertinent negatives. ALLERGIES: See below MEDICATIONS: See below PAST MEDICAL HISTORY: See below PHYSICAL EXAM: VITALS: Vitals are noted on the nurse's note and reviewed by myself. SpO2 was 93% on room air. Afebrile. GENERAL: Non toxic, in no acute distress, non-diaphoretic. SKIN: Capillary refill <2 sec. EYES: PERRLA. EOMI. Conjunctivae without injection, sclerae without icterus. NECK: Supple without nuchal rigidity. HEART: Regular rate and rhythm without murmurs gallops or rubs. LUNGS: Clear to auscultation bilaterally without wheezes, rales or rhonchi. No retractions or accessory muscle use. ABDOMEN: Positive bowel sounds x 4. Normal tympanic percussion. Soft, nontender to palpation. MUSCULOSKELETAL: No gross musculoskeletal defects. NEURO: Patient was alert and oriented. No focal neurological deficits. DIFFERENTIAL DIAGNOSIS: Differential diagnosis includes acute coronary syndrome, pulmonary embolism, pneumothorax, pericarditis, myocarditis, endocarditis, anxiety, musculoskeletal pain, GERD, costochondritis, pneumonia, among others. ED COURSE AND MEDICAL DECISION MAKING: HISTORY FROM INDEPENDENT HISTORIAN: History was provided by the patient and his who acts as a secondary historian. MONITOR: Continuous radiation monitor: Order was placed for continuous radiation monitor. Patient was placed on the radiation monitor and continuous pulse ox. Patient was noted to be in normal sinus rhythm at an initial rate of 92 bpm per my interpretation. EKG: EKG was interpreted by myself as atrial sensed ventricular paced rhythm. At a rate of 93 bpm. INTERPRETATION OF LABS: I interpreted the labs with full lab results as below in the lab section of this note. Laboratory results pertinent to the emergent complaint are discussed in the MDM section below. The patient was advised to follow up with their PCP and/or specialist(s) for further outpatient monitoring and management of any abnormal results. INTERPRETATION OF IMAGING: Imaging studies were interpreted by myself and read by radiology as per the imaging section of this note. The patient was advised to follow up with their PCP and/or specialist(s) for further outpatient management of any non-emergent abnormal findings. CHRONIC MEDICAL/SOCIAL CONDITIONS AFFECTING CARE: No social concerns were identified as barriers to patients care. EXTERNAL RECORDS REVIEWED: Patient's cardiology visit from 04/19/2025 for an accurate cardiac history and medication list. I also reviewed the patient's previous wellness visit from 05/11/2025. ESCALATION OF CARE CONSIDERED: I considered admission on this patient due to exertional shortness of breath and CHF exacerbation. CONSULTATIONS: I had a meaningful discussion about this patient with Dr. Mon who agrees with my assessment and the treatment plan. SUMMARY: I examined the patient for complaints of exertional shortness of breath, feeling of fluid overload. A physical exam and history were performed. Nursing notes, EMR, and medication list were personally reviewed. CBC showed no leukocytosis or thrombocytopenia. Mild hemoglobin of 11.5 which appears to be in line with patient's baseline. PT/INR and APTT were normal. CMP showed a BUN of 24, creatinine of 2.37 which does appear to be in line with patient's baseline. Glucose was 144. Magnesium 2.2 total bilirubin 1.5. Alkaline phosphatase of 127. Troponin 28.6. BNP was 1572. No other emergent findings. Urinalysis showed no leukocytes, bacteria. Bio fire was negative. Chest x-ray does show CHF with trace pleural effusions. Patient was given Lasix 40 mg IV in the emergency department. Patient's pacemaker was interrogated and demonstrated a functioning pacemaker. It did also demonstrate fluid overload. Discussed discharge versus admission with the patient and the patient does not feel he is able to go home with exertional shortness of breath. I consulted with Dr. Meade who accepts the patient for admission to the hospital. DIAGNOSIS: CHF exacerbation TREATMENT PLAN/DISCHARGE INSTRUCTIONS: Admit to hospitalist services The chart was completed utilizing [employer] Speech voice recognition software.Grammatical errors, random word insertions, pronoun errors, and incomplete sentences are an occasional consequence of this system due to software limitations, ambient noise, and hardware issues.Any formal questions or concerns about the content, text, or information contained within the body of this dictation should be directly addressed to the physician for clarification. Attending Attestation: I Jones Mon MD I have reviewed the advanced practitioner's documentation and agree with the plan of care. I accept the responsibility for the associated risk of managing the patient. I performed a substantive portion of the visit including involvement in all aspects of medical decision making. Past Med/Surg History Problem List (Updated 06/24/25 @ 17:28 by ASHLEE Cantu) CHF exacerbation (Acute) Arthritis, hip Right hip pain Tendinopathy of right gluteal region Hypothyroidism S/P implantation of automatic cardioverter/defibrillator (AICD) (Acute 02/2024) History of alcohol abuse Hypertension (Acute) Diabetic nephropathy with proteinuria Diabetic neuropathy Fatty liver Depression Pleural effusion, right LBBB (left bundle branch block) PAD (peripheral artery disease) s/p angioplasty to posterior tibial, and peroneal arteries 08/2020 Nephrotic syndrome Stage 3b chronic kidney disease Chronic systolic heart failure Cardiomyopathy Proteinuria Vitamin D deficiency Sleep apnea Lumbar stenosis with neurogenic claudication Anejaculatory orgasm (Acute) Erectile dysfunction Diabetic ulcer of toe associated with diabetes mellitus due to underlying condition (Acute) Diabetic ulcer of foot associated with diabetes mellitus due to underlying condition, limited to breakdown of skin Diabetic ulcer of right foot (Acute) Sensory ataxia GERD (gastroesophageal reflux disease) Diabetes mellitus with complication Hyperlipidemia Psoriasis (Chronic) Umbilical hernia (Chronic) current Medical History Weakness of both lower extremities "can only walk so far, then I have to sit down, I don't think it's really weakness" Abnormal nuclear cardiac imaging test Pulmonary vascular congestion Perianal abscess Acute systolic CHF (congestive heart failure) Alcoholism Smokeless tobacco use Stroke incidental 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 with small remote infarcts of the right external capsule and malachi also noted on 08/30/20 Brain MRI Surgical History 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) History of incision and drainage (04/25/22) Ambar-Rectal Abscess Incision and Drainage(Not Applicable) - Braulio Shaffer, History of tooth extraction Hx of vascular surgery (08/2020) Angioplasty to posterior tibial, and peroneal arteries (08/2020) History of cardiac cath 25+ years ago > no stents Family History Father , Aug 2023 Cardiac disorder Hypertension Dementia Multiple sclerosis Grandfather Cardiac disorder Myocardial infarction Grandmother Breast cancer Other No family history of adverse response to anesthesia Denies family history of Ovarian cancer Prostate cancer Colorectal cancer Social History Smoking Status: Never smoker Tobacco Type: Smokeless Tobacco (Dip or Chew) Cigarettes Per Day: less than 1 can per day; Second Hand Exposure: No; Do You Dip or Chew Tobacco: Yes; Hx Alcohol Use: Yes Alcohol type: beer Alcohol Intake Frequency: 2-4 x/Month Hx Substance Use: No Preferred Language: Ukrainian Communication Ability: Effective Visual Impairment: No Limitations Hearing Ability: Normal Bleaching Supervisor Required: No Beliefs That Will Affect Care: None marital status: Current Living Situation: Alone current occupational status: unemployed Feels Safe at Home: Yes Childhood Exposure to Second-Hand Smoke: Yes Diet: regular caffeine: Yes (mt dew) during the past year weight has: remained stable Dental Care, Regularly: No Physical Activity Frequency: Does not Exercise Seatbelt Use: always Sunscreen Use: No Assistive Devices: None Allergies Allergies Allergy/AdvReac Type Severity Reaction Status Date / Time No Known Allergies Allergy Verified 05/11/25 14:24 Home Meds Home Medications Medication Instructions Recorded Confirmed aspirin 325 mg tablet,delayed 325 mg PO QAM 06/04/22 06/24/25 release (Ecotrin) furosemide 40 mg tablet 40 mg PO QAM 03/25/25 06/24/25 metoprolol succinate 100 mg 100 mg PO QAM 03/25/25 06/24/25 tablet,extended release 24 hr amlodipine 10 mg tablet 10 mg PO QAM 06/24/25 06/24/25 cholecalciferol (vitamin D3) 125 125 mcg PO QAM 06/24/25 06/24/25 mcg (5,000 unit) tablet (Vitamin D3) empagliflozin 25 mg tablet 25 mg PO QAM 06/24/25 06/24/25 insulin glargine 100 unit/mL (3 60 unit subcut BID 06/24/25 06/24/25 mL) subcutaneous pen (Lantus Solostar U-100 Insulin) levothyroxine 100 mcg tablet 100 mcg PO DAILYBB 06/24/25 06/24/25 semaglutide 3 mg tablet 3 mg PO QAM 06/24/25 06/24/25 sertraline 50 mg tablet 50 mg PO QAM 06/24/25 06/24/25 trazodone 50 mg tablet 50 mg PO HS 06/24/25 06/24/25 Previous Rx's Medication Instructions Recorded blood-glucose meter (Blood Glucose #1 ea 11/19/19 Monitoring kit) blood-glucose meter (OneTouch #1 ea 10/16/22 Ultra2 Meter) lancets 30 gauge (OneTouch Delica #100 ea 10/16/22 Lancets) blood sugar diagnostic (OneTouch #300 ea 11/04/23 Ultra Test strips) pen needle, diabetic 32 gauge x #200 ea 10/28/24 5/32" atorvastatin 40 mg tablet 40 mg PO HS #90 tabs 12/07/24 sacubitril 49 mg-valsartan 51 mg 1 tab PO BID #180 tabs 12/24/24 tablet (Entresto) famotidine 20 mg tablet 20 mg PO HS #90 tabs 01/04/25 gabapentin 600 mg tablet 600 mg PO BID #60 tabs 01/04/25 pantoprazole 40 mg tablet,delayed 40 mg PO QAM #90 tabs 02/03/25 release Results & Data (ED) Vital Signs Vital Signs - 24 hr 06/24/25 14:21 06/24/25 14:33 06/24/25 14:36 Temperature 37 C Temperature Source Temporal Artery Scan Pulse Rate 93 H 97 H 88 Pulse Rate [Apical] Pulse Rate from SpO2 Sensor 93 H Respiratory Rate 20 23 Respiratory Effort / Characteristics Non-Labored Spontaneous Respiratory Depth Normal Respiratory Pattern Regular Blood Pressure 115/74 Blood Pressure [Left Arm] Blood Pressure Mean 87 Blood Pressure Mean [Left Arm] Pulse Oximetry 95 96 Oxygen Delivery Method Room Air Sepsis Recent Fever Within 48 Hours No Sepsis New/Unexplained Change in Mental Status No Sepsis Action Taken by Nursing No Action Required 06/24/25 14:42 06/24/25 14:52 06/24/25 14:52 Temperature Temperature Source Pulse Rate 94 H Pulse Rate [Apical] Pulse Rate from SpO2 Sensor 94 H Respiratory Rate 14 Respiratory Effort / Characteristics Respiratory Depth Respiratory Pattern Blood Pressure 121/83 121/83 Blood Pressure [Left Arm] Blood Pressure Mean 89 89 Blood Pressure Mean [Left Arm] Pulse Oximetry 94 Oxygen Delivery Method Sepsis Recent Fever Within 48 Hours Sepsis New/Unexplained Change in Mental Status Sepsis Action Taken by Nursing 06/24/25 14:54 06/24/25 15:06 06/24/25 15:06 Temperature Temperature Source Pulse Rate 94 H Pulse Rate [Apical] 92 H Pulse Rate from SpO2 Sensor 94 H Respiratory Rate 23 18 Respiratory Effort / Characteristics Respiratory Depth Respiratory Pattern Blood Pressure Blood Pressure [Left Arm] 128/84 Blood Pressure Mean Blood Pressure Mean [Left Arm] 98 Pulse Oximetry 94 93 Oxygen Delivery Method Room Air Room Air Sepsis Recent Fever Within 48 Hours Sepsis New/Unexplained Change in Mental Status Sepsis Action Taken by Nursing 06/24/25 15:06 06/24/25 15:18 06/24/25 15:36 Temperature Temperature Source Pulse Rate 93 H 92 H Pulse Rate [Apical] Pulse Rate from SpO2 Sensor 96 H 92 H Respiratory Rate 29 H 18 Respiratory Effort / Characteristics Respiratory Depth Respiratory Pattern Blood Pressure Blood Pressure [Left Arm] Blood Pressure Mean Blood Pressure Mean [Left Arm] Pulse Oximetry 93 85 L 97 Oxygen Delivery Method Sepsis Recent Fever Within 48 Hours Sepsis New/Unexplained Change in Mental Status Sepsis Action Taken by Nursing 06/24/25 15:48 06/24/25 16:00 06/24/25 16:00 Temperature Temperature Source Pulse Rate 92 H Pulse Rate [Apical] Pulse Rate from SpO2 Sensor 92 H Respiratory Rate 25 H Respiratory Effort / Characteristics Respiratory Depth Respiratory Pattern Blood Pressure 146/104 H 146/104 H Blood Pressure [Left Arm] Blood Pressure Mean 108 108 Blood Pressure Mean [Left Arm] Pulse Oximetry 92 Oxygen Delivery Method Sepsis Recent Fever Within 48 Hours Sepsis New/Unexplained Change in Mental Status Sepsis Action Taken by Nursing 06/24/25 16:00 06/24/25 16:00 06/24/25 16:30 Temperature Temperature Source Pulse Rate 92 H Pulse Rate [Apical] Pulse Rate from SpO2 Sensor 92 H Respiratory Rate 23 Respiratory Effort / Characteristics Respiratory Depth Respiratory Pattern Blood Pressure 146/104 H 138/92 Blood Pressure [Left Arm] Blood Pressure Mean 108 97 Blood Pressure Mean [Left Arm] Pulse Oximetry 91 Oxygen Delivery Method Sepsis Recent Fever Within 48 Hours Sepsis New/Unexplained Change in Mental Status Sepsis Action Taken by Nursing 06/24/25 16:30 06/24/25 16:30 06/24/25 16:33 Temperature Temperature Source Pulse Rate 92 H Pulse Rate [Apical] Pulse Rate from SpO2 Sensor 92 H Respiratory Rate 18 Respiratory Effort / Characteristics Respiratory Depth Respiratory Pattern Blood Pressure 138/92 138/92 Blood Pressure [Left Arm] Blood Pressure Mean 97 97 Blood Pressure Mean [Left Arm] Pulse Oximetry 97 Oxygen Delivery Method Sepsis Recent Fever Within 48 Hours Sepsis New/Unexplained Change in Mental Status Sepsis Action Taken by Nursing 06/24/25 16:48 06/24/25 16:57 06/24/25 17:00 Temperature Temperature Source Pulse Rate 91 H 89 Pulse Rate [Apical] 66 Pulse Rate from SpO2 Sensor 91 H 90 Respiratory Rate 27 H 19 16 Respiratory Effort / Characteristics Respiratory Depth Respiratory Pattern Blood Pressure Blood Pressure [Left Arm] 122/84 Blood Pressure Mean Blood Pressure Mean [Left Arm] 96 Pulse Oximetry 96 95 97 Oxygen Delivery Method Sepsis Recent Fever Within 48 Hours Sepsis New/Unexplained Change in Mental Status Sepsis Action Taken by Nursing 06/24/25 17:06 06/24/25 17:12 06/24/25 17:16 Temperature Temperature Source Pulse Rate 90 90 Pulse Rate [Apical] 88 Pulse Rate from SpO2 Sensor 90 90 Respiratory Rate 15 18 16 Respiratory Effort / Characteristics Respiratory Depth Respiratory Pattern Blood Pressure Blood Pressure [Left Arm] 131/97 Blood Pressure Mean Blood Pressure Mean [Left Arm] 108 Pulse Oximetry 90 99 95 Oxygen Delivery Method Room Air Sepsis Recent Fever Within 48 Hours Sepsis New/Unexplained Change in Mental Status Sepsis Action Taken by Nursing 06/24/25 17:21 06/24/25 17:30 06/24/25 17:30 Temperature Temperature Source Pulse Rate 92 H Pulse Rate [Apical] Pulse Rate from SpO2 Sensor 92 H Respiratory Rate 17 Respiratory Effort / Characteristics Respiratory Depth Respiratory Pattern Blood Pressure 122/84 122/84 Blood Pressure [Left Arm] Blood Pressure Mean 100 100 Blood Pressure Mean [Left Arm] Pulse Oximetry 97 Oxygen Delivery Method Sepsis Recent Fever Within 48 Hours Sepsis New/Unexplained Change in Mental Status Sepsis Action Taken by Nursing 06/24/25 17:30 06/24/25 17:36 Temperature Temperature Source Pulse Rate 92 H Pulse Rate [Apical] Pulse Rate from SpO2 Sensor 92 H Respiratory Rate 13 Respiratory Effort / Characteristics Respiratory Depth Respiratory Pattern Blood Pressure 122/84 Blood Pressure [Left Arm] Blood Pressure Mean 100 Blood Pressure Mean [Left Arm] Pulse Oximetry 98 Oxygen Delivery Method Sepsis Recent Fever Within 48 Hours Sepsis New/Unexplained Change in Mental Status Sepsis Action Taken by Nursing Laboratory Data 06/24/25 14:50 06/24/25 14:50 Lab Results 06/24/25 06/24/25 06/24/25 Range/Units 14:50 15:12 16:27 WBC 8.05 (4.8-10.8) K/ul RBC 5.32 (4.70-6.10) M/uL Hgb 11.5 L (14.0-18.0) g/dl Hct 41.0 L (42.0-52.0) % MCV 77.1 L (80.0-100.0) fL MCH 21.6 L (25.0-34.0) pg MCHC 28.0 L (32.0-36.0) g/dL RDW Std Deviation 54.4 H (36.4-46.3) fL RDW Coeff of Jonah 20.3 H (11.5-14.5) % Plt Count 190 (130-400) K/uL MPV 10.2 (9.4-12.4) fL Immature Gran % (Auto) 0.4 % Neut % (Auto) 74.8 % Lymph % (Auto) 14.3 % [place] % (Auto) 6.5 % Eos % (Auto) 3.4 % Baso % (Auto) 0.6 % Neut # (Auto) 6.03 (1.40-6.50) K/uL Lymph # (Auto) 1.15 L (1.20-3.40) K/uL [place] # (Auto) 0.52 (0.11-0.59) K/uL Eos # (Auto) 0.27 (0.00-0.50) K/uL Baso # (Auto) 0.05 (0.00-0.20) K/uL Immature Gran # (Auto) 0.03 (0.01-0.20) K/uL Anisocytosis Present PT 11.8 (9.0-12.0) Seconds INR 1.1 (0.9-1.1) APTT 28 (21-31) Seconds PTT Ratio 1.0 Sodium 137 (136-145) mmol/L Potassium 3.8 (3.5-5.1) mmol/L Chloride 105 (98-107) mmol/L Carbon Dioxide 26 (21-32) mmol/L Anion Gap 6 (3-11) BUN 24 H (6-23) mg/dl Creatinine 2.37 H (0.6-1.4) mg/dl Est Cr Clr Drug Dosing 41.6 ml/min eGFR 31.36 BUN/Creatinine Ratio 10.1 (10-20) Glucose 144 H (70-99(Fasting)) mg/dl Calcium 8.9 (8.6-10.3) mg/dl Magnesium 2.2 (1.7-2.4) mg/dl Total Bilirubin 1.5 H (0.2-1.0) mg/dl AST 18 (13-39) U/L ALT 19 (7-52) U/L Alkaline Phosphatase 127 H (34-104) U/L Troponin I High Sens 28.6 H (0-20) pg/ml B-Natriuretic Peptide 1572 H (0-100) pg/ml Total Protein 8.5 H (6.0-8.3) gm/dl Albumin 3.2 L (3.4-5.0) gm/dl Globulin 5.3 H (2.5-4.0) gm/dl Albumin/Globulin Ratio 0.6 L (0.9-2) Urine Color Yellow Urine Appearance Clear (Clear) Urine pH 7.0 (4.5-7.5) Ur Specific [place] 1.012 (1.000-1.030) Urine Protein 2+ H (Negative) Urine Glucose (UA) 3+ H (Negative) Urine Ketones Negative (Negative) Urine Blood Trace H (Negative) Urine Nitrite Negative (Negative) Urine Bilirubin Negative (Negative) Urine Urobilinogen Negative (Negative) Ur Leukocyte Esterase Negative (Negative) Urine WBC (Auto) 0-5 (0-5) /hpf Urine RBC (Auto) 3-5 H (0-2) /hpf U Hyaline Cast (Auto) 0-2 (0-2) /lpf U Epithel Cells (Auto) 0-2 (0-2) /hpf Urine Bacteria (Auto) None Seen (None Seen) Urine Comment Adenovirus (PCR) Not Detected (NotDetected) B. pertussis DNA (PCR) Not Detected (NotDetected) B.parapertussis DNA PCR Not Detected (NotDetected) C. pneumoniae DNA (PCR) Not Detected (NotDetected) Coronavirus OC43 (PCR) Not Detected (NotDetected) Coronavirus HKU1 (PCR) Not Detected (NotDetected) Coronavirus 229E (PCR) Not Detected (NotDetected) SARS-CoV-2 (PCR) Not Detected (NotDetected) Coronavirus NL63 (PCR) Not Detected (NotDetected) Human Metapneumovir PCR Not Detected (NotDetected) Influenza Type A (PCR) Not Detected (NotDetected) Influenza Type B (PCR) Not Detected (NotDetected) M. pneumoniae (PCR) Not Detected (NotDetected) Parainfluenza 1 (PCR) Not Detected (NotDetected) Parainfluenza 2 (PCR) Not Detected (NotDetected) Parainfluenza 3 (PCR) Not Detected (NotDetected) Parainfluenza 4 (PCR) Not Detected (NotDetected) RSV (PCR) Not Detected (NotDetected) Entero/Rhino (PCR) Not Detected (NotDetected) Administered Medications Discontinued Medications Furosemide (Furosemide 40 Mg/4 Ml Vial) 40 mg IV ONE ONE Stop: 06/24/25 16:10 Last Admin: 06/24/25 16:24 Dose: 40 mg Documented By: SYLVESTER Imaging Data Radiologist's Impression: Chest X-Ray 06/24/25 14:39 XR chest 2V PA/lateral CLINICAL HISTORY: Dyspnea COMPARISON STUDY: 03/20/2024 FINDINGS: Stable pacemaker. Stable moderate cardiomegaly with mild pulmonary vascular congestion. Stable trace pleural effusions. No other consolidation seen. No pneumothorax. IMPRESSION: CHF with trace pleural effusions. ACT 112: Negative or not required by law. Electronically signed by: Kai Cabrera M.D. 06/24/2025 3:33 PM Discharge Plan Visit Data Chief Complaint: Shortness of Breath/Dyspnea Stated Complaint: FLUID BUILD UP SOB ED Provider: Jones Mon ED Midlevel Provider: Barbie Serna Discharge Problem: CHF exacerbation, Hypertension, S/P implantation of automatic cardioverter/defibrillator (AICD) Patient Disposition: Admitted As Inpatient Condition: Good Forms Stand Alone Forms: My [facility] Prescriptions Prescriptions: No Action furosemide 40 mg tablet 40 mg PO QAM metoprolol succinate 100 mg tablet extended release 24 hr 100 mg PO QAM (DME) lancets [OneTouch Delica Lancets] 30 gauge misc See Rx Instructions .ROUTE .MEDSUPPLY Qty: 100 5RF Rx Instructions: Testing BS TID (DME) blood-glucose meter [Syp[employer] LabsTouch Ultra2 Meter] Misc See Rx Instructions .Route Qty: 1 0RF Rx Instructions: Testing BS TID (DME) pen needle, diabetic 32 gauge x 5/32" needle See Dose Instructions .ROUTE .MEDSUPPLY Qty: 200 1RF Dose Instruction: As directed Rx Instructions: RELI-ON pen needles - Injecting twice daily atorvastatin 40 mg tablet 40 mg PO HS Qty: 90 3RF Entresto 49-51 mg tablet 1 tab PO BID Qty: 180 3RF gabapentin 600 mg tablet 600 mg PO BID Qty: 60 5RF Rx Instructions: TAKE 1 TABLET BY MOUTH TWICE DAILY (MORNING AND NOON) famotidine 20 mg tablet 20 mg PO HS Qty: 90 1RF pantoprazole 40 mg tablet,delayed release (DR/EC) 40 mg PO QAM Qty: 90 1RF (DME) blood-glucose meter [Blood Glucose Monitoring] Kit See Rx Instructions .ROUTE .MEDSUPPLY Qty: 1 0RF Rx Instructions: As directed (DME) OneTouch Ultra Test Strip See Rx Instructions .Route Qty: 300 3RF Rx Instructions: test 3 times a day: DX code E11.8 aspirin [Ecotrin] 325 mg tablet,delayed release (DR/EC) 325 mg PO QAM amlodipine 10 mg Tablet 10 mg PO QAM sertraline 50 mg tablet 50 mg PO QAM levothyroxine 100 mcg tablet 100 mcg PO DAILYBB insulin glargine [Lantus Solostar U-100 Insulin] 100 unit/mL (3 mL) insulin pen 60 unit subcut BID empagliflozin 25 mg tablet 25 mg PO QAM Rybelsus 3 mg tablet 3 mg PO QAM trazodone 50 mg Tablet 50 mg PO HS cholecalciferol (vitamin D3) [Vitamin D3] 125 mcg (5,000 unit) Tablet 125 mcg PO QAM Referrals Referrals: Keeley Marquez DO [Primary Care Provider] - Discharge Problem: CHF exacerbation Qualifiers: Heart failure type: unspecified Qualified Code(s): I50.9 - Heart failure, unspecified Hypertension Qualifiers: Hypertension type: unspecified Qualified Code(s): I10 - Essential (primary) hypertension
[2025-06-24] MEDS: FUROSEMIDE 40 MG/4 ML VIAL IV ONE (16:24)
[2025-06-24] MEDS ORDERED: PHARMACY GLYCEMIC MGMT CONSULT PRN (16:39)
[2025-06-24] MEDS ORDERED: ACETAMINOPHEN 325 MG TAB PO PRN (16:42)
[2025-06-24] MEDS ORDERED: ONDANSETRON INJ 2 MG/ML 2 ML VIAL IV PRN (16:42)
[2025-06-24 16:45] LABS: Appearance Urine Clear (Clear); Bacteria Urine Automated None Seen (None Seen); Cast Urine Automated 0-2 /lpf (0-2); Epithelial Cell Urine Auto 0-2 /hpf (0-2); Glucose Urine UA 3+ (Negative); WBC Urine Automated 0-5 /hpf (0-5)
--- NOTE | 2025-06-24 16:50 | History & Physical Report ---
Date of Service June 24, 2025 Assessment & Plan (1) CHF exacerbation: Plan: -CXR showing CHF with trace pleural effusions -lasix 40mg IV BID -metoprolol -Jardiance -Entresto -echo -cardiology consulted (2) Hypertension: Plan: -metoprolol (3) Depression: Plan: -trazodone -setraline (4) Diabetes mellitus: Plan: -RISS (5) CKD (chronic kidney disease): Plan: -cr 2.6 -baseline 2.02 -con't to monitor BMP Plan Heparin SQ for DVT px History of Present Illness Chief Complaint: SOB Primary Care Provider: Keeley Marquez DO Pt is a 55 y/o male with pmh of CHF, AICD, DM, HTN, CKD,who presents with SOB. Pt denies any chest pain or palpitations. In the ER he had a CXR that showed CHF with trace pleural effusions. His BNP was elevated at 1572. He was given a dose of lasix 40mg IV and will be admitted for further treatment of CHF exacerbation. Allergies Allergy/AdvReac Type Severity Reaction Status Date / Time No Known Allergies Allergy Verified 05/11/25 14:24 Home Medications Medication Instructions Recorded Confirmed Type blood-glucose meter (Blood Glucose #1 ea 11/19/19 06/24/25 Rx Monitoring kit) aspirin 325 mg tablet,delayed 325 mg PO QAM 06/04/22 06/24/25 History release (Ecotrin) blood-glucose meter (OneTouch #1 ea 10/16/22 06/24/25 Rx Ultra2 Meter) lancets 30 gauge (OneTouch Delica #100 ea 10/16/22 06/24/25 Rx Lancets) blood sugar diagnostic (OneTouch #300 ea 11/04/23 06/24/25 Rx Ultra Test strips) pen needle, diabetic 32 gauge x #200 ea 10/28/24 06/24/25 Rx 5/32" atorvastatin 40 mg tablet 40 mg PO HS #90 tabs 12/07/24 06/24/25 Rx sacubitril 49 mg-valsartan 51 mg 1 tab PO BID #180 tabs 12/24/24 06/24/25 Rx tablet (Entresto) famotidine 20 mg tablet 20 mg PO HS #90 tabs 01/04/25 06/24/25 Rx gabapentin 600 mg tablet 600 mg PO BID #60 tabs 01/04/25 06/24/25 Rx pantoprazole 40 mg tablet,delayed 40 mg PO QAM #90 tabs 02/03/25 06/24/25 Rx release furosemide 40 mg tablet 40 mg PO QAM 03/25/25 06/24/25 History metoprolol succinate 100 mg 100 mg PO QAM 03/25/25 06/24/25 History tablet,extended release 24 hr amlodipine 10 mg tablet 10 mg PO QAM 06/24/25 06/24/25 History cholecalciferol (vitamin D3) 125 125 mcg PO QAM 06/24/25 06/24/25 History mcg (5,000 unit) tablet (Vitamin D3) empagliflozin 25 mg tablet 25 mg PO QAM 06/24/25 06/24/25 History insulin glargine 100 unit/mL (3 60 unit subcut BID 06/24/25 06/24/25 History mL) subcutaneous pen (Lantus Solostar U-100 Insulin) levothyroxine 100 mcg tablet 100 mcg PO DAILYBB 06/24/25 06/24/25 History semaglutide 3 mg tablet 3 mg PO QAM 06/24/25 06/24/25 History sertraline 50 mg tablet 50 mg PO QAM 06/24/25 06/24/25 History trazodone 50 mg tablet 50 mg PO HS 06/24/25 06/24/25 History Past Med/Surg History Problem List (Updated 06/24/25 @ 16:57 by Adonay Duarte MD) CHF exacerbation Arthritis, hip Right hip pain Tendinopathy of right gluteal region Hypothyroidism S/P implantation of automatic cardioverter/defibrillator (AICD) (02/2024) History of alcohol abuse Hypertension Diabetic nephropathy with proteinuria Diabetic neuropathy Fatty liver Depression Pleural effusion, right LBBB (left bundle branch block) PAD (peripheral artery disease) s/p angioplasty to posterior tibial, and peroneal arteries 08/2020 Nephrotic syndrome Stage 3b chronic kidney disease Chronic systolic heart failure Cardiomyopathy Proteinuria Vitamin D deficiency Sleep apnea Lumbar stenosis with neurogenic claudication Anejaculatory orgasm (Acute) Erectile dysfunction Diabetic ulcer of toe associated with diabetes mellitus due to underlying condition (Acute) Diabetic ulcer of foot associated with diabetes mellitus due to underlying condition, limited to breakdown of skin Diabetic ulcer of right foot (Acute) Sensory ataxia GERD (gastroesophageal reflux disease) Diabetes mellitus with complication Hyperlipidemia Psoriasis (Chronic) Umbilical hernia (Chronic) current Medical History (Updated 06/24/25 @ 16:57 by Adonay Duarte MD) Weakness of both lower extremities "can only walk so far, then I have to sit down, I don't think it's really weakness" Abnormal nuclear cardiac imaging test Pulmonary vascular congestion Perianal abscess Acute systolic CHF (congestive heart failure) Alcoholism Smokeless tobacco use Stroke incidental 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 with small remote infarcts of the right external capsule and malachi also noted on 08/30/20 Brain MRI Surgical History 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) History of incision and drainage (04/25/22) Ambar-Rectal Abscess Incision and Drainage(Not Applicable) - Braulio Shaffer DO History of tooth extraction Hx of vascular surgery (08/2020) Angioplasty to posterior tibial, and peroneal arteries (08/2020) History of cardiac cath 25+ years ago > no stents Family History Father Cardiac disorder Hypertension Dementia Multiple sclerosis Grandfather Cardiac disorder Myocardial infarction Grandmother Breast cancer Other No family history of adverse response to anesthesia Denies family history of Ovarian cancer Prostate cancer Colorectal cancer Social History Smoking Status: Never smoker Tobacco Type: Smokeless Tobacco (Dip or Chew) Cigarettes Per Day: less than 1 can per day; Second Hand Exposure: No; Do You Dip or Chew Tobacco: Yes; Hx Alcohol Use: Yes Alcohol type: beer Alcohol Intake Frequency: 2-4 x/Month Hx Substance Use: No Preferred Language: Sinhala Communication Ability: Effective Visual Impairment: No Limitations Hearing Ability: Normal Circular Shear Operator Required: No Beliefs That Will Affect Care: None marital status: Current Living Situation: Alone current occupational status: unemployed Feels Safe at Home: Yes Childhood Exposure to Second-Hand Smoke: Yes Diet: regular caffeine: Yes (mt dew) during the past year weight has: remained stable Dental Care, Regularly: No Physical Activity Frequency: Does not Exercise Seatbelt Use: always Sunscreen Use: No Assistive Devices: None Review of Systems Review of Systems: CONST: Negative for fever, body aches and chills. HENT: Negative for neck pain/stiffness, headache, congestion, sore throat, swelling. EYES: Negative for discharge/pain or vision changes. RESP: Negative for cough/hemoptysis and + shortness of breath. CV: Negative chest pain, difficulty breathing, palpitations. ABD: Negative pain, nausea, vomiting. : Negative increase frequency, dysuria, blood in urine or stool. MUSC: Negative for muscle aches, edema. SKIN: Negative rash, lesions/sores. NEURO: Negative headache, dizziness, weakness. Physical Exam Physical Exam: GENERAL APPEARANCE NAD, activity normal for age, well developed/ well nourished, no cyanosis, pallor, or diaphoresis. EYES lids/conjunctiva normal. EARS/NOSE/THROAT Mucous membranes moist, nares normal, lips/teeth normal uvula midline without oral pharyngeal erythema, exudate or swelling TMs normal bilaterally. No lymphangitis/lymphedema. HEAD/NECK normocephalic atraumatic, no facial trauma, neck is supple. RESPIRATORY respiratory effort normal, speaks in full sentences, no tripod position, no accessory muscle use. Lungs clear to auscultation without rhonchi, wheezes, rales CARDIAC Regular rate and rhythm, no edema. ABDOMINAL Soft, ND/NT. No evidence of fluid wave. No pulsatile masses on exam, rebound tenderness, Le sign or pain over Mcburney's point. MUSCLES/EXTREMITIES No abnormal range of motion, no swelling. SKIN Warm, pink and dry. No rashes, dermatoses, petechiae or lesions. NEUROLOGICAL Speech is clear and appropriate. Normal level of consciousness. Gait and coordination are normal. 5/5 strength in all extremities. PSYCH Normal mood and affect. Judgement/competence is appropriate Results & Data Results & Data Vital Signs (Past 12 Hours) Vital Signs Temp Pulse Pulse Resp BP BP Pulse Ox 06/24/25 15:06 93 06/24/25 15:06 92 H 18 128/84 93 06/24/25 15:06 06/24/25 14:33 97 H 06/24/25 14:21 37 C 93 H 20 115/74 95 O2 Del Method 06/24/25 15:06 06/24/25 15:06 Room Air 06/24/25 15:06 Room Air 06/24/25 14:33 06/24/25 14:21 Room Air PG Care Time/CCT Total # of Minutes Spent Total Time Spent with Patient: Total time spent is greater than 50% in coordination of care (as documented) at patient's floor/unit and/or counseling patient: Coding Level of Care Code 80385 INT INP/OBS CARE 2/55MIN Diagnoses CHF exacerbation I50.9 Hypertension due to endocrine disorder I15.2 Hypertension type: secondary to endocrine disorders Depression F32.9 Type 2 diabetes mellitus with stage 3 chronic kidney disease, without long-term current use of insulin, unspecified whether stage 3a or 3b CKD E11.22; N18.30 Diabetes mellitus type: type 2 Diabetes mellitus parts counterman insulin use: without parts counterman use Diabetes mellitus complication status: with kidney complications Diabetes mellitus complication detail: with chronic kidney disease Chronic kidney disease stage: stage 3 (moderate) Chronic kidney disease stage 3 subtype: unspecified whether 3a or 3b CKD (chronic kidney disease) N18.9 (2) Hypertension Hypertension type: secondary to endocrine disorders Qualified Code(s): I15.2 - Hypertension secondary to endocrine disorders (4) Diabetes mellitus Diabetes mellitus type: type 2 Diabetes mellitus alf insulin use: without parts counterman use Diabetes mellitus complication status: with kidney complications Diabetes mellitus complication detail: with chronic kidney disease Chronic kidney disease stage: stage 3 (moderate) Chronic kidney disease stage 3 subtype: unspecified whether 3a or 3b Qualified Code(s): E11.22 - Type 2 diabetes mellitus with diabetic chronic kidney disease; N18.30 - Chronic kidney disease, stage 3 unspecified
--- NOTE | 2025-06-24 18:18 | Electrocardiogram Report ---
Test Reason : Blood Pressure : */* mmHG Vent. Rate : 93 BPM Atrial Rate : 93 BPM P-R Int : 170 ms QRS Dur : 116 ms QT Int : 416 ms P-R-T Axes : 105 -26 182 degrees QTcB Int : 517 ms Atrial-sensed ventricular-paced rhythm Abnormal ECG When compared with ECG of 19-Mar-2024 11:34, Premature ventricular complexes are no longer Present Vent. rate has increased by 2 bpm Confirmed by Regino Hoff ([id number]) on 06/24/2025 6:17:48 PM Referred By: Confirmed By: Regino Hoff
[2025-06-24] MEDS ORDERED: GLUCOSE 10 TAB/TUBE PO PRN (18:45)
[2025-06-24] MEDS ORDERED: DEXTROSE 50% 50 ML SYRINGE IV PRN (18:45)
[2025-06-24] MEDS ORDERED: GLUCAGON FOR INJ 1 MG VIAL SQ PRN (18:45)
[2025-06-24] MEDS ORDERED: GLUCOSE 40% GEL 15 GM TUBE PO PRN (18:45)
--- NOTE | 2025-06-24 18:45 | Pharmacy Report ---
Pharmacy Glycemic Short Note 2 - Date of Service June 24, 2025 - Glycemic Short BSG Results (Last 24 hours): 06/24/25 14:50 Glucose 144 H OUTPATIENT ANTIDIABETIC REGIMEN: * Lantus 62 units BID, Jardiance 25 mg daily, Rybelsus 3 mg qAM * A1c 7.6% 05/11/25 ASSESSMENT: * Patient with history of type II diabetes, CHF, admitted with CHF exacerbation * Diet ordered, will split home regimen 50/50 with basal/bolus * Initial BSG within goal range, will monitor PLAN FOR INPATIENT GLYCEMIC CONTROL: * Hold outpatient oral diabetes medications * Basal insulin * Lantus 20 units SQ BID * Bolus insulin * NovoLog per scale ACHS or Q6hrs while NPO * Goal Range: Low 110 mg/dL - High 160 mg/dL * Correction Factor: 20 mg/dL/unit * Nutritional / Prandial insulin per carb ratio of 1 unit per 6 grams CHO consumed
[2025-06-24] MEDS: INSULIN ASPART PER UNIT CHARGE SC SCH (20:27)
[2025-06-24] MEDS: FUROSEMIDE 40 MG/4 ML VIAL IV SCH (20:38)
[2025-06-24] MEDS: ATORVASTATIN 40 MG TAB PO SCH (20:38)
[2025-06-24] MEDS: VALSARTAN/SACUBITRIL 51/49 MG TAB PO SCH (20:39)
[2025-06-24] MEDS: FAMOTIDINE 20 MG TAB PO SCH (20:45)
[2025-06-24] MEDS: GABAPENTIN 600 MG TAB PO SCH (20:45)
[2025-06-24] MEDS: LANTUS PER UNIT CHARGE SQ SCH (20:46)
[2025-06-24] MEDS ORDERED: LANTUS PER UNIT CHARGE SQ SCH (21:00)
[2025-06-24] MEDS: HEPARIN SOD 5,000 UNIT/0.5 ML VIAL SQ SCH (22:29)
[2025-06-25] MEDS: CARBOHYDRATES FOR HYPOGLYCEMIA PO PRN (03:10)
[2025-06-25 06:02] LABS: Hematocrit (blood only) 35.8 % (42.0-52.0); Hemoglobin 10.5 g/dl (14.0-18.0); Mean Corpuscular Hemoglobin 22.2 pg (25.0-34.0); Mean Corpuscular Volume 75.7 fL (80.0-100.0); Platelet Count 183 K/uL (130-400); RDW Standard Deviation 53.7 fL (36.4-46.3); Red Blood Count 4.73 M/uL (4.70-6.10); White Blood Count 7.61 K/ul (4.8-10.8)
[2025-06-25] MEDS: LEVOTHYROXINE SODIUM 100 MCG TABLET PO SCH (06:10)
[2025-06-25 06:16] LABS: Anion Gap 5.0 (3-11); Blood Urea Nitrogen 26.0 mg/dl (6-23); Calcium 8.4 mg/dl (8.6-10.3); Carbon Dioxide 26.0 mmol/L (21-32); Chloride 105.0 mmol/L (98-107); Creatinine Clr Calc Pharmacy 43.1 ml/min; Glucose 129.0 mg/dl (70-99(Fasting)); Potassium 3.8 mmol/L (3.5-5.1); Sodium 136.0 mmol/L (136-145)
[2025-06-25] MEDS: SERTRALINE HCL 50 MG TABLET PO SCH (08:43)
[2025-06-25] MEDS: METOPROLOL SUCC 50MG EXT REL TAB PO SCH (08:43)
[2025-06-25] MEDS: ASPIRIN 325 MG ECTAB PO SCH (08:43)
[2025-06-25] MEDS: EMPAGLIFLOZIN 25 MG TAB PO SCH (08:44)
[2025-06-25] MEDS ORDERED: SEMAGLUTIDE 3 MG PO SCH (09:00)
[2025-06-25] MEDS: LANTUS PER UNIT CHARGE SQ SCH (09:03)
--- NOTE | 2025-06-25 09:44 | Hospitalist Progress Note ---
Date of Service June 25, 2025 Assessment & Plan (1) CHF exacerbation: Plan: -CXR showing CHF with trace pleural effusions -lasix 40mg IV BID -metoprolol -Jardiance -Entresto -echo -cardiology consulted (2) Hypertension: Plan: -metoprolol (3) Depression: Plan: -trazodone -setraline (4) Diabetes mellitus: Plan: -RISS (5) CKD (chronic kidney disease): Plan: -cr 2.6 -baseline 2.02 -con't to monitor BM -nephrology consulted Plan Heparin SQ for DVT px Admission and Anticipated Discharge Date Admission Date: June 24, 2025 Subjective Pt states his breathing has improved. Feels better this am. Review of Systems Review of Systems: CONST: Negative for fever, body aches and chills. HENT: Negative for neck pain/stiffness, headache, congestion, sore throat, swelling. EYES: Negative for discharge/pain or vision changes. RESP: Negative for cough/hemoptysis and + shortness of breath. CV: Negative chest pain, difficulty breathing, palpitations. ABD: Negative pain, nausea, vomiting. : Negative increase frequency, dysuria, blood in urine or stool. MUSC: Negative for muscle aches, edema. SKIN: Negative rash, lesions/sores. NEURO: Negative headache, dizziness, weakness. Physical Exam Physical Exam: GENERAL APPEARANCE NAD, activity normal for age, well developed/ well nourished, no cyanosis, pallor, or diaphoresis. EYES lids/conjunctiva normal. EARS/NOSE/THROAT Mucous membranes moist, nares normal, lips/teeth normal uvula midline without oral pharyngeal erythema, exudate or swelling TMs normal bilaterally. No lymphangitis/lymphedema. HEAD/NECK normocephalic atraumatic, no facial trauma, neck is supple. RESPIRATORY respiratory effort normal, speaks in full sentences, no tripod position, no accessory muscle use. Lungs clear to auscultation without rhonchi, wheezes, rales CARDIAC Regular rate and rhythm, no edema. ABDOMINAL Soft, ND/NT. No evidence of fluid wave. No pulsatile masses on exam, rebound tenderness, Le sign or pain over Mcburney's point. MUSCLES/EXTREMITIES No abnormal range of motion, no swelling. SKIN Warm, pink and dry. No rashes, dermatoses, petechiae or lesions. NEUROLOGICAL Speech is clear and appropriate. Normal level of consciousness. Gait and coordination are normal. 5/5 strength in all extremities. PSYCH Normal mood and affect. Judgement/competence is appropriate Results & Data Results & Data Vital Signs (Past 12 Hours) Vital Signs Temp Pulse Resp BP Pulse Ox O2 Del Method 06/25/25 08:21 36.8 C 76 16 112/72 94 Room Air 06/25/25 02:58 36.4 C L 74 18 108/69 96 Room Air 06/24/25 23:27 36.9 C 95 H 18 116/74 94 Room Air PG Care Time/CCT Total # of Minutes Spent Total Time Spent with Patient: Total time spent is greater than 50% in coordination of care (as documented) at patient's floor/unit and/or counseling patient: Coding Level of Care Code 97324 SUB INP/OBS CARE 2/35MIN Diagnoses CHF exacerbation I50.9 Heart failure type: unspecified Hypertension due to endocrine disorder I10 Hypertension type: unspecified Depression F32.9 Type 2 diabetes mellitus with stage 3 chronic kidney disease, without long-term current use of insulin, unspecified whether stage 3a or 3b CKD E11.22; N18.30 Diabetes mellitus type: type 2 Diabetes mellitus lobsterman insulin use: without lobsterman use Diabetes mellitus complication status: with kidney complications Diabetes mellitus complication detail: with chronic kidney disease Chronic kidney disease stage: stage 3 (moderate) Chronic kidney disease stage 3 subtype: unspecified whether 3a or 3b CKD (chronic kidney disease) N18.9 (1) CHF exacerbation Heart failure type: unspecified Qualified Code(s): I50.9 - Heart failure, unspecified (2) Hypertension Hypertension type: unspecified Qualified Code(s): I10 - Essential (primary) hypertension (4) Diabetes mellitus Diabetes mellitus type: type 2 Diabetes mellitus fci insulin use: without lobsterman use Diabetes mellitus complication status: with kidney complications Diabetes mellitus complication detail: with chronic kidney disease Chronic kidney disease stage: stage 3 (moderate) Chronic kidney disease stage 3 subtype: unspecified whether 3a or 3b Qualified Code(s): E11.22 - Type 2 diabetes mellitus with diabetic chronic kidney disease; N18.30 - Chronic kidney disease, stage 3 unspecified
--- NOTE | 2025-06-25 10:32 | XCELERA ---
[id number]
--- NOTE | 2025-06-25 10:36 | Nephrology Progress Note ---
Date of Service June 25, 2025 Assessment & Plan Admission and Anticipated Discharge Date Admission Date: June 24, 2025 Subjective NPE - CKD Mr. Valverde is a 55 year old white male who is seen at the request of [facility] hospitalist service for evaluation of CKD. Information for the HPI is obtained from direct patient interview and review of the EMR. HPI is summarized as follows: Mr. Valverde has CKD stage G3b/A3 (moderate impairment) likely due to DKD. He has undergone nephrology evaluation in the past by Dr. Shields but elected not to maintain regular follow up. His medical history is significant for AODM (+neuropathy), HTN, ICM w/ LVEF 20-25% s/p Bi-V AICD Results & Data Vital Signs (Past 12 Hours) Vital Signs Temp Pulse Resp BP Pulse Ox O2 Del Method 06/25/25 08:21 36.8 C 76 16 112/72 94 Room Air 06/25/25 02:58 36.4 C L 74 18 108/69 96 Room Air 06/24/25 23:27 36.9 C 95 H 18 116/74 94 Room Air PG Care Time/CCT Total # of Minutes Spent Total Time Spent with Patient: Total time spent is greater than 50% in coordination of care (as documented) at patient's floor/unit and/or counseling patient: Coding
--- NOTE | 2025-06-25 11:13 | Nephrology Consultation ---
Date of Consultation June 25, 2025 Assessment & Plan (1) Chronic kidney disease with active medical management without dialysis, stage 3 (moderate): * CKD stage G3b/A3 (moderate impairment) likely due to DKD. Baseline Cr has been 2.0 w/ EGFR 32 cc/min * Kidney function is stable at this time, urine sediment is non-nephritic * Will order renal US * Monitor BMP, UO (2) Nephrotic syndrome: * Will order SIEP/24 hr UIEP (3) CHF exacerbation: * 06/24/25 echo report: LVEF 25-30% * Agree w/ furosemide 40 mg IV BID * Continue empagliflozin, sacubitril/valsartan * Consult dietitian to provide education on low Na diet (4) PAD (peripheral artery disease): * s/p L TMA (5) Anemia: * Hgb 10 * Will order iron studies * No acute indication for EDIE therapy (6) S/P implantation of automatic cardioverter/defibrillator (AICD): History of Present Illness Attending Physician: Adonay Duarte MD History of Present Illness NPE - CKD Mr. Valverde is a 55 year old white male who is seen at the request of [facility] hospitalist service for evaluation of CKD. Information for the HPI is obtained from direct patient interview and review of the EMR. HPI is summarized as follows: Mr. Valverde has CKD stage G3b/A3 (moderate impairment) likely due to DKD. Baseline Cr has been 2.0 w/ EGFR 32 cc/min. He has undergone nephrology evaluation in the past by Dr. Shields but elected not to maintain regular follow up. His medical history is significant for AODM (+neuropathy), HTN, ICM w/ LVEF 20-30% s/p Bi-V AICD, PAD s/p L TMA, obesity, alcoholic cirrhosis, GERD, depression. Mr. Valverde presented to [facility] EMD last evening w/ complaints of dyspnea. CXR revealed CHF w/ trace bilateral pleural effusion, BNP was 1572, troponin 28-->32. Furosemide 40 mg IV BID was started and consultation w/ nephrology and cardiology requested. Allergies Allergy/AdvReac Type Severity Reaction Status Date / Time No Known Allergies Allergy Verified 05/11/25 14:24 Home Medications Medication Instructions Recorded Confirmed Type blood-glucose meter (Blood Glucose #1 ea 11/19/19 06/24/25 Rx Monitoring kit) aspirin 325 mg tablet,delayed 325 mg PO QAM 06/04/22 06/24/25 History release (Ecotrin) blood-glucose meter (OneTouch #1 ea 10/16/22 06/24/25 Rx Ultra2 Meter) lancets 30 gauge (OneTouch Delica #100 ea 10/16/22 06/24/25 Rx Lancets) blood sugar diagnostic (OneTouch #300 ea 11/04/23 06/24/25 Rx Ultra Test strips) pen needle, diabetic 32 gauge x #200 ea 10/28/24 06/24/25 Rx 5/32" atorvastatin 40 mg tablet 40 mg PO HS #90 tabs 12/07/24 06/24/25 Rx sacubitril 49 mg-valsartan 51 mg 1 tab PO BID #180 tabs 12/24/24 06/24/25 Rx tablet (Entresto) famotidine 20 mg tablet 20 mg PO HS #90 tabs 01/04/25 06/24/25 Rx gabapentin 600 mg tablet 600 mg PO BID #60 tabs 01/04/25 06/24/25 Rx pantoprazole 40 mg tablet,delayed 40 mg PO QAM #90 tabs 02/03/25 06/24/25 Rx release furosemide 40 mg tablet 40 mg PO QAM 03/25/25 06/24/25 History metoprolol succinate 100 mg 100 mg PO QAM 03/25/25 06/24/25 History tablet,extended release 24 hr amlodipine 10 mg tablet 10 mg PO QAM 06/24/25 06/24/25 History cholecalciferol (vitamin D3) 125 125 mcg PO QAM 06/24/25 06/24/25 History mcg (5,000 unit) tablet (Vitamin D3) empagliflozin 25 mg tablet 25 mg PO QAM 06/24/25 06/24/25 History insulin glargine 100 unit/mL (3 60 unit subcut BID 06/24/25 06/24/25 History mL) subcutaneous pen (Lantus Solostar U-100 Insulin) levothyroxine 100 mcg tablet 100 mcg PO DAILYBB 06/24/25 06/24/25 History semaglutide 3 mg tablet 3 mg PO QAM 06/24/25 06/24/25 History sertraline 50 mg tablet 50 mg PO QAM 06/24/25 06/24/25 History trazodone 50 mg tablet 50 mg PO HS 06/24/25 06/24/25 History Patient History Medical History Weakness of both lower extremities "can only walk so far, then I have to sit down, I don't think it's really weakness" Abnormal nuclear cardiac imaging test Pulmonary vascular congestion Perianal abscess Acute systolic CHF (congestive heart failure) Alcoholism Smokeless tobacco use Stroke incidental 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 with small remote infarcts of the right external capsule and malachi also noted on 08/30/20 Brain MRI Surgical History 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) History of incision and drainage (04/25/22) Ambar-Rectal Abscess Incision and Drainage(Not Applicable) - Braulio Shaffer, DO History of tooth extraction Hx of vascular surgery (08/2020) Angioplasty to posterior tibial, and peroneal arteries (08/2020) History of cardiac cath 25+ years ago > no stents Family History Father , Aug 2023 Cardiac disorder Hypertension Dementia Multiple sclerosis Grandfather Cardiac disorder Myocardial infarction Grandmother Breast cancer Other No family history of adverse response to anesthesia Denies family history of Ovarian cancer Prostate cancer Colorectal cancer Social History Smoking Status: Never smoker Tobacco Type: Declines Cigarettes Per Day: less than 1 can per day; Second Hand Exposure: No; Do You Dip or Chew Tobacco: No; Hx Alcohol Use: No Hx Substance Use: No Preferred Language: Jordanian Communication Ability: Effective Visual Impairment: No Limitations Hearing Ability: Normal Client Reporting Associate Required: No Beliefs That Will Affect Care: None marital status: Current Living Situation: Alone current occupational status: unemployed Feels Safe at Home: Yes Childhood Exposure to Second-Hand Smoke: Yes Diet: regular caffeine: Yes (mt dew) during the past year weight has: remained stable Dental Care, Regularly: No Physical Activity Frequency: Does not Exercise Seatbelt Use: always Sunscreen Use: No Assistive Devices: Glasses Review of Systems Constitutional: no fever Eyes: no problem reported Ear, Nose, Mouth, Throat: no problem reported Respiratory: + dyspnea; no cough and no hemoptysis Cardiovascular: no chest pain Gastrointestinal: no abdominal pain, no nausea, no vomiting and no diarrhea/loose stools Genitourinary: no dysuria or no hematuria Integumentary: no rash Physical Exam Constitutional: not in distress Eyes: PERRL, conjunctivae normal, anicteric sclerae ENMT: external ear and nose normal, oropharynx normal Neck: trachea midline, no thyromegaly Respiratory: Auscultation: + rales (bilaterally) Cardiovascular: Rate/Rhythm: regular rate and regular rhythm Extremities: + edema (1+ pretibial pitting edema) Gastrointestinal (Abdomen): normal bowel sounds, soft, nontender, no hepatospl enomegaly Musculoskeletal: L TMA Results & Data Vital Signs (Past 12 Hours) Vital Signs Temp Pulse Resp BP Pulse Ox O2 Del Method 06/25/25 08:21 36.8 C 76 16 112/72 94 Room Air 06/25/25 02:58 36.4 C L 74 18 108/69 96 Room Air 06/24/25 23:27 36.9 C 95 H 18 116/74 94 Room Air Laboratory Results Laboratory Results WBC 7.61 K/ul (4.8-10.8) 06/25/25 05:32 RBC 4.73 M/uL (4.70-6.10) 06/25/25 05:32 Hgb 10.5 g/dl (14.0-18.0) L 06/25/25 05:32 Hct 35.8 % (42.0-52.0) L 06/25/25 05:32 MCV 75.7 fL (80.0-100.0) L 06/25/25 05:32 MCH 22.2 pg (25.0-34.0) L 06/25/25 05:32 MCHC 29.3 g/dL (32.0-36.0) L 06/25/25 05:32 RDW Std Deviation 53.7 fL (36.4-46.3) H 06/25/25 05:32 RDW Coeff of Jonah 19.6 % (11.5-14.5) H 06/25/25 05:32 Plt Count 183 K/uL (130-400) 06/25/25 05:32 MPV 10.6 fL (9.4-12.4) 06/25/25 05:32 Immature Gran % (Auto) 0.4 % 06/24/25 14:50 Neut % (Auto) 74.8 % 06/24/25 14:50 Lymph % (Auto) 14.3 % 06/24/25 14:50 Clinton % (Auto) 6.5 % 06/24/25 14:50 Eos % (Auto) 3.4 % 06/24/25 14:50 Baso % (Auto) 0.6 % 06/24/25 14:50 Neut # (Auto) 6.03 K/uL (1.40-6.50) 06/24/25 14:50 Lymph # (Auto) 1.15 K/uL (1.20-3.40) L 06/24/25 14:50 Clinton # (Auto) 0.52 K/uL (0.11-0.59) 06/24/25 14:50 Eos # (Auto) 0.27 K/uL (0.00-0.50) 06/24/25 14:50 Baso # (Auto) 0.05 K/uL (0.00-0.20) 06/24/25 14:50 Immature Gran # (Auto) 0.03 K/uL (0.01-0.20) 06/24/25 14:50 Anisocytosis Present 06/24/25 14:50 PT 11.8 Seconds (9.0-12.0) 06/24/25 14:50 INR 1.1 (0.9-1.1) 06/24/25 14:50 APTT 28 Seconds (21-31) 06/24/25 14:50 PTT Ratio 1.0 06/24/25 14:50 Sodium 136 mmol/L (136-145) 06/25/25 05:32 Potassium 3.8 mmol/L (3.5-5.1) 06/25/25 05:32 Chloride 105 mmol/L (98-107) 06/25/25 05:32 Carbon Dioxide 26 mmol/L (21-32) 06/25/25 05:32 Anion Gap 5 (3-11) 06/25/25 05:32 BUN 26 mg/dl (6-23) H 06/25/25 05:32 Creatinine 2.29 mg/dl (0.6-1.4) H 06/25/25 05:32 Est Cr Clr Drug Dosing 43.1 ml/min 06/25/25 05:32 eGFR 32.68 06/25/25 05:32 BUN/Creatinine Ratio 11.4 (10-20) 06/25/25 05:32 Glucose 129 mg/dl (70-99(Fasting)) H 06/25/25 05:32 POC Glucose 103 mg/dl (70-99) H 06/25/25 08:07 Calcium 8.4 mg/dl (8.6-10.3) L 06/25/25 05:32 Magnesium 2.2 mg/dl (1.7-2.4) 06/24/25 14:50 Total Bilirubin 1.5 mg/dl (0.2-1.0) H 06/24/25 14:50 AST 18 U/L (13-39) 06/24/25 14:50 ALT 19 U/L (7-52) 06/24/25 14:50 Alkaline Phosphatase 127 U/L (34-104) H 06/24/25 14:50 Troponin I High Sens 32.4 pg/ml (0-20) H 06/24/25 19:50 B-Natriuretic Peptide 1572 pg/ml (0-100) H 06/24/25 15:12 Total Protein 8.5 gm/dl (6.0-8.3) H 06/24/25 14:50 Albumin 3.2 gm/dl (3.4-5.0) L 06/24/25 14:50 Globulin 5.3 gm/dl (2.5-4.0) H 06/24/25 14:50 Albumin/Globulin Ratio 0.6 (0.9-2) L 06/24/25 14:50 Urine Color Yellow 06/24/25 16:27 Urine Appearance Clear (Clear) 06/24/25 16:27 Urine pH 7.0 (4.5-7.5) 06/24/25 16:27 Ur Specific Brillion 1.012 (1.000-1.030) 06/24/25 16:27 Urine Protein 2+ (Negative) H 06/24/25 16:27 Urine Glucose (UA) 3+ (Negative) H 06/24/25 16:27 Urine Ketones Negative (Negative) 06/24/25 16: Urine Blood Trace (Negative) H 06/24/25 16: Urine Nitrite Negative (Negative) 06/24/25 16: Urine Bilirubin Negative (Negative) 06/24/25 16: Urine Urobilinogen Negative (Negative) 06/24/25 16: Ur Leukocyte Esterase Negative (Negative) 06/24/25 16:27 Urine WBC (Auto) 0-5 /hpf (0-5) 06/24/25 16: Urine RBC (Auto) 3-5 /hpf (0-2) H 06/24/25 16: U Hyaline Cast (Auto) 0-2 /lpf (0-2) 06/24/25 16:27 U Epithel Cells (Auto) 0-2 /hpf (0-2) 06/24/25 16:27 Urine Bacteria (Auto) None Seen (None Seen) 06/24/25 16: Urine Comment 06/24/25 16:27 Adenovirus (PCR) Not Detected (NotDetected) 06/24/25 15:12 B. pertussis DNA (PCR) Not Detected (NotDetected) 06/24/25 15:12 B.parapertussis DNA PCR Not Detected (NotDetected) 06/24/25 15:12 C. pneumoniae DNA (PCR) Not Detected (NotDetected) 06/24/25 15:12 Coronavirus OC43 (PCR) Not Detected (NotDetected) 06/24/25 15:12 Coronavirus HKU1 (PCR) Not Detected (NotDetected) 06/24/25 15:12 Coronavirus 229E (PCR) Not Detected (NotDetected) 06/24/25 15:12 SARS-CoV-2 (PCR) Not Detected (NotDetected) 06/24/25 15:12 Coronavirus NL63 (PCR) Not Detected (NotDetected) 06/24/25 15:12 Human Metapneumovir PCR Not Detected (NotDetected) 06/24/25 15:12 Influenza Type A (PCR) Not Detected (NotDetected) 06/24/25 15:12 Influenza Type B (PCR) Not Detected (NotDetected) 06/24/25 15:12 M. pneumoniae (PCR) Not Detected (NotDetected) 06/24/25 15:12 Parainfluenza 1 (PCR) Not Detected (NotDetected) 06/24/25 15:12 Parainfluenza 2 (PCR) Not Detected (NotDetected) 06/24/25 15:12 Parainfluenza 3 (PCR) Not Detected (NotDetected) 06/24/25 15:12 Parainfluenza 4 (PCR) Not Detected (NotDetected) 06/24/25 15:12 RSV (PCR) Not Detected (NotDetected) 06/24/25 15:12 Entero/Rhino (PCR) Not Detected (NotDetected) 06/24/25 15:12 Impressions Chest X-Ray 06/24/25 14:39 XR chest 2V PA/lateral CLINICAL HISTORY: Dyspnea COMPARISON STUDY: 03/20/2024 FINDINGS: Stable pacemaker. Stable moderate cardiomegaly with mild pulmonary vascular congestion. Stable trace pleural effusions. No other consolidation seen. No pneumothorax. IMPRESSION: CHF with trace pleural effusions. ACT 112: Negative or not required by law. Electronically signed by: Kai Cabrera M.D. 06/24/2025 3:33 PM 06/24/25 echocardiogram: LVEF 25-30%, mild MR, mild IVC dilation PG Care Time/CCT Total # of Minutes Spent Total Time Spent with Patient: 80 min provided to review progress notes, outpatient nephrology notes, laboratory results including troponin/BNP, echocardiogram report, interview and examine patient, order renal US, order SIEP/UIEP, order iron studies, consult dietitian to provide education on low Na diet, discuss KDIGO CKD staging with patient, update medical record Coding Level of Care Code 39634 IN/OBS CONSULT LVL 5,80M Diagnoses Chronic kidney disease with active medical management without dialysis, stage 3 (moderate) N18.30 Nephrotic syndrome N04.9 CHF exacerbation I50.9 Heart failure type: unspecified PAD (peripheral artery disease) I73.9 Anemia D64.9 S/P implantation of automatic cardioverter/defibrillator (AICD) Z95.810 (3) CHF exacerbation Heart failure type: unspecified Qualified Code(s): I50.9 - Heart failure, unspecified
--- NOTE | 2025-06-25 11:29 | Cardiology Consultation ---
Date of Consultation June 25, 2025 Assessment & Plan (1) Acute systolic CHF (congestive heart failure): (2) Cardiomyopathy: (3) LBBB (left bundle branch block): (4) Mitral regurgitation: (5) S/P implantation of automatic cardioverter/defibrillator (AICD): Plan 1. Acute decompensated heart failure with reduced ejection fraction: He appears to have had an element of dietary indiscretion. He does have a history of alcohol abuse. He may have been drinking to excess. Generally speaking he has been well compensated. However, he does appear to have an element of pulmonary vascular congestion, edema and elevated BNP. He did receive a dose of diuretic with good effect. I think we will continue his diuresis monitoring his electrolytes and renal function closely. I doubt if we will need to adjust his medical regimen at the time of discharge. He appears to be on an aggressive regimen for his cardiomyopathy. I think he can return to his usual dose of diuretic once adequately diuresed. 2. Cardiomyopathy: Likely mixed in etiology. On an aggressive medical regimen to include Jardiance, metoprolol succinate and Entresto. He is doing well on his outpatient dose of diuretic for some time. He can be returned to his usual dose at the time of discharge monitoring his weights closely. Avoid additional dietary indiscretion. 3. Mitral regurgitation: Mild to moderate. This can be followed over time. 4. Normally functioning biventricular ICD with left bundle pacing lead. No recent events noted on his interrogation performed yesterday. No arrhythmias. History of Present Illness Reason for Consultation: Dyspnea, edema Requesting Physician: Gerald Attending Physician: Adonay Duarte MD History of Present Illness The patient is a 55-year-old gentleman with a history of of reduced LV systolic function, diabetes mellitus, hypertension, cirrhosis and alcohol abuse who presented to the hospital due to persistent dyspnea and edema. Patient states that a few weeks ago he drank to excess. This resulted in some abdominal bloating and a sense of dyspnea. He states that in general this tends to resolve on its own after a few days, but in this particular instance his symptoms did not resolve. Typically he is able to perform routine activity without limiting dyspnea. Generally does not have exertional chest pain or dizziness. Has not been aware of any palpitations lately. However, over the past several weeks he has short of breath even with minimal activity. Recently has had to sleep in his recliner due to dyspnea. Here in the hospital he is felt to have an element of pulmonary vascular congestion. He did receive a dose of diuretic and affected a good diuresis. He states that his symptoms are improved but not entirely resolved. Currently not dizzy. Again no chest pain or sense of palpitation. Allergies Allergy/AdvReac Type Severity Reaction Status Date / Time No Known Allergies Allergy Verified 05/11/25 14:24 Home Medications Medication Instructions Recorded Confirmed Type blood-glucose meter (Blood Glucose #1 ea 11/19/19 06/24/25 Rx Monitoring kit) aspirin 325 mg tablet,delayed 325 mg PO QAM 06/04/22 06/24/25 History release (Ecotrin) blood-glucose meter (OneTouch #1 ea 10/16/22 06/24/25 Rx Ultra2 Meter) lancets 30 gauge (OneTouch Delica #100 ea 10/16/22 06/24/25 Rx Lancets) blood sugar diagnostic (OneTouch #300 ea 11/04/23 06/24/25 Rx Ultra Test strips) pen needle, diabetic 32 gauge x #200 ea 10/28/24 06/24/25 Rx 5/32" atorvastatin 40 mg tablet 40 mg PO HS #90 tabs 12/07/24 06/24/25 Rx sacubitril 49 mg-valsartan 51 mg 1 tab PO BID #180 tabs 12/24/24 06/24/25 Rx tablet (Entresto) famotidine 20 mg tablet 20 mg PO HS #90 tabs 01/04/25 06/24/25 Rx gabapentin 600 mg tablet 600 mg PO BID #60 tabs 01/04/25 06/24/25 Rx pantoprazole 40 mg tablet,delayed 40 mg PO QAM #90 tabs 02/03/25 06/24/25 Rx release furosemide 40 mg tablet 40 mg PO QAM 03/25/25 06/24/25 History metoprolol succinate 100 mg 100 mg PO QAM 03/25/25 06/24/25 History tablet,extended release 24 hr amlodipine 10 mg tablet 10 mg PO QAM 06/24/25 06/24/25 History cholecalciferol (vitamin D3) 125 125 mcg PO QAM 06/24/25 06/24/25 History mcg (5,000 unit) tablet (Vitamin D3) empagliflozin 25 mg tablet 25 mg PO QAM 06/24/25 06/24/25 History insulin glargine 100 unit/mL (3 60 unit subcut BID 06/24/25 06/24/25 History mL) subcutaneous pen (Lantus Solostar U-100 Insulin) levothyroxine 100 mcg tablet 100 mcg PO DAILYBB 06/24/25 06/24/25 History semaglutide 3 mg tablet 3 mg PO QAM 06/24/25 06/24/25 History sertraline 50 mg tablet 50 mg PO QAM 06/24/25 06/24/25 History trazodone 50 mg tablet 50 mg PO HS 06/24/25 06/24/25 History Patient History Medical History Weakness of both lower extremities "can only walk so far, then I have to sit down, I don't think it's really weakness" Abnormal nuclear cardiac imaging test Pulmonary vascular congestion Perianal abscess Acute systolic CHF (congestive heart failure) Alcoholism Smokeless tobacco use Stroke incidental 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 with small remote infarcts of the right external capsule and malachi also noted on 08/30/20 Brain MRI Surgical History 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) History of incision and drainage (04/25/22) Ambar-Rectal Abscess Incision and Drainage(Not Applicable) - Braulio Shaffer, DO History of tooth extraction Hx of vascular surgery (08/2020) Angioplasty to posterior tibial, and peroneal arteries (08/2020) History of cardiac cath 25+ years ago > no stents Family History Father , Aug 2023 Cardiac disorder Hypertension Dementia Multiple sclerosis Grandfather Cardiac disorder Myocardial infarction Grandmother Breast cancer Other No family history of adverse response to anesthesia Denies family history of Ovarian cancer Prostate cancer Colorectal cancer Social History Smoking Status: Never smoker Tobacco Type: Declines Cigarettes Per Day: less than 1 can per day; Second Hand Exposure: No; Do You Dip or Chew Tobacco: No; Hx Alcohol Use: No Hx Substance Use: No Preferred Language: Croatian Communication Ability: Effective Visual Impairment: No Limitations Hearing Ability: Normal Software Support Specialist Required: No Beliefs That Will Affect Care: None marital status: Current Living Situation: Alone current occupational status: unemployed Feels Safe at Home: Yes Childhood Exposure to Second-Hand Smoke: Yes Diet: regular caffeine: Yes (mt livier) during the past year weight has: remained stable Dental Care, Regularly: No Physical Activity Frequency: Does not Exercise Seatbelt Use: always Sunscreen Use: No Assistive Devices: Glasses Review of Systems Review of Systems: Per HPI. Physical Exam Physical Exam: The patient is alert and oriented. Mood and affect appeared normal. He answered all questions appropriately. Obese HEENT: Pupils are equal and reactive to light and accommodation. Extraocular movements are intact. The sclerae are anicteric. Neuro: Cranial nerves intact Chest: Well-healed device implant site in the left upper pectoral area. Lungs: Clear to auscultation bilaterally. He has good air movement without use of accessory muscles. No rales wheezes or rhonchi. Cardiac: Heart demonstrates a regular rate and rhythm. Normal S1 and S2. No murmurs on examination. Pulses: The patient has palpable radial pulses bilaterally that are equal in intensity Extremities: There was no evidence of hypoperfusion. There is no cyanosis or clubbing. Mild lower extremity edema. Left transmetatarsal amputation. Skin: I did not appreciate any rashes on examination today. Results & Data Vital Signs (Past 12 Hours) Vital Signs Temp Pulse Resp BP Pulse Ox O2 Del Method 06/25/25 11:14 36.6 C 93 H 16 131/84 94 Room Air 06/25/25 08:21 36.8 C 76 16 112/72 94 Room Air 06/25/25 02:58 36.4 C L 74 18 108/69 96 Room Air 06/24/25 23:27 36.9 C 95 H 18 116/74 94 Room Air Laboratory Results Abnormal Lab Results 06/24/25 06/24/25 06/24/25 14:50 15:12 16:27 WBC 8.05 RBC 5.32 Hgb 11.5 L Hct 41.0 L MCV 77.1 L MCH 21.6 L MCHC 28.0 L RDW Std Deviation 54.4 H RDW Coeff of Jonah 20.3 H Plt Count 190 MPV 10.2 Immature Gran % (Auto) 0.4 Neut % (Auto) 74.8 Lymph % (Auto) 14.3 [place] % (Auto) 6.5 Eos % (Auto) 3.4 Baso % (Auto) 0.6 Neut # (Auto) 6.03 Lymph # (Auto) 1.15 L [place] # (Auto) 0.52 Eos # (Auto) 0.27 Baso # (Auto) 0.05 Immature Gran # (Auto) 0.03 Anisocytosis Present PT 11.8 INR 1.1 APTT 28 PTT Ratio 1.0 Sodium 137 Potassium 3.8 Chloride 105 Carbon Dioxide 26 Anion Gap 6 BUN 24 H Creatinine 2.37 H Est Cr Clr Drug Dosing 41.6 eGFR 31.36 BUN/Creatinine Ratio 10.1 Glucose 144 H POC Glucose Calcium 8.9 Magnesium 2.2 Total Bilirubin 1.5 H AST 18 ALT 19 Alkaline Phosphatase 127 H Troponin I High Sens 28.6 H B-Natriuretic Peptide 1572 H Total Protein 8.5 H Albumin 3.2 L Globulin 5.3 H Albumin/Globulin Ratio 0.6 L Urine Color Yellow Urine Appearance Clear Urine pH 7.0 Ur Specific [place] 1.012 Urine Protein 2+ H Urine Glucose (UA) 3+ H Urine Ketones Negative Urine Blood Trace H Urine Nitrite Negative Urine Bilirubin Negative Urine Urobilinogen Negative Ur Leukocyte Esterase Negative Urine WBC (Auto) 0-5 Urine RBC (Auto) 3-5 H U Hyaline Cast (Auto) 0-2 U Epithel Cells (Auto) 0-2 Urine Bacteria (Auto) None Seen Urine Comment Adenovirus (PCR) Not Detected B. pertussis DNA (PCR) Not Detected B.parapertussis DNA PCR Not Detected C. pneumoniae DNA (PCR) Not Detected Coronavirus OC43 (PCR) Not Detected Coronavirus HKU1 (PCR) Not Detected Coronavirus 229E (PCR) Not Detected SARS-CoV-2 (PCR) Not Detected Coronavirus NL63 (PCR) Not Detected Human Metapneumovir PCR Not Detected Influenza Type A (PCR) Not Detected Influenza Type B (PCR) Not Detected M. pneumoniae (PCR) Not Detected Parainfluenza 1 (PCR) Not Detected Parainfluenza 2 (PCR) Not Detected Parainfluenza 3 (PCR) Not Detected Parainfluenza 4 (PCR) Not Detected RSV (PCR) Not Detected Entero/Rhino (PCR) Not Detected 06/24/25 06/24/25 06/25/25 19:50 20:36 03:07 WBC RBC Hgb Hct MCV MCH MCHC RDW Std Deviation RDW Coeff of Jonah Plt Count MPV Immature Gran % (Auto) Neut % (Auto) Lymph % (Auto) [place] % (Auto) Eos % (Auto) Baso % (Auto) Neut # (Auto) Lymph # (Auto) [place] # (Auto) Eos # (Auto) Baso # (Auto) Immature Gran # (Auto) Anisocytosis PT INR APTT PTT Ratio Sodium Potassium Chloride Carbon Dioxide Anion Gap BUN Creatinine Est Cr Clr Drug Dosing eGFR BUN/Creatinine Ratio Glucose POC Glucose 137 H 58 L* Calcium Magnesium Total Bilirubin AST ALT Alkaline Phosphatase Troponin I High Sens 32.4 H B-Natriuretic Peptide Total Protein Albumin Globulin Albumin/Globulin Ratio Urine Color Urine Appearance Urine pH Ur Specific [place] Urine Protein Urine Glucose (UA) Urine Ketones Urine Blood Urine Nitrite Urine Bilirubin Urine Urobilinogen Ur Leukocyte Esterase Urine WBC (Auto) Urine RBC (Auto) U Hyaline Cast (Auto) U Epithel Cells (Auto) Urine Bacteria (Auto) Urine Comment Adenovirus (PCR) B. pertussis DNA (PCR) B.parapertussis DNA PCR C. pneumoniae DNA (PCR) Coronavirus OC43 (PCR) Coronavirus HKU1 (PCR) Coronavirus 229E (PCR) SARS-CoV-2 (PCR) Coronavirus NL63 (PCR) Human Metapneumovir PCR Influenza Type A (PCR) Influenza Type B (PCR) M. pneumoniae (PCR) Parainfluenza 1 (PCR) Parainfluenza 2 (PCR) Parainfluenza 3 (PCR) Parainfluenza 4 (PCR) RSV (PCR) Entero/Rhino (PCR) 06/25/25 06/25/25 06/25/25 03:25 04:05 05:32 WBC 7.61 RBC 4.73 Hgb 10.5 L Hct 35.8 L MCV 75.7 L MCH 22.2 L MCHC 29.3 L RDW Std Deviation 53.7 H RDW Coeff of Jonah 19.6 H Plt Count 183 MPV 10.6 Immature Gran % (Auto) Neut % (Auto) Lymph % (Auto) [place] % (Auto) Eos % (Auto) Baso % (Auto) Neut # (Auto) Lymph # (Auto) [place] # (Auto) Eos # (Auto) Baso # (Auto) Immature Gran # (Auto) Anisocytosis PT INR APTT PTT Ratio Sodium 136 Potassium 3.8 Chloride 105 Carbon Dioxide 26 Anion Gap 5 BUN 26 H Creatinine 2.29 H Est Cr Clr Drug Dosing 43.1 eGFR 32.68 BUN/Creatinine Ratio 11.4 Glucose 129 H POC Glucose 81 119 H Calcium 8.4 L Magnesium Total Bilirubin AST ALT Alkaline Phosphatase Troponin I High Sens B-Natriuretic Peptide Total Protein Albumin Globulin Albumin/Globulin Ratio Urine Color Urine Appearance Urine pH Ur Specific [place] Urine Protein Urine Glucose (UA) Urine Ketones Urine Blood Urine Nitrite Urine Bilirubin Urine Urobilinogen Ur Leukocyte Esterase Urine WBC (Auto) Urine RBC (Auto) U Hyaline Cast (Auto) U Epithel Cells (Auto) Urine Bacteria (Auto) Urine Comment Adenovirus (PCR) B. pertussis DNA (PCR) B.parapertussis DNA PCR C. pneumoniae DNA (PCR) Coronavirus OC43 (PCR) Coronavirus HKU1 (PCR) Coronavirus 229E (PCR) SARS-CoV-2 (PCR) Coronavirus NL63 (PCR) Human Metapneumovir PCR Influenza Type A (PCR) Influenza Type B (PCR) M. pneumoniae (PCR) Parainfluenza 1 (PCR) Parainfluenza 2 (PCR) Parainfluenza 3 (PCR) Parainfluenza 4 (PCR) RSV (PCR) Entero/Rhino (PCR) 06/25/25 08:07 WBC RBC Hgb Hct MCV MCH MCHC RDW Std Deviation RDW Coeff of Jonah Plt Count MPV Immature Gran % (Auto) Neut % (Auto) Lymph % (Auto) [place] % (Auto) Eos % (Auto) Baso % (Auto) Neut # (Auto) Lymph # (Auto) [place] # (Auto) Eos # (Auto) Baso # (Auto) Immature Gran # (Auto) Anisocytosis PT INR APTT PTT Ratio Sodium Potassium Chloride Carbon Dioxide Anion Gap BUN Creatinine Est Cr Clr Drug Dosing eGFR BUN/Creatinine Ratio Glucose POC Glucose 103 H Calcium Magnesium Total Bilirubin AST ALT Alkaline Phosphatase Troponin I High Sens B-Natriuretic Peptide Total Protein Albumin Globulin Albumin/Globulin Ratio Urine Color Urine Appearance Urine pH Ur Specific [place] Urine Protein Urine Glucose (UA) Urine Ketones Urine Blood Urine Nitrite Urine Bilirubin Urine Urobilinogen Ur Leukocyte Esterase Urine WBC (Auto) Urine RBC (Auto) U Hyaline Cast (Auto) U Epithel Cells (Auto) Urine Bacteria (Auto) Urine Comment Adenovirus (PCR) B. pertussis DNA (PCR) B.parapertussis DNA PCR C. pneumoniae DNA (PCR) Coronavirus OC43 (PCR) Coronavirus HKU1 (PCR) Coronavirus 229E (PCR) SARS-CoV-2 (PCR) Coronavirus NL63 (PCR) Human Metapneumovir PCR Influenza Type A (PCR) Influenza Type B (PCR) M. pneumoniae (PCR) Parainfluenza 1 (PCR) Parainfluenza 2 (PCR) Parainfluenza 3 (PCR) Parainfluenza 4 (PCR) RSV (PCR) Entero/Rhino (PCR) Diagnostic Findings Chest x-ray was obtained at the time of admission. CHF with trace pleural effusions. PG Care Time/CCT Total # of Minutes Spent Total Time Spent with Patient: Total time spent is greater than 50% in coordination of care (as documented) at patient's floor/unit and/or counseling patient: Coding Level of Care Code 07413 INT INP/OBS CARE 3/75MIN Diagnoses Acute systolic CHF (congestive heart failure) I50.21 Cardiomyopathy, unspecified type I42.9 Cardiomyopathy type: unspecified LBBB (left bundle branch block) I44.7 Mitral regurgitation I34.0 S/P implantation of automatic cardioverter/defibrillator (AICD) Z95.810 (2) Cardiomyopathy Cardiomyopathy type: unspecified Qualified Code(s): I42.9 - Cardiomyopathy, unspecified
--- NOTE | 2025-06-25 14:35 | Ultrasound Report ---
RENAL ULTRASOUND HISTORY: CKD COMPARISON: 08/16/2023 FINDINGS: Right kidney measures 10 x 5 cm. Left kidney measures 11 x 5 cm. There is no hydronephrosis bilaterally. There is Doppler flow to both kidneys. No renal calculi seen. Renal cortical thickness is grossly normal. Urinary bladder is grossly unremarkable. IMPRESSION: No hydronephrosis seen. ACT 112: Negative or not required by law. Electronically signed by: Kai Cabrera M.D. 06/25/2025 2:33 PM
--- NOTE | 2025-06-25 14:42 | Pharmacy Report ---
Pharmacy Glycemic Short Note 2 - Date of Service June 25, 2025 - Glycemic Short BSG Results (Last 24 hours): 06/24/25 06/24/25 06/25/25 14:50 20:36 03:07 Glucose 144 H POC Glucose 137 H 58 L* 06/25/25 06/25/25 06/25/25 03:25 04:05 05:32 Glucose 129 H POC Glucose 81 119 H 06/25/25 06/25/25 08:07 12:11 Glucose POC Glucose 103 H 107 H OUTPATIENT ANTIDIABETIC REGIMEN: * Lantus 62 units BID, Jardiance 25 mg daily, Rybelsus 3 mg qAM * A1c 7.6% 05/11/25 ASSESSMENT: 06/25 * Lantus dose reduced this AM per provider orders, patient's BSG 58 mg/dL overnight and given orange juice, recheck was 81 mg/dL * Weight based stress 2 dosing for Lantus ordered this AM, reasonable to continue current dosing as unclear what PO intake will be today. This is about ~60% reduction in basal dose from yesterday. * Novolog SSI held this AM per provider orders, lunch BSG 107 mg/dL - will loosen novolog further and monitor 06/24 * Patient with history of type II diabetes, CHF, admitted with CHF exacerbation * Diet ordered, will split home regimen 50/50 with basal/bolus * Initial BSG within goal range, will monitor PLAN FOR INPATIENT GLYCEMIC CONTROL: * Hold outpatient oral diabetes medications * Basal insulin * Lantus 16 units bid * Bolus insulin * NovoLog per scale ACHS or Q6hrs while NPO * Goal Range: Low 110 mg/dL - High 160 mg/dL * Correction Factor: 30 mg/dL/unit * Nutritional / Prandial insulin per carb ratio of 1 unit per 10 grams CHO consumed
[2025-06-26 06:20] LABS: Hematocrit (blood only) 37.9 % (42.0-52.0); Hemoglobin 11.1 g/dl (14.0-18.0); Mean Corpuscular Hemoglobin 22.1 pg (25.0-34.0); Mean Corpuscular Volume 75.5 fL (80.0-100.0); Platelet Count 191 K/uL (130-400); RDW Standard Deviation 52.7 fL (36.4-46.3); Red Blood Count 5.02 M/uL (4.70-6.10); White Blood Count 7.91 K/ul (4.8-10.8)
[2025-06-26 06:44] LABS: Anion Gap 6.0 (3-11); Blood Urea Nitrogen 34.0 mg/dl (6-23); Calcium 8.8 mg/dl (8.6-10.3); Carbon Dioxide 25.0 mmol/L (21-32); Chloride 105.0 mmol/L (98-107); Creatinine Clr Calc Pharmacy 35.1 ml/min; Glucose 119.0 mg/dl (70-99(Fasting)); Iron 20.0 mcg/dl (35-175); Potassium 4.0 mmol/L (3.5-5.1); Sodium 136.0 mmol/L (136-145); Total Iron Binding Cap Calc 332.0 mcg/dl (250-450); Transferrin 237.0 mg/dl (200-360); Transferrin (FE) Percent Satur 6.0 % (20-50)
[2025-06-26 07:03] LABS: Ferritin 96.7 ng/ml (8-388)
--- NOTE | 2025-06-26 10:52 | Nephrology Progress Note ---
Date of Service June 26, 2025 Assessment & Plan (1) Acute kidney injury: (2) Hypertension: (3) CHF exacerbation: (4) Anemia: (5) Stage 3b chronic kidney disease: (6) Proteinuria: (7) Cardiomyopathy: Plan 56 y o m with CKD stage 3b CKD with history of hypertension, diabetes, cardiomyopathy and smoking with nephrotic range proteinuria. Baseline creatinine historically has been quite variable from 2-2.6 mg/dl. Has history of moderate degree of proteinuria. Previously seen in CKD clinic but decided not to continue to follow. Has been following closely with cardiology with history of cardiomyopathy status post AICD, has been on Entresto and Jardiance. At home has been on Lasix 40 mg daily. He presented to [facility] on 06/24/25 with progressive dyspnea, worsening lower extremity edema and abdominal edema. He was started on 40 mg of Lasix IV twice a day as he was noted to have pulmonary congestion and bilateral pleural effusion on chest x-ray, elevated BNP at 1572, troponin 28-->32. On admission creatinine was 2.4 which is close to his baseline, slightly increased and worsened to 2.8 this morning. Renal ultrasound was otherwise unremarkable. Urinalysis showed 2-3+ proteinuria, no microscopic hematuria. Has been responding to diuretics overall about 2 L negative since admission. But he continues to feel volume overloaded and specially feels like he continues to have significant abdominal edema and lower extremity edema although able to breathe better. Slight worsening of kidney function noted, creatinine was 2.8 this morning, electrolyte acceptable. Blood pressure well-controlled. Hemoglobin was 11.1, has iron deficiency. Currently getting 24-hour urine collection for urine electrophoresis with history of proteinuria. --Although kidney function slightly worsened while on IV diuretics and net negative, he continues to be volume overloaded. Continue IV diuretics today and if volume status improves we will consider changing to oral starting tomorrow. However, he may need higher dose of diuretic going forward than what he was on before -- Start on IV Venofer -- High risk for progressive worsening of kidney function with advanced CKD for years, hypertension, diabetes, cardiomyopathy and need for high-dose of diuretics regularly. -- Okay to continue on Entresto and Jardiance for now. Will follow Admission and Anticipated Discharge Date Admission Date: June 24, 2025 Tony Emerson was seen and evaluated this morning. He reports overall feeling better compared to admission but still feels he has a lot of fluid in his abdomen and extremities but he is able to breathe better and able to take deep breath. Blood pressure has been acceptable. Slight worsening of kidney function noted, creatinine was 2.8 this morning compared to 2.3 on admission. Electrolyte has been acceptable. Volume status slightly improved he is net negative almost 2 L overnight. Hemoglobin 11.3 but noted to have iron deficiency. Review of Systems Review of Systems: Detailed review of system was done and pertinent positives and negatives are mentioned above. Physical Exam Constitutional: WD/WN, vitals as above no acute distress Eyes: + anicteric sclerae Neck: normal visual inspection Cardiovascular: Rate/Rhythm: regular rate and regular rhythm Heart Sounds: normal S1 and normal S2 Extremities: + edema (2+ b/l LE edema) Gastrointestinal (Abdomen): Inspection/Auscultation: + abdomen distended Musculoskeletal: Extremities: extremities normal to inspection Skin: no rashes, warm and dry Neurologic: no focal motor deficits Psychiatric: Orientation: alert and oriented x 3 Results & Data Vital Signs (Past 12 Hours) Vital Signs Temp Pulse Pulse Resp BP Pulse Ox O2 Del Method 06/26/25 08:57 36.7 C 74 126/70 93 Room Air 06/26/25 07:25 92 H 06/26/25 03:53 36.6 C 92 H 20 124/83 96 Room Air 06/25/25 23:34 36.5 C 91 H 20 105/73 95 Room Air PG Care Time/CCT Total # of Minutes Spent Total Time Spent with Patient: Total time spent is greater than 50% in coordination of care (as documented) at patient's floor/unit and/or counseling patient: Coding Level of Care Code 60891 SUB INP/OBS CARE 3/50MIN Diagnoses Acute kidney injury N17.9 Hypertension due to endocrine disorder I10 Hypertension type: unspecified CHF exacerbation I50.9 Heart failure type: unspecified Anemia D64.9 Stage 3b chronic kidney disease N18.32 Proteinuria R80.9 Cardiomyopathy, unspecified type I42.9 Cardiomyopathy type: unspecified (2) Hypertension Hypertension type: unspecified Qualified Code(s): I10 - Essential (primary) hypertension (3) CHF exacerbation Heart failure type: unspecified Qualified Code(s): I50.9 - Heart failure, unspecified (7) Cardiomyopathy Cardiomyopathy type: unspecified Qualified Code(s): I42.9 - Cardiomyopathy, unspecified
--- NOTE | 2025-06-26 10:54 | Hospitalist Progress Note ---
Date of Service June 26, 2025 Assessment & Plan (1) CHF exacerbation: Plan: -CXR showing CHF with trace pleural effusions -lasix 40mg IV BID -metoprolol -Jardiance -Entresto -echo -cardiology consult appreciated -pt still with symptoms, con't lasix IV diuresis (2) Hypertension: Plan: -metoprolol (3) Depression: Plan: -trazodone -setraline (4) Diabetes mellitus: Plan: -RISS (5) CKD (chronic kidney disease): Plan: -cr 2.8 -baseline 2.02 -con't to monitor BM -nephrology consult appreciated Plan Heparin SQ for DVT px Admission and Anticipated Discharge Date Admission Date: June 24, 2025 Subjective -pt is still complaining of SOB with exertion. Review of Systems Review of Systems: CONST: Negative for fever, body aches and chills. HENT: Negative for neck pain/stiffness, headache, congestion, sore throat, swelling. EYES: Negative for discharge/pain or vision changes. RESP: Negative for cough/hemoptysis and + shortness of breath. CV: Negative chest pain, difficulty breathing, palpitations. ABD: Negative pain, nausea, vomiting. : Negative increase frequency, dysuria, blood in urine or stool. MUSC: Negative for muscle aches, edema. SKIN: Negative rash, lesions/sores. NEURO: Negative headache, dizziness, weakness. Physical Exam Physical Exam: GENERAL APPEARANCE NAD, activity normal for age, well developed/ well nourished, no cyanosis, pallor, or diaphoresis. EYES lids/conjunctiva normal. EARS/NOSE/THROAT Mucous membranes moist, nares normal, lips/teeth normal uvula midline without oral pharyngeal erythema, exudate or swelling TMs normal bilaterally. No lymphangitis/lymphedema. HEAD/NECK normocephalic atraumatic, no facial trauma, neck is supple. RESPIRATORY respiratory effort normal, speaks in full sentences, no tripod position, no accessory muscle use. Lungs clear to auscultation without rhonchi, wheezes, rales CARDIAC Regular rate and rhythm, no edema. ABDOMINAL Soft, ND/NT. No evidence of fluid wave. No pulsatile masses on exam, rebound tenderness, Le sign or pain over Mcburney's point. MUSCLES/EXTREMITIES No abnormal range of motion, no swelling. SKIN Warm, pink and dry. No rashes, dermatoses, petechiae or lesions. NEUROLOGICAL Speech is clear and appropriate. Normal level of consciousness. Gait and coordination are normal. 5/5 strength in all extremities. PSYCH Normal mood and affect. Judgement/competence is appropriate Results & Data Results & Data Vital Signs (Past 12 Hours) Vital Signs Temp Pulse Pulse Resp BP Pulse Ox O2 Del Method 06/26/25 08:57 36.7 C 74 126/70 93 Room Air 06/26/25 07:25 92 H 06/26/25 03:53 36.6 C 92 H 20 124/83 96 Room Air 06/25/25 23:34 36.5 C 91 H 20 105/73 95 Room Air PG Care Time/CCT Total # of Minutes Spent Total Time Spent with Patient: Total time spent is greater than 50% in coordination of care (as documented) at patient's floor/unit and/or counseling patient: Coding Level of Care Code 14031 SUB INP/OBS CARE 2/35MIN Diagnoses CHF exacerbation I50.9 Heart failure type: unspecified Hypertension due to endocrine disorder I10 Hypertension type: unspecified Depression F32.9 Type 2 diabetes mellitus with stage 3 chronic kidney disease, without long-term current use of insulin, unspecified whether stage 3a or 3b CKD E11.22; N18.30 Diabetes mellitus type: type 2 Diabetes mellitus continuous churn buttermaker insulin use: without [facility] use Diabetes mellitus complication status: with kidney complications Diabetes mellitus complication detail: with chronic kidney disease Chronic kidney disease stage: stage 3 (moderate) Chronic kidney disease stage 3 subtype: unspecified whether 3a or 3b CKD (chronic kidney disease) N18.9 (1) CHF exacerbation Heart failure type: unspecified Qualified Code(s): I50.9 - Heart failure, unspecified (2) Hypertension Hypertension type: unspecified Qualified Code(s): I10 - Essential (primary) hypertension (4) Diabetes mellitus Diabetes mellitus type: type 2 Diabetes mellitus [facility] insulin use: without continuous churn buttermaker use Diabetes mellitus complication status: with kidney complications Diabetes mellitus complication detail: with chronic kidney disease Chronic kidney disease stage: stage 3 (moderate) Chronic kidney disease stage 3 subtype: unspecified whether 3a or 3b Qualified Code(s): E11.22 - Type 2 diabetes mellitus with diabetic chronic kidney disease; N18.30 - Chronic kidney disease, stage 3 unspecified
[2025-06-26] MEDS: IRON SUCROSE 200 MG in SODIUM CHLORIDE 0.9% 100 ML IV SCH (11:52)
[2025-06-27 06:52] LABS: Hematocrit (blood only) 37.5 % (42.0-52.0); Hemoglobin 10.6 g/dl (14.0-18.0); Mean Corpuscular Hemoglobin 21.5 pg (25.0-34.0); Mean Corpuscular Volume 75.9 fL (80.0-100.0); Platelet Count 180 K/uL (130-400); RDW Standard Deviation 53.2 fL (36.4-46.3); Red Blood Count 4.94 M/uL (4.70-6.10); White Blood Count 7.30 K/ul (4.8-10.8)
[2025-06-27 07:30] LABS: Albumin Level 3.1 gm/dl (3.4-5.0); Anion Gap 4 (3-11); Blood Urea Nitrogen 45 mg/dl (6-23); Calcium 8.6 mg/dl (8.6-10.3); Carbon Dioxide 26 mmol/L (21-32); Chloride 104 mmol/L (98-107); Creatinine Clr Calc Pharmacy 35.8 ml/min; Glucose 93 mg/dl (70-99(Fasting)); Magnesium 2.3 mg/dl (1.7-2.4); Sodium 134 mmol/L (136-145)
[2025-06-27] MEDS: LANTUS PER UNIT CHARGE SQ SCH (08:52)
--- NOTE | 2025-06-27 10:07 | Nephrology Progress Note ---
Date of Service June 27, 2025 Assessment & Plan (1) Acute kidney injury: (2) Hypertension: (3) CHF exacerbation: (4) Anemia: (5) Stage 3b chronic kidney disease: (6) Proteinuria: (7) Cardiomyopathy: Plan 56 y o m with CKD stage 3b CKD with history of hypertension, diabetes, cardiomyopathy and smoking with nephrotic range proteinuria. Baseline creatinine historically has been quite variable from 2-2.6 mg/dl. Has history of moderate degree of proteinuria. Previously seen in CKD clinic but decided not to continue to follow. Has been following closely with cardiology with history of cardiomyopathy status post AICD, has been on Entresto and Jardiance. At home has been on Lasix 40 mg daily. He presented to [facility] on 06/24/25 with progressive dyspnea, worsening lower extremity edema and abdominal edema. He was started on 40 mg of Lasix IV twice a day as he was noted to have pulmonary congestion and bilateral pleural effusion on chest x-ray, elevated BNP at 1572, troponin 28-->32. On admission creatinine was 2.4 which is close to his baseline, slightly increased and worsened to 2.8 this morning. Renal ultrasound was otherwise unremarkable. Urinalysis showed 2-3+ proteinuria, no microscopic hematuria. Has been responding to diuretics overall about 2 L negative since admission. But he continues to feel volume overloaded and specially feels like he continues to have significant abdominal edema and lower extremity edema although able to breathe better. Kidney function is staying relatively stable without further improvement , electrolyte acceptable. Volume status improved. Blood pressure well- controlled. Hemoglobin was 11.1, has iron deficiency. --Change diuretic to Lasix 40 mg twice a day. --Okay to discontinue Venofer after today's dose --High risk for progressive worsening of kidney function with advanced CKD for years, hypertension, diabetes, cardiomyopathy and need for high-dose of diuretics regularly. --continue on Entresto and Jardiance for now. --Okay to be discharged with close outpatient lab monitoring, advised to have lab done in next 1 to 2 days and then weekly. Should have close outpatient follow-up with cardiology. Will arrange nephrology follow-up in next few weeks. Admission and Anticipated Discharge Date Admission Date: June 24, 2025 Subjective Bill was seen and evaluated this morning. He reports overall feeling better compared to admission and feels improvement in abdominal distention and lower extremity edema. Blood pressure has been acceptable. Kidney function staying relatively stable without further improvement. Electrolyte has been acceptable. Volume status improved. Review of Systems Review of Systems: Detailed review of system was done and pertinent positives and negatives are mentioned above. Constitutional: no fever Physical Exam Constitutional: WD/WN, vitals as above no acute distress Respiratory: normal respiratory effort, lungs clear to auscultation Cardiovascular: Rate/Rhythm: regular rate and regular rhythm Heart Sounds: normal S1 and normal S2 Extremities: + edema (trace b/l LE edema) Gastrointestinal (Abdomen): Inspection/Auscultation: + abdomen distended Musculoskeletal: Extremities: extremities normal to inspection Skin: no rashes, warm and dry Neurologic: no focal motor deficits Psychiatric: Orientation: oriented x 3 Results & Data Vital Signs (Past 12 Hours) Vital Signs Temp Pulse Resp BP Pulse Ox O2 Del Method 06/27/25 07:05 36.9 C 89 18 108/74 97 Room Air 06/27/25 02:15 36.6 C 89 18 111/77 96 Room Air 06/26/25 22:59 36.6 C 89 18 114/78 96 Room Air PG Care Time/CCT Total # of Minutes Spent Total Time Spent with Patient: Total time spent is greater than 50% in coordination of care (as documented) at patient's floor/unit and/or counseling patient: Coding Level of Care Code 74678 SUB INP/OBS CARE 2/35MIN Diagnoses Acute kidney injury N17.9 Hypertension due to endocrine disorder I10 Hypertension type: unspecified CHF exacerbation I50.9 Heart failure type: unspecified Anemia D64.9 Stage 3b chronic kidney disease N18.32 Proteinuria R80.9 Cardiomyopathy, unspecified type I42.9 Cardiomyopathy type: unspecified (2) Hypertension Hypertension type: unspecified Qualified Code(s): I10 - Essential (primary) hypertension (3) CHF exacerbation Heart failure type: unspecified Qualified Code(s): I50.9 - Heart failure, unspecified (7) Cardiomyopathy Cardiomyopathy type: unspecified Qualified Code(s): I42.9 - Cardiomyopathy, unspecified
[2025-06-27 10:51] VITALS: PULSE 91; RESP 16; TEMP 98.2; O2SAT 94
--- NOTE | 2025-06-27 11:31 | Discharge Summary ---
Discharge Summary Date of Service June 27, 2025 Principal Dx & Hospital Course #1 = Principal Diagnosis (1) CHF exacerbation: -CXR showing CHF with trace pleural effusions -lasix 40mg IV BID -metoprolol -Jardiance -Entresto -echo -cardiology consult appreciated -pt symptoms resolved -d/c home on lasix 40mg PO BID (2) Hypertension: -metoprolol (3) Depression: -trazodone -setraline (4) Diabetes mellitus: -RISS (5) CKD (chronic kidney disease): -cr 2.8 -baseline 2.02 -con't to monitor BM -nephrology consult appreciated Plan Heparin SQ for DVT px Admission HPI Per Admitting Provider Pt is a 55 y/o male with pmh of CHF, AICD, DM, HTN, CKD,who presents with SOB. Pt denies any chest pain or palpitations. In the ER he had a CXR that showed CHF with trace pleural effusions. His BNP was elevated at 1572. He was given a dose of lasix 40mg IV and will be admitted for further treatment of CHF exacerbation. Discharge Exam GENERAL APPEARANCE NAD, activity normal for age, well developed/ well nourished, no cyanosis, pallor, or diaphoresis. EYES lids/conjunctiva normal. EARS/NOSE/THROAT Mucous membranes moist, nares normal, lips/teeth normal uvula midline without oral pharyngeal erythema, exudate or swelling TMs normal bilaterally. No lymphangitis/lymphedema. HEAD/NECK normocephalic atraumatic, no facial trauma, neck is supple. RESPIRATORY respiratory effort normal, speaks in full sentences, no tripod position, no accessory muscle use. Lungs clear to auscultation without rhonchi, wheezes, rales CARDIAC Regular rate and rhythm, no edema. ABDOMINAL Soft, ND/NT. No evidence of fluid wave. No pulsatile masses on exam, rebound tenderness, Le sign or pain over Mcburney's point. MUSCLES/EXTREMITIES No abnormal range of motion, no swelling. SKIN Warm, pink and dry. No rashes, dermatoses, petechiae or lesions. NEUROLOGICAL Speech is clear and appropriate. Normal level of consciousness. Gait and coordination are normal. 5/5 strength in all extremities. PSYCH Normal mood and affect. Judgement/competence is appropriate Discharge Plan Discharge Items Patient Disposition: Home - Self-Care Reason For Visit: SOB Discharge Diagnosis: CHF Condition on Discharge: Good Activity: Resume your previous activity Non-emergency contact: Primary Care Provider Call non-emergency contact if: you have any medication questions Follow-up/Referrals: Keeley Marquez DO [Primary Care Provider] - Diet: Regular Addtl Attending Provider Instructions: Follow up with PMD in 2 days for BMP Stand-Alone Forms: My [facility] [employer], Smoking Cessation Medications and DC Order Prescriptions: New furosemide 40 mg Tablet 40 mg PO BID17 Qty: 60 0RF Continued metoprolol succinate 100 mg tablet extended release 24 hr 100 mg PO QAM (DME) lancets [OneTouch Delica Lancets] 30 gauge misc See Rx Instructions .ROUTE .MEDSUPPLY Qty: 100 5RF Rx Instructions: Testing BS TID (DME) blood-glucose meter [OneTouch Ultra2 Meter] Misc See Rx Instructions .Route Qty: 1 0RF Rx Instructions: Testing BS TID (DME) pen needle, diabetic 32 gauge x 5/32" needle See Dose Instructions .ROUTE .MEDSUPPLY Qty: 200 1RF Dose Instruction: As directed Rx Instructions: RELI-ON pen needles - Injecting twice daily atorvastatin 40 mg tablet 40 mg PO HS Qty: 90 3RF Entresto 49-51 mg tablet 1 tab PO BID Qty: 180 3RF gabapentin 600 mg tablet 600 mg PO BID Qty: 60 5RF Rx Instructions: TAKE 1 TABLET BY MOUTH TWICE DAILY (MORNING AND NOON) famotidine 20 mg tablet 20 mg PO HS Qty: 90 1RF pantoprazole 40 mg tablet,delayed release (DR/EC) 40 mg PO QAM Qty: 90 1RF (DME) blood-glucose meter [Blood Glucose Monitoring] Kit See Rx Instructions .ROUTE .MEDSUPPLY Qty: 1 0RF Rx Instructions: As directed (DME) OneTouch Ultra Test Strip See Rx Instructions .Route Qty: 300 3RF Rx Instructions: test 3 times a day: DX code E11.8 aspirin [Ecotrin] 325 mg tablet,delayed release (DR/EC) 325 mg PO QAM amlodipine 10 mg Tablet 10 mg PO QAM sertraline 50 mg tablet 50 mg PO QAM levothyroxine 100 mcg tablet 100 mcg PO DAILYBB insulin glargine [Lantus Solostar U-100 Insulin] 100 unit/mL (3 mL) insulin pen 60 unit subcut BID empagliflozin 25 mg tablet 25 mg PO QAM semaglutide 3 mg tablet 3 mg PO QAM trazodone 50 mg Tablet 50 mg PO HS cholecalciferol (vitamin D3) [Vitamin D3] 125 mcg (5,000 unit) Tablet 125 mcg PO QAM Discontinued furosemide 40 mg tablet 40 mg PO QAM Krames/Other Patient Handouts: Managing Type 2 Diabetes, Special Foot Care for Diabetes Admission Data Admit Date/Time: 06/24/25 16:42 Attending Provider: Adonay Duarte Admit Provider: Adonay Duarte Primary Care Provider: Keeley Marquez Other Providers: Adonay Duarte; Regino Hoff; Dante Melendez Hospital Stay Data Consultations 06/24/25 16:37 ED Decision to Admit Stat 06/24/25 16:40 Consult Cardiology Routine 06/25/25 07:38 Consult Nephrology Routine Diagnostic Imagining Performed 06/25/25 13:00 US renal/blad retro comp Routine Discharge Instructions Given to Patient (Per Discharging Provider) Follow up with PMD in 2 days for BMP Total Time Total Time Spent Total Time Spent (In Minutes): 50 Coding Level of Care Code 30856 INP/OBS DISCH >30 MIN Diagnoses CHF exacerbation I50.9 Heart failure type: unspecified 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
[2025-06-27 11:53] VITALS: BP 131/97
[2025-06-27] MEDS ORDERED: FUROSEMIDE 40 MG TAB PO SCH (17:00)
== END 2025-06-27 14:22 | disposition home or self-care (01) | DRG 291 ==
LOC: ED 14:16 → 2N 16:42